=== PATIENT | male | born 1950 | race Caucasian/White ===

== ENCOUNTER 2017-02-25 19:49 | Inpatient (IN) | payer OTHER, BC ==
--- NOTE | 2017-02-25 20:02 | PDOC ---
History of Present Illness - General History Source: Significant Other Exam Limitations: Clinical Condition - History of Present Illness Initial Comments: 02/25/17 20:36 Patient is a 66 year old male with a significant past medical history of Afib, hypotension, Cardiac disease who was brought to the ED by EMS s/p Right sided weakness. Significant other states last known well of the patient was 9:45am this morning. S/O states patient was alert when she left him alone this morning until she returned home around 8pm. Patient was noted to have a left facial droop. Patient also presents weakness in Right upper extremity as well as right lower extremity. As per , patient did not report any complaints. Upon arrival patient was increasing lethargic. However was slowly following commands. Patient presented ED for further management of their emergent condition. Allergies: N/A past surgical history : CABG Social history PCP: None <Arturo Cheney - Last Filed: 02/25/17 23:17> - General History Source: Family <Jatin Schwarz - Last Filed: 03/02/17 19:45> - General Stated Complaint: CHANGE IN MENTAL STATUS Time Seen by Provider: 02/25/17 19:59 NIH Stroke Scale - Last Known Well Date/Time & Onset Date Last Known Well: 02/25/17 Time Last Known Well: 09:45 - Initial Evaluation Level of consciousness: Alert Ask patient the month and their age: Both incorrect Ask patient to open & close eyes; make fist and let go: Obeys one correctly Best gaze (horizontal eye movement): Partial gaze palsy Visual field testing: No visual field loss Facial paresis (Show teeth/raise eyebrows/close eyes tight): Minor paralysis ( flattened nasolabial fold, asymmetry on smiling) Motor Function: Left Arm: Normal Motor Function: Right Arm: No movement Motor Function: Left Leg: Normal (extends leg 30 degrees for 5 seconds without drift) Motor Function: Right Leg: No movement Limb Ataxia: Present in two limbs Sensory(Use pinprick test arms,legs,trunk,face/side to side): Mild to moderate decrease in sensation Best language (Describe picture, name items, read sentences): Severe aphasia Dysarthria (read several words): Near unintelligible or unable to speak Extinction and Inattention: No abnormality - Total Score NIH Stroke Scale Score: 20 <Jatin Schwarz - Last Filed: 03/02/17 19:45> tPA Exclusion checklist 3-4.5h - Time Elapsed Date last known well: 02/25/17 Time last known well: 20:16 Elaspsed time: 4 Day(s) and 23 Hour(s) and 28 Minutes - Thrombolytic Therapy Candidate Is patient eligible for thrombolytic therapy: No - Exclusion Criteria 3-4.5 hr SBP greater than 185 or DBP greater than 110mmHg despite tx: Yes Recent IC/spinal surgery,head trauma or stroke<3mos.: No Hx IC hemorrhage, IC neoplasm, AV malformation or aneurysm: No Active internal bleeding: No Blding diathesis(low plt ct, inc PTT,INR>1.7 or use of NOAC): No Symptoms suggest subarachnoid hemorrhage: No CT demonstrates multilobar infarct(>1/3 cerebral hemiphere): No Arterial puncture at noncompressible site in previous 7 days: No Blood glucose concentration less than 50mg/dL (2.7mmol/L): No - Relative Exclusion Criteria 3-4.5 hr Life expectancy <1 yr or severe co-morbid illness: No : No Patient/family refused: No Rapid improvement: No Stroke severity too mild: Yes Recent acute VT (w/in previous 3 months): No Seizure at onset with postictal residual neuro impairments: No Major surgery or serious trauma w/in previous 14 days: No Recent GI or hemorrhage (w/in previous 21 days): No - Add'l Relative Exclusion 3-4.5 hr Age > 80: No Hx of both diabetes AND prior ischemic stroke: No Taking an oral anticoagulant regardless of INR: No NIHSS >25: No - Ineligibility reason(s) Reasons No tPA given: Outside of window - delayed arrival (12 hours ) <Jatin Schwarz - Last Filed: 03/02/17 19:45> Past History <Arturo Cheney - Last Filed: 02/25/17 23:17> - Past Medical History COPD: Yes HTN: Yes Hypercholesterolemia: Yes - Psycho/Social/Smoking Cessation Hx Anxiety: No Suicidal Ideation: No Smoking Status: No Number of Cigarettes Smoked Daily: 0 <Jatin Schwarz - Last Filed: 03/02/17 19:45> - Past Medical History Allergies/Adverse Reactions: Allergies Allergy/AdvReac Type Severity Reaction Status Date / Time No Known Allergies Allergy Verified 07/02/11 14:09 Home Medications: Ambulatory Orders Allopurinol [Zyloprim -] 100 mg PO DAILY #30 tablet 02/26/17 Aspirin [Aspirin EC] 81 mg PO DAILY #30 tablet. 02/26/17 Bumetanide [Bumex -] 2 mg PO BID #30 tablet 02/26/17 Carvedilol [Coreg -] 12.5 mg PO BID #14 tablet 02/26/17 Digoxin [Lanoxin -] 0.25 mg PO DAILY #30 tablet 02/26/17 Febuxostat [Uloric -] 40 mg PO DAILY #30 tab 02/26/17 Oxycodone HCl/Acetaminophen [Percocet 5-325 mg Tablet] 1 tab PO Q6H PRN #20 tablet MDD 8 tablets 02/26/17 Prednisone [Deltasone -] 5 mg PO DAILY #30 tablet 02/26/17 Sertraline HCl [Zoloft -] 25 mg PO DAILY #30 tablet 02/26/17 Warfarin Na [Coumadin -] 5 mg PO DAILY@1800 #30 tablet 02/26/17 Review of Systems - Review of Systems Able to Perform ROS?: No Comments:: 02/25/17 20:36 ROS cannot be obtained due to clinical condition. All Other Systems: Reviewed and Negative <Arturo Cheney - Last Filed: 02/25/17 23:17> *Physical Exam - Physical Exam Comments: 02/25/17 20:36 GENERAL: Alert awake. Following commands slowly. well-nourished. HEENT: Normocephalic, atraumatic. PERRL, EOM intact. CARDIOVASCULAR: +Tachycardic. + S1 and S2. Regular rate and rhythm. PULMONARY: Mild Respiratory distress. + Decreased breathing sounds bilaterally with decreased work of breathing. Clear to auscultation bilaterally. ABDOMEN: No rebound. No guard. Soft, non-distended, non-tender. EXTREMITIES: No clubbing. No cyanosis. No edema. +Left upper extremity ? strength. +Left lower extremity ? strength Normal ROM in all four extremities. No gross deformities. SKIN: Warm, dry. No rash NEUROLOGICAL: +Right upper extremity Hemiplegia. +Right lower extremity hemiplegia. +Alert. +awake. + not answering questions. No focal neurological deficits. <Arturo Cheney - Last Filed: 02/25/17 23:17> Procedures - Intubation Intubation Method: nasotracheal Blade used: Arteaga Tube Size (Fr): 7.5 Medications: Etomidate, Succinylcholine Tube position confirmed by: Direct visualization, CO2 detector, Chest x-ray, Breath sounds Breath Sounds after Intubation: equal Intubation Complications: no complications Post Intubation Xray: Yes (good position) <Jatin Schwarz - Last Filed: 03/02/17 19:45> ED Treatment Course - LABORATORY CBC & Chemistry Diagram: 02/25/17 20:10 02/25/17 20:10 <NoniArturo - Last Filed: 02/25/17 23:17> - LABORATORY CBC & Chemistry Diagram: 03/02/17 05:00 03/02/17 05:00 <Jatin Schwarz - Last Filed: 03/02/17 19:45> Medical Decision Making - Medical Decision Making 02/25/17 20:23 Called [facility] transfer center (#[id number]) @20:20pm. Called Dr. Moe @23:13pm. Awaiting callback. Dr. Moe called back @23:17pm. Case discussed. <NoniArturo - Last Filed: 02/25/17 23:17> - Medical Decision Making 02/25/17 20:32 Dr. Schwarz: The scribe's documentation has been prepared under my direction and personally reviewed by me in its entirery. I confirm that the note above accurately reflects all work, treatment, procedures, and medical decision making performed by me. Pt still not able to move right arm and right leg. Pt maintaining his airway. No stridor sounds. 02/25/17 21:47 Pt required Intubation for respiratory distress and airway protection. Pt accepted to [facility] for Neurology evaluation by DR. Mcclain at ER at [facility]. Dr. Smith accepted case. 02/25/17 22:14 Pt BP is 44s systolic Dopamine drip started. 02/25/17 22:53 Pt BP is still very low. Neurology at [facility] is no longer accepting the case as it may not be safe for transferring 02/25/17 23:28 Spoke to Neurology, Dr. Moe. will see pt in am. Pt will be admitted to ICU for further evaluation and treatment. <Jatin Schwarz - Last Filed: 03/02/17 19:45> *DC/Admit/Observation/Transfer - Attestations Scribe Attestion: 02/25/17 20:37 Documentation prepared by Arturo Cheney, acting as medical staff manager for Jatin Schwarz MD. <Arturo Cheney - Last Filed: 02/25/17 23:17> - Discharge Dispostion Admit: Yes - Transfer to Acute Care Facility Receiving Facility: [facility]. (Dr. Smith accepted) <Jatin Schwarz - Last Filed: 03/02/17 19:45> Diagnosis at time of Disposition: CHF (congestive heart failure) CVA (cerebral vascular accident) Qualifiers: CVA mechanism: occlusion Precerebral and cerebral artery: middle cerebral artery Laterality of affected vessel: left Qualified Code(s): I63.512 - Cerebral infarction due to unspecified occlusion or stenosis of left middle cerebral artery - Discharge Dispostion Condition at time of disposition: Guarded - Prescriptions
[2017-02-25] MEDS ORDERED: SODIUM CHLORIDE 1,000 ML IV SCH (20:15)
[2017-02-25 20:27] LABS: MCH 30.1 pg (25.7-33.7); MCHC 32.1 g/dl (32.0-35.9); MEAN CELL VOLUME 93.6 fl (80-96); MEAN PLT VOLUME 8.6 fl (7.5-11.1); PLATELET COUNT 238 K/MM3 (134-434); RDW 18.4 % (11.9-15.9); WHITE BLOOD COUNT 11.8 K/mm3 (4.0-10.0)
[2017-02-25] MEDS ORDERED: RAPID SEQUENCE INTUBATION KIT NR ONE (20:40)
[2017-02-25] MEDS ORDERED: SUCCINYLCHOLINE CHLORIDE 200 MG/10 ML VIAL IVPUSH ONE ×2 (20:40→21:30)
[2017-02-25] MEDS ORDERED: ETOMIDATE 20 MG/10 ML AMPUL IVPUSH ONE (20:41)
[2017-02-25 20:46] LABS: INR 1.71 (0.82-1.09)
[2017-02-25 21:08] LABS: ANION GAP 10 (8-16); BILIRUBIN,TOTAL 1.1 mg/dL (0.2-1.0); CALCIUM 8.7 mg/dL (8.5-10.1); CHOLESTEROL 183 mg/dL (50-200); CO2 28 mmol/L (21-32); CREATININE 1.5 mg/dL (0.7-1.3); GLUCOSE,RANDOM 155 mg/dL (74-106); SGOT/AST 33 U/L (15-37); SGPT/ALT 36 U/L (12-78); TOT PROT 8.2 g/dl (6.4-8.2)
[2017-02-25] MEDS ORDERED: SUCCINYLCHOLINE CHLORIDE 200 MG/10 ML VIAL ONE (21:08)
[2017-02-25 21:09] LABS: ALK PHOS 155 U/L (45-117); CPK 95 IU/L (39-308); TROPONIN I 0.26 ng/ml (0.00-0.05)
[2017-02-25 21:15] LABS: URINE APPEARANCE CLEAR; URINE BILIRUBIN NEGATIVE (NEGATIVE); URINE BLOOD 1+ (NEGATIVE); URINE COLOR YELLOW; URINE GLUCOSE (UA) NEGATIVE (NEGATIVE); URINE KETONE NEGATIVE (NEGATIVE); URINE LEUK ESTERASE NEGATIVE (NEGATIVE); URINE NITRITE NEGATIVE (NEGATIVE); URINE UROBILINOGEN NEGATIVE mg/dL (0.2-1.0)
[2017-02-25 21:19] LABS: URINE PROTEIN 3+ (NEGATIVE)
[2017-02-25 21:21] LABS: URINE BACTERIA RARE /hpf (NONE SEEN); URINE RBC 2 /hpf (0-3); URINE WBC 1 /hpf (3-5)
[2017-02-25] MEDS ORDERED: AMIODARONE HCL 150 MG/3 ML VIAL IVPUSH ONE (21:39)
[2017-02-25] MEDS ORDERED: AMIODARONE HCL 150 MG/3 ML VIAL ONE (21:46)
[2017-02-25] MEDS ORDERED: LORazepam 2 MG/ML SDV VIAL ONE (21:57)
[2017-02-25] MEDS ORDERED: DOPAMINE 400 MG/D5W - 250 ML IVPB SCH ×2 (22:15)
[2017-02-25 22:41] LABS: TOTAL CELLS COUNTED 100
[2017-02-25] MEDS ORDERED: NOREPINEPHRINE BITARTRATE 4 MG/4 ML ML IV ONE (23:38)
[2017-02-25] MEDS ORDERED: NOREPINEPHRINE BITARTRATE 4,000 MCG in DEXTROSE 5%-WATER - 496 ML IV SCH (23:45)
[2017-02-25] MEDS ORDERED: MIDAZOLAM 100 MG in SODIUM CHLORIDE 100 ML IVPB SCH (23:45)
[2017-02-26] MEDS ORDERED: VASOPRESSIN 20 UNITS/ML VIAL IV ONE (00:05)
[2017-02-26] MEDS ORDERED: NOREPINEPHRINE BITARTRATE 4,000 MCG in DEXTROSE 5%-WATER - 496 ML IV SCH (00:11)
[2017-02-26] MEDS ORDERED: VASOPRESSIN 50 UNITS in SODIUM CHLORIDE 97.5 ML IVPB SCH (00:15)
--- NOTE | 2017-02-26 00:20 | HP ---
CHIEF COMPLAINT: AMS PCP: None HISTORY OF PRESENT ILLNESS: Pt is a 66yo M with hx of Afib, HTN, DM2 who presented to the ER w/ AMS. The states that she had left the patient at around 10am, left patient alone, returned in the afternoon. She stated the patient was minimally responsive, which prompted her to call EMS. On arrival, patient was noted to have R sided hemiparesis and L sided facial droop. In the ER the patient was noted to have increased lethargy, slowly following commands. Stat Head CT showed very non- hemorragic large L sided cerebral infarct. The patient displayed signs of respiratory distress, and was subsequently intubated for airway protection. Post intubation, the patient's BP steadily declined from 106/87 to 39/14. He was started on peripheral dopamine drip. [facility] was notified, and accepted the patient for transfer, however due to the low BP the patient was unable to be transported. Central access was obtained in the ER, and patient was switched to Levophed and Vasopressin, with improvement in blood pressure. ER course was notable for: (1) Amniodarone 300mg x1 (2) Succinylcholine 80mg x1 --> Intubation (3) DA drip --> central line access --> Levophed + Vasopressin drip Recent Travel: Denies PAST MEDICAL HISTORY: From EMR: COPD, Diabetes, High Cholesterol, Hypertension PAST SURGICAL HISTORY: CABG Social History: Smoking: Unable to be obtained Alcohol: Unable to be obtained Drugs: Unable to be obtained Family History: Unable to be obtained Allergies No Known Allergies Allergy (Verified 07/02/11 14:09) REVIEW OF SYSTEMS CONSTITUTIONAL: Absent: fever, chills, diaphoresis, generalized weakness, malaise, loss of appetite, weight change HEENT: Absent: rhinorrhea, nasal congestion, throat pain, throat swelling, difficulty swallowing, mouth swelling, ear pain, eye pain, visual changes CARDIOVASCULAR: Absent: chest pain, syncope, palpitations, irregular heart rate, lightheadedness , peripheral edema RESPIRATORY: Absent: cough, shortness of breath, dyspnea with exertion, orthopnea, wheezing, stridor, hemoptysis GASTROINTESTINAL: Absent: abdominal pain, abdominal distension, nausea, vomiting, diarrhea, constipation, melena, hematochezia GENITOURINARY: Absent: dysuria, frequency, urgency, hesitancy, hematuria, flank pain, genital pain MUSCULOSKELETAL: Absent: myalgia, arthralgia, joint swelling, back pain, neck pain SKIN: Absent: rash, itching, pallor HEMATOLOGIC/IMMUNOLOGIC: Absent: easy bleeding, easy bruising, lymphadenopathy, frequent infections ENDOCRINE: Absent: unexplained weight gain, unexplained weight loss, heat intolerance, cold intolerance NEUROLOGIC: Absent: headache, focal weakness or paresthesias, dizziness, unsteady gait, seizure, mental status changes, bladder or bowel incontinence PSYCHIATRIC: Absent: anxiety, depression, suicidal or homicidal ideation, hallucinations. PHYSICAL EXAMINATION Last Vital Signs Temp Pulse Resp BP Pulse Ox 100.1 F H 92 H 14 151/117 100 02/25/17 19:50 02/26/17 00:38 02/26/17 00:37 02/26/17 00:38 02/25/17 20:31 GEN: Pt is awake, intubated, nonresponsive. Breathing heavily against ETT. HEENT: Pupils are dilated, nonreactive to light. Swollen, protubrant eyes. Central cyanosis. L sided facial droop CV: S1, S2, RRR LUNG: Decreased breath sounds ABD: Soft, nondistended, normoactive BS MSK: Cool extremities with mottling in abdomen + extremities NEURO: Unable to assess Laboratory Results - last 24 hr 02/25/17 02/25/17 02/25/17 20:10 20:10 20:10 WBC 11.8 H RBC 4.96 D Hgb 14.9 D Hct 46.4 D MCV 93.6 MCH 30.1 MCHC 32.1 RDW 18.4 H D Plt Count 238 MPV 8.6 Total Counted 100 Neutrophils % Y Neutrophils % (Manual) 91 H* Lymphocytes % Y Lymphocytes % (Manual) 8 Monocytes % (Manual) 1 L INR 1.71 H D Sodium 141 Potassium 4.2 Chloride 103 Carbon Dioxide 28 Anion Gap 10 BUN 44 H D Creatinine 1.5 H D Creat Clearance w eGFR 46.68 Random Glucose 155 H D Calcium 8.7 Total Bilirubin 1.1 H D AST 33 D ALT 36 D Alkaline Phosphatase 155 H D Creatine Kinase 95 Troponin I 0.26 H Total Protein 8.2 Albumin 3.0 L Triglycerides 150 Cholesterol 183 Total LDL Cholesterol 109 H HDL Cholesterol 48 Urine Color Urine Appearance Urine pH Ur Specific [place] Urine Protein Urine Glucose (UA) Urine Ketones Urine Blood Urine Nitrite Urine Bilirubin Urine Urobilinogen Ur Leukocyte Esterase Urine RBC Urine WBC Ur Epithelial Cells Urine Bacteria Blood Type Antibody Screen 02/25/17 02/25/17 20:10 21:01 WBC RBC Hgb Hct MCV MCH MCHC RDW Plt Count MPV Total Counted Neutrophils % Neutrophils % (Manual) Lymphocytes % Lymphocytes % (Manual) Monocytes % (Manual) INR Sodium Potassium Chloride Carbon Dioxide Anion Gap BUN Creatinine Creat Clearance w eGFR Random Glucose Calcium Total Bilirubin AST ALT Alkaline Phosphatase Creatine Kinase Troponin I Total Protein Albumin Triglycerides Cholesterol Total LDL Cholesterol HDL Cholesterol Urine Color Yellow Urine Appearance Clear Urine pH 6.0 Ur Specific [place] 1.025 Urine Protein 3+ H Urine Glucose (UA) Negative Urine Ketones Negative Urine Blood 1+ H Urine Nitrite Negative Urine Bilirubin Negative Urine Urobilinogen Negative Ur Leukocyte Esterase Negative Urine RBC 2 Urine WBC 1 Ur Epithelial Cells Rare Urine Bacteria Rare Blood Type O POSITIVE Antibody Screen Negative Active Medications Generic Name Dose Route Start Last Admin Trade Name Freq PRN Reason Stop Dose Admin Chlorhexidine Gluconate 1 applic 02/26/17 22:00 Hibiclens For Decolonization - TP HS WES Heparin Sodium (Porcine) 5,000 unit 02/26/17 06:00 Heparin - SQ TID WES Sodium Chloride 1,000 mls @ 42 mls/hr 02/25/17 20:15 02/25/17 20:30 Normal Saline - IV 42 mls/hr ASDIR WES Administration Norepinephrine Bitartrate 4, 500 mls @ 37.5 mls/hr 02/25/17 23:45 02/25/17 23: 50 000 mcg/ Dextrose IV 37.5 mls/hr TITR WES Administration Protocol 5 MCG/MIN Midazolam HCl 100 mg/ Sodium 100 mls @ 1 mls/hr 02/25/17 23:45 Chloride IVPB 02/26/17 23:44 TITR WES Protocol 1 MG/HR Dopamine HCl/Dextrose 250 mls @ 18.711 mls/hr 02/25/17 22:15 Dopamine 400 Mg/D5w - IVPB TITR WES Protocol 5 MCG/KG/MIN Vasopressin 50 units/ Sodium 100 mls @ 4 mls/hr 02/26/17 00:15 Chloride IVPB ASDIR WES Protocol 2 UNITS/HR Mupirocin 1 applic 02/26/17 10:00 Bactroban Ointment (For Decolonization) - NS 03/03/17 09:59 BID WES Imaging: CT Head Noncon - Very large acute nonhemorrhagic L cerebral infarct in the distribution of MCA + AYAAN ASSESSMENT/PLAN: Pt is a 66yo F with PMHx of Afib who presented with focal neurological deficits , found to have a very large Left sided MCA/AYAAN stroke and heart failure, now hypotensive on pressors. He was unable to be transfered to tertiary care due to low BP. Currently in ICU for HLOC. # Large Left Sided CVA - Likely from acute embolus - Increased density seen w/in MCA c/w intraluminal clot, likely embolic - Out of tPA window - Started Keppra for seizure prophylaxis - Intubated on propofol drip - Consult Neurology Dr. Moe - ICU admission # Shock - cardiogenic vs septic vs neurogenic - RSC central line inserted in ED - Started Levophed + Vasopressin drip titration - Pt takes home steroids, Solu-cortef 100mg IVP Q8H given for stress dosing - CXR shows significant cardiomegaly, B/L congestion, elevated troponin (0.26 ) - Latest CXR shows possible consolidative changes in RLL, pt febrile, Leukocytosis - F/u Echo - F/u AM CXR - IV Unasyn 3g Q6H - Hold Lasix - When BP stabilizes, start diuresis # Lactic Acidosis - likely from hypoperfusion due to shock - Start IVNS fluid bolus x1 - Trend LA on fluids # DEBRA - likely prerenal from hypoperfusion dye to shock - Continue IVF - Trend w/ BMP in AM # Prolonged QTc - >480ms - EKG ordered for AM - Follow serial EKGs - Avoid QTc prolonging agents # Hx of Afib - Rate controlled - F/u Echo if BP stabilizes to evaluate for clot # Hx of DM2 - BGM Q2 # FEN - Fluids: IVNS bolus x1 - Electrolytes: No gross abnormalities - Nutrition: NPO for now # Prophylaxis - DVT: Heparin SQ TID - GI: IV Pepcid - Deconditioning: PT on hold for now # Dispo - Admit to ICU - Family is aware of guarded prognosis, still request Full Code status, states that patient had a difficult immediate recovery after his CABG but later improved to baseline. Case discussed with Dr. Michael and Dr. Arleth Contreras MD - PGY1 Internal Medicine Visit type - Emergency Visit Emergency Visit: Yes ED Registration Date: 02/25/17 Care time: The patient presented to the Emergency Department on the above date and was hospitalized for further evaluation of their emergent condition. - New Patient This patient is new to me today: No - Critical Care Critical Care patient: Yes Total Critical Care Time (in minutes): 120 Critical Care Statement: The care of this patient involved high complexity decision making to prevent further life threatening deterioration of the patient 's condition and/or to evaluate & treat vital organ system(s) failure or risk of failure.
--- NOTE | 2017-02-26 01:04 | PN ---
Teaching Attending Note Name of Resident: Kathryn Contreras ATTENDING PHYSICIAN STATEMENT I saw and evaluated the patient. I reviewed the resident's note and discussed the case with the resident. I agree with the resident's findings and plan as documented. SUBJECTIVE: 66 year old male that was last seen in his normal state of health 10 am , was found by his family in the afternoon with l sided facial droop and right sided hemiparesis. EMS was called and patient was transferred to the ED where CT brain showed large infarct in distribution of L MCA and patient was intubated for airway protection . Transfer was initiated to [facility] however upon arrival of transport team , his blood pressure dropped to 44/ non palpable. Transfer was cancelled du to the fact that patient was hemodynamically unstable. PMH AFIB HTN DM COPD HLD past surgical history : CABG Social history lives with family no toxic habits PCP: None OBJECTIVE: Vital Signs Temperature 100.1 F H 02/25/17 19:50 Pulse Rate 92 H 02/26/17 00:38 Respiratory Rate 14 02/26/17 00:37 Blood Pressure 40/14 02/26/17 00:38 O2 Sat by Pulse Oximetry (%) 100 02/25/17 20:31 EN: Pt is awake, intubated, nonresponsive. Breathing heavily against ETT HEENT: Pupils are dilated, nonreactive to light. Swollen, protubrant eyes. Central cyanosis. CV: S1, S2, RRR LUNG: Decreased breath sounds ABD: Soft, nondistended, normoactive BS MSK: Cool extremities with mottling NEURO: Unable to assess CBC, BMP 02/25/17 20:10 02/25/17 20:10 CXR - cardiomegaly with PVC ASSESSMENT AND PLAN: 1. Acute L MCA ischemic stroke 2. Acute respiratory failure - secondary to pulmonary edema 3. Acute CHF 4. Severe sepsis and hypotension - no sourse known at this time 5. ARF PLAN : - neuro checks - levophed / vasopressin / versed - broad spectrum anibiotics - blood culture - will diurese when BP allows - ECHO - monitor in ICU - IVF - central line placed
[2017-02-26] MEDS ORDERED: PROPOFOL 100 ML ONE (01:38)
--- NOTE | 2017-02-26 01:48 | PROC ---
Central Line Insertion Indication: Sepsis, Vasopressor Risks and Benefits Explained: Yes Consent on Chart: Yes Central Line: Triple Lumen Catheter Anesthesia: 1% Lidocaine Sterile Technique: Yes Ultrasound Guided Assistance: No Position: Right Subclavian Post Insertion: Yes: Bilateral Breath Sounds, Bilateral Chest Expansion, Chest X-Ray Ordered Sterile Dressing Applied: Yes Remarks: tolerated procedure w/o complication
[2017-02-26 02:07] LABS: ALLENS TEST POSITIVE; ART PUNCT SITE RIGHT RADIAL; ARTERIAL BLD GAS O2 SATURATION 86.1 % (90-98.9); ARTERIAL BLOOD GAS BASE EXCESS -7.6 meq/l (-2-2); ARTERIAL BLOOD GAS HCO3 18.2 meq/L (22-26); ARTERIAL BLOOD GAS PO2 62.2 mmHg (80-100); LPM/O2% 100%; MECH. VENT. Y; ON ANTICOAG? NT; PT. ON O2? YES; TYPE OF O2 VER; VENT RATE 14; VT/PRESS 500
[2017-02-26 02:08] LABS: ARTERIAL BLOOD GAS pH 7.29 (7.35-7.45)
[2017-02-26] MEDS ORDERED: TRIPLE LUMEN FLUSH 4 ML ML IVPUSH PRN ×2 (02:08→21:23)
--- NOTE | 2017-02-26 02:17 | CONSULT ---
Consult Consult Specialty:: Pulm/CCM Reason for Consultation:: CVA, AMS, resp failure, shock - History of Present Illness Chief Complaint: AMS History of Present Illness: This is a 66yo man afib, HTN, DM who presented to ED with new onset AMS. Per report last seen normal 02/25/2017 10am. Family found patient with rightside weakness and left facial droop and EMS was activated. In the ED patient was awake but became obtunded requiring intubation. NCHCT showed very large L sided cerebral infarct. Not candidate for TPA given unknown down time. Patient became hemodynamically unstable with BP 40/20s. Dopamine started. [facility] was consulted for transfer but given hypotension patient was declined. CCM was consulted and RSCV TLC was placed and NE and vaso drips with improved BP. Patient with low grade fever and WBC: 11.8. Patient transferred to ICU. CXR showed progressive RML/RLL infiltrate c/f aspiration. Unasyn was started. Patient placed on propofol drip for sedation/vent synchrony and to allow for neuro checks. - History Source History Provided By: Family Member, Medical Record Limitations to Obtaining History: Intubated - Past Medical History Cardio/Vascular: Yes: AFIB, CAD Pulmonary: Yes: COPD - Past Surgical History Past Surgical History: Yes: AICD, CABG (2010), Laminectomy, Valve Replacement ( MVR: porcine valve 2010) - Alcohol/Substance Use Hx Alcohol Use: No - Smoking History Smoking history: Unknown if ever smoked Have you smoked in the past 12 months: Yes Aproximately how many cigarettes per day: 0 If you are a former smoker, when did you quit?: 2010 - Social History Usual Living Arrangement: With Spouse Home Medications - Allergies Allergies/Adverse Reactions: Allergies Allergy/AdvReac Type Severity Reaction Status Date / Time No Known Allergies Allergy Verified 07/02/11 14:09 Family Disease History - Family Disease History Family History: Unremarkable Review of Systems Unable to obtain ROS, reason: intubated Physical Exam Vital Signs: Vital Signs Temperature 100.1 F H 02/25/17 19:50 Pulse Rate 82 02/26/17 01:23 Respiratory Rate 20 02/26/17 02:12 Blood Pressure 110/95 02/26/17 01:23 O2 Sat by Pulse Oximetry (%) 100 02/25/17 20:31 Current Medications Chlorhexidine Gluconate (Hibiclens For Decolonization -) 1 applic TP HS WES Heparin Sodium (Porcine) (Heparin -) 5,000 unit SQ TID WES Hydrocortisone Sodium Succinate (Solu-Cortef -) 100 mg IVPUSH Q8H WES IV Flush (Triple Lumen Flush) 4 ml IVPUSH PRN PRN PRN Reason: Protocol Sodium Chloride (Normal Saline -) 1,000 mls @ 42 mls/hr IV ASDIR WES Last Admin: 02/25/17 20:30 Dose: 42 mls/hr Vasopressin 50 units/ Sodium (Chloride) 100 mls @ 4.8 mls/hr IVPB ASDIR WES PRN Reason: 2.4 UNITS/HR Last Admin: 02/26/17 02:24 Dose: 4.8 mls/hr Ampicillin Sodium/Sulbactam (Sodium 3 gm/ Sodium Chloride) 100 mls @ 200 mls/ hr IVPB Q6H-IV WES Norepinephrine Bitartrate 4, (000 mcg/ Dextrose) 500 mls @ 37.5 mls/hr IV TITR WES; 5 MCG/MIN PRN Reason: Protocol Last Titration: 02/26/17 02:25 Dose: 25 mcg/min Propofol (Diprivan -) 100 mls @ 2.994 mls/hr IVPB TITR WES; 5 MCG/KG/MIN PRN Reason: Protocol Last Admin: 02/26/17 02:24 Dose: 2.994 mls/hr Famotidine/Sodium Chloride (Pepcid 20 Mg Premixed Ivpb -) 50 mls @ 100 mls/hr IVPB BID [facility] Mupirocin (Bactroban Ointment (For Decolonization) -) 1 applic NS BID [facility] Stop: 03/03/17 09:59 Pneumococcal 13-Valent Conj Vacc (Prevnar 13 Syringe -) 0.5 ml IM .ONCE ONE Stop: 02/26/17 02:50 Constitutional: Yes: Moderate Distress Eyes: Yes: Other (R 4mm, L 2mm) Cardiovascular: Yes: Pulse Irregular, S1, S2 Respiratory: Yes: Diminished, Intubated, Mechanically Ventilated Gastrointestinal: Yes: Normal Bowel Sounds, Soft Edema: No Edema: LLE: Trace, RLE: Trace Neurological: Yes: Facial Droop (left) Labs: CBCD WBC 11.8 K/mm3 (4.0-10.0) H 02/25/17 20:10 RBC 4.96 M/mm3 (4.00-5.60) D 02/25/17 20:10 Hgb 14.9 GM/dL (11.7-16.9) D 02/25/17 20:10 Hct 46.4 % (35.4-49) D 02/25/17 20:10 MCV 93.6 fl (80-96) 02/25/17 20:10 MCHC 32.1 g/dl (32.0-35.9) 02/25/17 20:10 RDW 18.4 % (11.9-15.9) H D 02/25/17 20:10 Plt Count 238 K/MM3 (134-434) 02/25/17 20:10 MPV 8.6 fl (7.5-11.1) 02/25/17 20:10 CMP Sodium 141 mmol/L (136-145) 02/25/17 20:10 Potassium 4.2 mmol/L (3.5-5.1) 02/25/17 20:10 Chloride 103 mmol/L (98-107) 02/25/17 20:10 Carbon Dioxide 28 mmol/L (21-32) 02/25/17 20:10 Anion Gap 10 (8-16) 02/25/17 20:10 BUN 44 mg/dL (7-18) H D 02/25/17 20:10 Creatinine 1.5 mg/dL (0.7-1.3) H D 02/25/17 20:10 Creat Clearance w eGFR 46.68 (>60) 02/25/17 20:10 Calcium 8.7 mg/dL (8.5-10.1) 02/25/17 20:10 Total Bilirubin 1.1 mg/dL (0.2-1.0) H D 02/25/17 20:10 AST 33 U/L (15-37) D 02/25/17 20:10 ALT 36 U/L (12-78) D 02/25/17 20:10 Alkaline Phosphatase 155 U/L (45-117) H D 02/25/17 20:10 Total Protein 8.2 g/dl (6.4-8.2) 02/25/17 20:10 Albumin 3.0 g/dl (3.4-5.0) L 02/25/17 20:10 ABG Results ABG pH 7.29 (7.35-7.45) L 02/26/17 02:00 ABG pCO2 at Pt Temp 39.4 mmHg (35-45) 02/26/17 02:00 ABG pO2 at Pt Temp 62.2 mmHg (80-100) L 02/26/17 02:00 ABG HCO3 18.2 meq/L (22-26) L 02/26/17 02:00 ABG O2 Sat (Measured) 86.1 % (90-98.9) L 02/26/17 02:00 ABG O2 Content 17.4 % vol (15-22) 02/26/17 02:00 ABG Base Excess -7.6 meq/l (-2-2) L 02/26/17 02:00 Imaging - Results Chest X-ray: Report Reviewed, Image Reviewed (TLCa nd ETT in ok position. evolving RML/RLL infiltrate) Cat Scan: Report Reviewed, Image Reviewed (large L sided cerebral infarct) EKG: Report Reviewed, Image Reviewed (afib, HR 68) Problem List - Problems (1) CVA (cerebral vascular accident) Code(s): I63.9 - CEREBRAL INFARCTION, UNSPECIFIED Qualifiers: CVA mechanism: occlusion Precerebral and cerebral artery: middle cerebral artery Laterality of affected vessel: left Qualified Code(s): I63.512 - Cerebral infarction due to unspecified occlusion or stenosis of left middle cerebral artery (2) Respiratory failure Code(s): J96.90 - RESPIRATORY FAILURE, UNSP, UNSP W HYPOXIA OR HYPERCAPNIA (3) Shock circulatory Code(s): R57.9 - SHOCK, UNSPECIFIED (4) A-fib Code(s): I48.91 - UNSPECIFIED ATRIAL FIBRILLATION (5) CAD (coronary artery disease) Code(s): I25.10 - ATHSCL HEART DISEASE OF [place] CORONARY ARTERY W/O ANG PCTRS (6) Diabetes Code(s): E11.9 - TYPE 2 DIABETES MELLITUS WITHOUT COMPLICATIONS Assessment/Plan a/p: 66 yo man with large Left sided MCA/AYAAN stroke likely c/b aspiration pneumonia and septic shock (warm to touch) -Neurology consulted -keppra given seizure risk -sedation for vent synchrony, will use propofol to facilitate quick on and off for neuro checks -mechanical ventilation -HOB >30deg, oral care -O2 for sat >90% -lujan culture: blood, sputum and urine -ABX: unasyn for aspiration pneumonia -Central access -NE gtt titration for MAP >65 -Cont vasopressin repletion at 2.4units/hr -stress steroids given current prednisone use -trend lactate -hold coumadin, start heparin once ok by neurology -glucose control: goal 100-180 -PPI for GI prophylaxis -SCD for DVT prophylaxis Boerem ACNP Pulm/CCM CCT: 120m
[2017-02-26] MEDS: PROPOFOL 100 ML IVPB SCH ×4 (02:24→21:42)
[2017-02-26] MEDS ORDERED: NOREPINEPHRINE BITARTRATE 4 MG/4 ML ML IV ONE ×5 (02:29→22:36)
[2017-02-26] MEDS ORDERED: SODIUM CHLORIDE 1,000 ML IV STA (02:55)
[2017-02-26] MEDS ORDERED: HYDROCORTISONE SOD SUCCINATE 100 MG/2 ML VIAL IVPUSH SCH (03:00)
[2017-02-26] MEDS: AMPICILLIN NA/SULBACTAM NA 3 GM in SODIUM CHLORIDE 100 ML IVPB SCH ×3 (03:07→14:55)
[2017-02-26] MEDS: levETIRAcetam 500 MG/5 ML INJECTION VIAL IVPB SCH ×3 (03:13→22:25)
[2017-02-26] MEDS: NOREPINEPHRINE BITARTRATE 8,000 MCG in DEXTROSE 5%-WATER - 496 ML IV SCH ×4 (03:56→21:42)
[2017-02-26 05:52] LABS: BASOPHIL 0.3 % (0-2.0); MCH 30.6 pg (25.7-33.7); MCHC 32.1 g/dl (32.0-35.9); MEAN CELL VOLUME 95.2 fl (80-96); MEAN PLT VOLUME 8.8 fl (7.5-11.1); NEUTROPHILS 86.1 % (42.8-82.8); PLATELET COUNT 215 K/MM3 (134-434); RDW 18.8 % (11.9-15.9); WHITE BLOOD COUNT 16.3 K/mm3 (4.0-10.0)
[2017-02-26] MEDS ORDERED: HEPARIN NA (PORCINE) 5,000 UNITS/ML 1ML VIAL SQ SCH (06:00)
[2017-02-26 06:22] LABS: ALBUMIN 2.4 g/dl (3.4-5.0); ANION GAP 14 (8-16); CO2 22 mmol/L (21-32); GLUCOSE,RANDOM 205 mg/dL (74-106)
[2017-02-26 06:26] LABS: ALK PHOS 122 U/L (45-117); BILIRUBIN,TOTAL 1.3 mg/dL (0.2-1.0); CALCIUM 7.3 mg/dL (8.5-10.1); CREATININE 2.1 mg/dL (0.7-1.3); SGOT/AST 126 U/L (15-37); SGPT/ALT 85 U/L (12-78); TOT PROT 6.1 g/dl (6.4-8.2)
[2017-02-26 07:35] LABS: ART PUNCT SITE LEFT BRACHIAL; ARTERIAL BLD GAS O2 SATURATION 99.7 % (90-98.9); ARTERIAL BLOOD GAS BASE EXCESS -6.5 meq/l (-2-2); ARTERIAL BLOOD GAS HCO3 17.6 meq/L (22-26); ARTERIAL BLOOD GAS pH 7.35 (7.35-7.45); LPM/O2% 100; PT. ON O2? YES; TYPE OF O2 VENT
[2017-02-26 07:36] LABS: MECH. VENT. YES; VENT RATE 30; VT/PRESS 400
--- NOTE | 2017-02-26 08:58 | EKG ---
Test Reason : Blood Pressure : / mmHG Vent. Rate : 105 BPM Atrial Rate : 110 BPM P-R Int : 000 ms QRS Dur : 150 ms QT Int : 408 ms P-R-T Axes : 000 213 037 degrees QTc Int : 539 ms UNDETERMINED RHYTHM : Probably atrial fibrillation RIGHT BUNDLE BRANCH BLOCK ABNORMAL ECG Confirmed by OMAR MCNALLY MD ([id number]) on 02/26/2017 8:57:31 AM Referred By: Confirmed By:OMAR MCNALLY MD
[2017-02-26] MEDS ORDERED: PNEUMOC 13-VAL CONJ-DIP CRM/PF 0.5 ML DISP.SYRIN IM ONE (09:00)
[2017-02-26] MEDS ORDERED: HEPARIN NA (PORCINE) 5,000 UNITS/ML 1ML VIAL IVPUSH PRN ×6 (09:06→21:23)
[2017-02-26] MEDS ORDERED: HEPARIN - 25,000 UNIT in SODIUM CHLORIDE 495 ML IV SCH ×2 (09:30→21:23)
[2017-02-26] MEDS: HYDROCORTISONE SOD SUCCINATE 100 MG/2 ML VIAL IVPUSH SCH ×2 (09:53→17:17)
[2017-02-26] MEDS ORDERED: levETIRAcetam 500 MG/5 ML ORAL SOLUTION (UNIT-DOSE CUPS) PO SCH (10:00)
[2017-02-26] MEDS ORDERED: FAMOTIDINE 20 MG/50 ML IVPB 50 ML IVPB SCH (10:00)
[2017-02-26] MEDS ORDERED: MUPIROCIN 2% TOPICAL OINTMENT FOR DECOLONIZATION NS SCH (10:00)
[2017-02-26] MEDS ORDERED: PT OWN MED DRAWER 7, Y5N ONE (10:34)
[2017-02-26] MEDS ORDERED: INSULIN SLIDING SCALE (NOVOLOG) 1 VIAL SQ SCH ×2 (11:00→15:48)
--- NOTE | 2017-02-26 11:55 | PN ---
Teaching Attending Note Name of Resident: Mario Abdi ATTENDING PHYSICIAN STATEMENT I saw and evaluated the patient. I reviewed the resident's note and discussed the case with the resident. I agree with the resident's findings and plan as documented. SUBJECTIVE: Patient seen and examined in the ICU. Intubated and sedated. Significant pressor support (30 meq NE / 2.4 units of Vaso). AC mode of vent. ECHO : severe LV dysfunction. Intake & Output 02/23/17 02/24/17 02/25/17 02/26/17 23:59 23:59 23:59 23:59 Intake Total 2768 Output Total 250 Balance 2518 Weight 220 lb 179 lb 3 oz Last Vital Signs Temp Pulse Resp BP Pulse Ox 98.5 F 71 30 H 107/90 100 02/26/17 10:00 02/26/17 10:00 02/26/17 11:09 02/26/17 10:00 02/26/17 10:04 Active Medications Chlorhexidine Gluconate (Hibiclens For Decolonization -) 1 applic TP HS WES Heparin Sodium (Porcine) (Heparin -) 1,000 unit IVPUSH PRN PRN PRN Reason: Heparin Heparin Sodium (Porcine) (Heparin -) 5,000 unit IVPUSH PRN PRN PRN Reason: Heparin Hydrocortisone Sodium Succinate (Solu-Cortef -) 100 mg IVPUSH Q8H-IV WES Last Admin: 02/26/17 09:53 Dose: 100 mg IV Flush (Triple Lumen Flush) 4 ml IVPUSH PRN PRN PRN Reason: Protocol Vasopressin 50 units/ Sodium (Chloride) 100 mls @ 4.8 mls/hr IVPB ASDIR WES PRN Reason: 2.4 UNITS/HR Last Admin: 02/26/17 02:24 Dose: 4.8 mls/hr Ampicillin Sodium/Sulbactam (Sodium 3 gm/ Sodium Chloride) 100 mls @ 200 mls/ hr IVPB Q6H-IV WES Last Admin: 02/26/17 10:45 Dose: 200 mls/hr Propofol (Diprivan -) 100 mls @ 2.994 mls/hr IVPB TITR WES; 5 MCG/KG/MIN PRN Reason: Protocol Last Admin: 02/26/17 09:28 Dose: 8.981 mls/hr Famotidine/Sodium Chloride (Pepcid 20 Mg Premixed Ivpb -) 50 mls @ 100 mls/hr IVPB BID [facility] Last Admin: 02/26/17 09:28 Dose: 100 mls/hr Norepinephrine Bitartrate 8, (000 mcg/ Dextrose) 504 mls @ 18.9 mls/hr IV TITR WES; 5 MCG/MIN PRN Reason: Protocol Last Admin: 02/26/17 08:57 Dose: 113.4 mls/hr Heparin Sodium (Porcine) 25, (000 unit/ Sodium Chloride) 500 mls @ 20 mls/hr IV TITR WES; 1,000 UNIT/HR PRN Reason: Protocol Insulin Aspart (Novolog Vial Sliding Scale -) 1 vial SQ ACHS WES PRN Reason: Protocol Levetiracetam (Keppra Injection -) 1,000 mg IVPB BID [facility] Last Admin: 02/26/17 09:52 Dose: 1,000 mg Mupirocin (Bactroban Ointment (For Decolonization) -) 1 applic NS BID [facility] Stop: 03/03/17 09:59 Last Admin: 02/26/17 10:47 Dose: 1 applic Constitutional: Yes: Intubated and sedated Eyes: Yes: Pupils 1.5 mm and equal Cardiovascular: Yes: Pulse Irregular, S1, S2 Respiratory: Yes: Bilateral coarse rhonchi Right > Left, Intubated, Mechanically Ventilated Gastrointestinal: Yes: Normal Bowel Sounds, Soft Edema: No Edema: LLE: Trace, RLE: Trace Neurological: Yes: Sedated on propofol Labs: Laboratory Results - last 24 hr 02/25/17 02/25/17 02/25/17 20:10 20:10 20:10 WBC 11.8 H RBC 4.96 D Hgb 14.9 D Hct 46.4 D MCV 93.6 MCH 30.1 MCHC 32.1 RDW 18.4 H D Plt Count 238 MPV 8.6 Total Counted 100 Neutrophils % Y Neutrophils % (Manual) 91 H* Lymphocytes % Y Lymphocytes % (Manual) 8 Monocytes % Monocytes % (Manual) 1 L Eosinophils % Basophils % INR 1.71 H D Anticoagulation Therapy Puncture Site ABG pH ABG pCO2 at Pt Temp ABG pO2 at Pt Temp ABG HCO3 ABG O2 Sat (Measured) ABG O2 Content ABG Base Excess Guero Test O2 Delivery Device Oxygen Flow Rate Vent Mode Vent Rate Mechanical Rate PEEP Pressure Support Vent Sodium 141 Potassium 4.2 Chloride 103 Carbon Dioxide 28 Anion Gap 10 BUN 44 H D Creatinine 1.5 H D Creat Clearance w eGFR 46.68 POC Glucometer Random Glucose 155 H D Lactic Acid Calcium 8.7 Total Bilirubin 1.1 H D AST 33 D ALT 36 D Alkaline Phosphatase 155 H D Creatine Kinase 95 Troponin I 0.26 H Total Protein 8.2 Albumin 3.0 L Triglycerides 150 Cholesterol 183 Total LDL Cholesterol 109 H HDL Cholesterol 48 Urine Color Urine Appearance Urine pH Ur Specific Wilson Urine Protein Urine Glucose (UA) Urine Ketones Urine Blood Urine Nitrite Urine Bilirubin Urine Urobilinogen Ur Leukocyte Esterase Urine RBC Urine WBC Ur Epithelial Cells Urine Bacteria Blood Type Antibody Screen 02/25/17 02/25/17 02/26/17 20:10 21:01 00:45 WBC RBC Hgb Hct MCV MCH MCHC RDW Plt Count MPV Total Counted Neutrophils % Neutrophils % (Manual) Lymphocytes % Lymphocytes % (Manual) Monocytes % Monocytes % (Manual) Eosinophils % Basophils % INR Anticoagulation Therapy Puncture Site ABG pH ABG pCO2 at Pt Temp ABG pO2 at Pt Temp ABG HCO3 ABG O2 Sat (Measured) ABG O2 Content ABG Base Excess Guero Test O2 Delivery Device Oxygen Flow Rate Vent Mode Vent Rate Mechanical Rate PEEP Pressure Support Vent Sodium Potassium Chloride Carbon Dioxide Anion Gap BUN Creatinine Creat Clearance w eGFR POC Glucometer Random Glucose Lactic Acid 7.8 H* Calcium Total Bilirubin AST ALT Alkaline Phosphatase Creatine Kinase Troponin I Total Protein Albumin Triglycerides Cholesterol Total LDL Cholesterol HDL Cholesterol Urine Color Yellow Urine Appearance Clear Urine pH 6.0 Ur Specific Wilson 1.025 Urine Protein 3+ H Urine Glucose (UA) Negative Urine Ketones Negative Urine Blood 1+ H Urine Nitrite Negative Urine Bilirubin Negative Urine Urobilinogen Negative Ur Leukocyte Esterase Negative Urine RBC 2 Urine WBC 1 Ur Epithelial Cells Rare Urine Bacteria Rare Blood Type O POSITIVE Antibody Screen Negative 02/26/17 02/26/17 02/26/17 02:00 03:54 05:35 WBC 16.3 H D RBC 4.63 Hgb 14.1 Hct 44.1 MCV 95.2 MCH 30.6 MCHC 32.1 RDW 18.8 H Plt Count 215 MPV 8.8 Total Counted Neutrophils % 86.1 H D Neutrophils % (Manual) Lymphocytes % 5.6 L D Lymphocytes % (Manual) Monocytes % 8.0 Monocytes % (Manual) Eosinophils % 0.0 D Basophils % 0.3 INR Anticoagulation Therapy Nt Puncture Site Right radial ABG pH 7.29 L ABG pCO2 at Pt Temp 39.4 ABG pO2 at Pt Temp 62.2 L ABG HCO3 18.2 L ABG O2 Sat (Measured) 86.1 L ABG O2 Content 17.4 ABG Base Excess -7.6 L Guero Test Positive O2 Delivery Device [place] Oxygen Flow Rate 100% Vent Mode Ac Vent Rate 14 Mechanical Rate Y PEEP 5.0 Pressure Support Vent 500 Sodium Potassium Chloride Carbon Dioxide Anion Gap BUN Creatinine Creat Clearance w eGFR POC Glucometer [phone] Random Glucose Lactic Acid Calcium Total Bilirubin AST ALT Alkaline Phosphatase Creatine Kinase Troponin I Total Protein Albumin Triglycerides Cholesterol Total LDL Cholesterol HDL Cholesterol Urine Color Urine Appearance Urine pH Ur Specific Wilson Urine Protein Urine Glucose (UA) Urine Ketones Urine Blood Urine Nitrite Urine Bilirubin Urine Urobilinogen Ur Leukocyte Esterase Urine RBC Urine WBC Ur Epithelial Cells Urine Bacteria Blood Type Antibody Screen 02/26/17 02/26/17 02/26/17 05:35 05:35 05:35 WBC RBC Hgb Hct MCV MCH MCHC RDW Plt Count MPV Total Counted Neutrophils % Neutrophils % (Manual) Lymphocytes % Lymphocytes % (Manual) Monocytes % Monocytes % (Manual) Eosinophils % Basophils % INR Anticoagulation Therapy Puncture Site ABG pH ABG pCO2 at Pt Temp ABG pO2 at Pt Temp ABG HCO3 ABG O2 Sat (Measured) ABG O2 Content ABG Base Excess Guero Test O2 Delivery Device Oxygen Flow Rate Vent Mode Vent Rate Mechanical Rate PEEP Pressure Support Vent Sodium 142 Potassium 4.7 Chloride 106 Carbon Dioxide 22 D Anion Gap 14 BUN 49 H Creatinine 2.1 H D Creat Clearance w eGFR 31.66 POC Glucometer Random Glucose 205 H D Lactic Acid 3.4 H* Calcium 7.3 L Total Bilirubin 1.3 H AST 126 H D ALT 85 H D Alkaline Phosphatase 122 H D Creatine Kinase Troponin I 0.59 H D Total Protein 6.1 L D Albumin 2.4 L Triglycerides Cholesterol Total LDL Cholesterol HDL Cholesterol Urine Color Urine Appearance Urine pH Ur Specific Wilson Urine Protein Urine Glucose (UA) Urine Ketones Urine Blood Urine Nitrite Urine Bilirubin Urine Urobilinogen Ur Leukocyte Esterase Urine RBC Urine WBC Ur Epithelial Cells Urine Bacteria Blood Type Antibody Screen 02/26/17 02/26/17 06:34 07:20 WBC RBC Hgb Hct MCV MCH MCHC RDW Plt Count MPV Total Counted Neutrophils % Neutrophils % (Manual) Lymphocytes % Lymphocytes % (Manual) Monocytes % Monocytes % (Manual) Eosinophils % Basophils % INR Anticoagulation Therapy Puncture Site Left brachial ABG pH 7.35 ABG pCO2 at Pt Temp 32.8 L ABG pO2 at Pt Temp 200.0 H* ABG HCO3 17.6 L ABG O2 Sat (Measured) 99.7 H* ABG O2 Content 20.7 ABG Base Excess -6.5 L Guero Test Not applicable O2 Delivery Device Vent Oxygen Flow Rate 100 Vent Mode A/c Vent Rate 30 Mechanical Rate Yes PEEP 10.0 Pressure Support Vent 400 Sodium Potassium Chloride Carbon Dioxide Anion Gap BUN Creatinine Creat Clearance w eGFR POC Glucometer [phone] Random Glucose Lactic Acid Calcium Total Bilirubin AST ALT Alkaline Phosphatase Creatine Kinase Troponin I Total Protein Albumin Triglycerides Cholesterol Total LDL Cholesterol HDL Cholesterol Urine Color Urine Appearance Urine pH Ur Specific Wilson Urine Protein Urine Glucose (UA) Urine Ketones Urine Blood Urine Nitrite Urine Bilirubin Urine Urobilinogen Ur Leukocyte Esterase Urine RBC Urine WBC Ur Epithelial Cells Urine Bacteria Blood Type Antibody Screen Problem List - Problems (1) CVA (cerebral vascular accident) Code(s): I63.9 - CEREBRAL INFARCTION, UNSPECIFIED Qualifiers: CVA mechanism: occlusion Precerebral and cerebral artery: middle cerebral artery Laterality of affected vessel: left Qualified Code(s): I63.512 - Cerebral infarction due to unspecified occlusion or stenosis of left middle cerebral artery (2) Respiratory failure Code(s): J96.90 - RESPIRATORY FAILURE, UNSP, UNSP W HYPOXIA OR HYPERCAPNIA (3) Shock circulatory Code(s): R57.9 - SHOCK, UNSPECIFIED (4) A-fib Code(s): I48.91 - UNSPECIFIED ATRIAL FIBRILLATION (5) CAD (coronary artery disease) Code(s): I25.10 - ATHSCL HEART DISEASE OF [place] CORONARY ARTERY W/O ANG PCTRS (6) Diabetes Code(s): E11.9 - TYPE 2 DIABETES MELLITUS WITHOUT COMPLICATIONS Assessment/Plan Start Dobutamine and titrate for effect Wean pressors ABX Follow cultures Neurology evaluation AC Mode of vent IV Heparin ASA Stress dose steroids Trend lactate Glucose control: goal 100-180 PPI for GI prophylaxis SCD for DVT prophylaxis Dr Barragan Critical care time spent in reviewing chart, evaluating patient and formulating plan - 35 minutes
[2017-02-26] MEDS ORDERED: ASPIRIN 325 MG TABLET NGT SCH (12:00)
[2017-02-26] MEDS ORDERED: DOBUTAMINE 250 MG/D5W - 250 ML IV SCH (12:00)
--- NOTE | 2017-02-26 12:06 | CONSULT ---
Consult - text type - Consultation Consultation Note: NEUROLOGY CONSULTATION is greatly appreciated: Events reviewed and discussed with ER MD last evening and resident staff this morning. This 66 yo RH man with h/o HTN, Chol and ASHD is know to have ischemic cardiomyopathy, s/p stent, s/p PPM, s/p MVP and Afib. On coumadin and multiple med. INR on admission =1.7 Discovered by family at 10 AM with Right sided weakness, right facial droop, and loss of speech. CT of head (reviewed): early ischemic changes in the left MCA or carotid distribution. Chest X-Ray: CHF Echocardiogram: s/p MVR, tricuspid regurgitation, dilated LV with EF =20%, severe apical akinesia. In ER pt developed cardiogenic shock requiring intubation and pressors. Now In ICU on propofol drip. +troponins. IZZY: Intubated. +shallow spontaneous respirations. NEURO: Semipurposeful mov'ts of the left side to sternal pressure. Pupils 3 mm reactive. R facial droop. IMP: acute Left cerebral dysfunction due to CVA. Possibly cardioembolic Severe b/l cerebral dysfunction due to propofol sedation. Suggest: Cardiology consultation. Heparinize until adequate anticoagulation can be reestablished. Transfer to [facility] center with CCU Repeat CT of head this afternoon (Non-contrast). Taper off propofol to assess neurological status Thank you very much, Pedro Luis Moe MD
[2017-02-26] MEDS ORDERED: PANTOPRAZOLE SODIUM 100 ML IVPB SCH (13:30)
--- NOTE | 2017-02-26 14:54 | PN ---
Physical Exam: SUBJECTIVE: Patient seen and examined patient seen and examined in icu. 66y/o m with pmh of afib, htn, dm, MV replacement, CABG, came to hospital with ams and was found to have massive stroke and was intubated in ED. Patient was also found to have subtheraputic INR. 1.7. Patient is on propofol. Pressor support with norepinephrine 30, vasopressin, ECHO shows sever LV dusfunction, pativivi is in cardiogenic shock, So patient started on dobutamine. CXR also shows aspiration pneumonintis. and is on antibiotics amipicillin salbactum. As patient has prosthetic valve, a fib with stroke we will start him on heparin drip and also give him aspirin. Call was made to Dr dick ( [facility]) [phone], they dont come to this hospital and has no one who covers them. Cardiology consult was sent to Dr Chakraborty. Condition of patient was explained to patient and daughter in detail. Patient is full code. Case also discussed with neurosurgeon. pativivi has stroke with cardiogenic shock with keerthi, with respiratory failure. on pressure support. ECHO shows sever LV dysfunction. OBJECTIVE: Vital Signs Period Temp Pulse Resp BP Sys/Leon Pulse Ox Last 24 Hr 97.8 F-99.8 F 68-112 14-34 48-151/30-117 100-100 GENERAL:sedated intubated on propofol, TV 400, fio2 80, rr 30. EYES: b/l pupil 1.5mm sluggish reacting to light. ENT: moist mucous membranes. LUNGS:Bilateral coarse rhonchi Right > Left, Intubated, Mechanically Ventilated HEART:s1s2 normal, irregular ABDOMEN: Soft, nontender, nondistended, normoactive bowel sounds, no guarding, EXTREMITIES: trace pedal edema, feet cold to touch. NEUROLOGICAL: sedated intubated. Laboratory Results - last 24 hr 02/26/17 02/26/17 02/26/17 00:45 02:00 03:54 WBC RBC Hgb Hct MCV MCH MCHC RDW Plt Count MPV Neutrophils % Lymphocytes % Monocytes % Eosinophils % Basophils % PTT (Actin FS) Anticoagulation Therapy Nt Puncture Site Right radial ABG pH 7.29 L ABG pCO2 at Pt Temp 39.4 ABG pO2 at Pt Temp 62.2 L ABG HCO3 18.2 L ABG O2 Sat (Measured) 86.1 L ABG O2 Content 17.4 ABG Base Excess -7.6 L Guero Test Positive O2 Delivery Device Clayton Oxygen Flow Rate 100% Vent Mode Ac Vent Rate 14 Mechanical Rate Y PEEP 5.0 Pressure Support Vent 500 Sodium Potassium Chloride Carbon Dioxide Anion Gap BUN Creatinine Creat Clearance w eGFR POC Glucometer [phone] Random Glucose Lactic Acid 7.8 H* Calcium Total Bilirubin AST ALT Alkaline Phosphatase Troponin I Total Protein Albumin 02/26/17 02/26/17 02/26/17 05:35 05:35 05:35 WBC 16.3 H D RBC 4.63 Hgb 14.1 Hct 44.1 MCV 95.2 MCH 30.6 MCHC 32.1 RDW 18.8 H Plt Count 215 MPV 8.8 Neutrophils % 86.1 H D Lymphocytes % 5.6 L D Monocytes % 8.0 Eosinophils % 0.0 D Basophils % 0.3 PTT (Actin FS) Anticoagulation Therapy Puncture Site ABG pH ABG pCO2 at Pt Temp ABG pO2 at Pt Temp ABG HCO3 ABG O2 Sat (Measured) ABG O2 Content ABG Base Excess Guero Test O2 Delivery Device Oxygen Flow Rate Vent Mode Vent Rate Mechanical Rate PEEP Pressure Support Vent Sodium 142 Potassium 4.7 Chloride 106 Carbon Dioxide 22 D Anion Gap 14 BUN 49 H Creatinine 2.1 H D Creat Clearance w eGFR 31.66 POC Glucometer Random Glucose 205 H D Lactic Acid Calcium 7.3 L Total Bilirubin 1.3 H AST 126 H D ALT 85 H D Alkaline Phosphatase 122 H D Troponin I 0.59 H D Total Protein 6.1 L D Albumin 2.4 L 02/26/17 02/26/17 02/26/17 05:35 06:34 07:20 WBC RBC Hgb Hct MCV MCH MCHC RDW Plt Count MPV Neutrophils % Lymphocytes % Monocytes % Eosinophils % Basophils % PTT (Actin FS) Anticoagulation Therapy Puncture Site Left brachial ABG pH 7.35 ABG pCO2 at Pt Temp 32.8 L ABG pO2 at Pt Temp 200.0 H* ABG HCO3 17.6 L ABG O2 Sat (Measured) 99.7 H* ABG O2 Content 20.7 ABG Base Excess -6.5 L Guero Test Not applicable O2 Delivery Device Vent Oxygen Flow Rate 100 Vent Mode A/c Vent Rate 30 Mechanical Rate Yes PEEP 10.0 Pressure Support Vent 400 Sodium Potassium Chloride Carbon Dioxide Anion Gap BUN Creatinine Creat Clearance w eGFR POC Glucometer 258.53125 Random Glucose Lactic Acid 3.4 H* Calcium Total Bilirubin AST ALT Alkaline Phosphatase Troponin I Total Protein Albumin 02/26/17 11:50 WBC RBC Hgb Hct MCV MCH MCHC RDW Plt Count MPV Neutrophils % Lymphocytes % Monocytes % Eosinophils % Basophils % PTT (Actin FS) 28.3 Anticoagulation Therapy Puncture Site ABG pH ABG pCO2 at Pt Temp ABG pO2 at Pt Temp ABG HCO3 ABG O2 Sat (Measured) ABG O2 Content ABG Base Excess Guero Test O2 Delivery Device Oxygen Flow Rate Vent Mode Vent Rate Mechanical Rate PEEP Pressure Support Vent Sodium Potassium Chloride Carbon Dioxide Anion Gap BUN Creatinine Creat Clearance w eGFR POC Glucometer Random Glucose Lactic Acid Calcium Total Bilirubin AST ALT Alkaline Phosphatase Troponin I Total Protein Albumin Active Medications Generic Name Dose Route Start Last Admin Trade Name Freq PRN Reason Stop Dose Admin Aspirin 325 mg 02/26/17 12:00 Asa - NGT DAILY WES Chlorhexidine Gluconate 1 applic 02/26/17 22:00 Hibiclens For Decolonization - TP HS WES Heparin Sodium (Porcine) 1,000 unit 02/26/17 09:06 Heparin - IVPUSH PRN PRN Heparin Heparin Sodium (Porcine) 5,000 unit 02/26/17 09:06 02/26/17 09:30 Heparin - IVPUSH 5,000 unit PRN PRN Administration Heparin Hydrocortisone Sodium Succinate 100 mg 02/26/17 04:33 02/26/17 09:53 Solu-Cortef - IVPUSH 100 mg Q8H-IV WES Administration IV Flush 4 ml 02/26/17 02:08 Triple Lumen Flush IVPUSH PRN PRN Protocol Vasopressin 50 units/ Sodium 100 mls @ 4.8 mls/hr 02/26/17 00:15 02/26/17 02:24 Chloride IVPB 4.8 mls/hr ASDIR WES Administration 2.4 UNITS/HR Ampicillin Sodium/Sulbactam 100 mls @ 200 mls/hr 02/26/17 03:00 02/26/17 10:45 Sodium 3 gm/ Sodium Chloride IVPB 200 mls/hr Q6H-IV WES Administration Propofol 100 mls @ 2.994 mls/hr 02/26/17 01:45 02/26/17 09:28 Diprivan - IVPB 8.981 mls/hr TITR WES Administration Protocol 5 MCG/KG/MIN Norepinephrine Bitartrate 8, 504 mls @ 18.9 mls/hr 02/26/17 02:53 02/26/17 14: 00 000 mcg/ Dextrose IV 113.4 mls/hr TITR WES Administration Protocol 5 MCG/MIN Heparin Sodium (Porcine) 25, 500 mls @ 20 mls/hr 02/26/17 09:30 02/26/17 09:30 000 unit/ Sodium Chloride IV 20 mls/hr TITR WES Administration Protocol 1,000 UNIT/HR Dobutamine HCl/Dextrose 250 mls @ 12.192 mls/hr 02/26/17 12:00 02/26/17 12:27 Dobutamine 250 Mg/D5w - IV 12.192 mls/hr TITR WES Administration Protocol 2.5 MCG/KG/MIN Pantoprazole Sodium 100 mls @ 200 mls/hr 02/26/17 13:30 02/26/17 13:46 Protonix 40mg Ivpb (Pre-Docked) IVPB 200 mls/hr DAILY WES Administration Insulin Aspart 1 vial 02/26/17 11:00 Novolog Vial Sliding Scale - SQ ACHS WES Protocol Levetiracetam 1,000 mg 02/26/17 10:00 02/26/17 09:52 Keppra Injection - IVPB 1,000 mg BID WES Administration Mupirocin 1 applic 02/26/17 10:00 02/26/17 10:47 Bactroban Ointment (For Decolonization) - NS 03/03/17 09:59 1 applic BID WES Administration ASSESSMENT/PLAN: (1) CVA (cerebral vascular accident) ischemic stroke could be due to embolus as patient has subtheraputic inr. patient intubated and sedated. change position q2h keep head end elevated. on keppra for prophylaxis continue with aspirin and heparin monitor vitals neurology on case neurosurgery consult (2) Acute hypoxic respiratory failure could be from aspiration pneumonitis or from stroke. on ventilator support fio2 80, tv 400, rr 30 on antibiotics ampicillin and salbactum. repeat abg in morning repeat cxr in morning (3) Shock; could be cardiogenic shock on pressor support. nor epi, vasopressin and dobutamine. Taper down vasopressin monitor vitals monitor intake and output Echo shows severe LV dysfunction Trend lactic acid Follow culture (4) A-fib : defibrillator present. sanjuanita had subtheraputi INR. started on heparin drip. ECHO reviewed (5) CAD (coronary artery disease). H/o CABG elevated trop i. could be fro demand ischemia vs VT continue with heparin drip Trend trop i continue with aspirin cardiology consult. (6) Diabetes Monitor bgm novalog sliding scale sugar could be elevated because of steroid also. (7) Leucocytosis could be reactionary or could be due to steroid follow culture continue with antibiotics. (8) h/o copd on duoneb neb prn Fluid: not on IV fluid, has cardiogenic shock electrolyte: repeat in am nutrition: npo gi pro on protonix dvt pro: on heparin drip Visit type - Emergency Visit Emergency Visit: Yes ED Registration Date: 02/25/17 Care time: The patient presented to the Emergency Department on the above date and was hospitalized for further evaluation of their emergent condition. - New Patient This patient is new to me today: Yes Date on this admission: 02/26/17 - Critical Care Critical Care patient: Yes Total Critical Care Time (in minutes): 60 Critical Care Statement: The care of this patient involved high complexity decision making to prevent further life threatening deterioration of the patient 's condition and/or to evaluate & treat vital organ system(s) failure or risk of failure.
[2017-02-26] MEDS ORDERED: ACETAMINOPHEN 1000 MG/100 ML VIAL (NON FORMULARY) IVPB ONE (15:56)
[2017-02-26 16:11] LABS: TROPONIN I 0.71 ng/ml (0.00-0.05)
--- NOTE | 2017-02-26 16:28 | PN ---
Teaching Attending Note Name of Resident: Johan Khanna ATTENDING PHYSICIAN STATEMENT I saw and evaluated the patient. I reviewed the resident's note and discussed the case with the resident. I agree with the resident's findings and plan as documented. SUBJECTIVE: unable to take hx OBJECTIVE: intubated sedated. moves LUE ( flexion ) tosternal rub. no facial leif minimal JVD CV: RR. Lungs: no crackles heard anteriorly EXt pitting edema Neuro : limited due ot sedation. round eual pupils, minimally reactive to light . no facial droop. moves R foot. + babinski's on both sides. reflexes1+ knee jerk and biceps b/l. ASSESSMENT AND PLAN: 66 y/o unfortunate man with h/o Afib, HTN, DM2 ,S CHF, who was brought due to MS and was found to have stroke and shock 1- L sided CVA : with surrounding edema and mid line shift . n sedation now. likely embolic stroke in setting of A fib with subtherapeutic INR. - heparin gtt per neuro recs. - repeat CT scan to evaluate for hemorrhagic conversion - on pressors to avoid hypotension - stat ASA - Echo with no thrombus , carotid doppler with no significant stenosis - consult neuro sx , to evaluate for benefit of craniotomy 2- Shock: likely cardiogentic shock rather than septic as there is no convincing evidence of infection - Echo with no peicardial effusion, severely reduced EF, and general hypokinesis - started obutamine gtt for inotropic effect - cont Levophed and vasopresin . - card consult 3- Acute systolic L and R heart failure. - started dobutamine - hold off diuresis for now pending darwin recs - can't use any BB or ACEI due to shcok 4- NSTEMI: EKG with TWI in anterioseptal leads. on 2 EKGs this admission - on heparin gtt - ASA - follow trop - card consult 5- DEBRA ; due to hypoperfusion form shock. can't r/o ATN - pressor suport . - calculate feUrea ( received lasix last night ) - monitor renal function 6- Transaminitis : due to shock. monitor dispo : HLOC Full code d/w ICu staff Critical Care Total Critical Care Time (in minutes): 50 Critical Care Statement: The care of this patient involved high complexity decision making to prevent further life threatening deterioration of the patient 's condition and/or to evaluate & treat vital organ system(s) failure or risk of failure.
--- NOTE | 2017-02-26 18:44 | HOSP ---
Subjective - Review of Symptoms Events since last encounter: Repeat CT scan reviewed with Dr. Woods. pt examined again, MAP 76 on dobutamine and levo. in A fib , HR 70s. L pupil dilated and fixed, No response to sternal rub. A/P increased cerebral edema on L side, with signs of herniaitonon exam. family meeting held with and daughters. explained possibility of continued herniation and without craniotomy was explained. the high surgical risk ( with cardiogenic shock ) was also explained. family understands that if patient survives surgery , the neurological out come might still be guarded with neuro deficits and possible coma . family agreeable to proceed with emergent Surgery . CCT 35 min Physical Examination Vital Signs: Vital Signs Temperature 103.9 F H 02/26/17 18:00 Pulse Rate 100 H 02/26/17 18:00 Respiratory Rate 25 H 02/26/17 18:00 Blood Pressure 89/67 02/26/17 18:00 O2 Sat by Pulse Oximetry (%) 98 02/26/17 15:25 Labs: CBC, BMP 02/26/17 05:35 02/26/17 05:35
[2017-02-26] MEDS ORDERED: LIDOCAINE HCL 0.5% EPINEPHRINE 1:200,000 50 ML VIAL IJ ONE (18:54)
--- NOTE | 2017-02-26 18:54 | CON.CARD ---
Consult Consult Specialty:: Cardiology Referred by:: Dr. Christianson (Hospitalist) Reason for Consultation:: Cardiac evaluation - History of Present Illness Chief Complaint: CVA, respiratory failure, cardiogenic shock History of Present Illness: Patient is a 66 year old male of descent with underlying history of coronary artery disease status post CABG, MVR with bioprosthesis, at [facility] in 2010, severe left ventricular systolic dysfunction, status post ICD ([facility] [facility]), underlying permanent atrial fibrillation on Coumadin. Patient has been seeing Dr. Indio Thomas who is his immersion metal cleaner in [place]. He presented with right hemiparesis and left sided facial droop and lethargy. Head CT showed a large left cerebral infarct, in addition to respiratory distress, subsequent intubation for airway protection. Currently, he is also started on Dobutamine, Levophed and Vasopressin for BP support and for cardiogenic shock. Neurosurgery has been called and evaluated for emergent hemicraniectomy to relieve cranial pressure due to cerebral edema. Prognosis and critical nature of present condition was discussed with family. - History Source History Provided By: Family Member, Medical Record Limitations to Obtaining History: Clinical Condition - Past Medical History Cardio/Vascular: Yes: AFIB, CAD, HTN, Mitral Insufficiency, Pulmonary Hypertension Pulmonary: Yes: COPD - Past Surgical History Past Surgical History: Yes: AICD, CABG (2010), Laminectomy, Valve Replacement ( MVR: porcine valve 2010) - Alcohol/Substance Use Hx Alcohol Use: No - Smoking History Smoking history: Former smoker Have you smoked in the past 12 months: Yes Aproximately how many cigarettes per day: 0 If you are a former smoker, when did you quit?: 2010 - Social History Usual Living Arrangement: With Spouse Home Medications - Allergies Allergies/Adverse Reactions: Allergies Allergy/AdvReac Type Severity Reaction Status Date / Time No Known Allergies Allergy Verified 07/02/11 14:09 - Home Medications Home Medications: Ambulatory Orders Febuxostat [Uloric -] 40 mg PO DAILY #30 tab 02/26/17 Oxycodone HCl/Acetaminophen [Percocet 5-325 mg Tablet] 1 tab PO Q6H PRN #20 tablet MDD 8 tablets 02/26/17 RX: Allopurinol [Zyloprim -] 100 mg PO DAILY #30 tablet 02/26/17 RX: Aspirin [Aspirin EC] 81 mg PO DAILY #30 tablet. 02/26/17 RX: Bumetanide [Bumex -] 2 mg PO BID #30 tablet 02/26/17 RX: Carvedilol [Coreg -] 12.5 mg PO BID #14 tablet 02/26/17 RX: Digoxin [Lanoxin -] 0.25 mg PO DAILY #30 tablet 02/26/17 RX: Prednisone [Deltasone -] 5 mg PO DAILY #30 tablet 02/26/17 RX: Sertraline HCl [Zoloft -] 25 mg PO DAILY #30 tablet 02/26/17 RX: Warfarin Na [Coumadin -] 5 mg PO DAILY@1800 #30 tablet 02/26/17 Review of Systems Unable to obtain ROS, reason: Unable to obtain Vital Signs: Vital Signs Temperature 103.9 F H 02/26/17 18:00 Pulse Rate 100 H 02/26/17 18:00 Respiratory Rate 25 H 02/26/17 18:00 Blood Pressure 89/67 02/26/17 18:00 O2 Sat by Pulse Oximetry (%) 98 02/26/17 15:25 Respiratory: Yes: Diminished, Mechanically Ventilated Gastrointestinal: Yes: Soft. No: Tenderness Cardiovascular: Yes: Tachycardia, Pulse Irregular JVD: No Carotid Bruit: No PMI: Non-Displaced Heart Sounds: Yes: S1, S2 Edema: No - Other Data Labs, Other Data: CBC, BMP 02/26/17 05:35 02/26/17 05:35 INR, PTT INR 1.71 (0.82-1.09) H D 02/25/17 20:10 Troponin, BNP 02/26/17 02/26/17 05:35 13:00 Troponin I 0.59 H D 0.71 H* Laboratory Results - last 24 hr 02/25/17 02/25/17 02/25/17 20:10 20:10 20:10 WBC 11.8 H RBC 4.96 D Hgb 14.9 D Hct 46.4 D MCV 93.6 MCH 30.1 MCHC 32.1 RDW 18.4 H D Plt Count 238 MPV 8.6 Total Counted 100 Neutrophils % Y Neutrophils % (Manual) 91 H* Lymphocytes % Y Lymphocytes % (Manual) 8 Monocytes % Monocytes % (Manual) 1 L Eosinophils % Basophils % INR 1.71 H D PTT (Actin FS) Anticoagulation Therapy Puncture Site ABG pH ABG pCO2 at Pt Temp ABG pO2 at Pt Temp ABG HCO3 ABG O2 Sat (Measured) ABG O2 Content ABG Base Excess Guero Test O2 Delivery Device Oxygen Flow Rate Vent Mode Vent Rate Mechanical Rate PEEP Pressure Support Vent Sodium 141 Potassium 4.2 Chloride 103 Carbon Dioxide 28 Anion Gap 10 BUN 44 H D Creatinine 1.5 H D Creat Clearance w eGFR 46.68 POC Glucometer Random Glucose 155 H D Lactic Acid Calcium 8.7 Total Bilirubin 1.1 H D AST 33 D ALT 36 D Alkaline Phosphatase 155 H D Creatine Kinase 95 Troponin I 0.26 H Total Protein 8.2 Albumin 3.0 L Triglycerides 150 Cholesterol 183 Total LDL Cholesterol 109 H HDL Cholesterol 48 Urine Color Urine Appearance Urine pH Ur Specific [place] Urine Protein Urine Glucose (UA) Urine Ketones Urine Blood Urine Nitrite Urine Bilirubin Urine Urobilinogen Ur Leukocyte Esterase Urine RBC Urine WBC Ur Epithelial Cells Urine Bacteria Ur Random Urea Nitrogn Urine Creatinine Blood Type Antibody Screen 02/25/17 02/25/17 02/26/17 20:10 21:01 00:45 WBC RBC Hgb Hct MCV MCH MCHC RDW Plt Count MPV Total Counted Neutrophils % Neutrophils % (Manual) Lymphocytes % Lymphocytes % (Manual) Monocytes % Monocytes % (Manual) Eosinophils % Basophils % INR PTT (Actin FS) Anticoagulation Therapy Puncture Site ABG pH ABG pCO2 at Pt Temp ABG pO2 at Pt Temp ABG HCO3 ABG O2 Sat (Measured) ABG O2 Content ABG Base Excess Guero Test O2 Delivery Device Oxygen Flow Rate Vent Mode Vent Rate Mechanical Rate PEEP Pressure Support Vent Sodium Potassium Chloride Carbon Dioxide Anion Gap BUN Creatinine Creat Clearance w eGFR POC Glucometer Random Glucose Lactic Acid 7.8 H* Calcium Total Bilirubin AST ALT Alkaline Phosphatase Creatine Kinase Troponin I Total Protein Albumin Triglycerides Cholesterol Total LDL Cholesterol HDL Cholesterol Urine Color Yellow Urine Appearance Clear Urine pH 6.0 Ur Specific [place] 1.025 Urine Protein 3+ H Urine Glucose (UA) Negative Urine Ketones Negative Urine Blood 1+ H Urine Nitrite Negative Urine Bilirubin Negative Urine Urobilinogen Negative Ur Leukocyte Esterase Negative Urine RBC 2 Urine WBC 1 Ur Epithelial Cells Rare Urine Bacteria Rare Ur Random Urea Nitrogn Urine Creatinine Blood Type O POSITIVE Antibody Screen Negative 02/26/17 02/26/17 02/26/17 02:00 03:54 05:35 WBC 16.3 H D RBC 4.63 Hgb 14.1 Hct 44.1 MCV 95.2 MCH 30.6 MCHC 32.1 RDW 18.8 H Plt Count 215 MPV 8.8 Total Counted Neutrophils % 86.1 H D Neutrophils % (Manual) Lymphocytes % 5.6 L D Lymphocytes % (Manual) Monocytes % 8.0 Monocytes % (Manual) Eosinophils % 0.0 D Basophils % 0.3 INR PTT (Actin FS) Anticoagulation Therapy Nt Puncture Site Right radial ABG pH 7.29 L ABG pCO2 at Pt Temp 39.4 ABG pO2 at Pt Temp 62.2 L ABG HCO3 18.2 L ABG O2 Sat (Measured) 86.1 L ABG O2 Content 17.4 ABG Base Excess -7.6 L Guero Test Positive O2 Delivery Device [place] Oxygen Flow Rate 100% Vent Mode Ac Vent Rate 14 Mechanical Rate Y PEEP 5.0 Pressure Support Vent 500 Sodium Potassium Chloride Carbon Dioxide Anion Gap BUN Creatinine Creat Clearance w eGFR POC Glucometer [phone] Random Glucose Lactic Acid Calcium Total Bilirubin AST ALT Alkaline Phosphatase Creatine Kinase Troponin I Total Protein Albumin Triglycerides Cholesterol Total LDL Cholesterol HDL Cholesterol Urine Color Urine Appearance Urine pH Ur Specific [place] Urine Protein Urine Glucose (UA) Urine Ketones Urine Blood Urine Nitrite Urine Bilirubin Urine Urobilinogen Ur Leukocyte Esterase Urine RBC Urine WBC Ur Epithelial Cells Urine Bacteria Ur Random Urea Nitrogn Urine Creatinine Blood Type Antibody Screen 02/26/17 02/26/17 02/26/17 05:35 05:35 05:35 WBC RBC Hgb Hct MCV MCH MCHC RDW Plt Count MPV Total Counted Neutrophils % Neutrophils % (Manual) Lymphocytes % Lymphocytes % (Manual) Monocytes % Monocytes % (Manual) Eosinophils % Basophils % INR PTT (Actin FS) Anticoagulation Therapy Puncture Site ABG pH ABG pCO2 at Pt Temp ABG pO2 at Pt Temp ABG HCO3 ABG O2 Sat (Measured) ABG O2 Content ABG Base Excess Guero Test O2 Delivery Device Oxygen Flow Rate Vent Mode Vent Rate Mechanical Rate PEEP Pressure Support Vent Sodium 142 Potassium 4.7 Chloride 106 Carbon Dioxide 22 D Anion Gap 14 BUN 49 H Creatinine 2.1 H D Creat Clearance w eGFR 31.66 POC Glucometer Random Glucose 205 H D Lactic Acid 3.4 H* Calcium 7.3 L Total Bilirubin 1.3 H AST 126 H D ALT 85 H D Alkaline Phosphatase 122 H D Creatine Kinase Troponin I 0.59 H D Total Protein 6.1 L D Albumin 2.4 L Triglycerides Cholesterol Total LDL Cholesterol HDL Cholesterol Urine Color Urine Appearance Urine pH Ur Specific [place] Urine Protein Urine Glucose (UA) Urine Ketones Urine Blood Urine Nitrite Urine Bilirubin Urine Urobilinogen Ur Leukocyte Esterase Urine RBC Urine WBC Ur Epithelial Cells Urine Bacteria Ur Random Urea Nitrogn Urine Creatinine Blood Type Antibody Screen 02/26/17 02/26/17 02/26/17 06:34 07:20 11:11 WBC RBC Hgb Hct MCV MCH MCHC RDW Plt Count MPV Total Counted Neutrophils % Neutrophils % (Manual) Lymphocytes % Lymphocytes % (Manual) Monocytes % Monocytes % (Manual) Eosinophils % Basophils % INR PTT (Actin FS) Anticoagulation Therapy Puncture Site Left brachial ABG pH 7.35 ABG pCO2 at Pt Temp 32.8 L ABG pO2 at Pt Temp 200.0 H* ABG HCO3 17.6 L ABG O2 Sat (Measured) 99.7 H* ABG O2 Content 20.7 ABG Base Excess -6.5 L Guero Test Not applicable O2 Delivery Device Vent Oxygen Flow Rate 100 Vent Mode A/c Vent Rate 30 Mechanical Rate Yes PEEP 10.0 Pressure Support Vent 400 Sodium Potassium Chloride Carbon Dioxide Anion Gap BUN Creatinine Creat Clearance w eGFR POC Glucometer 258.48067 272.73378 Random Glucose Lactic Acid Calcium Total Bilirubin AST ALT Alkaline Phosphatase Creatine Kinase Troponin I Total Protein Albumin Triglycerides Cholesterol Total LDL Cholesterol HDL Cholesterol Urine Color Urine Appearance Urine pH Ur Specific [place] Urine Protein Urine Glucose (UA) Urine Ketones Urine Blood Urine Nitrite Urine Bilirubin Urine Urobilinogen Ur Leukocyte Esterase Urine RBC Urine WBC Ur Epithelial Cells Urine Bacteria Ur Random Urea Nitrogn Urine Creatinine Blood Type Antibody Screen 02/26/17 02/26/17 02/26/17 11:50 13:00 14:30 WBC RBC Hgb Hct MCV MCH MCHC RDW Plt Count MPV Total Counted Neutrophils % Neutrophils % (Manual) Lymphocytes % Lymphocytes % (Manual) Monocytes % Monocytes % (Manual) Eosinophils % Basophils % INR PTT (Actin FS) 28.3 Anticoagulation Therapy Puncture Site ABG pH ABG pCO2 at Pt Temp ABG pO2 at Pt Temp ABG HCO3 ABG O2 Sat (Measured) ABG O2 Content ABG Base Excess Guero Test O2 Delivery Device Oxygen Flow Rate Vent Mode Vent Rate Mechanical Rate PEEP Pressure Support Vent Sodium Potassium Chloride Carbon Dioxide Anion Gap BUN Creatinine Creat Clearance w eGFR POC Glucometer Random Glucose Lactic Acid Calcium Total Bilirubin AST ALT Alkaline Phosphatase Creatine Kinase 100 Troponin I 0.71 H* Total Protein Albumin Triglycerides Cholesterol Total LDL Cholesterol HDL Cholesterol Urine Color Urine Appearance Urine pH Ur Specific [place] Urine Protein Urine Glucose (UA) Urine Ketones Urine Blood Urine Nitrite Urine Bilirubin Urine Urobilinogen Ur Leukocyte Esterase Urine RBC Urine WBC Ur Epithelial Cells Urine Bacteria Ur Random Urea Nitrogn Urine Creatinine 111.0 Blood Type Antibody Screen Atrial fibrillation with RVR Echo: Report Reviewed (Severe LV systolic dysfunction) Imaging - Results Chest X-ray: Report Reviewed (CHF) Cat Scan: Report Reviewed (Head CT noted) EKG: Report Reviewed Problem List - Problems (1) A-fib Code(s): I48.91 - UNSPECIFIED ATRIAL FIBRILLATION (2) CAD (coronary artery disease) Code(s): I25.10 - ATHSCL HEART DISEASE OF [place] CORONARY ARTERY W/O ANG PCTRS (3) CHF (congestive heart failure) Code(s): I50.9 - HEART FAILURE, UNSPECIFIED (4) CVA (cerebral vascular accident) Code(s): I63.9 - CEREBRAL INFARCTION, UNSPECIFIED Qualifiers: CVA mechanism: occlusion Precerebral and cerebral artery: middle cerebral artery Laterality of affected vessel: left Qualified Code(s): I63.512 - Cerebral infarction due to unspecified occlusion or stenosis of left middle cerebral artery (5) Respiratory failure Code(s): J96.90 - RESPIRATORY FAILURE, UNSP, UNSP W HYPOXIA OR HYPERCAPNIA (6) Cardiogenic shock Code(s): R57.0 - CARDIOGENIC SHOCK (7) Hx of CABG Code(s): Z95.1 - PRESENCE OF AORTOCORONARY BYPASS GRAFT (8) S/P MVR (mitral valve replacement) Code(s): Z95.2 - PRESENCE OF PROSTHETIC HEART VALVE Assessment/Plan 1. Large left side CVA with cerebral edema for emergent hao-craniectomy 2. Permanent atrial fibrillation with mildly subtherapeutic INR 3. Severe LV systolic dysfunction status post ICD (single lead [facility]) for primary prophylaxis 4. Coronary artery disease s/p CABG 5. MVR - bioprosthesis 6. Respiratory failure s/p intubation 7. Cardiogenic shock on pressor and inotrope support 8. Elevated troponin - demand ischemia with underlying cardiogenic shock PLAN: 1. Patient planned to proceed with emergent neurosurgery with family consent. Hospitalist input as well as Neurosurgical input noted. Meeting held with the family discussing current status, indication for the emergent surgery and prognosis of patient with and without surgery. 2. [facility] [facility] ICD can be deactivated by placing donut magnet and will be reactivated when taken off 3. Continue pressor with Levophed and inotropic support with Dobutamine 4. Currently on Heparin with caution 5. Tranthoracic echocardiography result noted 6. Continue cardiac support Spoke with Dr. Indio Thomas (immersion metal cleaner) Prognosis: critical Mike Carter MD
--- NOTE | 2017-02-26 19:01 | PN ---
Physical Exam: SUBJECTIVE: Patient seen and examined. Pt on ventilator and sedated without response to verbal or painful stimuli. OBJECTIVE: Vital Signs Period Temp Pulse Resp BP Sys/Leon Pulse Ox Last 24 Hr 97.8 F-103.9 F 68-119 14-34 48-151/30-117 98-100 GENERAL: The patient is lying in bed, sedated, on ventilator HEAD: no signs of trauma. EYES: pupils are normal in size with minimal reaction to light. NECK: +JVD LUNGS: Breath sounds equal, clear to auscultation bilaterally in anterior lung hawkins. no wheezing, rales, or rhonchi appreciated. HEART: irregularly irregular rhythm, no m/r/g ABDOMEN: Soft, nontender, nondistended, normoactive bowel sounds, no guarding, no rebound, no hepatosplenomegaly, no masses. EXTREMITIES: 2+ pulses, warm, well-perfused, 1+ edema in b/l LEs. NEUROLOGICAL: pupils are normal in size with minimal reaction to light. no rigidity. Rest of exam could not be fully assessed due to sedation. SKIN: diaphoretic, no rashes Laboratory Results - last 24 hr 02/26/17 02/26/17 02/26/17 00:45 02:00 03:54 WBC RBC Hgb Hct MCV MCH MCHC RDW Plt Count MPV Neutrophils % Lymphocytes % Monocytes % Eosinophils % Basophils % PTT (Actin FS) Anticoagulation Therapy Nt Puncture Site Right radial ABG pH 7.29 L ABG pCO2 at Pt Temp 39.4 ABG pO2 at Pt Temp 62.2 L ABG HCO3 18.2 L ABG O2 Sat (Measured) 86.1 L ABG O2 Content 17.4 ABG Base Excess -7.6 L Guero Test Positive O2 Delivery Device [place] Oxygen Flow Rate 100% Vent Mode Ac Vent Rate 14 Mechanical Rate Y PEEP 5.0 Pressure Support Vent 500 Sodium Potassium Chloride Carbon Dioxide Anion Gap BUN Creatinine Creat Clearance w eGFR POC Glucometer [phone] Random Glucose Lactic Acid 7.8 H* Calcium Total Bilirubin AST ALT Alkaline Phosphatase Creatine Kinase Troponin I Total Protein Albumin Ur Random Urea Nitrogn Urine Creatinine 02/26/17 02/26/17 02/26/17 05:35 05:35 05:35 WBC 16.3 H D RBC 4.63 Hgb 14.1 Hct 44.1 MCV 95.2 MCH 30.6 MCHC 32.1 RDW 18.8 H Plt Count 215 MPV 8.8 Neutrophils % 86.1 H D Lymphocytes % 5.6 L D Monocytes % 8.0 Eosinophils % 0.0 D Basophils % 0.3 PTT (Actin FS) Anticoagulation Therapy Puncture Site ABG pH ABG pCO2 at Pt Temp ABG pO2 at Pt Temp ABG HCO3 ABG O2 Sat (Measured) ABG O2 Content ABG Base Excess Guero Test O2 Delivery Device Oxygen Flow Rate Vent Mode Vent Rate Mechanical Rate PEEP Pressure Support Vent Sodium 142 Potassium 4.7 Chloride 106 Carbon Dioxide 22 D Anion Gap 14 BUN 49 H Creatinine 2.1 H D Creat Clearance w eGFR 31.66 POC Glucometer Random Glucose 205 H D Lactic Acid Calcium 7.3 L Total Bilirubin 1.3 H AST 126 H D ALT 85 H D Alkaline Phosphatase 122 H D Creatine Kinase Troponin I 0.59 H D Total Protein 6.1 L D Albumin 2.4 L Ur Random Urea Nitrogn Urine Creatinine 02/26/17 02/26/17 02/26/17 05:35 06:34 07:20 WBC RBC Hgb Hct MCV MCH MCHC RDW Plt Count MPV Neutrophils % Lymphocytes % Monocytes % Eosinophils % Basophils % PTT (Actin FS) Anticoagulation Therapy Puncture Site Left brachial ABG pH 7.35 ABG pCO2 at Pt Temp 32.8 L ABG pO2 at Pt Temp 200.0 H* ABG HCO3 17.6 L ABG O2 Sat (Measured) 99.7 H* ABG O2 Content 20.7 ABG Base Excess -6.5 L Guero Test Not applicable O2 Delivery Device Vent Oxygen Flow Rate 100 Vent Mode A/c Vent Rate 30 Mechanical Rate Yes PEEP 10.0 Pressure Support Vent 400 Sodium Potassium Chloride Carbon Dioxide Anion Gap BUN Creatinine Creat Clearance w eGFR POC Glucometer 258.47726 Random Glucose Lactic Acid 3.4 H* Calcium Total Bilirubin AST ALT Alkaline Phosphatase Creatine Kinase Troponin I Total Protein Albumin Ur Random Urea Nitrogn Urine Creatinine 02/26/17 02/26/17 02/26/17 11:11 11:50 13:00 WBC RBC Hgb Hct MCV MCH MCHC RDW Plt Count MPV Neutrophils % Lymphocytes % Monocytes % Eosinophils % Basophils % PTT (Actin FS) 28.3 Anticoagulation Therapy Puncture Site ABG pH ABG pCO2 at Pt Temp ABG pO2 at Pt Temp ABG HCO3 ABG O2 Sat (Measured) ABG O2 Content ABG Base Excess Guero Test O2 Delivery Device Oxygen Flow Rate Vent Mode Vent Rate Mechanical Rate PEEP Pressure Support Vent Sodium Potassium Chloride Carbon Dioxide Anion Gap BUN Creatinine Creat Clearance w eGFR POC Glucometer 272.77193 Random Glucose Lactic Acid Calcium Total Bilirubin AST ALT Alkaline Phosphatase Creatine Kinase 100 Troponin I 0.71 H* Total Protein Albumin Ur Random Urea Nitrogn Urine Creatinine 02/26/17 02/26/17 02/26/17 14:30 14:30 16:27 WBC RBC Hgb Hct MCV MCH MCHC RDW Plt Count MPV Neutrophils % Lymphocytes % Monocytes % Eosinophils % Basophils % PTT (Actin FS) Anticoagulation Therapy Puncture Site ABG pH ABG pCO2 at Pt Temp ABG pO2 at Pt Temp ABG HCO3 ABG O2 Sat (Measured) ABG O2 Content ABG Base Excess Guero Test O2 Delivery Device Oxygen Flow Rate Vent Mode Vent Rate Mechanical Rate PEEP Pressure Support Vent Sodium Potassium Chloride Carbon Dioxide Anion Gap BUN Creatinine Creat Clearance w eGFR POC Glucometer 165.49581 Random Glucose Lactic Acid Calcium Total Bilirubin AST ALT Alkaline Phosphatase Creatine Kinase Troponin I Total Protein Albumin Ur Random Urea Nitrogn 567 Urine Creatinine 111.0 Active Medications Generic Name Dose Route Start Last Admin Trade Name Freq PRN Reason Stop Dose Admin Aspirin 325 mg 02/26/17 12:00 02/26/17 18:40 Asa - NGT Not Given DAILY WES Aspirin 81 mg 02/27/17 10:00 Asa - PO DAILY WES Chlorhexidine Gluconate 1 applic 02/26/17 22:00 Hibiclens For Decolonization - TP HS WES Heparin Sodium (Porcine) 1,000 unit 02/26/17 09:06 Heparin - IVPUSH PRN PRN Heparin Heparin Sodium (Porcine) 5,000 unit 02/26/17 09:06 02/26/17 09:30 Heparin - IVPUSH 5,000 unit PRN PRN Administration Heparin Hydrocortisone Sodium Succinate 100 mg 02/26/17 04:33 02/26/17 17:17 Solu-Cortef - IVPUSH 100 mg Q8H-IV WES Administration IV Flush 4 ml 02/26/17 02:08 Triple Lumen Flush IVPUSH PRN PRN Protocol Vasopressin 50 units/ Sodium 100 mls @ 4.8 mls/hr 02/26/17 00:15 02/26/17 02:24 Chloride IVPB 4.8 mls/hr ASDIR WES Administration 2.4 UNITS/HR Ampicillin Sodium/Sulbactam 100 mls @ 200 mls/hr 02/26/17 03:00 02/26/17 14:55 Sodium 3 gm/ Sodium Chloride IVPB 200 mls/hr Q6H-IV WES Administration Propofol 100 mls @ 2.994 mls/hr 02/26/17 01:45 02/26/17 15:01 Diprivan - IVPB 11.975 mls/hr TITR WES Administration Protocol 5 MCG/KG/MIN Norepinephrine Bitartrate 8, 504 mls @ 18.9 mls/hr 02/26/17 02:53 02/26/17 14: 00 000 mcg/ Dextrose IV 113.4 mls/hr TITR WES Administration Protocol 5 MCG/MIN Heparin Sodium (Porcine) 25, 500 mls @ 20 mls/hr 02/26/17 09:30 02/26/17 09:30 000 unit/ Sodium Chloride IV 20 mls/hr TITR WES Administration Protocol 1,000 UNIT/HR Dobutamine HCl/Dextrose 250 mls @ 12.192 mls/hr 02/26/17 12:00 02/26/17 12:27 Dobutamine 250 Mg/D5w - IV 12.192 mls/hr TITR WES Administration Protocol 2.5 MCG/KG/MIN Pantoprazole Sodium 100 mls @ 200 mls/hr 02/26/17 13:30 02/26/17 13:46 Protonix 40mg Ivpb (Pre-Docked) IVPB 200 mls/hr DAILY WES Administration Insulin Aspart 1 vial 02/26/17 15:48 02/26/17 16:28 Novolog Vial Sliding Scale - SQ 2 units ACHS WES Administration Protocol Levetiracetam 1,000 mg 02/26/17 10:00 02/26/17 09:52 Keppra Injection - IVPB 1,000 mg BID WES Administration Mupirocin 1 applic 02/26/17 10:00 02/26/17 10:47 Bactroban Ointment (For Decolonization) - NS 03/03/17 09:59 1 applic BID WES Administration ASSESSMENT/PLAN: 66F with hx of Afib, DM, HTN, HLD, COPD, and CAD who presented with focal neurological deficits, found to have a very large Left sided MCA/AYAAN stroke, now hypotensive on pressors. He was unable to be transfered to tertiary care due to low BP, currently in ICU for HLOC. # Large Left Sided CVA - Likely from acute embolus in setting of subtherapeutic INR - Out of tPA window - continue Keppra for seizure prophylaxis - Intubated on propofol drip - heparin gtt per neuro recs -ASA started -repeat CT to look for hemorrhagic conversion -echo showed no thrombus. carotid doppler showed no hemodynamically significant stenosis. -neuro and neurosurgery on board # Shock - likely cardiogenic, less likely septic vs neurogenic - echo showed severely reduced EF, general hypokinesis, and no pericardial effusion - continue Levophed, Vasopressin, and dobutamine drip titration - continue Solu-cortef 100mg IVP Q8H for stress dosing -diuresis held pending recs - continue unasyn -cardiology on board #NSTEMI -troponins trending upwards with EKG changes of T wave inversions in the anterosepatal leads -ASA, heparin gtt -continue trending troponins, cardio on board #DEBRA- prerenal 2/2 shock, possibly ATN -continue pressors -f/u urine urea and creatinine -trend BMPs #Transaminitis- due to hypoperfusion 2/2 shock -continue pressors -trend LFTs #Leukocytosis -wbc trending up, likely 2/2 inflammatory response instead of infection -continue to trend wbc # Hx of DM2 - BGM Q2 -ISS # FEN - Fluids: w/ pressors - Electrolytes: No gross abnormalities - Nutrition: NPO for now # Prophylaxis - DVT: Heparin - GI: IV Pepcid - Deconditioning: PT on hold for now Johan Khanna MD- PGY1 Visit type - Emergency Visit Emergency Visit: Yes ED Registration Date: 02/25/17 Care time: The patient presented to the Emergency Department on the above date and was hospitalized for further evaluation of their emergent condition. - New Patient This patient is new to me today: Yes Date on this admission: 02/26/17 - Critical Care Critical Care patient: No
[2017-02-26] MEDS ORDERED: ROCURONIUM BROMIDE 50 MG/5 ML VIAL ONE ×2 (19:02)
[2017-02-26] MEDS ORDERED: GENTAMICIN SO4 80 MG/2 ML VIAL ONE (19:12)
[2017-02-26] MEDS ORDERED: SEVOFLURANE 250 ML BTL ONE (19:12)
--- NOTE | 2017-02-26 19:20 | PN ---
Progress Note (short form) - Note Progress Note: Repeated CT head this afternoon was significantly worse than the one before. On physical examination the pt had increased size of left pupil. We consulted Neurosurgery and Cardiology who came to the unit. After long discussion about risks and benefits of the emergent surgery, the family agreed to hemicraniotomy. Problem List - Problems (1) A-fib Code(s): I48.91 - UNSPECIFIED ATRIAL FIBRILLATION (2) CAD (coronary artery disease) Code(s): I25.10 - ATHSCL HEART DISEASE OF [place] CORONARY ARTERY W/O ANG PCTRS (3) CVA (cerebral vascular accident) Code(s): I63.9 - CEREBRAL INFARCTION, UNSPECIFIED Qualifiers: CVA mechanism: occlusion Precerebral and cerebral artery: middle cerebral artery Laterality of affected vessel: left Qualified Code(s): I63.512 - Cerebral infarction due to unspecified occlusion or stenosis of left middle cerebral artery (4) Cardiogenic shock Code(s): R57.0 - CARDIOGENIC SHOCK (5) Diabetes Code(s): E11.9 - TYPE 2 DIABETES MELLITUS WITHOUT COMPLICATIONS (6) Hx of CABG Code(s): Z95.1 - PRESENCE OF AORTOCORONARY BYPASS GRAFT (7) Respiratory failure Code(s): J96.90 - RESPIRATORY FAILURE, UNSP, UNSP W HYPOXIA OR HYPERCAPNIA (8) S/P MVR (mitral valve replacement) Code(s): Z95.2 - PRESENCE OF PROSTHETIC HEART VALVE
[2017-02-26] MEDS ORDERED: ceFAZolin SODIUM 1 GM VIAL IVPB ONE (20:26)
--- NOTE | 2017-02-26 20:52 | OP ---
Operative Note - Note: Operative Date: 02/26/17 Pre-Operative Diagnosis: Left cerebral infarction Operation: Left hemisphere craniotomy (calvarial bone flap) Post-Operative Diagnosis: Same as Pre-op Surgeon: Emerson Stout Cryptologic Supervisor: Johan Good Anesthesiologist/EDUCATION ADMINISTRATOR: Natan Singh Anesthesia: General Specimens Removed: Left hemisphere calvarial bone flap Estimated Blood Loss (mls): 300 Operative Report Dictated: Yes
--- NOTE | 2017-02-26 20:53 | SURG ---
Surgery Resident Director Note Resident Director: Johan Good PA-C Date of Service: 02/26/17 Diagnosis: Left hemisphere infarction Procedure: Left hemisphere craniotomy (calvarial bone flap) I was present for the entirety of the operative procedure. For further detail, please refer to operative report. Visit type - Case Type Case Type: ED Admission - Emergency Emergency Visit: Yes ED Registration Date: 02/25/17 Care time: The patient presented to the Emergency Department on the above date and was hospitalized for further evaluation of their emergent condition. - New patient This patient is new to me today: Yes Date on this admission: 02/26/17
[2017-02-26] MEDS: DOBUTAMINE 250 MG/D5W - 250 ML IV SCH (21:42)
[2017-02-26] MEDS: CHLORHEXIDINE GLUCONATE 4% CLEANSER FOR DECOLONIZATION TP SCH (21:43)
[2017-02-26] MEDS ORDERED: CHLORHEXIDINE GLUCONATE 4% CLEANSER FOR DECOLONIZATION TP SCH (22:00)
[2017-02-26] MEDS: MUPIROCIN 2% TOPICAL OINTMENT FOR DECOLONIZATION NS SCH (22:15)
[2017-02-26] MEDS: INSULIN SLIDING SCALE (NOVOLOG) 1 VIAL SQ SCH (22:16)
[2017-02-26 22:32] LABS: MCH 30.4 pg (25.7-33.7); MCHC 32.4 g/dl (32.0-35.9); MEAN CELL VOLUME 93.9 fl (80-96); MEAN PLT VOLUME 8.7 fl (7.5-11.1); PLATELET COUNT 185 K/MM3 (134-434); RDW 17.6 % (11.9-15.9); WHITE BLOOD COUNT 14.6 K/mm3 (4.0-10.0)
[2017-02-26 22:34] LABS: ARTERIAL BLD GAS O2 SATURATION 96.5 % (90-98.9); ARTERIAL BLOOD GAS BASE EXCESS -4.9 meq/l (-2-2); ARTERIAL BLOOD GAS PO2 91.9 mmHg (80-100)
[2017-02-26 22:35] LABS: ART PUNCT SITE ARTERIAL LINE; LPM/O2% 60%; MECH. VENT. YES; PT. ON O2? YES; TYPE OF O2 MECH VENT
[2017-02-26 22:36] LABS: ARTERIAL BLOOD GAS pH 7.34 (7.35-7.45); VENT RATE 30; VT/PRESS 400
[2017-02-26 23:21] LABS: TROPONIN I 1.05 ng/ml (0.00-0.05)
[2017-02-26] MEDS: ACETAMINOPHEN 1000 MG/100 ML VIAL (NON FORMULARY) IVPB PRN (23:30)
[2017-02-26 23:50] LABS: ALBUMIN 2.4 g/dl (3.4-5.0); ANION GAP 13 (8-16); BILIRUBIN,TOTAL 0.9 mg/dL (0.2-1.0); CO2 21 mmol/L (21-32); CREATININE 2.6 mg/dL (0.7-1.3); GLUCOSE,RANDOM 166 mg/dL (74-106); SGOT/AST 234 U/L (15-37); SGPT/ALT 146 U/L (12-78); TOT PROT 6.2 g/dl (6.4-8.2)
[2017-02-27 00:03] LABS: ALK PHOS 98 U/L (45-117)
[2017-02-27 00:06] LABS: CALCIUM 6.6 mg/dL (8.5-10.1)
[2017-02-27] MEDS ORDERED: CALCIUM GLUCONATE 10% - 1,000 MG/10 ML VIAL ONE (00:13)
[2017-02-27] MEDS ORDERED: CALCIUM GLUCONATE 10% - 1,000 MG/10 ML VIAL IVPB ONE ×2 (00:15→00:16)
[2017-02-27] MEDS: HYDROCORTISONE SOD SUCCINATE 100 MG/2 ML VIAL IVPUSH SCH ×3 (01:07→17:24)
[2017-02-27] MEDS: AMPICILLIN NA/SULBACTAM NA 3 GM in SODIUM CHLORIDE 100 ML IVPB SCH ×2 (02:13→08:10)
[2017-02-27 06:07] LABS: BASOPHIL 0.3 % (0-2.0); MCH 30.1 pg (25.7-33.7); MCHC 32.1 g/dl (32.0-35.9); MEAN CELL VOLUME 93.6 fl (80-96); MEAN PLT VOLUME 8.8 fl (7.5-11.1); NEUTROPHILS 88.1 % (42.8-82.8); PLATELET COUNT 176 K/MM3 (134-434); RDW 18.5 % (11.9-15.9); WHITE BLOOD COUNT 15.5 K/mm3 (4.0-10.0)
[2017-02-27] MEDS: INSULIN SLIDING SCALE (NOVOLOG) 1 VIAL SQ SCH ×4 (06:11→21:46)
[2017-02-27] MEDS: ACETAMINOPHEN 1000 MG/100 ML VIAL (NON FORMULARY) IVPB PRN ×2 (06:12→13:00)
[2017-02-27 06:22] LABS: INR 1.81 (0.82-1.09); PROTHROMBIN TIME (PATIENT) 20.2 SEC (9.98-11.88)
[2017-02-27 06:25] LABS: ACTIVATED PTT 27.9 SECONDS (26.9-34.4)
[2017-02-27 06:38] LABS: ALBUMIN 2.3 g/dl (3.4-5.0); ANION GAP 15 (8-16); CALCIUM 7.2 mg/dL (8.5-10.1); CO2 20 mmol/L (21-32); CREATININE 2.7 mg/dL (0.7-1.3); GLUCOSE,RANDOM 154 mg/dL (74-106); SGOT/AST 218 U/L (15-37); SGPT/ALT 149 U/L (12-78)
[2017-02-27] MEDS ORDERED: NOREPINEPHRINE BITARTRATE 4 MG/4 ML ML IV ONE ×2 (06:47→15:52)
[2017-02-27 06:54] LABS: ALK PHOS 93 U/L (45-117); BILIRUBIN,TOTAL 1.6 mg/dL (0.2-1.0)
[2017-02-27 06:59] LABS: TROPONIN I 1.13 ng/ml (0.00-0.05)
--- NOTE | 2017-02-27 07:13 | PN ---
Progress Note (short form) - Note Progress Note: Chief Complaint: Events noted, notes reviewed, post craniotomy (calvarial bone flap), intubated, sedated, not responsive, remains in atrial fibrillation, remains on intropes (Dobutamine) and pressors (Norepinephrine) History of Present Illness: Seen and examined in the ICU. Events noted, notes reviewed, post craniotomy ( calvarial bone flap), intubated, sedated, not responsive, remains in atrial fibrillation, remains on intropes (Dobutamine) and pressors (Norepinephrine) Troponin I elevation noted, demand ischemic injury Echocardiography revealed severe LV systolic dysfunction, mild RV systolic dysfunction, Bio-prosthetic MV with trace to mild MR, TR with moderate degree of pulmonary HTN RVSP 40-50 mmHg Medications: Current Medications Acetaminophen (Ofirmev Injection -) 1,000 mg IVPB Q6H PRN PRN Reason: FEVER OR PAIN Stop: 02/27/17 15:36 Last Admin: 02/27/17 06:12 Dose: 1,000 mg Aspirin (Asa -) 325 mg NGT DAILY WES Chlorhexidine Gluconate (Hibiclens For Decolonization -) 1 applic TP HS WES Last Admin: 02/26/17 21:43 Dose: 1 applic Hydrocortisone Sodium Succinate (Solu-Cortef -) 100 mg IVPUSH Q8H-IV WES Last Admin: 02/27/17 01:07 Dose: 100 mg IV Flush (Triple Lumen Flush) 4 ml IVPUSH PRN PRN PRN Reason: Protocol Dobutamine HCl/Dextrose (Dobutamine 250 Mg/D5w -) 250 mls @ 12.192 mls/hr IV TITR WES; 2.5 MCG/KG/MIN PRN Reason: Protocol Last Admin: 02/26/17 21:42 Dose: 12.192 mls/hr Ampicillin Sodium/Sulbactam (Sodium 3 gm/ Sodium Chloride) 100 mls @ 200 mls/ hr IVPB Q6H-IV WES Last Admin: 02/27/17 02:13 Dose: 200 mls/hr Norepinephrine Bitartrate 8, (000 mcg/ Dextrose) 504 mls @ 18.9 mls/hr IV TITR WES; 5 MCG/MIN PRN Reason: Protocol Last Titration: 02/27/17 07:00 Dose: 12 mcg/min Pantoprazole Sodium (Protonix 40mg Ivpb (Pre-Docked)) 100 mls @ 200 mls/hr IVPB DAILY WES Propofol (Diprivan -) 100 mls @ 2.994 mls/hr IVPB TITR WES; 5 MCG/KG/MIN PRN Reason: Protocol Last Titration: 02/27/17 06:59 Dose: 30 mcg/kg/min Insulin Aspart (Novolog Vial Sliding Scale -) 1 vial SQ ACHS WES PRN Reason: Protocol Last Admin: 02/27/17 06:11 Dose: 2 units Levetiracetam (Keppra Injection -) 1,000 mg IVPB BID WES Last Admin: 02/26/17 22:25 Dose: 1,000 mg Mupirocin (Bactroban Ointment (For Decolonization) -) 1 applic NS BID WES Stop: 03/03/17 21:59 Last Admin: 02/26/17 22:15 Dose: 1 applic Review of Systems Unable to obtain Vital Signs: Last Vital Signs Temp Pulse Resp BP Pulse Ox 103.0 F H 106 H 30 H 85/64 98 02/27/17 07:00 02/27/17 07:00 02/27/17 07:00 02/27/17 07:00 02/26/17 21:00 Intake & Output 02/24/17 02/25/17 02/26/17 02/27/17 23:59 23:59 23:59 23:59 Intake Total 5718.5 993 Output Total 950 900 Balance 4768.5 93 Weight 220 lb 179 lb 3.773 oz 185 lb 1 oz Neck: Supple Negative JVD No Bruit Respiratory: Diminished Breath Sounds at the Bases Cardiovascular: S1 S2 Irregularly Irregular Gastrointestinal: Soft Benign Normal Bowel Sounds Ext: No Edema Labs: Troponin, BNP 02/25/17 02/26/17 02/26/17 20:10 13:00 22:10 Troponin I 0.26 H 0.71 H* 1.05 H* D 02/26/17 02/27/17 02/27/17 22:10 05:15 05:15 Troponin I Cancelled 1.13 H* Cancelled CBC, BMP 02/27/17 05:15 02/27/17 05:15 INR, PTT INR 1.81 (0.82-1.09) H 02/27/17 05:15 Assessment/Plan ASSESSMENT: 1. Large left side CVA with cerebral edema post emergent craniotomy (calvarial bone flap) 2. Respiratory failure/intubated 3. Coronary artery disease post CABG angina pectoris with evidence of demand ischmic injury 4. Systolic LV dysfunction with chronic class I-II NYHA classification congestive heart failure, cardiogenic shock on inotropes 5. Post ICD implant (single lead [place]) for primary prophylaxis 6. Permanent atrial fibrillation currently off of A/C 7. Post MVR - Bio-prosthesis 8. Acute renal insufficiency PLAN: 1. Continue Dobutamine and titrate dosage to 5 mcg/kg/min 2. Continue pressors and attempt to titrate off 3. A/C resumption once cleared by neuro-surgery 4. Resume B-Blockers hemodynamics permitting 5. Recommend Entresto initiation once renal function stabilized 6. Avoid Digoxin at this point considering the above noted renal acute renal insufficiency 7. Monitor renal function and urine output closely Bibi Vickers M.D.
[2017-02-27] MEDS: DOBUTAMINE 250 MG/D5W - 250 ML IV SCH ×3 (07:30→21:33)
[2017-02-27] MEDS: NOREPINEPHRINE BITARTRATE 8,000 MCG in DEXTROSE 5%-WATER - 496 ML IV SCH ×3 (07:30→21:34)
--- NOTE | 2017-02-27 08:33 | PN ---
Progress Note (short form) - Note Progress Note: Seen and examined in ICU NCHCT showed increased cerebral edema c/f herniation Neuro surgery eval now s/p craniotomy TTE w/ EF: 30% Dobutamin gtt started for inotropic support Remains on NE 12mcg/hr Remains sedated w/ propofol WEaned FiO2: 100->60 Current Medications Acetaminophen (Ofirmev Injection -) 1,000 mg IVPB Q6H PRN PRN Reason: FEVER OR PAIN Stop: 02/27/17 15:36 Last Admin: 02/27/17 06:12 Dose: 1,000 mg Aspirin (Asa -) 325 mg NGT DAILY WES Chlorhexidine Gluconate (Hibiclens For Decolonization -) 1 applic TP HS WES Last Admin: 02/26/17 21:43 Dose: 1 applic Hydrocortisone Sodium Succinate (Solu-Cortef -) 100 mg IVPUSH Q8H-IV WES Last Admin: 02/27/17 01:07 Dose: 100 mg IV Flush (Triple Lumen Flush) 4 ml IVPUSH PRN PRN PRN Reason: Protocol Dobutamine HCl/Dextrose (Dobutamine 250 Mg/D5w -) 250 mls @ 12.192 mls/hr IV TITR WES; 2.5 MCG/KG/MIN PRN Reason: Protocol Last Admin: 02/26/17 21:42 Dose: 12.192 mls/hr Ampicillin Sodium/Sulbactam (Sodium 3 gm/ Sodium Chloride) 100 mls @ 200 mls/ hr IVPB Q6H-IV WES Last Admin: 02/27/17 08:10 Dose: 200 mls/hr Norepinephrine Bitartrate 8, (000 mcg/ Dextrose) 504 mls @ 18.9 mls/hr IV TITR WES; 5 MCG/MIN PRN Reason: Protocol Last Titration: 02/27/17 07:00 Dose: 12 mcg/min Pantoprazole Sodium (Protonix 40mg Ivpb (Pre-Docked)) 100 mls @ 200 mls/hr IVPB DAILY WES Propofol (Diprivan -) 100 mls @ 2.994 mls/hr IVPB TITR WES; 5 MCG/KG/MIN PRN Reason: Protocol Last Titration: 02/27/17 06:59 Dose: 30 mcg/kg/min Insulin Aspart (Novolog Vial Sliding Scale -) 1 vial SQ ACHS WES PRN Reason: Protocol Last Admin: 02/27/17 06:11 Dose: 2 units Levetiracetam (Keppra Injection -) 1,000 mg IVPB BID ON LICENSE OF [facility] Last Admin: 02/26/17 22:25 Dose: 1,000 mg Mupirocin (Bactroban Ointment (For Decolonization) -) 1 applic NS BID ON LICENSE OF [facility] Stop: 03/03/17 21:59 Last Admin: 02/26/17 22:15 Dose: 1 applic Vital Signs Period Temp Pulse Resp BP Sys/Leon Pulse Ox Last 24 Hr 97.8 F-103.9 F 71-119 20-34 80-107/63-91 98-100 Intake & Output 02/24/17 02/25/17 02/26/17 02/27/17 23:59 23:59 23:59 23:59 Intake Total 5718.5 993 Output Total 950 900 Balance 4768.5 93 Weight 99.79 kg 81.3 kg 83.943 kg Exam: General: intubated and sedated HEENT: Pupils: L>R, surgical site c/d/i Pulm: diminished CV: irr, irr no m/r/g Abd: SNTND hypoactive bowel sounds Ext: warm, +2 pulses Neuro: RASS -5 CBCD WBC 15.5 K/mm3 (4.0-10.0) H 02/27/17 05:15 RBC 4.24 M/mm3 (4.00-5.60) 02/27/17 05:15 Hgb 12.7 GM/dL (11.7-16.9) 02/27/17 05:15 Hct 39.6 % (35.4-49) 02/27/17 05:15 MCV 93.6 fl (80-96) 02/27/17 05:15 MCHC 32.1 g/dl (32.0-35.9) 02/27/17 05:15 RDW 18.5 % (11.9-15.9) H 02/27/17 05:15 Plt Count 176 K/MM3 (134-434) 02/27/17 05:15 MPV 8.8 fl (7.5-11.1) 02/27/17 05:15 CMP Sodium 138 mmol/L (136-145) 02/27/17 05:15 Potassium 4.3 mmol/L (3.5-5.1) 02/27/17 05:15 Chloride 103 mmol/L (98-107) 02/27/17 05:15 Carbon Dioxide 20 mmol/L (21-32) L 02/27/17 05:15 Anion Gap 15 (8-16) 02/27/17 05:15 BUN 61 mg/dL (7-18) H 02/27/17 05:15 Creatinine 2.7 mg/dL (0.7-1.3) H 02/27/17 05:15 Creat Clearance w eGFR 23.69 (>60) 02/27/17 05:15 Random Glucose 154 mg/dL (74-106) H 02/27/17 05:15 Calcium 7.2 mg/dL (8.5-10.1) L 02/27/17 05:15 Total Bilirubin 1.6 mg/dL (0.2-1.0) H D 02/27/17 05:15 AST 218 U/L (15-37) H 02/27/17 05:15 ALT 149 U/L (12-78) H 02/27/17 05:15 Alkaline Phosphatase 93 U/L (45-117) 02/27/17 05:15 Total Protein 6.0 g/dl (6.4-8.2) L 02/27/17 05:15 Albumin 2.3 g/dl (3.4-5.0) L 02/27/17 05:15 CARDIAC ENZYMES Creatine Kinase 130 IU/L (39-308) 02/26/17 22:10 Troponin I 1.13 ng/ml (0.00-0.05) H* 02/27/17 05:15 Microbiology 02/26/17 02:18 Blood - Peripheral Venous Blood Culture - Preliminary NO GROWTH OBTAINED AFTER 24 HOURS, INCUBATION TO CONTINUE FOR 4 DAYS. Problem List - Problems (1) CVA (cerebral vascular accident) Code(s): I63.9 - CEREBRAL INFARCTION, UNSPECIFIED Qualifiers: CVA mechanism: occlusion Precerebral and cerebral artery: middle cerebral artery Laterality of affected vessel: left Qualified Code(s): I63.512 - Cerebral infarction due to unspecified occlusion or stenosis of left middle cerebral artery (2) Respiratory failure Code(s): J96.90 - RESPIRATORY FAILURE, UNSP, UNSP W HYPOXIA OR HYPERCAPNIA (3) Shock circulatory Code(s): R57.9 - SHOCK, UNSPECIFIED (4) A-fib Code(s): I48.91 - UNSPECIFIED ATRIAL FIBRILLATION (5) CAD (coronary artery disease) Code(s): I25.10 - ATHSCL HEART DISEASE OF [place] CORONARY ARTERY W/O ANG PCTRS (6) Diabetes Code(s): E11.9 - TYPE 2 DIABETES MELLITUS WITHOUT COMPLICATIONS Assessment/Plan Cont Dobutamine for inotropic support Wean pressors for MAP >60 ABX: currently on unasyn w/ high fevers: infection vs neuro, will escalate to cefepime (neuro coverage), flagyl for anerobic coverage and vanco ID consult Follow cultures, repeat today Neurology and Neuro surgery following AC Mode of vent, wean Fio2 and PEEP as tolerated IV Heparin per neurology ASA Cont stress dose steroids Trend lactate Renal dose medications: DEBRA Glucose control: goal 100-180 Propofol for sedation, will add fentanyl for pain control PPI for GI prophylaxis SCD for DVT prophylaxis Boerem ACNP Pulm/CCM CCT: 35m Problem List - Problems (1) CVA (cerebral vascular accident) Code(s): I63.9 - CEREBRAL INFARCTION, UNSPECIFIED Qualifiers: Qualified Code(s): I63.512 - Cerebral infarction due to unspecified occlusion or stenosis of left middle cerebral artery (2) Respiratory failure Code(s): J96.90 - RESPIRATORY FAILURE, UNSP, UNSP W HYPOXIA OR HYPERCAPNIA (3) Shock circulatory Code(s): R57.9 - SHOCK, UNSPECIFIED (4) A-fib Code(s): I48.91 - UNSPECIFIED ATRIAL FIBRILLATION (5) CAD (coronary artery disease) Code(s): I25.10 - ATHSCL HEART DISEASE OF [place] CORONARY ARTERY W/O ANG PCTRS (6) Diabetes Code(s): E11.9 - TYPE 2 DIABETES MELLITUS WITHOUT COMPLICATIONS
[2017-02-27] MEDS ORDERED: VANCOMYCIN 1 GRAM (PRE-DOCKED) 250 ML IVPB ONE (08:39)
[2017-02-27 08:43] LABS: ARTERIAL BLD GAS O2 SATURATION 99.9 % (90-98.9); ARTERIAL BLOOD GAS BASE EXCESS -4.1 meq/l (-2-2); ARTERIAL BLOOD GAS HCO3 18.8 meq/L (22-26); ARTERIAL BLOOD GAS pH 7.42 (7.35-7.45)
[2017-02-27 08:44] LABS: ART PUNCT SITE ARTERIAL LINE; LPM/O2% 60%; MECH. VENT. YES; PT. ON O2? YES; TYPE OF O2 MECH VENT; VENT RATE 30; VT/PRESS 400
--- NOTE | 2017-02-27 08:47 | PN ---
Teaching Attending Note Name of Resident: Rocky Angel ATTENDING PHYSICIAN STATEMENT I saw and evaluated the patient. I reviewed the resident's note and discussed the case with the resident. I agree with the resident's findings and plan as documented. SUBJECTIVE: no events over night OBJECTIVE: Intubated sedated. no response to sternal rub CV: irreg irre. JVD Lungs: no crackles heard anteriorly EXt pitting edema Neuro : dilated fixed L pupil , not reactive to light . no facial droop. + babinski's on both sides. ASSESSMENT AND PLAN: 66 y/o unfortunate man with h/o Afib, HTN, DM2 ,chronic systolic CHF, who was brought due to MS and was found to have stroke and shock 1- L sided CVA with herniation. s/p craniotomy 02/26 - will d/w Dr. Cowan when to resume ASA and heparin gtt - will discuss walso , need for repeat CT scan - neuro checks - fentanyl for pain , as tachycardic 2- Shock: likely cardiogentic shock rather than septic - cont dobutamine and levophed. - if tachycardia continues , might want to switch to milrinon 3- Acute systolic L and R heart failure. - Cont dobutamine 4- NSTEMI: EKG with TWI in anterioseptal leads. on 2 EKGs this admission - to resume Asa and heparin when appropriate - follow trop , cont to increase 5- DEBRA ; due to hypoperfusion form shock. can't r/o ATN - pressor suport . - monitor renal function 6- Fever: likely central fever . - d/w ICU team, switch to cefepime, vanco and flagyl to cover neuro system and aspiration 7- Transaminitis : due to shock. monitor prognosis , guarded. will d/w family Code status
[2017-02-27] MEDS: levETIRAcetam 500 MG/5 ML INJECTION VIAL IVPB SCH ×2 (09:03→21:42)
[2017-02-27] MEDS: MUPIROCIN 2% TOPICAL OINTMENT FOR DECOLONIZATION NS SCH ×2 (09:03→21:12)
--- NOTE | 2017-02-27 09:05 | PN ---
Progress Note (short form) - Note Progress Note: Anesthesia Post op Pt seen and examined S;sedated and intubated O: Vital Signs Temperature 102.9 F H 02/27/17 09:00 Pulse Rate 115 H 02/27/17 09:00 Respiratory Rate 28 H 02/27/17 09:00 Blood Pressure 95/81 02/27/17 09:00 O2 Sat by Pulse Oximetry (%) 100 02/27/17 08:00 CBC, BMP 02/27/17 05:15 02/27/17 05:15 A/P: Current Active Problems A-fib (Acute) CAD (coronary artery disease) (Acute) CHF (congestive heart failure) (Acute) CVA (cerebral vascular accident) (Acute) Cardiogenic shock (Acute) Diabetes (Acute) Hx of CABG (Acute) Respiratory failure (Acute) S/P MVR (mitral valve replacement) (Acute) Shock circulatory (Acute) s/p craniectomy Critical Continue current care Elian Barajas MD
[2017-02-27] MEDS: METRONIDAZOLE 500 MG PREMIXED 100 ML IVPB SCH ×2 (09:19→21:12)
[2017-02-27] MEDS: PANTOPRAZOLE SODIUM 100 ML IVPB SCH (09:19)
[2017-02-27] MEDS: FENTANYL INJECTION 500 MCG in DEXTROSE 5%-WATER - 90 ML IJ SCH ×2 (09:27→18:33)
--- NOTE | 2017-02-27 09:28 | EKG ---
Test Reason : Blood Pressure : / mmHG Vent. Rate : 074 BPM Atrial Rate : 326 BPM P-R Int : 000 ms QRS Dur : 140 ms QT Int : 412 ms P-R-T Axes : 000 258 -76 degrees QTc Int : 457 ms ATRIAL FLUTTER RIGHT BUNDLE BRANCH BLOCK T WAVE ABNORMALITY, CONSIDER ANTERIOR ISCHEMIA ABNORMAL ECG Confirmed by MD EN, RENAE ([id number]) on 02/27/2017 9:27:53 AM Referred By: LINO MCDONOUGH Confirmed By:RENAE GATICA MD
[2017-02-27] MEDS ORDERED: ASPIRIN 325 MG TABLET NGT SCH (10:00)
[2017-02-27] MEDS ORDERED: ASPIRIN 81 MG CHEWABLE TABLETS PO SCH ×2 (10:00)
[2017-02-27] MEDS ORDERED: CEFEPIME 1 GM in DEXTROSE 5%-WATER - 100 ML IVPB ONE (10:00)
[2017-02-27] MEDS ORDERED: CEFEPIME 1 GM/100 ML BAG PRE-DOCKED IVPB ONE (10:00)
[2017-02-27] MEDS ORDERED: PROPOFOL 100 ML ONE ×2 (10:13→15:11)
[2017-02-27 10:20] VITALS: BMI 27.3
[2017-02-27] MEDS: PROPOFOL 100 ML IVPB SCH ×3 (10:20→21:35)
--- NOTE | 2017-02-27 10:20 | CON.NEP ---
Consult Consult Specialty:: nephrology Reason for Consultation:: ckd/debra - History of Present Illness Chief Complaint: ams History of Present Illness: This is a 66 year old man with AFib who came in wit AMS and was found to have a large CVA requiring intubation for airway protection and subsequently a craniectomy for increased ICP. He has developed shock which is presumed to be cartdiogenic and is on pressors. He clearly cant provide a history. He also has dm, htn and HFrEF. He has a fever which is thought to be central in nature. - Past Medical History Cardio/Vascular: Yes: AFIB, CAD, HTN, Mitral Insufficiency, Pulmonary Hypertension Pulmonary: Yes: COPD - Past Surgical History Past Surgical History: Yes: AICD, CABG (2010), Laminectomy, Valve Replacement ( MVR: porcine valve 2010) - Alcohol/Substance Use Hx Alcohol Use: No - Smoking History Smoking history: Former smoker Have you smoked in the past 12 months: Yes Aproximately how many cigarettes per day: 0 If you are a former smoker, when did you quit?: 2010 - Social History Usual Living Arrangement: With Spouse Home Medications - Allergies Allergies/Adverse Reactions: Allergies Allergy/AdvReac Type Severity Reaction Status Date / Time No Known Allergies Allergy Verified 07/02/11 14:09 - Home Medications Home Medications: Ambulatory Orders Allopurinol [Zyloprim -] 100 mg PO DAILY #30 tablet 02/26/17 Aspirin [Aspirin EC] 81 mg PO DAILY #30 tablet. 02/26/17 Bumetanide [Bumex -] 2 mg PO BID #30 tablet 02/26/17 Carvedilol [Coreg -] 12.5 mg PO BID #14 tablet 02/26/17 Digoxin [Lanoxin -] 0.25 mg PO DAILY #30 tablet 02/26/17 Febuxostat [Uloric -] 40 mg PO DAILY #30 tab 02/26/17 Oxycodone HCl/Acetaminophen [Percocet 5-325 mg Tablet] 1 tab PO Q6H PRN #20 tablet MDD 8 tablets 02/26/17 Prednisone [Deltasone -] 5 mg PO DAILY #30 tablet 02/26/17 Sertraline HCl [Zoloft -] 25 mg PO DAILY #30 tablet 02/26/17 Warfarin Na [Coumadin -] 5 mg PO DAILY@1800 #30 tablet 02/26/17 Review of Systems Unable to obtain ROS, reason: unresponsive Nephrology Consult - Height Height: 5 ft 9 in - Weight Weight: 185 lb 1 oz - BMI Body Mass Index (BMI): 27.3 - Lab Results CBC,BMP: CBC, BMP 02/27/17 05:15 02/27/17 05:15 Anion Gap: Anion Gap Anion Gap 15 (8-16) 02/27/17 05:15 - Imaging Chest X-ray: Report Reviewed Cat Scan: Report Reviewed - Physical Examination Vital Signs: Vital Signs Temperature 102.9 F H 02/27/17 10:00 Pulse Rate 114 H 02/27/17 10:00 Respiratory Rate 20 02/27/17 10:00 Blood Pressure 83/68 02/27/17 10:00 O2 Sat by Pulse Oximetry (%) 100 02/27/17 08:00 Constitutional: Yes: Other (intubated) Eyes: Yes: Conjunctiva Clear, Other (anisocoria, L>R) HENT: Yes: Other (has a dressing on left side of head) Neck: Yes: WNL, Trachea Midline Cardiovascular: Yes: Regular Rate and Rhythm Respiratory: Yes: CTA Bilaterally, Intubated Gastrointestinal: Yes: Normal Bowel Sounds Renal/: Yes: Rangel Present Musculoskeletal: Yes: WNL Extremities: Yes: WNL Edema: No Integumentary: Yes: WNL Wound/Incision: Yes: Clean/Dry Neurological: Yes: Unresponsive Psychiatric: Yes: Other (unresponsive) Assessment/Plan IMPRESSION DEBRA on CKD with an apparent prerenal state based on fractional excretion of urea - pt is non oliguric S/P CVA, has anisocoria s/p craniectomy central fever depressed EF possible anterior ischemia on ekg. May also have cerebral T waves though they are not deep PLAN would continue antibiotics consider changing hydrocortisone to decadron will need to monitor electrolytes and urine output. may develop cerebral salt wasting or DI would hydrate if ok with neurosurgery. Might need to keep on druy side to reduce brain edema MV
[2017-02-27] MEDS ORDERED: HEPARIN NA (PORCINE) 5,000 UNITS/ML 1ML VIAL IVPUSH PRN ×2 (12:23)
[2017-02-27] MEDS ORDERED: HEPARIN INFUSION - 500 ML IVPB SCH (12:30)
[2017-02-27] MEDS ORDERED: HEPARIN - 25,000 UNIT in SODIUM CHLORIDE 495 ML IV SCH (12:45)
--- NOTE | 2017-02-27 16:26 | PN ---
Physical Exam: SUBJECTIVE: Patient seen and examined at bedside OBJECTIVE: Vital Signs Period Temp Pulse Resp BP Sys/Leon Pulse Ox Last 24 Hr 102.6 F-103.9 F 92-115 19-36 80-103/62-84 98-100 GENERAL: intubated and sedated on fentanyl and propofol EYES: left pupil blown and non reactive right pupil consticted and non reactive LUNGS: intubated. bronchial breath sounds HEART: Irregular no JVD appreciated no hepatojugular reflux ABDOMEN: Soft, nontender, nondistended hypoactive BS EXTREMITIES: 1+ pitting edema NEUROLOGICAL: +Gag reflex no response to painful stimulus Laboratory Results - last 24 hr 02/26/17 02/26/17 02/26/17 11:11 13:00 16:27 WBC RBC Hgb Hct MCV MCH MCHC RDW Plt Count MPV Neutrophils % Lymphocytes % Monocytes % Eosinophils % Basophils % INR PTT (Actin FS) Puncture Site ABG pH ABG pCO2 at Pt Temp ABG pO2 at Pt Temp ABG HCO3 ABG O2 Sat (Measured) ABG O2 Content ABG Base Excess Guero Test O2 Delivery Device Oxygen Flow Rate Vent Mode Vent Rate Mechanical Rate PEEP Pressure Support Vent Sodium Potassium Chloride Carbon Dioxide Anion Gap BUN Creatinine Creat Clearance w eGFR POC Glucometer [phone] Random Glucose Lactic Acid Calcium Phosphorus Magnesium Total Bilirubin AST ALT Alkaline Phosphatase Creatine Kinase 100 Troponin I 0.71 H* Total Protein Albumin 02/26/17 02/26/17 02/26/17 21:58 22:10 22:10 WBC RBC Hgb Hct MCV MCH MCHC RDW Plt Count MPV Neutrophils % Lymphocytes % Monocytes % Eosinophils % Basophils % INR PTT (Actin FS) 33.7 Puncture Site ABG pH ABG pCO2 at Pt Temp ABG pO2 at Pt Temp ABG HCO3 ABG O2 Sat (Measured) ABG O2 Content ABG Base Excess Guero Test O2 Delivery Device Oxygen Flow Rate Vent Mode Vent Rate Mechanical Rate PEEP Pressure Support Vent Sodium Potassium Chloride Carbon Dioxide Anion Gap BUN Creatinine Creat Clearance w eGFR POC Glucometer [phone] Random Glucose Lactic Acid 1.3 Calcium Phosphorus Magnesium Total Bilirubin AST ALT Alkaline Phosphatase Creatine Kinase Troponin I Total Protein Albumin 02/26/17 02/26/17 02/26/17 22:10 22:10 22:29 WBC RBC Hgb Hct MCV MCH MCHC RDW Plt Count MPV Neutrophils % Lymphocytes % Monocytes % Eosinophils % Basophils % INR PTT (Actin FS) Puncture Site Arterial line ABG pH 7.34 L ABG pCO2 at Pt Temp 38.4 ABG pO2 at Pt Temp 91.9 D ABG HCO3 20.0 L ABG O2 Sat (Measured) 96.5 ABG O2 Content 16.8 ABG Base Excess -4.9 L Guero Test Not applicable O2 Delivery Device Mech vent Oxygen Flow Rate 60% Vent Mode A/c Vent Rate 30 Mechanical Rate Yes PEEP 10.0 Pressure Support Vent 400 Sodium 138 Potassium 4.7 Chloride 104 Carbon Dioxide 21 Anion Gap 13 BUN 61 H D Creatinine 2.6 H D Creat Clearance w eGFR 24.74 POC Glucometer Random Glucose 166 H Lactic Acid Calcium 6.6 L* Phosphorus Magnesium Total Bilirubin 0.9 D AST 234 H D ALT 146 H D Alkaline Phosphatase 98 Creatine Kinase 130 Cancelled Troponin I 1.05 H* D Cancelled Total Protein 6.2 L Albumin 2.4 L 02/26/17 02/27/17 02/27/17 22:29 05:15 05:15 WBC 14.6 H 15.5 H RBC 4.37 4.24 Hgb 13.3 12.7 Hct 41.0 39.6 MCV 93.9 93.6 MCH 30.4 30.1 MCHC 32.4 32.1 RDW 17.6 H 18.5 H Plt Count 185 176 MPV 8.7 8.8 Neutrophils % 88.1 H Lymphocytes % 6.1 L Monocytes % 5.5 Eosinophils % 0.0 Basophils % 0.3 INR 1.81 H PTT (Actin FS) 27.9 Puncture Site ABG pH ABG pCO2 at Pt Temp ABG pO2 at Pt Temp ABG HCO3 ABG O2 Sat (Measured) ABG O2 Content ABG Base Excess Guero Test O2 Delivery Device Oxygen Flow Rate Vent Mode Vent Rate Mechanical Rate PEEP Pressure Support Vent Sodium Potassium Chloride Carbon Dioxide Anion Gap BUN Creatinine Creat Clearance w eGFR POC Glucometer Random Glucose Lactic Acid Calcium Phosphorus Magnesium Total Bilirubin AST ALT Alkaline Phosphatase Creatine Kinase Troponin I Total Protein Albumin 02/27/17 02/27/17 02/27/17 05:15 05:15 05:15 WBC RBC Hgb Hct MCV MCH MCHC RDW Plt Count MPV Neutrophils % Lymphocytes % Monocytes % Eosinophils % Basophils % INR PTT (Actin FS) Puncture Site ABG pH ABG pCO2 at Pt Temp ABG pO2 at Pt Temp ABG HCO3 ABG O2 Sat (Measured) ABG O2 Content ABG Base Excess Guero Test O2 Delivery Device Oxygen Flow Rate Vent Mode Vent Rate Mechanical Rate PEEP Pressure Support Vent Sodium 138 Potassium 4.3 Chloride 103 Carbon Dioxide 20 L Anion Gap 15 BUN 61 H Creatinine 2.7 H Creat Clearance w eGFR 23.69 POC Glucometer Random Glucose 154 H Lactic Acid 1.9 Calcium 7.2 L Phosphorus 5.0 H Magnesium 2.0 Total Bilirubin 1.6 H D AST 218 H ALT 149 H Alkaline Phosphatase 93 Creatine Kinase Cancelled Troponin I 1.13 H* Cancelled Total Protein 6.0 L Albumin 2.3 L 02/27/17 02/27/17 02/27/17 06:09 08:40 11:03 WBC RBC Hgb Hct MCV MCH MCHC RDW Plt Count MPV Neutrophils % Lymphocytes % Monocytes % Eosinophils % Basophils % INR PTT (Actin FS) Puncture Site Arterial line ABG pH 7.42 ABG pCO2 at Pt Temp 29.3 L D ABG pO2 at Pt Temp 188.0 H* ABG HCO3 18.8 L ABG O2 Sat (Measured) 99.9 H* ABG O2 Content 17.6 ABG Base Excess -4.1 L Guero Test Not applicable O2 Delivery Device Mech vent Oxygen Flow Rate 60% Vent Mode A/c Vent Rate 30 Mechanical Rate Yes PEEP 10.0 Pressure Support Vent 400 Sodium Potassium Chloride Carbon Dioxide Anion Gap BUN Creatinine Creat Clearance w eGFR POC Glucometer 191.34087 184.54662 Random Glucose Lactic Acid Calcium Phosphorus Magnesium Total Bilirubin AST ALT Alkaline Phosphatase Creatine Kinase Troponin I Total Protein Albumin Active Medications Generic Name Dose Route Start Last Admin Trade Name Jatinq PRN Reason Stop Dose Admin Cefepime HCl 1 gm 02/28/17 10:00 Maxipime (Restricted To Id) - IVPB DAILY WES Protocol Chlorhexidine Gluconate 1 applic 02/26/17 22:00 02/26/17 21:43 Hibiclens For Decolonization - TP 1 applic HS WES Administration Hydrocortisone Sodium Succinate 100 mg 02/27/17 02:00 02/27/17 09:18 Solu-Cortef - IVPUSH 100 mg Q8H-IV WES Administration IV Flush 4 ml 02/26/17 21:23 Triple Lumen Flush IVPUSH PRN PRN Protocol Dobutamine HCl/Dextrose 250 mls @ 12.192 mls/hr 02/26/17 21:23 02/27/17 07:30 Dobutamine 250 Mg/D5w - IV 24.383 mls/hr TITR WES Administration Protocol 2.5 MCG/KG/MIN Norepinephrine Bitartrate 8, 504 mls @ 18.9 mls/hr 02/26/17 21:23 02/27/17 07: 30 000 mcg/ Dextrose IV 45.36 mls/hr TITR WES Administration Protocol 5 MCG/MIN Pantoprazole Sodium 100 mls @ 200 mls/hr 02/27/17 10:00 02/27/17 09:19 Protonix 40mg Ivpb (Pre-Docked) IVPB 200 mls/hr DAILY WES Administration Propofol 100 mls @ 2.994 mls/hr 02/26/17 21:23 02/27/17 15:16 Diprivan - IVPB 17.962 mls/hr TITR WES Administration Protocol 5 MCG/KG/MIN Metronidazole 100 mls @ 100 mls/hr 02/27/17 08:45 02/27/17 09:19 Flagyl 500mg Premixed Ivpb - IVPB 100 mls/hr Q12H WES Administration Fentanyl 500 mcg/ Dextrose 100 mls @ 5 mls/hr 02/27/17 08:45 02/27/17 12:00 IJ 50 mcg/hr TITR WES Titration 25 MCG/HR Insulin Aspart 1 vial 02/26/17 22:00 02/27/17 11:05 Novolog Vial Sliding Scale - SQ 2 units ACHS WES Administration Protocol Levetiracetam 1,000 mg 02/26/17 22:00 02/27/17 09:03 Keppra Injection - IVPB 1,000 mg BID WES Administration Mupirocin 1 applic 02/26/17 22:00 02/27/17 09:03 Bactroban Ointment (For Decolonization) - NS 03/03/17 21:59 1 applic BID WES Administration ASSESSMENT/PLAN: 66F with hx of Afib, DM, HTN, HLD, COPD, and CAD who presented with focal neurological deficits, found to have a very large Left sided MCA/AYAAN stroke, now hypotensive on pressors. He was unable to be transferred to tertiary care due to low BP, currently in ICU for HLOC. Large Left Sided CVA - Likely from acute embolus in setting of subtherapeutic INR - Out of tPA window - continue Keppra for seizure prophylaxis, on propofol for sedation, fentanyl for pain control - s/p L craniotomy 02/26 for herniation - repeat CT head from this AM showing hemorrhagic conversion, decreased left to right midline shift -d/c asa and heparin ggt -repeat CT in AM -echo showed no thrombus. carotid doppler showed no hemodynamically significant stenosis. -neuro and neurosurgery on board hemmorhagic conversion: stop heparin gtt stop aspirin give FFP give vitamin K 5mg PO x1 Shock - likely cardiogenic, less likely septic vs neurogenic - echo showed severely reduced EF, general hypokinesis, and no pericardial effusion - continue Levophed and dobutamine drip titration, off vasopressin - continue Solu-cortef 100mg IVP Q8H for stress dosing-will consider decadron per nephrology -diuresis held pending recs - received vanco cefepime and flagyl -cardiology on board NSTEMI -troponins trending upwards with EKG changes of T wave inversions in the anterosepatal leads -continue trending troponins, cardio on board DEBRA- prerenal 2/2 shock, possibly ATN -continue pressors -nephrology on board -trend BMPs Transaminitis- due to hypoperfusion 2/2 shock -continue pressors -trend LFTs Leukocytosis -in setting of persistently high fever likely central however can not r/o infectious cause - started on Cefipime, Vanco and Flagyl - ID consulted - f/u Cx Hx of DM2 -controlled -monitor closely as also on steroids - BGM Q2 -ISS FEN - Fluids: w/ pressors - Electrolytes: No gross abnormalities - Nutrition: NPO for now Prophylaxis - DVT: on hold due to intracranial bleed/SCDs - GI: IV Pepcid - Deconditioning: PT on hold for now Will discuss with family about DNR poor prognosis CCTime 60 min Visit type - Emergency Visit Emergency Visit: Yes ED Registration Date: 02/25/17 Care time: The patient presented to the Emergency Department on the above date and was hospitalized for further evaluation of their emergent condition. - New Patient This patient is new to me today: Yes Date on this admission: 02/27/17 - Critical Care Critical Care patient: Yes Total Critical Care Time (in minutes): 60 Critical Care Statement: The care of this patient involved high complexity decision making to prevent further life threatening deterioration of the patient 's condition and/or to evaluate & treat vital organ system(s) failure or risk of failure. - Discharge Referral Referred to [facility] No
[2017-02-27] MEDS ORDERED: PHYTONADIONE 5 MG TABLET PO ONE (19:57)
[2017-02-27] MEDS: CHLORHEXIDINE GLUCONATE 4% CLEANSER FOR DECOLONIZATION TP SCH (21:12)
[2017-02-28] MEDS ORDERED: NOREPINEPHRINE BITARTRATE 4 MG/4 ML ML IV ONE ×2 (01:00→21:40)
[2017-02-28] MEDS: HYDROCORTISONE SOD SUCCINATE 100 MG/2 ML VIAL IVPUSH SCH (01:13)
[2017-02-28] MEDS ORDERED: PROPOFOL 100 ML ONE ×2 (05:24→22:42)
[2017-02-28 06:18] LABS: MCH 30.7 pg (25.7-33.7); MCHC 32.9 g/dl (32.0-35.9); MEAN CELL VOLUME 93.6 fl (80-96); MEAN PLT VOLUME 8.6 fl (7.5-11.1); PLATELET COUNT 164 K/MM3 (134-434); RDW 18.3 % (11.9-15.9); WHITE BLOOD COUNT 13.5 K/mm3 (4.0-10.0)
[2017-02-28 06:29] LABS: INR 1.5 (0.82-1.09); PROTHROMBIN TIME (PATIENT) 16.6 SEC (9.98-11.88)
[2017-02-28 06:32] LABS: ACTIVATED PTT 25.2 SECONDS (26.9-34.4)
[2017-02-28 06:40] LABS: ALBUMIN 2.4 g/dl (3.4-5.0); ANION GAP 14 (8-16); BILIRUBIN,TOTAL 2.2 mg/dL (0.2-1.0); CALCIUM 7.6 mg/dL (8.5-10.1); CO2 21 mmol/L (21-32); CREATININE 2.5 mg/dL (0.7-1.3); GLUCOSE,RANDOM 204 mg/dL (74-106); SGPT/ALT 362 U/L (12-78); TOT PROT 6.4 g/dl (6.4-8.2)
[2017-02-28 06:50] LABS: MAGNESIUM 2.5 mg/dL (1.8-2.4); PHOSPHOROUS 5.5 mg/dL (2.5-4.9)
[2017-02-28 06:55] LABS: ALK PHOS 91 U/L (45-117); CPK 126 IU/L (39-308)
[2017-02-28 07:08] LABS: SGOT/AST 513 U/L (15-37)
[2017-02-28 07:09] LABS: TROPONIN I 0.77 ng/ml (0.00-0.05)
[2017-02-28] MEDS: INSULIN SLIDING SCALE (NOVOLOG) 1 VIAL SQ SCH ×4 (07:18→22:55)
[2017-02-28 07:29] LABS: ARTERIAL BLD GAS O2 SATURATION 95.5 % (90-98.9); ARTERIAL BLOOD GAS BASE EXCESS -3.5 meq/l (-2-2); ARTERIAL BLOOD GAS HCO3 19.9 meq/L (22-26); ARTERIAL BLOOD GAS PO2 80.1 mmHg (80-100)
[2017-02-28 07:30] LABS: ALLENS TEST POSITIVE; ART PUNCT SITE RIGHT RADIAL; LPM/O2% 50%; MECH. VENT. YES; PT. ON O2? YES; TYPE OF O2 MECH VENT; VENT RATE 30; VT/PRESS 400
--- NOTE | 2017-02-28 07:42 | PN ---
Progress Note (short form) - Note Progress Note: Chief Complaint: Events noted, notes reviewed, post craniotomy (calvarial bone flap) POD# 2, intubated, sedated, not responsive, remains in atrial fibrillation rates controlled with non sustained VT, remains on intropes ( Dobutamine) and pressors (Norepinephrine) History of Present Illness: Seen and examined in the ICU. Events noted, notes reviewed, post craniotomy ( calvarial bone flap) POD# 2, intubated, sedated, not responsive, remains in atrial fibrillation rates controlled with non sustained VT, remains on intropes (Dobutamine) and pressors (Norepinephrine) Troponin I elevation noted from this AM, demand ischemic injury CT scan of the head repeated this morning report pending Echocardiography revealed severe LV systolic dysfunction, mild RV systolic dysfunction, Bio-prosthetic MV with trace to mild MR, TR with moderate degree of pulmonary HTN RVSP 40-50 mmHg Medications: Current Medications Cefepime HCl (Maxipime (Restricted To Id) -) 1 gm IVPB DAILY WES PRN Reason: Protocol Chlorhexidine Gluconate (Hibiclens For Decolonization -) 1 applic TP HS WES Last Admin: 02/27/17 21:12 Dose: 1 applic Hydrocortisone Sodium Succinate (Solu-Cortef -) 100 mg IVPUSH Q8H-IV WES Last Admin: 02/28/17 01:13 Dose: 100 mg IV Flush (Triple Lumen Flush) 4 ml IVPUSH PRN PRN PRN Reason: Protocol Dobutamine HCl/Dextrose (Dobutamine 250 Mg/D5w -) 250 mls @ 12.192 mls/hr IV TITR WES; 2.5 MCG/KG/MIN PRN Reason: Protocol Last Admin: 02/27/17 21:33 Dose: Not Given Norepinephrine Bitartrate 8, (000 mcg/ Dextrose) 504 mls @ 18.9 mls/hr IV TITR WES; 5 MCG/MIN PRN Reason: Protocol Last Admin: 02/27/17 21:34 Dose: Not Given Pantoprazole Sodium (Protonix 40mg Ivpb (Pre-Docked)) 100 mls @ 200 mls/hr IVPB DAILY WES Last Admin: 02/27/17 09:19 Dose: 200 mls/hr Propofol (Diprivan -) 100 mls @ 2.994 mls/hr IVPB TITR WES; 5 MCG/KG/MIN PRN Reason: Protocol Last Admin: 02/27/17 21:35 Dose: 17.962 mls/hr Metronidazole (Flagyl 500mg Premixed Ivpb -) 100 mls @ 100 mls/hr IVPB Q12H [facility] Last Admin: 02/27/17 21:12 Dose: 100 mls/hr Fentanyl 500 mcg/ Dextrose 100 mls @ 5 mls/hr IJ TITR WES PRN Reason: 25 MCG/HR Last Admin: 02/27/17 18:33 Dose: 15 mls/hr Insulin Aspart (Novolog Vial Sliding Scale -) 1 vial SQ ACHS WES PRN Reason: Protocol Last Admin: 02/28/17 07:18 Dose: 4 units Levetiracetam (Keppra Injection -) 1,000 mg IVPB BID [facility] Last Admin: 02/27/17 21:42 Dose: 1,000 mg Mupirocin (Bactroban Ointment (For Decolonization) -) 1 applic NS BID WES Stop: 03/03/17 21:59 Last Admin: 02/27/17 21:12 Dose: 1 applic Review of Systems Unable to obtain Vital Signs: Last Vital Signs Temp Pulse Resp BP Pulse Ox 100.3 F H 99 H 30 H 93/79 100 02/28/17 06:54 02/28/17 06:54 02/28/17 07:22 02/28/17 06:54 02/27/17 19:54 Intake & Output 02/25/17 02/26/17 02/27/17 02/28/17 23:59 23:59 23:59 23:59 Intake Total 5718.5 3365.0 1488.0 Output Total 950 3700 1200 Balance 4768.5 -335.0 288.0 Weight 220 lb 179 lb 3.773 oz 185 lb 1 oz 185 lb 8 oz Neck: Supple Negative JVD No Bruit Respiratory: Diminished Breath Sounds at the Bases Cardiovascular: S1 S2 Irregularly Irregular Gastrointestinal: Soft Benign Normal Bowel Sounds Ext: Edema Labs: Troponin, BNP 02/25/17 02/28/17 20:10 05:20 Troponin I 0.26 H 0.77 H* D CBC, BMP 02/28/17 05:20 02/28/17 05:20 INR, PTT INR 1.50 (0.82-1.09) H 02/28/17 05:20 Assessment/Plan ASSESSMENT: 1. Large left side CVA with cerebral edema post emergent craniotomy (calvarial bone flap) 2. Respiratory failure/intubated 3. Coronary artery disease post CABG angina pectoris with evidence of demand ischmic injury 4. Systolic LV dysfunction with chronic class I-II NYHA classification congestive heart failure, cardiogenic shock on inotropes/pressors 5. Post ICD implant (single lead [place]) for primary prophylaxis 6. Permanent atrial fibrillation currently off of A/C 7. Post MVR - Bio-prosthesis 8. Acute renal insufficiency 9. DM PLAN: 1. Continue Dobutamine and titrate dosage to 5 mcg/kg/min 2. Continue pressors and attempt to titrate off as tolerated maintaining MAP > 65 3. A/C resumption once cleared by neuro-surgery 4. Resume B-Blockers hemodynamics permitting 5. Recommend Entresto initiation once renal function stabilized 6. As outlined avoid Digoxin at this point considering the above noted acute renal insufficiency 7. May need to utilize diuretics (IV Lasix) as needed 8. Chest x-ray this AM 9. Monitor renal function and urine output closely Bibi Vickers M.D.
[2017-02-28] MEDS: FENTANYL INJECTION 500 MCG in DEXTROSE 5%-WATER - 90 ML IJ SCH ×2 (08:33→08:45)
--- NOTE | 2017-02-28 08:59 | PN ---
Progress Note (short form) - Note Progress Note: Subjective: no events over night Objective: Vital Signs: Last Vital Signs Temp Pulse Resp BP Pulse Ox 100.1 F H 99 H 30 H 91/77 99 02/28/17 08:00 02/28/17 08:00 02/28/17 08:00 02/28/17 08:00 02/28/17 08:00 Laboratory Results - last 24 hr 02/25/17 02/25/17 02/25/17 20:10 20:10 20:10 WBC 11.8 H RBC 4.96 D Hgb 14.9 D Hct 46.4 D MCV 93.6 MCH 30.1 MCHC 32.1 RDW 18.4 H D Plt Count 238 MPV 8.6 Total Counted 100 Neutrophils % (Manual) 91 H* Lymphocytes % (Manual) 8 Monocytes % (Manual) 1 L INR 1.71 H D PTT (Actin FS) Puncture Site ABG pH ABG pCO2 at Pt Temp ABG pO2 at Pt Temp ABG HCO3 ABG O2 Sat (Measured) ABG O2 Content ABG Base Excess Guero Test O2 Delivery Device Oxygen Flow Rate Vent Mode Vent Rate Mechanical Rate PEEP Pressure Support Vent Sodium 141 Potassium 4.2 Chloride 103 Carbon Dioxide 28 Anion Gap 10 BUN 44 H D Creatinine 1.5 H D Creat Clearance w eGFR 46.68 POC Glucometer Random Glucose 155 H D Calcium 8.7 Phosphorus Magnesium Total Bilirubin 1.1 H D AST 33 D ALT 36 D Alkaline Phosphatase 155 H D Creatine Kinase 95 Troponin I 0.26 H Total Protein 8.2 Albumin 3.0 L Triglycerides 150 Cholesterol 183 Total LDL Cholesterol 109 H HDL Cholesterol 48 Urine Color Urine Appearance Urine pH Ur Specific [place] Urine Protein Urine Glucose (UA) Urine Ketones Urine Blood Urine Nitrite Urine Bilirubin Urine Urobilinogen Ur Leukocyte Esterase Urine RBC Urine WBC Ur Epithelial Cells Urine Bacteria Random Vancomycin Blood Type Antibody Screen 02/25/17 02/25/17 02/27/17 20:10 21:01 11:03 WBC RBC Hgb Hct MCV MCH MCHC RDW Plt Count MPV Total Counted Neutrophils % (Manual) Lymphocytes % (Manual) Monocytes % (Manual) INR PTT (Actin FS) Puncture Site ABG pH ABG pCO2 at Pt Temp ABG pO2 at Pt Temp ABG HCO3 ABG O2 Sat (Measured) ABG O2 Content ABG Base Excess Guero Test O2 Delivery Device Oxygen Flow Rate Vent Mode Vent Rate Mechanical Rate PEEP Pressure Support Vent Sodium Potassium Chloride Carbon Dioxide Anion Gap BUN Creatinine Creat Clearance w eGFR POC Glucometer 184.03657 Random Glucose Calcium Phosphorus Magnesium Total Bilirubin AST ALT Alkaline Phosphatase Creatine Kinase Troponin I Total Protein Albumin Triglycerides Cholesterol Total LDL Cholesterol HDL Cholesterol Urine Color Yellow Urine Appearance Clear Urine pH 6.0 Ur Specific [place] 1.025 Urine Protein 3+ H Urine Glucose (UA) Negative Urine Ketones Negative Urine Blood 1+ H Urine Nitrite Negative Urine Bilirubin Negative Urine Urobilinogen Negative Ur Leukocyte Esterase Negative Urine RBC 2 Urine WBC 1 Ur Epithelial Cells Rare Urine Bacteria Rare Random Vancomycin Blood Type O POSITIVE Antibody Screen Negative 02/27/17 02/27/17 02/27/17 17:13 20:38 21:41 WBC RBC Hgb Hct MCV MCH MCHC RDW Plt Count MPV Total Counted Neutrophils % (Manual) Lymphocytes % (Manual) Monocytes % (Manual) INR PTT (Actin FS) Puncture Site ABG pH ABG pCO2 at Pt Temp ABG pO2 at Pt Temp ABG HCO3 ABG O2 Sat (Measured) ABG O2 Content ABG Base Excess Guero Test O2 Delivery Device Oxygen Flow Rate Vent Mode Vent Rate Mechanical Rate PEEP Pressure Support Vent Sodium Potassium Chloride Carbon Dioxide Anion Gap BUN Creatinine Creat Clearance w eGFR POC Glucometer 201.43240 185.43149 Random Glucose Calcium Phosphorus Magnesium Total Bilirubin AST ALT Alkaline Phosphatase Creatine Kinase Troponin I Total Protein Albumin Triglycerides Cholesterol Total LDL Cholesterol HDL Cholesterol Urine Color Urine Appearance Urine pH Ur Specific [place] Urine Protein Urine Glucose (UA) Urine Ketones Urine Blood Urine Nitrite Urine Bilirubin Urine Urobilinogen Ur Leukocyte Esterase Urine RBC Urine WBC Ur Epithelial Cells Urine Bacteria Random Vancomycin Blood Type O POSITIVE Antibody Screen Negative 02/28/17 02/28/17 02/28/17 05:20 05:20 05:20 WBC 13.5 H RBC 4.12 Hgb 12.7 Hct 38.6 MCV 93.6 MCH 30.7 MCHC 32.9 RDW 18.3 H Plt Count 164 MPV 8.6 Total Counted Neutrophils % (Manual) Lymphocytes % (Manual) Monocytes % (Manual) INR PTT (Actin FS) Puncture Site ABG pH ABG pCO2 at Pt Temp ABG pO2 at Pt Temp ABG HCO3 ABG O2 Sat (Measured) ABG O2 Content ABG Base Excess Guero Test O2 Delivery Device Oxygen Flow Rate Vent Mode Vent Rate Mechanical Rate PEEP Pressure Support Vent Sodium Potassium Chloride Carbon Dioxide Anion Gap BUN Creatinine Creat Clearance w eGFR POC Glucometer Random Glucose Calcium Phosphorus 5.5 H Magnesium 2.5 H D Total Bilirubin AST ALT Alkaline Phosphatase Creatine Kinase Troponin I Total Protein Albumin Triglycerides Cholesterol Total LDL Cholesterol HDL Cholesterol Urine Color Urine Appearance Urine pH Ur Specific [place] Urine Protein Urine Glucose (UA) Urine Ketones Urine Blood Urine Nitrite Urine Bilirubin Urine Urobilinogen Ur Leukocyte Esterase Urine RBC Urine WBC Ur Epithelial Cells Urine Bacteria Random Vancomycin 7.604 Blood Type Antibody Screen 02/28/17 02/28/17 02/28/17 05:20 05:20 07:25 WBC RBC Hgb Hct MCV MCH MCHC RDW Plt Count MPV Total Counted Neutrophils % (Manual) Lymphocytes % (Manual) Monocytes % (Manual) INR 1.50 H PTT (Actin FS) 25.2 L Puncture Site Right radial ABG pH 7.40 ABG pCO2 at Pt Temp 32.6 L ABG pO2 at Pt Temp 80.1 D ABG HCO3 19.9 L ABG O2 Sat (Measured) 95.5 ABG O2 Content 17.1 ABG Base Excess -3.5 L Guero Test Positive O2 Delivery Device Mech vent Oxygen Flow Rate 50% Vent Mode A/c Vent Rate 30 Mechanical Rate Yes PEEP 8.0 Pressure Support Vent 400 Sodium 142 Potassium 4.2 Chloride 107 Carbon Dioxide 21 Anion Gap 14 BUN 64 H Creatinine 2.5 H Creat Clearance w eGFR 25.89 POC Glucometer Random Glucose 204 H D Calcium 7.6 L Phosphorus Magnesium Total Bilirubin 2.2 H D AST 513 H D ALT 362 H D Alkaline Phosphatase 91 Creatine Kinase 126 Troponin I 0.77 H* D Total Protein 6.4 Albumin 2.4 L Triglycerides Cholesterol Total LDL Cholesterol HDL Cholesterol Urine Color Urine Appearance Urine pH Ur Specific [place] Urine Protein Urine Glucose (UA) Urine Ketones Urine Blood Urine Nitrite Urine Bilirubin Urine Urobilinogen Ur Leukocyte Esterase Urine RBC Urine WBC Ur Epithelial Cells Urine Bacteria Random Vancomycin Blood Type Antibody Screen Physical Exam: Intubated sedated. no response to sternal rub CV: irreg irre. JVD Lungs: no crackles heard anteriorly EXt pitting edema Neuro : dilated fixed L pupil , not reactive to light . No corneal reflexes. Has cough reflex , no facial droop. + babinski's on both sides. 1+ L biceps and 0 on R side. 1+ L knee jerk. 0 R knee jerk . ASSESSMENT AND PLAN: 66 y/o unfortunate man with h/o Afib, HTN, DM2 ,chronic systolic CHF, who was brought due to MS and was found to have stroke and shock 1- Large L sided CVA with hemorrhagic conversion and herniation s/p craniotomy 02/26 - CT this am , d/w radiologist records and information manager, 9mm bleed and small subarachnoid laterally ( subarachnoid couild be due to sx ) . - HAs no corneal or upillary reflexes but still has cough reflex - turn off sedation f roaccurat neruo exam - change hydrocortisone to decardone fo rbrain edema - d/w neuro . will follow 2- Shock: likely cardiogentic shock - cont dobutamine ( 5 ) and levophed ( 10) . 3- Acute systolic L and R heart failure. - Cont dobutamine - monitor pulmonary ocngestion , hold off diuretics today, will give if necessary 4- NSTEMI: - to resume Asa and heparin when appropriate - follow trop , cont to increase 5- DEBRA ; likely ATN. - pressor suport . - monitor renal function 6- Fever: likely central fever . - received cefepime, vanco and flagyl to cover neuro system and aspiration . ID consult 7- Transaminitis : due to shock. worse prognosis , guarded. Code status , d/w family . Full code Visit type - Emergency Visit Emergency Visit: Yes ED Registration Date: 02/25/17 Care time: The patient presented to the Emergency Department on the above date and was hospitalized for further evaluation of their emergent condition. - New Patient This patient is new to me today: No - Critical Care Critical Care patient: Yes Total Critical Care Time (in minutes): 30 Critical Care Statement: The care of this patient involved high complexity decision making to prevent further life threatening deterioration of the patient 's condition and/or to evaluate & treat vital organ system(s) failure or risk of failure.
[2017-02-28] MEDS: METRONIDAZOLE 500 MG PREMIXED 100 ML IVPB SCH ×2 (09:01→22:36)
[2017-02-28] MEDS: MUPIROCIN 2% TOPICAL OINTMENT FOR DECOLONIZATION NS SCH ×2 (09:02→22:38)
[2017-02-28] MEDS: levETIRAcetam 500 MG/5 ML INJECTION VIAL IVPB SCH ×2 (09:05→22:37)
[2017-02-28] MEDS: PANTOPRAZOLE SODIUM 100 ML IVPB SCH (09:06)
--- NOTE | 2017-02-28 09:06 | PN ---
Progress Note, Physician Chief Complaint: stroke History of Present Illness: Events noted, notes reviewed, post craniotomy (calvarial bone flap) POD# 3, intubated, sedated, not responsive, remains in atrial fibrillation rates controlled with non sustained VT, remains on intropes (Dobutamine) and pressors (Norepinephrine) F/U: Pt off propofol , no response. Repeat CTH done . - Current Medication List Current Medications: Active Medications Cefepime HCl (Maxipime (Restricted To Id) -) 1 gm IVPB DAILY [facility] PRN Reason: Protocol Chlorhexidine Gluconate (Hibiclens For Decolonization -) 1 applic TP HS WES Last Admin: 02/27/17 21:12 Dose: 1 applic Dexamethasone Sodium Phosphate (Decadron Injection -) 4 mg IVPB Q8H-IV WES IV Flush (Triple Lumen Flush) 4 ml IVPUSH PRN PRN PRN Reason: Protocol Dobutamine HCl/Dextrose (Dobutamine 250 Mg/D5w -) 250 mls @ 12.192 mls/hr IV TITR [facility]ES; 2.5 MCG/KG/MIN PRN Reason: Protocol Last Admin: 02/27/17 21:33 Dose: Not Given Norepinephrine Bitartrate 8, (000 mcg/ Dextrose) 504 mls @ 18.9 mls/hr IV TITR WES; 5 MCG/MIN PRN Reason: Protocol Last Admin: 02/27/17 21:34 Dose: Not Given Pantoprazole Sodium (Protonix 40mg Ivpb (Pre-Docked)) 100 mls @ 200 mls/hr IVPB DAILY [facility]ES Last Admin: 02/27/17 09:19 Dose: 200 mls/hr Propofol (Diprivan -) 100 mls @ 2.994 mls/hr IVPB TITR WES; 5 MCG/KG/MIN PRN Reason: Protocol Last Admin: 02/27/17 21:35 Dose: 17.962 mls/hr Metronidazole (Flagyl 500mg Premixed Ivpb -) 100 mls @ 100 mls/hr IVPB Q12H [facility]ES Last Admin: 02/27/17 21:12 Dose: 100 mls/hr Fentanyl 500 mcg/ Dextrose 100 mls @ 5 mls/hr IJ TITR WES PRN Reason: 25 MCG/HR Last Admin: 02/28/17 08:33 Dose: 20 mls/hr Insulin Aspart (Novolog Vial Sliding Scale -) 1 vial SQ ACHS [facility] PRN Reason: Protocol Last Admin: 02/28/17 07:18 Dose: 4 units Levetiracetam (Keppra Injection -) 1,000 mg IVPB BID [facility] Last Admin: 02/27/17 21:42 Dose: 1,000 mg Mupirocin (Bactroban Ointment (For Decolonization) -) 1 applic NS BID [facility]ES Stop: 03/03/17 21:59 Last Admin: 02/27/17 21:12 Dose: 1 applic - Objective Vital Signs: Vital Signs Temperature 100.1 F H 02/28/17 08:00 Pulse Rate 99 H 02/28/17 08:00 Respiratory Rate 30 H 02/28/17 08:00 Blood Pressure 91/77 02/28/17 08:00 O2 Sat by Pulse Oximetry (%) 99 02/28/17 08:00 Eyes: Yes: Other (R pupil 3 mm ,mildy sluggish , L pupil dilated and fix, no reaction.) HENT: Yes: Other (s/p craniotomy) Neck: Yes: Supple Cardiovascular: Yes: Pulse Irregular Respiratory: Yes: Other (on MV , has respiratory drive) Edema: LUE: 1+, RUE: 1+ Additional Findings/Remarks: no corneal reflex , no gaze preference ; doll's eye -ve ; gag +luma Only withdraw LEs to painful stimuli Plantar upgoing Labs: CBC, BMP 02/28/17 05:20 02/28/17 05:20 INR, PTT INR 1.50 (0.82-1.09) H 02/28/17 05:20 - ....Imaging Cat Scan: Image Reviewed (L hemisphere cytotoxic edema , no sulcus, with cerebral compression .) Assessment/Plan Events noted, notes reviewed, post craniotomy (calvarial bone flap) POD# 3, intubated, sedated, not responsive, remains in atrial fibrillation rates controlled with non sustained VT, remains on intropes (Dobutamine) and pressors (Norepinephrine) 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 - Poor prognosis ; need to address family regarding proxy and the patient wishes -neurocheck q 2 -health maintenance per primary team Thank you. JOYA Castellano MD
[2017-02-28] MEDS: DEXAMETHASONE SOD PHOSPHATE 4 MG/1 ML VIAL IVPB SCH ×2 (09:25→17:04)
--- NOTE | 2017-02-28 09:27 | PN ---
Progress Note (short form) - Note Progress Note: PULM/CCM Seen and examined in ICU -repeat CT head with severe vasogenic edema, some midline shift -solumedrol to Decadron -Seen by Neuro--> severe neurological insult, low likelyhood of recovery Active Medications Cefepime HCl (Maxipime (Restricted To Id) -) 1 gm IVPB DAILY [facility] PRN Reason: Protocol Chlorhexidine Gluconate (Hibiclens For Decolonization -) 1 applic TP HS WES Last Admin: 02/27/17 21:12 Dose: 1 applic Dexamethasone Sodium Phosphate (Decadron Injection -) 4 mg IVPB Q8H-IV WES IV Flush (Triple Lumen Flush) 4 ml IVPUSH PRN PRN PRN Reason: Protocol Dobutamine HCl/Dextrose (Dobutamine 250 Mg/D5w -) 250 mls @ 12.192 mls/hr IV TITR [facility]ES; 2.5 MCG/KG/MIN PRN Reason: Protocol Last Admin: 02/27/17 21:33 Dose: Not Given Norepinephrine Bitartrate 8, (000 mcg/ Dextrose) 504 mls @ 18.9 mls/hr IV TITR WES; 5 MCG/MIN PRN Reason: Protocol Last Admin: 02/27/17 21:34 Dose: Not Given Pantoprazole Sodium (Protonix 40mg Ivpb (Pre-Docked)) 100 mls @ 200 mls/hr IVPB DAILY [facility] Last Admin: 02/28/17 09:06 Dose: 200 mls/hr Propofol (Diprivan -) 100 mls @ 2.994 mls/hr IVPB TITR WES; 5 MCG/KG/MIN PRN Reason: Protocol Last Titration: 02/28/17 09:00 Dose: 0 mcg/kg/min Metronidazole (Flagyl 500mg Premixed Ivpb -) 100 mls @ 100 mls/hr IVPB Q12H [facility] Last Admin: 02/28/17 09:01 Dose: 100 mls/hr Fentanyl 500 mcg/ Dextrose 100 mls @ 5 mls/hr IJ TITR [facility] PRN Reason: 25 MCG/HR Last Titration: 02/28/17 09:00 Dose: 0 mcg/hr Insulin Aspart (Novolog Vial Sliding Scale -) 1 vial SQ ACHS [facility] PRN Reason: Protocol Last Admin: 02/28/17 07:18 Dose: 4 units Levetiracetam (Keppra Injection -) 1,000 mg IVPB BID [facility] Last Admin: 02/28/17 09:05 Dose: 1,000 mg Mupirocin (Bactroban Ointment (For Decolonization) -) 1 applic NS BID [facility] Stop: 03/03/17 21:59 Last Admin: 02/28/17 09:02 Dose: 1 applic Vital Signs Temp 100.1 F H 02/28/17 09:00 Pulse 97 H 02/28/17 09:00 Resp 30 H 02/28/17 09:00 BP 96/65 02/28/17 09:00 Pulse Ox 99 02/28/17 08:00 Intake & Output 02/27/17 02/27/17 02/28/17 11:59 23:59 11:59 Intake Total 993 2372.0 1488.0 Output Total 900 2800 1200 Balance 93 -428.0 288.0 Weight 83.943 kg 84.141 kg Intake: IV 693 1098.0 1188.0 Dobutamine 250 mg/D5w - 84 292.8 292.8 250 ml @ 2.5 MCG/KG/MIN 12.192 mls/hr IV TITR [facility] Rx#:[id number] Levophed - 8,000 Mcg In 525 540 540 D5w - 496 ml @ 5 MCG/MIN 18.9 mls/hr IV TITR [facility] Rx#:[id number] Diprivan - 100 ml @ 5 MCG 84 175.2 175.2 /KG/MIN 2.994 mls/hr IVPB TITR [facility] Rx#:[id number] Heparin - 25,000 Unit In 0 Normal Saline - 495 ml @ 800 UNIT/HR 16 mls/hr IV TITR [facility] Rx#:[id number] fentanyl 90 180 IVPB 300 950 300 Oral 0 Fresh Frozen Plasma 324 Output: Urine 900 2800 1200 Rangel 900 2800 1200 Other: Voiding Method Indwelling Catheter Indwelling Catheter Indwelling Catheter Bowel Movement No No Height 5 ft 9 in Body Mass Index (BMI) 27.3 Weight Measurement Method [facility] Exam: General: intubated and weak response to noxious stimuli HEENT: Pupils: L>R, surgical site c/d/i Pulm: on vent RR 30, occasional overbreathing CV: irr, irr no m/r/g Abd: SNTND hypoactive bowel sounds Ext: warm, +2 pulses Neuro: RASS -5 CBCD WBC 13.5 K/mm3 (4.0-10.0) H 02/28/17 05:20 RBC 4.12 M/mm3 (4.00-5.60) 02/28/17 05:20 Hgb 12.7 GM/dL (11.7-16.9) 02/28/17 05:20 Hct 38.6 % (35.4-49) 02/28/17 05:20 MCV 93.6 fl (80-96) 02/28/17 05:20 MCHC 32.9 g/dl (32.0-35.9) 02/28/17 05:20 RDW 18.3 % (11.9-15.9) H 02/28/17 05:20 Plt Count 164 K/MM3 (134-434) 02/28/17 05:20 MPV 8.6 fl (7.5-11.1) 02/28/17 05:20 CMP Sodium 142 mmol/L (136-145) 02/28/17 05:20 Potassium 4.2 mmol/L (3.5-5.1) 02/28/17 05:20 Chloride 107 mmol/L (98-107) 02/28/17 05:20 Carbon Dioxide 21 mmol/L (21-32) 02/28/17 05:20 Anion Gap 14 (8-16) 02/28/17 05:20 BUN 64 mg/dL (7-18) H 02/28/17 05:20 Creatinine 2.5 mg/dL (0.7-1.3) H 02/28/17 05:20 Creat Clearance w eGFR 25.89 (>60) 02/28/17 05:20 Random Glucose 204 mg/dL (74-106) H D 02/28/17 05:20 Calcium 7.6 mg/dL (8.5-10.1) L 02/28/17 05:20 Total Bilirubin 2.2 mg/dL (0.2-1.0) H D 02/28/17 05:20 AST 513 U/L (15-37) H D 02/28/17 05:20 ALT 362 U/L (12-78) H D 02/28/17 05:20 Alkaline Phosphatase 91 U/L (45-117) 02/28/17 05:20 Total Protein 6.4 g/dl (6.4-8.2) 02/28/17 05:20 Albumin 2.4 g/dl (3.4-5.0) L 02/28/17 05:20 CARDIAC ENZYMES Creatine Kinase 126 IU/L (39-308) 02/28/17 05:20 Troponin I 0.77 ng/ml (0.00-0.05) H* D 02/28/17 05:20 Microbiology 02/26/17 02:18 Blood - Peripheral Venous Blood Culture - Preliminary NO GROWTH OBTAINED AFTER 48 HOURS, INCUBATION TO CONTINUE FOR 3 DAYS. 02/27/17 09:00 Sputum - Endotrachea Suction/Ventilator Gram Stain - Final 02/26/17 02:20 Sputum - Endotrachea Suction/Ventilator Gram Stain - Final 02/26/17 02:20 Sputum - Endotrachea Suction/Ventilator Sputum Culture - Preliminary NORMAL RESPIRATORY MOHIT 02/26/17 11:50 Blood - Peripheral Venous Blood Culture - Preliminary NO GROWTH OBTAINED AFTER 24 HOURS, INCUBATION TO CONTINUE FOR 4 DAYS. 02/25/17 21:01 Urine - Urine Rangel Urine Culture - Final NO GROWTH OBTAINED Problem List - Problems (1) CVA (cerebral vascular accident) Code(s): I63.9 - CEREBRAL INFARCTION, UNSPECIFIED Qualifiers: CVA mechanism: occlusion Precerebral and cerebral artery: middle cerebral artery Laterality of affected vessel: left Qualified Code(s): I63.512 - Cerebral infarction due to unspecified occlusion or stenosis of left middle cerebral artery (2) Respiratory failure Code(s): J96.90 - RESPIRATORY FAILURE, UNSP, UNSP W HYPOXIA OR HYPERCAPNIA (3) Shock circulatory Code(s): R57.9 - SHOCK, UNSPECIFIED (4) A-fib Code(s): I48.91 - UNSPECIFIED ATRIAL FIBRILLATION (5) CAD (coronary artery disease) Code(s): I25.10 - ATHSCL HEART DISEASE OF [place] CORONARY ARTERY W/O ANG PCTRS (6) Diabetes Code(s): E11.9 - TYPE 2 DIABETES MELLITUS WITHOUT COMPLICATIONS Assessment/Plan Cont levo/dopa for MAP >60 ABX: currently on unasyn w/ high fevers: infection vs neuro, will escalate to cefepime (neuro coverage), flagyl for anerobic coverage and vanco ID following, appreciate recs Follow cultures, repeat today Neurology and Neuro surgery following AC Mode of vent, wean Fio2 and PEEP as tolerated IV Heparin per neurology ASA Cont stress dose steroids---> decadron todya Trend lactate Renal dose medications: DEBRA Glucose control: goal 100-180 hold sedation for Neuro eval, use propofol so can have daily exam PPI for GI prophylaxis SCD for DVT prophylaxis Temo Hodges ACNP Pulm/CCM CCT: 35m Problem List - Problems (1) CVA (cerebral vascular accident) Code(s): I63.9 - CEREBRAL INFARCTION, UNSPECIFIED Qualifiers: Qualified Code(s): I63.512 - Cerebral infarction due to unspecified occlusion or stenosis of left middle cerebral artery (2) Respiratory failure Code(s): J96.90 - RESPIRATORY FAILURE, UNSP, UNSP W HYPOXIA OR HYPERCAPNIA (3) Shock circulatory Code(s): R57.9 - SHOCK, UNSPECIFIED (4) A-fib Code(s): I48.91 - UNSPECIFIED ATRIAL FIBRILLATION (5) CAD (coronary artery disease) Code(s): I25.10 - ATHSCL HEART DISEASE OF [place] CORONARY ARTERY W/O ANG PCTRS (6) Diabetes Code(s): E11.9 - TYPE 2 DIABETES MELLITUS WITHOUT COMPLICATIONS
[2017-02-28] MEDS ORDERED: CEFEPIME HCL 1 GM VIAL (RESTRICTED TO ID) IVPB SCH (10:00)
[2017-02-28] MEDS ORDERED: CEFEPIME 1 GM/100 ML BAG PRE-DOCKED IVPB SCH (10:00)
--- NOTE | 2017-02-28 10:17 | PN ---
Progress Note (short form) - Note Progress Note: RENAL Pt remains same had CT scan which showed an increase left to right midline shift Last Vital Signs Temp Pulse Resp BP Pulse Ox 100.1 F H 98 H 27 H 98/83 99 02/28/17 10:00 02/28/17 10:00 02/28/17 10:00 02/28/17 10:00 02/28/17 08:00 lungs clear cvs s1s2 rr abd soft ext +edema neuro moves right lower extremity Current Medications Generic Name Dose Route Start Last Admin Trade Name Freq PRN Reason Stop Dose Admin Cefepime HCl 1 gm 02/28/17 10:00 Maxipime (Restricted To Id) - IVPB DAILY [facility] Protocol Chlorhexidine Gluconate 1 applic 02/26/17 22:00 02/27/17 21:12 Hibiclens For Decolonization - TP 1 applic HS WES Administration Dexamethasone Sodium Phosphate 4 mg 02/28/17 10:00 02/28/17 09:25 Decadron Injection - IVPB 4 mg Q8H-IV [facility]ES Administration IV Flush 4 ml 02/26/17 21:23 Triple Lumen Flush IVPUSH PRN PRN Protocol Dobutamine HCl/Dextrose 250 mls @ 12.192 mls/hr 02/26/17 21:23 02/27/17 21:33 Dobutamine 250 Mg/D5w - IV Not Given TITR WES Protocol 2.5 MCG/KG/MIN Norepinephrine Bitartrate 8, 504 mls @ 18.9 mls/hr 02/26/17 21:23 02/27/17 21: 34 000 mcg/ Dextrose IV Not Given TITR WES Protocol 5 MCG/MIN Pantoprazole Sodium 100 mls @ 200 mls/hr 02/27/17 10:00 02/28/17 09:06 Protonix 40mg Ivpb (Pre-Docked) IVPB 200 mls/hr DAILY WES Administration Propofol 100 mls @ 2.994 mls/hr 02/26/17 21:23 02/28/17 09:00 Diprivan - IVPB 0 mcg/kg/min TITR [facility]ES Titration Protocol 5 MCG/KG/MIN Metronidazole 100 mls @ 100 mls/hr 02/27/17 08:45 02/28/17 09:01 Flagyl 500mg Premixed Ivpb - IVPB 100 mls/hr Q12H [facility] Administration Fentanyl 500 mcg/ Dextrose 100 mls @ 5 mls/hr 02/27/17 08:45 02/28/17 09:00 IJ 0 mcg/hr TITR WES Titration 25 MCG/HR Insulin Aspart 1 vial 02/26/17 22:00 02/28/17 07:18 Novolog Vial Sliding Scale - SQ 4 units ACHS [facility] Administration Protocol Levetiracetam 1,000 mg 02/26/17 22:00 02/28/17 09:05 Keppra Injection - IVPB 1,000 mg BID [facility] Administration Mupirocin 1 applic 02/26/17 22:00 02/28/17 09:02 Bactroban Ointment (For Decolonization) - NS 03/03/17 21:59 1 applic BID [facility] Administration CBC, BMP 02/28/17 05:20 02/28/17 05:20 IMPRESSION DEBRA on CKD with an apparent prerenal state based on fractional excretion of urea - pt is non oliguric S/P CVA, has anisocoria s/p craniectomy central fever depressed EF possible anterior ischemia on ekg. May also have cerebral T waves though they are not deep PLAN continue current management palliative care eval AEDs monitor electrolytes MV
[2017-02-28] MEDS: ACETAMINOPHEN 650 MG/20.3 ML ORAL SOLUTION (CUPS) PO PRN (15:33)
[2017-02-28] MEDS: DOBUTAMINE 250 MG/D5W - 250 ML IV SCH ×2 (15:47→22:50)
--- NOTE | 2017-02-28 16:40 | CON.ID ---
Consult Consult Specialty:: infectious diseases Referred by:: dr cerda Reason for Consultation:: sepsis fever - History of Present Illness Chief Complaint: fevers History of Present Illness: patient who is intubated and sedated and no history available from the patient history noted from the charts the below is the initial history of the patient before the surgery 66yo man afib, HTN, DM who presented to ED with new onset AMS. Per report last seen normal 02/25/2017 10am. Family found patient with rightside weakness and left facial droop and EMS was activated. In the ED patient was awake but became obtunded requiring intubation. NCHCT showed very large L sided cerebral infarct. Not candidate for TPA given unknown down time. Patient became hemodynamically unstable with BP 40/20s. Dopamine started. [facility] was consulted for transfer but given hypotension patient was declined. CCM was consulted and RSCV TLC was placed and NE and vaso drips with improved BP. Patient with low grade fever and WBC: 11.8. Patient transferred to ICU. patient was taken to the operating room and craniotomy was done patient is post craniotomy (calvarial bone flap) POD# 3, intubated, sedated, not responsive, remains in atrial fibrillation rates controlled with non sustained VT, remains on intropes (Dobutamine) and pressors (Norepinephrine) - History Source History Provided By: Medical Record Limitations to Obtaining History: Clinical Condition - Past Medical History Cardio/Vascular: Yes: AFIB, CAD, HTN, Mitral Insufficiency, Pulmonary Hypertension Pulmonary: Yes: COPD - Past Surgical History Past Surgical History: Yes: AICD, CABG (2010), Laminectomy, Valve Replacement ( MVR: porcine valve 2010) - Alcohol/Substance Use Hx Alcohol Use: No - Smoking History Smoking history: Former smoker Have you smoked in the past 12 months: Yes Aproximately how many cigarettes per day: 0 If you are a former smoker, when did you quit?: 2010 - Social History Usual Living Arrangement: With Spouse Home Medications - Allergies Allergies/Adverse Reactions: Allergies Allergy/AdvReac Type Severity Reaction Status Date / Time No Known Allergies Allergy Verified 07/02/11 14:09 - Home Medications Home Medications: Ambulatory Orders Allopurinol [Zyloprim -] 100 mg PO DAILY #30 tablet 02/26/17 Aspirin [Aspirin EC] 81 mg PO DAILY #30 tablet. 02/26/17 Bumetanide [Bumex -] 2 mg PO BID #30 tablet 02/26/17 Carvedilol [Coreg -] 12.5 mg PO BID #14 tablet 02/26/17 Digoxin [Lanoxin -] 0.25 mg PO DAILY #30 tablet 02/26/17 Febuxostat [Uloric -] 40 mg PO DAILY #30 tab 02/26/17 Oxycodone HCl/Acetaminophen [Percocet 5-325 mg Tablet] 1 tab PO Q6H PRN #20 tablet MDD 8 tablets 02/26/17 Prednisone [Deltasone -] 5 mg PO DAILY #30 tablet 02/26/17 Sertraline HCl [Zoloft -] 25 mg PO DAILY #30 tablet 02/26/17 Warfarin Na [Coumadin -] 5 mg PO DAILY@1800 #30 tablet 02/26/17 Review of Systems Unable to obtain ROS, reason: unable to obtain Physical Exam Vital Signs: Vital Signs Temperature 101.9 F H 02/28/17 16:00 Pulse Rate 108 H 02/28/17 16:00 Respiratory Rate 30 H 02/28/17 16:20 Blood Pressure 93/80 02/28/17 16:00 O2 Sat by Pulse Oximetry (%) 100 02/28/17 10:23 Constitutional: Yes: Other Eyes: Yes: Other Cardiovascular: Yes: Pulse Irregular, Other (on pressors) Respiratory: Yes: Intubated, Mechanically Ventilated Gastrointestinal: Yes: Normal Bowel Sounds, Soft Musculoskeletal: Yes: Other Extremities: Yes: Other Neurological: Yes: Other Labs: CBC, BMP 02/28/17 05:20 02/28/17 05:20 Imaging - Results Chest X-ray: Report Reviewed, Image Reviewed Cat Scan: Report Reviewed, Image Reviewed Assessment/Plan after going through in detail and seeing the patient and his history,patient could be getting infection from any site but looking at this pattern of infection i suspect that the lung could be playing a part with association of brain itself his fevers are continuos which is very hard if brain was the only source Problem List - Problems (1) CVA (cerebral vascular accident) Code(s): I63.9 - CEREBRAL INFARCTION, UNSPECIFIED Qualifiers: CVA mechanism: occlusion Precerebral and cerebral artery: middle cerebral artery Laterality of affected vessel: left Qualified Code(s): I63.512 - Cerebral infarction due to unspecified occlusion or stenosis of left middle cerebral artery (2) Respiratory failure Code(s): J96.90 - RESPIRATORY FAILURE, UNSP, UNSP W HYPOXIA OR HYPERCAPNIA (3) Shock circulatory Code(s): R57.9 - SHOCK, UNSPECIFIED (4) A-fib Code(s): I48.91 - UNSPECIFIED ATRIAL FIBRILLATION (5) CAD (coronary artery disease) Code(s): I25.10 - ATHSCL HEART DISEASE OF [place] CORONARY ARTERY W/O ANG PCTRS (6) Diabetes Code(s): E11.9 - TYPE 2 DIABETES MELLITUS WITHOUT COMPLICATIONS patient had one dose of vanco and cefipime plan i will continue cefipime at this point all his cx are negative if the patients fever does not break will try to add another abx i think will give patient vanco tomorrow again cc 45 min
[2017-02-28] MEDS: CEFEPIME 2 GM in DEXTROSE 5%-WATER - 100 ML IVPB SCH (17:55)
[2017-02-28] MEDS: PROPOFOL 100 ML IVPB SCH ×2 (18:25→22:43)
[2017-02-28] MEDS ORDERED: PROPOFOL 20 ML ONE (21:41)
[2017-02-28] MEDS: CHLORHEXIDINE GLUCONATE 4% CLEANSER FOR DECOLONIZATION TP SCH (22:37)
[2017-02-28] MEDS: NOREPINEPHRINE BITARTRATE 8,000 MCG in DEXTROSE 5%-WATER - 496 ML IV SCH (22:44)
[2017-03-01] MEDS ORDERED: DOBUTAMINE 250 MG/D5W - 250 ML ONE (01:30)
[2017-03-01] MEDS: DEXAMETHASONE SOD PHOSPHATE 4 MG/1 ML VIAL IVPB SCH ×3 (02:00→17:14)
[2017-03-01 05:55] LABS: MCH 30.9 pg (25.7-33.7); MCHC 33.1 g/dl (32.0-35.9); MEAN CELL VOLUME 93.2 fl (80-96); MEAN PLT VOLUME 8.5 fl (7.5-11.1); PLATELET COUNT 166 K/MM3 (134-434); RDW 18.3 % (11.9-15.9); WHITE BLOOD COUNT 11.3 K/mm3 (4.0-10.0)
[2017-03-01 06:12] LABS: INR 1.43 (0.82-1.09); PROTHROMBIN TIME (PATIENT) 15.9 SEC (9.98-11.88)
[2017-03-01 06:26] LABS: MAGNESIUM 2.6 mg/dL (1.8-2.4); PHOSPHOROUS 4.7 mg/dL (2.5-4.9)
[2017-03-01] MEDS: CEFEPIME 2 GM in DEXTROSE 5%-WATER - 100 ML IVPB SCH ×2 (06:49→17:15)
[2017-03-01] MEDS: INSULIN SLIDING SCALE (NOVOLOG) 1 VIAL SQ SCH ×4 (06:50→21:41)
[2017-03-01 07:17] LABS: ARTERIAL BLD GAS O2 SATURATION 99.3 % (90-98.9); ARTERIAL BLOOD GAS BASE EXCESS -4.1 meq/l (-2-2); ARTERIAL BLOOD GAS HCO3 19.5 meq/L (22-26); ARTERIAL BLOOD GAS pH 7.39 (7.35-7.45)
[2017-03-01 07:18] LABS: ALLENS TEST POSITIVE; ART PUNCT SITE RIGHT RADIAL; LPM/O2% 50%; PT. ON O2? YES; TYPE OF O2 VENT
[2017-03-01 07:19] LABS: MECH. VENT. Y; VENT RATE 30; VT/PRESS 400
--- NOTE | 2017-03-01 07:35 | PN ---
Physical Exam: SUBJECTIVE: Patient seen and examined by me this AM - Pt stable overnight. No major overnight events. Pt w/ preserved corneal reflex , gag/swallow reflex. negative doll's eyes - Currently on dobutamine, levo gtt - Plan for family discussion regarding goals of care today. Spoke w/ mother in early AM. Wishes for daughter to be present for discussion. - No significant clinical improvement. - Vent on AC mode - Per ID team, one dose of vancomycin for post-op surgical ppx for abscess in hematoma post hemorrhagic stroke. All micro negative to date. PM: - PM meeting w/ family to discuss poor prognosis and likelihood of meaningful recovery. Family wishes for full code status. - Family met with neurosurgery team w/ further in-depth discussion of prognosis. OBJECTIVE: Vital Signs Intake & Output 02/26/17 02/27/17 02/28/17 03/01/17 23:59 23:59 23:59 23:59 Intake Total 5718.5 3365.0 2807.8 832 Output Total 950 3700 2700 800 Balance 4768.5 -335.0 107.8 32 Weight 81.3 kg 83.943 kg 84.141 kg 84.1 kg Period Temp Pulse Resp BP Sys/Leon Pulse Ox Last 24 Hr 100.1 F-102.7 F 97-123 17-32 86-112/65-92 99-100 GENERAL: The patient is sedated, intubated, lying in bed. HEAD: L craniotomy with dressing clean, dry and intact noted on L posterior aspect of cranium. EYES: R pupil small, non-reactive. L pupil dilated, minimally reactive. Sclera anicteric. Mild ENT: Mild labial swelling, oropharynx clear, nasopharynx clear. NECK: Trachea midline, intubated. LUNGS: Mechanical breath sounds noted bilaterally. HEART: Tachycardic, S1, S2 without murmur, rub or gallop. ABDOMEN: Soft, nondistended, normoactive bowel sounds. No masses or hepatomegaly. EXTREMITIES: 2+ pulses, warm, well-perfused, no edema. NEUROLOGICAL: Cranial nerves II through XII grossly intact. Normal speech, gait not observed. PSYCH: Normal mood, normal affect. SKIN: Warm, dry, normal turgor, no rashes or lesions noted Laboratory Results - last 24 hr CBC, BMP 03/01/17 05:35 02/28/17 05:20 02/28/17 02/28/17 02/28/17 09:10 11:06 16:55 WBC RBC Hgb Hct MCV MCH MCHC RDW Plt Count MPV INR PTT (Actin FS) Puncture Site ABG pH ABG pCO2 at Pt Temp ABG pO2 at Pt Temp ABG HCO3 ABG O2 Sat (Measured) ABG O2 Content ABG Base Excess Guero Test O2 Delivery Device Oxygen Flow Rate Vent Mode Vent Rate Mechanical Rate PEEP Pressure Support Vent POC Glucometer 215.32435 186.42133 Phosphorus Magnesium Creatine Kinase Cancelled Troponin I Cancelled 02/28/17 03/01/17 03/01/17 22:54 05:35 05:35 WBC 11.3 H RBC 4.20 Hgb 13.0 Hct 39.2 MCV 93.2 MCH 30.9 MCHC 33.1 RDW 18.3 H Plt Count 166 MPV 8.5 INR PTT (Actin FS) 25.2 L Puncture Site ABG pH ABG pCO2 at Pt Temp ABG pO2 at Pt Temp ABG HCO3 ABG O2 Sat (Measured) ABG O2 Content ABG Base Excess Guero Test O2 Delivery Device Oxygen Flow Rate Vent Mode Vent Rate Mechanical Rate PEEP Pressure Support Vent POC Glucometer 190.16856 Phosphorus Magnesium Creatine Kinase Troponin I 03/01/17 03/01/17 03/01/17 05:35 05:35 07:10 WBC RBC Hgb Hct MCV MCH MCHC RDW Plt Count MPV INR 1.43 H PTT (Actin FS) Puncture Site Right radial ABG pH 7.39 ABG pCO2 at Pt Temp 32.7 L ABG pO2 at Pt Temp 153.0 H* ABG HCO3 19.5 L ABG O2 Sat (Measured) 99.3 H ABG O2 Content 18.4 ABG Base Excess -4.1 L Guero Test Positive O2 Delivery Device Vent Oxygen Flow Rate 50% Vent Mode A/c Vent Rate 30 Mechanical Rate Y PEEP 8.0 Pressure Support Vent 400 POC Glucometer Phosphorus 4.7 Magnesium 2.6 H Creatine Kinase Troponin I Active Medications Generic Name Dose Route Start Last Admin Trade Name Freq PRN Reason Stop Dose Admin Acetaminophen 650 mg 02/28/17 15:03 02/28/17 15:33 Tylenol Oral Solution - PO 650 mg Q6H PRN Administration FEVER OR PAIN Chlorhexidine Gluconate 1 applic 02/26/17 22:00 02/28/17 22:37 Hibiclens For Decolonization - TP 1 applic HS WES Administration Dexamethasone Sodium Phosphate 4 mg 02/28/17 10:00 03/01/17 02:00 Decadron Injection - IVPB 4 mg Q8H-IV WES Administration IV Flush 4 ml 02/26/17 21:23 Triple Lumen Flush IVPUSH PRN PRN Protocol Dobutamine HCl/Dextrose 250 mls @ 12.192 mls/hr 02/26/17 21:23 02/28/17 22:50 Dobutamine 250 Mg/D5w - IV Not Given TITR WES Protocol 2.5 MCG/KG/MIN Norepinephrine Bitartrate 8, 504 mls @ 18.9 mls/hr 02/26/17 21:23 02/28/17 22: 44 000 mcg/ Dextrose IV 22.5 mls/hr TITR WES Administration Protocol 5 MCG/MIN Pantoprazole Sodium 100 mls @ 200 mls/hr 02/27/17 10:00 02/28/17 09:06 Protonix 40mg Ivpb (Pre-Docked) IVPB 200 mls/hr DAILY WES Administration Propofol 100 mls @ 2.994 mls/hr 02/26/17 21:23 02/28/17 22:43 Diprivan - IVPB 17.962 mls/hr TITR WES Administration Protocol 5 MCG/KG/MIN Metronidazole 100 mls @ 100 mls/hr 02/27/17 08:45 02/28/17 22:36 Flagyl 500mg Premixed Ivpb - IVPB 100 mls/hr Q12H WES Administration Fentanyl 500 mcg/ Dextrose 100 mls @ 5 mls/hr 02/27/17 08:45 02/28/17 09:00 IJ 0 mcg/hr TITR WES Titration 25 MCG/HR Cefepime HCl 2 gm/ Dextrose 100 mls @ 200 mls/hr 02/28/17 18:00 03/01/17 06:49 IVPB 200 mls/hr Q12H WES Administration Insulin Aspart 1 vial 02/26/17 22:00 03/01/17 06:50 Novolog Vial Sliding Scale - SQ 2 units ACHS WES Administration Protocol Levetiracetam 1,000 mg 02/26/17 22:00 02/28/17 22:37 Keppra Injection - IVPB 1,000 mg BID WES Administration Mupirocin 1 applic 02/26/17 22:00 02/28/17 22:38 Bactroban Ointment (For Decolonization) - NS 03/03/17 21:59 1 applic BID WES Administration Microbiology 02/26/17 02:18 Blood - Peripheral Venous Blood Culture - Preliminary NO GROWTH OBTAINED AFTER 72 HOURS, INCUBATION TO CONTINUE FOR 2 DAYS. 02/26/17 02:20 Sputum - Endotrachea Suction/Ventilator Gram Stain - Final 02/26/17 02:20 Sputum - Endotrachea Suction/Ventilator Sputum Culture - Final NORMAL RESPIRATORY MOHIT 02/26/17 11:50 Blood - Peripheral Venous Blood Culture - Preliminary NO GROWTH OBTAINED AFTER 48 HOURS, INCUBATION TO CONTINUE FOR 3 DAYS. 02/27/17 09:00 Sputum - Endotrachea Suction/Ventilator Gram Stain - Final 02/27/17 09:00 Sputum - Endotrachea Suction/Ventilator Sputum Culture - Preliminary NORMAL RESPIRATORY MOHIT 02/27/17 09:50 Blood - Peripheral Venous Blood Culture - Preliminary NO GROWTH OBTAINED AFTER 24 HOURS, INCUBATION TO CONTINUE FOR 4 DAYS. 02/27/17 09:50 Blood - Peripheral Venous Blood Culture - Preliminary NO GROWTH OBTAINED AFTER 24 HOURS, INCUBATION TO CONTINUE FOR 4 DAYS. 02/25/17 21:01 Urine - Urine Rangel Urine Culture - Final NO GROWTH OBTAINED Recent imaging: CXR (02/27) - Resolving vascular congestion. ETT, NG tube in place. Cardiomegaly. RLL atelectasis. Non-con CT head (02/27) - No significant interval change. Large L hemispheric stroke in AYAAN and MCA territories with significant rightward midline shift. ASSESSMENT/PLAN: 66 yo man w/ pmh of CAD, a-fib and DM who presented w/ large L-sided ischemic stroke w/ concomitant DEBRA, ARF and cardiogenic shock, now s/p craniotomy for significant, residual vasogenic edema and suspected sub-falcine herniation. Pt currently clinically stable, intubated on multiple pressors, w/ no significant interval change on f/u CT head. Family meeting in PM, wishes for continuation of full code status. Family met with neurosurgery team, understand poor clinical prognosis and likelihood of meaningful recovery. #Neuro Serial neuro exams qshift Keppra for seizure PPX Serial CT head scans Decadron 4mg IV Q8H #Cardiac Wean off pressors. Currently on levo, dobutamine gtt AC once approved by neuro team #Pulm AC mode for vent. Intubated #ID Per ID team, cefepime/flagyl regimen. Add Vanco for ICH abscess ppx. all cultures negative to date trend fever, WBC count #Renal Monitor I's & O's, trend BMPs IVFs #Heme Hold AC until neurology clearance #Endo Glucose control w/ range of 100-180 ISS #GI Protonix for PPX Begin NG feeds today. Osmolite / #FEN Fluids: Electrolytes: Daily BMPs, trend BUN, Cr. Nutrition: Start NG tube feeds per nutrition. PPX: SCD for DVT PPX PPI for GI PPX Dispo: Will require monitoring in ICU. Hernesto Holcomb, PGY1 Plan per attending, Dr. Barragan Visit type - Emergency Visit Emergency Visit: No - New Patient This patient is new to me today: No - Critical Care Critical Care patient: Yes Total Critical Care Time (in minutes): 35 Critical Care Statement: The care of this patient involved high complexity decision making to prevent further life threatening deterioration of the patient 's condition and/or to evaluate & treat vital organ system(s) failure or risk of failure.
--- NOTE | 2017-03-01 08:09 | PN ---
Physical Exam: SUBJECTIVE: Patient seen and examined. No acute events overnight, pt sedated, unresponsive to verbal, physical, or noxious stimuli. OBJECTIVE: Vital Signs Period Temp Pulse Resp BP Sys/Leon Pulse Ox Last 24 Hr 100.1 F-102.7 F 97-123 17-32 86-112/65-92 100-100 GENERAL: The patient is sedated on ventilator HEAD: 2 adhesive bandages covering L side of head overlying craniotomy incision with herbie EYES: L pupil dilated and not reactive to light, R pupil is normal size minimally reactive to light. +doll's eyes. NECK: No JVD appreciated LUNGS: anterior lung hawkins are CTAB, no wheezing, rales, or rhonchi HEART: irregularly irregular without murmur, rub or gallop. ABDOMEN: Soft, nontender, nondistended, normoactive bowel sounds, no guarding, no rebound, no hepatosplenomegaly, no masses. EXTREMITIES: b/l UE are cold to touch, pulses difficult to palpate. b/l feet are cold but shins are warm to touch, no pitting edema NEUROLOGICAL: unable to be completely assessed due to sedation. + doll's eyes, corneal reflex intact, gag reflex intact, swallowing intact, +babinski reflex Laboratory Results - last 24 hr 02/28/17 02/28/17 02/28/17 09:10 11:06 16:55 WBC RBC Hgb Hct MCV MCH MCHC RDW Plt Count MPV INR PTT (Actin FS) Puncture Site ABG pH ABG pCO2 at Pt Temp ABG pO2 at Pt Temp ABG HCO3 ABG O2 Sat (Measured) ABG O2 Content ABG Base Excess Guero Test O2 Delivery Device Oxygen Flow Rate Vent Mode Vent Rate Mechanical Rate PEEP Pressure Support Vent POC Glucometer 215.31421 186.91471 Phosphorus Magnesium Creatine Kinase Cancelled Troponin I Cancelled 02/28/17 03/01/17 03/01/17 22:54 05:35 05:35 WBC 11.3 H RBC 4.20 Hgb 13.0 Hct 39.2 MCV 93.2 MCH 30.9 MCHC 33.1 RDW 18.3 H Plt Count 166 MPV 8.5 INR PTT (Actin FS) 25.2 L Puncture Site ABG pH ABG pCO2 at Pt Temp ABG pO2 at Pt Temp ABG HCO3 ABG O2 Sat (Measured) ABG O2 Content ABG Base Excess Guero Test O2 Delivery Device Oxygen Flow Rate Vent Mode Vent Rate Mechanical Rate PEEP Pressure Support Vent POC Glucometer 190.57119 Phosphorus Magnesium Creatine Kinase Troponin I 03/01/17 03/01/17 03/01/17 05:35 05:35 07:10 WBC RBC Hgb Hct MCV MCH MCHC RDW Plt Count MPV INR 1.43 H PTT (Actin FS) Puncture Site Right radial ABG pH 7.39 ABG pCO2 at Pt Temp 32.7 L ABG pO2 at Pt Temp 153.0 H* ABG HCO3 19.5 L ABG O2 Sat (Measured) 99.3 H ABG O2 Content 18.4 ABG Base Excess -4.1 L Guero Test Positive O2 Delivery Device Vent Oxygen Flow Rate 50% Vent Mode A/c Vent Rate 30 Mechanical Rate Y PEEP 8.0 Pressure Support Vent 400 POC Glucometer Phosphorus 4.7 Magnesium 2.6 H Creatine Kinase Troponin I Active Medications Generic Name Dose Route Start Last Admin Trade Name Freq PRN Reason Stop Dose Admin Acetaminophen 650 mg 02/28/17 15:03 02/28/17 15:33 Tylenol Oral Solution - PO 650 mg Q6H PRN Administration FEVER OR PAIN Chlorhexidine Gluconate 1 applic 02/26/17 22:00 02/28/17 22:37 Hibiclens For Decolonization - TP 1 applic HS WES Administration Dexamethasone Sodium Phosphate 4 mg 02/28/17 10:00 03/01/17 02:00 Decadron Injection - IVPB 4 mg Q8H-IV WES Administration IV Flush 4 ml 02/26/17 21:23 Triple Lumen Flush IVPUSH PRN PRN Protocol Dobutamine HCl/Dextrose 250 mls @ 12.192 mls/hr 02/26/17 21:23 02/28/17 22:50 Dobutamine 250 Mg/D5w - IV Not Given TITR WES Protocol 2.5 MCG/KG/MIN Norepinephrine Bitartrate 8, 504 mls @ 18.9 mls/hr 02/26/17 21:23 02/28/17 22: 44 000 mcg/ Dextrose IV 22.5 mls/hr TITR WES Administration Protocol 5 MCG/MIN Pantoprazole Sodium 100 mls @ 200 mls/hr 02/27/17 10:00 02/28/17 09:06 Protonix 40mg Ivpb (Pre-Docked) IVPB 200 mls/hr DAILY WES Administration Propofol 100 mls @ 2.994 mls/hr 02/26/17 21:23 02/28/17 22:43 Diprivan - IVPB 17.962 mls/hr TITR WES Administration Protocol 5 MCG/KG/MIN Metronidazole 100 mls @ 100 mls/hr 02/27/17 08:45 02/28/17 22:36 Flagyl 500mg Premixed Ivpb - IVPB 100 mls/hr Q12H WES Administration Fentanyl 500 mcg/ Dextrose 100 mls @ 5 mls/hr 02/27/17 08:45 02/28/17 09:00 IJ 0 mcg/hr TITR WES Titration 25 MCG/HR Cefepime HCl 2 gm/ Dextrose 100 mls @ 200 mls/hr 02/28/17 18:00 03/01/17 06:49 IVPB 200 mls/hr Q12H WES Administration Insulin Aspart 1 vial 02/26/17 22:00 03/01/17 06:50 Novolog Vial Sliding Scale - SQ 2 units ACHS WES Administration Protocol Levetiracetam 1,000 mg 02/26/17 22:00 02/28/17 22:37 Keppra Injection - IVPB 1,000 mg BID WES Administration Mupirocin 1 applic 02/26/17 22:00 02/28/17 22:38 Bactroban Ointment (For Decolonization) - NS 03/03/17 21:59 1 applic BID WES Administration ASSESSMENT/PLAN: 66F with hx of Afib, DM, HTN, HLD, COPD, and CAD who presented with focal neurological deficits, found to have a large left-sided ischemic MCA stroke, became hypotensive preventing transfer out of hospital, required pressors and intubation, s/p craniotomy post-op day #3. # Large Left Sided CVA - Likely from acute embolus in setting of subtherapeutic INR, s/p craniotomy with hemorrhagic conversion - continue Keppra for seizure prophylaxis, continue propofol drip for intubation, wean as tolerated -repeat CT (02/28) shows slightly increased L to R midline shift. -per neuro, will determine proxy and pt wishes -per card, A/C once cleared by neuro -currently holding heparin and ASA -neuro checks, pain control -family meeting scheduled today at 3pm to discuss goals of care -f/u repeat CT head # Shock - likely cardiogenic - echo showed severely reduced EF, general hypokinesis, and no pericardial effusion - continue Levophed and dobutamine, titrate to MAP > 65 - continue dexamethasone 4 IV q8h -diuresis held pending recs, CXR shows improving CHF -cardiology on board #Troponinemia- demand ischemia from cardiogenic shock per cards -troponins trending upwards again. 1.13 --> 0.77 --> 0.98 -ASA, heparin held -continue trending troponins, cardio on board #DEBRA- prerenal 2/2 shock, possibly ATN -continue pressors -creatinine trending down, trend BMPs #Transaminitis- due to hypoperfusion 2/2 shock -continue pressors -trending down, continue trending LFTs #Leukocytosis- possibly due to infection with unclear etiology -wbc trending down -blood cultures, resp cultures, and urine cultures negative to date -continue to trend wbc -continue cefepime and flagyl. per ID, will likely add vanc as fever still present #fever- possibly due to infection with unclear etiology -blood cultures, resp cultures, and urine cultures negative to date -continue to trend temps -continue cefepime and flagyl. per ID, will likely add vanc as fever still present #tachycardia- etiology includes pain vs. fever vs. a-fib vs. medication-induced -continue to monitor -consider changing dobutamine to milrinone # Hx of DM2 - BGM Q2 -ISS # FEN - Fluids: w/ pressors - Electrolytes: currently no need for repletion - Nutrition: NPO for now # Prophylaxis - DVT: SCDs - GI: IV Pepcid - Deconditioning: PT on hold for now #Dispo -had family meeting at 3:30pm today with pt's , 2 daughters, son-in-law, Dr. Christianson, and Dr. Jeffrey. Code status and goals of care were discussed. As of now, pt is to be full code. Family states that they understand the poor prognosis, but are hoping for the best scenario. Family needs time to process everything; goals of care and code status to be discussed again at later date. Johan Khanna MD- PGY1 Visit type - Emergency Visit Emergency Visit: Yes ED Registration Date: 02/25/17 Care time: The patient presented to the Emergency Department on the above date and was hospitalized for further evaluation of their emergent condition. - New Patient This patient is new to me today: No - Critical Care Critical Care patient: No
--- NOTE | 2017-03-01 08:24 | PN ---
Progress Note (short form) - Note Progress Note: Post op day#2.S/P Left craniotomy under GA uneventful.P109,BP110/93 and Spo2 100 %.Patient continues to be intubated on pressors.No any anesthesia related problem.Patient DC from the anesthesia care.
[2017-03-01 08:35] LABS: ALBUMIN 2.2 g/dl (3.4-5.0); ALK PHOS 89 U/L (45-117); ANION GAP 14 (8-16); BILIRUBIN,TOTAL 2.4 mg/dL (0.2-1.0); CALCIUM 7.9 mg/dL (8.5-10.1); CO2 20 mmol/L (21-32); CREATININE 2.1 mg/dL (0.7-1.3); GLUCOSE,RANDOM 187 mg/dL (74-106); SGOT/AST 316 U/L (15-37); SGPT/ALT 353 U/L (12-78); TOT PROT 6.5 g/dl (6.4-8.2)
[2017-03-01 08:37] LABS: TROPONIN I 0.98 ng/ml (0.00-0.05)
[2017-03-01] MEDS: levETIRAcetam 500 MG/5 ML INJECTION VIAL IVPB SCH ×2 (09:27→21:34)
[2017-03-01] MEDS: PANTOPRAZOLE SODIUM 100 ML IVPB SCH (09:27)
[2017-03-01] MEDS: FENTANYL INJECTION 500 MCG in DEXTROSE 5%-WATER - 90 ML IJ SCH (09:28)
[2017-03-01] MEDS: METRONIDAZOLE 500 MG PREMIXED 100 ML IVPB SCH ×2 (09:28→21:30)
--- NOTE | 2017-03-01 10:12 | PN ---
Progress Note, Physician History of Present Illness: Unresponsive on ventilator, febrile, remains in afib with PVCs. - Current Medication List Current Medications: Active Medications Acetaminophen (Tylenol Oral Solution -) 650 mg PO Q6H PRN PRN Reason: FEVER OR PAIN Last Admin: 02/28/17 15:33 Dose: 650 mg Chlorhexidine Gluconate (Hibiclens For Decolonization -) 1 applic TP HS WES Last Admin: 02/28/17 22:37 Dose: 1 applic Dexamethasone Sodium Phosphate (Decadron Injection -) 4 mg IVPB Q8H-IV WES Last Admin: 03/01/17 09:27 Dose: 4 mg IV Flush (Triple Lumen Flush) 4 ml IVPUSH PRN PRN PRN Reason: Protocol Dobutamine HCl/Dextrose (Dobutamine 250 Mg/D5w -) 250 mls @ 12.192 mls/hr IV TITR WES; 2.5 MCG/KG/MIN PRN Reason: Protocol Last Admin: 02/28/17 22:50 Dose: Not Given Norepinephrine Bitartrate 8, (000 mcg/ Dextrose) 504 mls @ 18.9 mls/hr IV TITR WES; 5 MCG/MIN PRN Reason: Protocol Last Admin: 02/28/17 22:44 Dose: 22.5 mls/hr Pantoprazole Sodium (Protonix 40mg Ivpb (Pre-Docked)) 100 mls @ 200 mls/hr IVPB DAILY [facility] Last Admin: 03/01/17 09:27 Dose: 200 mls/hr Propofol (Diprivan -) 100 mls @ 2.994 mls/hr IVPB TITR WES; 5 MCG/KG/MIN PRN Reason: Protocol Last Admin: 02/28/17 22:43 Dose: 17.962 mls/hr Metronidazole (Flagyl 500mg Premixed Ivpb -) 100 mls @ 100 mls/hr IVPB Q12H WES Last Admin: 03/01/17 09:28 Dose: 100 mls/hr Fentanyl 500 mcg/ Dextrose 100 mls @ 5 mls/hr IJ TITR WES PRN Reason: 25 MCG/HR Last Admin: 03/01/17 09:28 Dose: Not Given Cefepime HCl 2 gm/ Dextrose 100 mls @ 200 mls/hr IVPB Q12H [facility] Last Admin: 03/01/17 06:49 Dose: 200 mls/hr Insulin Aspart (Novolog Vial Sliding Scale -) 1 vial SQ ACHS WES PRN Reason: Protocol Last Admin: 03/01/17 06:50 Dose: 2 units Levetiracetam (Keppra Injection -) 1,000 mg IVPB BID [facility] Last Admin: 03/01/17 09:27 Dose: 1,000 mg Mupirocin (Bactroban Ointment (For Decolonization) -) 1 applic NS BID WES Stop: 03/03/17 21:59 Last Admin: 02/28/17 22:38 Dose: 1 applic - Objective Vital Signs: Vital Signs Temperature 102.5 F H 03/01/17 02:00 Pulse Rate 111 H 03/01/17 09:15 Respiratory Rate 30 H 03/01/17 09:15 Blood Pressure 108/92 03/01/17 05:00 O2 Sat by Pulse Oximetry (%) 100 03/01/17 09:55 Cardiovascular: Yes: Pulse Irregular Respiratory: Yes: Intubated, Mechanically Ventilated, Rhonchi Gastrointestinal: Yes: Normal Bowel Sounds, Soft Edema: No Labs: CBC, BMP 03/01/17 05:35 03/01/17 05:35 INR, PTT INR 1.43 (0.82-1.09) H 03/01/17 05:35 - ....Imaging Chest X-ray: Report Reviewed (Resolving CHF) Cat Scan: Report Reviewed (Increased left to right midline shift) EKG: Report Reviewed (Tele: Afib with PVCs) Problem List - Problems (1) A-fib Code(s): I48.91 - UNSPECIFIED ATRIAL FIBRILLATION (2) CAD (coronary artery disease) Code(s): I25.10 - ATHSCL HEART DISEASE OF [place] CORONARY ARTERY W/O ANG PCTRS Qualifiers: Coronary Disease-Associated Artery/Lesion type: [place] artery [place] vs. transplanted heart: [place] heart Associated angina: without angina Qualified Code(s): I25.10 - Atherosclerotic heart disease of [place] coronary artery without angina pectoris (3) CVA (cerebral vascular accident) Code(s): I63.9 - CEREBRAL INFARCTION, UNSPECIFIED Qualifiers: CVA mechanism: occlusion Precerebral and cerebral artery: middle cerebral artery Laterality of affected vessel: left Qualified Code(s): I63.512 - Cerebral infarction due to unspecified occlusion or stenosis of left middle cerebral artery (4) Cardiogenic shock Code(s): R57.0 - CARDIOGENIC SHOCK (5) Diabetes Code(s): E11.9 - TYPE 2 DIABETES MELLITUS WITHOUT COMPLICATIONS Qualifiers: Diabetes mellitus type: type 2 (6) Hx of CABG Code(s): Z95.1 - PRESENCE OF AORTOCORONARY BYPASS GRAFT (7) Respiratory failure Code(s): J96.90 - RESPIRATORY FAILURE, UNSP, UNSP W HYPOXIA OR HYPERCAPNIA Qualifiers: Chronicity: acute Respiratory failure complication: unspecified whether with hypoxia or hypercapnia Qualified Code(s): J96.00 - Acute respiratory failure, unspecified whether with hypoxia or hypercapnia (8) S/P MVR (mitral valve replacement) Code(s): Z95.2 - PRESENCE OF PROSTHETIC HEART VALVE (9) Demand ischemia Code(s): I24.8 - OTHER FORMS OF ACUTE ISCHEMIC HEART DISEASE (10) Acute kidney injury Code(s): N17.9 - ACUTE KIDNEY FAILURE, UNSPECIFIED (11) Status post craniotomy Code(s): Z98.890 - OTHER SPECIFIED POSTPROCEDURAL STATES (12) Ischemic cardiomyopathy Code(s): I25.5 - ISCHEMIC CARDIOMYOPATHY (13) ICD (implantable cardioverter-defibrillator) in place Code(s): Z95.810 - PRESENCE OF AUTOMATIC (IMPLANTABLE) CARDIAC DEFIBRILLATOR Assessment/Plan 1. Large left side CVA with cerebral edema post emergent craniotomy (calvarial bone flap) 2. Respiratory failure/intubated 3. Coronary artery disease post CABG angina pectoris with evidence of demand ischemic injury 4. Systolic LV dysfunction with chronic class I-II NYHA classification congestive heart failure, cardiogenic shock on inotropes/pressors 5. Post ICD implant (single lead [place]) for primary prophylaxis 6. Permanent atrial fibrillation currently off of A/C 7. Post MVR - Bio-prosthesis 8. Acute kidney injury 9. DM PLAN: 1. Wean Dobutamine and Levophed gtt to maintain MAP > 60 2. A/C resumption once cleared by neuro-surgery 3. Resume B-Blockers hemodynamics permitting 4. Recommend Entresto initiation once renal function stabilized 5. As outlined avoid Digoxin at this point considering the above noted acute renal insufficiency 6. May need to utilize diuretics (IV Lasix) as needed 7. Monitor renal function and urine output closely 8. Empiric abx per C&S, IV steroids with GI protection, seizure prophylaxis 9. Neuro checks off sedation, vent management per ABG
[2017-03-01] MEDS: MUPIROCIN 2% TOPICAL OINTMENT FOR DECOLONIZATION NS SCH ×2 (10:47→21:34)
[2017-03-01] MEDS ORDERED: HEMOQUE TEST 1 EACH EACH ONE (11:01)
--- NOTE | 2017-03-01 13:44 | PN ---
Progress Note, Physician History of Present Illness: Pt seen and examined at bedside. He remains in the ICU. He remains intubated. - Current Medication List Current Medications: Active Medications Acetaminophen (Tylenol Oral Solution -) 650 mg PO Q6H PRN PRN Reason: FEVER OR PAIN Last Admin: 02/28/17 15:33 Dose: 650 mg Chlorhexidine Gluconate (Hibiclens For Decolonization -) 1 applic TP HS WES Last Admin: 02/28/17 22:37 Dose: 1 applic Dexamethasone Sodium Phosphate (Decadron Injection -) 4 mg IVPB Q8H-IV WES Last Admin: 03/01/17 09:27 Dose: 4 mg IV Flush (Triple Lumen Flush) 4 ml IVPUSH PRN PRN PRN Reason: Protocol Dobutamine HCl/Dextrose (Dobutamine 250 Mg/D5w -) 250 mls @ 12.192 mls/hr IV TITR WES; 2.5 MCG/KG/MIN PRN Reason: Protocol Last Admin: 02/28/17 22:50 Dose: Not Given Norepinephrine Bitartrate 8, (000 mcg/ Dextrose) 504 mls @ 18.9 mls/hr IV TITR WES; 5 MCG/MIN PRN Reason: Protocol Last Admin: 02/28/17 22:44 Dose: 22.5 mls/hr Pantoprazole Sodium (Protonix 40mg Ivpb (Pre-Docked)) 100 mls @ 200 mls/hr IVPB DAILY [facility] Last Admin: 03/01/17 09:27 Dose: 200 mls/hr Propofol (Diprivan -) 100 mls @ 2.994 mls/hr IVPB TITR WES; 5 MCG/KG/MIN PRN Reason: Protocol Last Admin: 02/28/17 22:43 Dose: 17.962 mls/hr Metronidazole (Flagyl 500mg Premixed Ivpb -) 100 mls @ 100 mls/hr IVPB Q12H [facility] Last Admin: 03/01/17 09:28 Dose: 100 mls/hr Fentanyl 500 mcg/ Dextrose 100 mls @ 5 mls/hr IJ TITR WES PRN Reason: 25 MCG/HR Last Admin: 03/01/17 09:28 Dose: Not Given Cefepime HCl 2 gm/ Dextrose 100 mls @ 200 mls/hr IVPB Q12H [facility] Last Admin: 03/01/17 06:49 Dose: 200 mls/hr Insulin Aspart (Novolog Vial Sliding Scale -) 1 vial SQ ACHS [facility] PRN Reason: Protocol Last Admin: 03/01/17 11:50 Dose: 4 units Levetiracetam (Keppra Injection -) 1,000 mg IVPB BID [facility] Last Admin: 03/01/17 09:27 Dose: 1,000 mg Mupirocin (Bactroban Ointment (For Decolonization) -) 1 applic NS BID [facility] Stop: 03/03/17 21:59 Last Admin: 03/01/17 10:47 Dose: 1 applic - Objective Vital Signs: Vital Signs Temperature 100.6 F H 03/01/17 12:00 Pulse Rate 106 H 03/01/17 12:00 Respiratory Rate 30 H 03/01/17 13:18 Blood Pressure 106/83 03/01/17 12:00 O2 Sat by Pulse Oximetry (%) 100 03/01/17 09:55 Constitutional: Yes: Calm HENT: Yes: Other (s/p craniotomy) Cardiovascular: Yes: S1, S2 Respiratory: Yes: Mechanically Ventilated Genitourinary: Yes: Incontinence Musculoskeletal: Yes: Muscle Weakness Edema: Yes Neurological: Yes: Lethargy Labs: CBC, BMP 03/01/17 05:35 03/01/17 05:35 INR, PTT INR 1.43 (0.82-1.09) H 03/01/17 05:35 - ....Imaging Chest X-ray: Report Reviewed Problem List - Problems (1) A-fib Code(s): I48.91 - UNSPECIFIED ATRIAL FIBRILLATION (2) Acute kidney injury Code(s): N17.9 - ACUTE KIDNEY FAILURE, UNSPECIFIED (3) CAD (coronary artery disease) Code(s): I25.10 - ATHSCL HEART DISEASE OF [place] CORONARY ARTERY W/O ANG PCTRS Qualifiers: Coronary Disease-Associated Artery/Lesion type: [place] artery [place] vs. transplanted heart: [place] heart Associated angina: without angina Qualified Code(s): I25.10 - Atherosclerotic heart disease of [place] coronary artery without angina pectoris (4) CHF (congestive heart failure) Code(s): I50.9 - HEART FAILURE, UNSPECIFIED (5) CVA (cerebral vascular accident) Code(s): I63.9 - CEREBRAL INFARCTION, UNSPECIFIED Qualifiers: CVA mechanism: occlusion Precerebral and cerebral artery: middle cerebral artery Laterality of affected vessel: left Qualified Code(s): I63.512 - Cerebral infarction due to unspecified occlusion or stenosis of left middle cerebral artery (6) Status post craniotomy Code(s): Z98.890 - OTHER SPECIFIED POSTPROCEDURAL STATES Assessment/Plan Current Medications Generic Name Dose Route Start Last Admin Trade Name Freq PRN Reason Stop Dose Admin Acetaminophen 650 mg 02/28/17 15:03 02/28/17 15:33 Tylenol Oral Solution - PO 650 mg Q6H PRN Administration FEVER OR PAIN Chlorhexidine Gluconate 1 applic 02/26/17 22:00 02/28/17 22:37 Hibiclens For Decolonization - TP 1 applic HS WES Administration Dexamethasone Sodium Phosphate 4 mg 02/28/17 10:00 03/01/17 09:27 Decadron Injection - IVPB 4 mg Q8H-IV WES Administration IV Flush 4 ml 02/26/17 21:23 Triple Lumen Flush IVPUSH PRN PRN Protocol Dobutamine HCl/Dextrose 250 mls @ 12.192 mls/hr 02/26/17 21:23 02/28/17 22:50 Dobutamine 250 Mg/D5w - IV Not Given TITR WES Protocol 2.5 MCG/KG/MIN Norepinephrine Bitartrate 8, 504 mls @ 18.9 mls/hr 02/26/17 21:23 02/28/17 22: 44 000 mcg/ Dextrose IV 22.5 mls/hr TITR WES Administration Protocol 5 MCG/MIN Pantoprazole Sodium 100 mls @ 200 mls/hr 02/27/17 10:00 03/01/17 09:27 Protonix 40mg Ivpb (Pre-Docked) IVPB 200 mls/hr DAILY [facility] Administration Propofol 100 mls @ 2.994 mls/hr 02/26/17 21:23 02/28/17 22:43 Diprivan - IVPB 17.962 mls/hr TITR WES Administration Protocol 5 MCG/KG/MIN Metronidazole 100 mls @ 100 mls/hr 02/27/17 08:45 03/01/17 09:28 Flagyl 500mg Premixed Ivpb - IVPB 100 mls/hr Q12H [facility] Administration Fentanyl 500 mcg/ Dextrose 100 mls @ 5 mls/hr 02/27/17 08:45 03/01/17 09:28 IJ Not Given TITR WES 25 MCG/HR Cefepime HCl 2 gm/ Dextrose 100 mls @ 200 mls/hr 02/28/17 18:00 03/01/17 06:49 IVPB 200 mls/hr Q12H [facility] Administration Insulin Aspart 1 vial 02/26/17 22:00 03/01/17 11:50 Novolog Vial Sliding Scale - SQ 4 units ACHS [facility] Administration Protocol Levetiracetam 1,000 mg 02/26/17 22:00 03/01/17 09:27 Keppra Injection - IVPB 1,000 mg BID [facility] Administration Mupirocin 1 applic 02/26/17 22:00 03/01/17 10:47 Bactroban Ointment (For Decolonization) - NS 03/03/17 21:59 1 applic BID WES Administration Impression 1. DEBRA resolving 2. Hx CKD 3. S/P CVA 4. s/p craniectomy 5. CHF 6. resp failure Plan - renal function continues to improve - cont current meds - vent support - monitor volume status - cardio input appreciated - monitor electrolytes
[2017-03-01] MEDS: DOBUTAMINE 250 MG/D5W - 250 ML IV SCH ×2 (13:53→21:31)
--- NOTE | 2017-03-01 14:27 | PN ---
Progress Note, Physician History of Present Illness: continues to be intubated still on pressors - Current Medication List Current Medications: Active Medications Acetaminophen (Tylenol Oral Solution -) 650 mg PO Q6H PRN PRN Reason: FEVER OR PAIN Last Admin: 02/28/17 15:33 Dose: 650 mg Chlorhexidine Gluconate (Hibiclens For Decolonization -) 1 applic TP HS WES Last Admin: 02/28/17 22:37 Dose: 1 applic Dexamethasone Sodium Phosphate (Decadron Injection -) 4 mg IVPB Q8H-IV [facility] Last Admin: 03/01/17 09:27 Dose: 4 mg IV Flush (Triple Lumen Flush) 4 ml IVPUSH PRN PRN PRN Reason: Protocol Dobutamine HCl/Dextrose (Dobutamine 250 Mg/D5w -) 250 mls @ 12.192 mls/hr IV TITR [facility]; 2.5 MCG/KG/MIN PRN Reason: Protocol Last Admin: 03/01/17 13:53 Dose: 12.192 mls/hr Norepinephrine Bitartrate 8, (000 mcg/ Dextrose) 504 mls @ 18.9 mls/hr IV TITR [facility]; 5 MCG/MIN PRN Reason: Protocol Last Admin: 02/28/17 22:44 Dose: 22.5 mls/hr Pantoprazole Sodium (Protonix 40mg Ivpb (Pre-Docked)) 100 mls @ 200 mls/hr IVPB DAILY [facility] Last Admin: 03/01/17 09:27 Dose: 200 mls/hr Propofol (Diprivan -) 100 mls @ 2.994 mls/hr IVPB TITR WES; 5 MCG/KG/MIN PRN Reason: Protocol Last Admin: 02/28/17 22:43 Dose: 17.962 mls/hr Metronidazole (Flagyl 500mg Premixed Ivpb -) 100 mls @ 100 mls/hr IVPB Q12H [facility] Last Admin: 03/01/17 09:28 Dose: 100 mls/hr Fentanyl 500 mcg/ Dextrose 100 mls @ 5 mls/hr IJ TITR [facility] PRN Reason: 25 MCG/HR Last Admin: 03/01/17 09:28 Dose: Not Given Cefepime HCl 2 gm/ Dextrose 100 mls @ 200 mls/hr IVPB Q12H [facility] Last Admin: 03/01/17 06:49 Dose: 200 mls/hr Vancomycin HCl 1,250 mg/ (Dextrose) 250 mls @ 250 mls/hr IVPB DAILY [facility] PRN Reason: Protocol Insulin Aspart (Novolog Vial Sliding Scale -) 1 vial SQ ACHS [facility] PRN Reason: Protocol Last Admin: 03/01/17 11:50 Dose: 4 units Levetiracetam (Keppra Injection -) 1,000 mg IVPB BID [facility] Last Admin: 03/01/17 09:27 Dose: 1,000 mg Mupirocin (Bactroban Ointment (For Decolonization) -) 1 applic NS BID [facility] Stop: 03/03/17 21:59 Last Admin: 03/01/17 10:47 Dose: 1 applic - Objective Vital Signs: Vital Signs Temperature 100.6 F H 03/01/17 12:00 Pulse Rate 106 H 03/01/17 12:00 Respiratory Rate 30 H 03/01/17 13:18 Blood Pressure 106/83 03/01/17 13:53 O2 Sat by Pulse Oximetry (%) 100 03/01/17 09:55 Constitutional: Yes: Other Cardiovascular: Yes: S1, S2, Other (pressors) Respiratory: Yes: Intubated, Mechanically Ventilated Gastrointestinal: Yes: Hypoactive Bowel Sounds Musculoskeletal: Yes: Other Extremities: Yes: Other Neurological: Yes: Other Psychiatric: Yes: Other Labs: CBC, BMP 03/01/17 05:35 03/01/17 05:35 INR, PTT INR 1.43 (0.82-1.09) H 03/01/17 05:35 Assessment/Plan Problem List - Problems (1) CVA (cerebral vascular accident) Code(s): I63.9 - CEREBRAL INFARCTION, UNSPECIFIED Qualifiers: CVA mechanism: occlusion Precerebral and cerebral artery: middle cerebral artery Laterality of affected vessel: left Qualified Code(s): I63.512 - Cerebral infarction due to unspecified occlusion or stenosis of left middle cerebral artery (2) Respiratory failure Code(s): J96.90 - RESPIRATORY FAILURE, UNSP, UNSP W HYPOXIA OR HYPERCAPNIA (3) Shock circulatory Code(s): R57.9 - SHOCK, UNSPECIFIED (4) A-fib Code(s): I48.91 - UNSPECIFIED ATRIAL FIBRILLATION (5) CAD (coronary artery disease) Code(s): I25.10 - ATHSCL HEART DISEASE OF [place] CORONARY ARTERY W/O ANG PCTRS (6) Diabetes Code(s): E11.9 - TYPE 2 DIABETES MELLITUS WITHOUT COMPLICATIONS plan will give vanco continue cefipime final plan to be known icu care prognosis poor cc 40 min
--- NOTE | 2017-03-01 14:34 | PN ---
Teaching Attending Note Name of Resident: Hernesto Holcomb ATTENDING PHYSICIAN STATEMENT I saw and evaluated the patient. I reviewed the resident's note and discussed the case with the resident. I agree with the resident's findings and plan as documented. SUBJECTIVE: Patient seen and examined in the ICU. Intubated and sedated. No clinical improvement in overall condition. AC Mode of vent. Some minimal brainstem function noted. Significant anisocoria. Intake & Output 02/26/17 02/27/17 02/28/17 03/01/17 23:59 23:59 23:59 23:59 Intake Total 5718.5 3365.0 2807.8 832 Output Total 950 3700 2700 800 Balance 4768.5 -335.0 107.8 32 Weight 179 lb 3.773 oz 185 lb 1 oz 185 lb 8 oz 185 lb 6.54 oz Last Vital Signs Temp Pulse Resp BP Pulse Ox 100.6 F H 106 H 30 H 106/83 100 03/01/17 12:00 03/01/17 12:00 03/01/17 13:18 03/01/17 13:53 03/01/17 09:55 Active Medications Acetaminophen (Tylenol Oral Solution -) 650 mg PO Q6H PRN PRN Reason: FEVER OR PAIN Last Admin: 02/28/17 15:33 Dose: 650 mg Chlorhexidine Gluconate (Hibiclens For Decolonization -) 1 applic TP HS [facility] Last Admin: 02/28/17 22:37 Dose: 1 applic Dexamethasone Sodium Phosphate (Decadron Injection -) 4 mg IVPB Q8H-IV [facility] Last Admin: 03/01/17 09:27 Dose: 4 mg IV Flush (Triple Lumen Flush) 4 ml IVPUSH PRN PRN PRN Reason: Protocol Dobutamine HCl/Dextrose (Dobutamine 250 Mg/D5w -) 250 mls @ 12.192 mls/hr IV TITR [facility]; 2.5 MCG/KG/MIN PRN Reason: Protocol Last Admin: 03/01/17 13:53 Dose: 12.192 mls/hr Norepinephrine Bitartrate 8, (000 mcg/ Dextrose) 504 mls @ 18.9 mls/hr IV TITR WES; 5 MCG/MIN PRN Reason: Protocol Last Admin: 02/28/17 22:44 Dose: 22.5 mls/hr Pantoprazole Sodium (Protonix 40mg Ivpb (Pre-Docked)) 100 mls @ 200 mls/hr IVPB DAILY [facility] Last Admin: 03/01/17 09:27 Dose: 200 mls/hr Propofol (Diprivan -) 100 mls @ 2.994 mls/hr IVPB TITR WES; 5 MCG/KG/MIN PRN Reason: Protocol Last Admin: 02/28/17 22:43 Dose: 17.962 mls/hr Metronidazole (Flagyl 500mg Premixed Ivpb -) 100 mls @ 100 mls/hr IVPB Q12H [facility] Last Admin: 03/01/17 09:28 Dose: 100 mls/hr Fentanyl 500 mcg/ Dextrose 100 mls @ 5 mls/hr IJ TITR [facility] PRN Reason: 25 MCG/HR Last Admin: 03/01/17 09:28 Dose: Not Given Cefepime HCl 2 gm/ Dextrose 100 mls @ 200 mls/hr IVPB Q12H [facility] Last Admin: 03/01/17 06:49 Dose: 200 mls/hr Vancomycin HCl 1,250 mg/ (Dextrose) 250 mls @ 166.667 mls/hr IVPB DAILY@1500 [facility] PRN Reason: Protocol Insulin Aspart (Novolog Vial Sliding Scale -) 1 vial SQ ACHS [facility] PRN Reason: Protocol Last Admin: 03/01/17 11:50 Dose: 4 units Levetiracetam (Keppra Injection -) 1,000 mg IVPB BID [facility] Last Admin: 03/01/17 09:27 Dose: 1,000 mg Mupirocin (Bactroban Ointment (For Decolonization) -) 1 applic NS BID [facility] Stop: 03/03/17 21:59 Last Admin: 03/01/17 10:47 Dose: 1 applic Constitutional: Yes: Intubated and sedated Eyes: Yes: Pupils 1.5 mm and equal Cardiovascular: Yes: Pulse Irregular, S1, S2 Respiratory: Yes: Bilateral coarse rhonchi Right > Left, Intubated, Mechanically Ventilated Gastrointestinal: Yes: Normal Bowel Sounds, Soft Edema: No Edema: LLE: Trace, RLE: Trace Neurological: Yes: Sedated on propofol Labs: Laboratory Results - last 24 hr 02/28/17 02/28/17 02/28/17 11:06 16:55 22:54 WBC RBC Hgb Hct MCV MCH MCHC RDW Plt Count MPV INR PTT (Actin FS) Puncture Site ABG pH ABG pCO2 at Pt Temp ABG pO2 at Pt Temp ABG HCO3 ABG O2 Sat (Measured) ABG O2 Content ABG Base Excess Guero Test O2 Delivery Device Oxygen Flow Rate Vent Mode Vent Rate Mechanical Rate PEEP Pressure Support Vent Sodium Potassium Chloride Carbon Dioxide Anion Gap BUN Creatinine Creat Clearance w eGFR POC Glucometer 215.53418 186.75583 190.33703 Random Glucose Calcium Phosphorus Magnesium Total Bilirubin AST ALT Alkaline Phosphatase Troponin I Total Protein Albumin 03/01/17 03/01/17 03/01/17 05:35 05:35 05:35 WBC 11.3 H RBC 4.20 Hgb 13.0 Hct 39.2 MCV 93.2 MCH 30.9 MCHC 33.1 RDW 18.3 H Plt Count 166 MPV 8.5 INR 1.43 H PTT (Actin FS) 25.2 L Puncture Site ABG pH ABG pCO2 at Pt Temp ABG pO2 at Pt Temp ABG HCO3 ABG O2 Sat (Measured) ABG O2 Content ABG Base Excess Guero Test O2 Delivery Device Oxygen Flow Rate Vent Mode Vent Rate Mechanical Rate PEEP Pressure Support Vent Sodium Potassium Chloride Carbon Dioxide Anion Gap BUN Creatinine Creat Clearance w eGFR POC Glucometer Random Glucose Calcium Phosphorus Magnesium Total Bilirubin AST ALT Alkaline Phosphatase Troponin I Total Protein Albumin 03/01/17 03/01/17 03/01/17 05:35 05:40 07:10 WBC RBC Hgb Hct MCV MCH MCHC RDW Plt Count MPV INR PTT (Actin FS) Puncture Site Right radial ABG pH 7.39 ABG pCO2 at Pt Temp 32.7 L ABG pO2 at Pt Temp 153.0 H* ABG HCO3 19.5 L ABG O2 Sat (Measured) 99.3 H ABG O2 Content 18.4 ABG Base Excess -4.1 L Guero Test Positive O2 Delivery Device Vent Oxygen Flow Rate 50% Vent Mode A/c Vent Rate 30 Mechanical Rate Y PEEP 8.0 Pressure Support Vent 400 Sodium 144 Potassium 4.2 Chloride 110 H Carbon Dioxide 20 L Anion Gap 14 BUN 69 H Creatinine 2.1 H Creat Clearance w eGFR 31.66 POC Glucometer [phone] Random Glucose 187 H Calcium 7.9 L Phosphorus 4.7 Magnesium 2.6 H Total Bilirubin 2.4 H AST 316 H D ALT 353 H Alkaline Phosphatase 89 Troponin I 0.98 H* Total Protein 6.5 Albumin 2.2 L 03/01/17 11:14 WBC RBC Hgb Hct MCV MCH MCHC RDW Plt Count MPV INR PTT (Actin FS) Puncture Site ABG pH ABG pCO2 at Pt Temp ABG pO2 at Pt Temp ABG HCO3 ABG O2 Sat (Measured) ABG O2 Content ABG Base Excess Guero Test O2 Delivery Device Oxygen Flow Rate Vent Mode Vent Rate Mechanical Rate PEEP Pressure Support Vent Sodium Potassium Chloride Carbon Dioxide Anion Gap BUN Creatinine Creat Clearance w eGFR POC Glucometer [phone] Random Glucose Calcium Phosphorus Magnesium Total Bilirubin AST ALT Alkaline Phosphatase Troponin I Total Protein Albumin Problem List - Problems (1) CVA (cerebral vascular accident) Code(s): I63.9 - CEREBRAL INFARCTION, UNSPECIFIED Qualifiers: CVA mechanism: occlusion Precerebral and cerebral artery: middle cerebral artery Laterality of affected vessel: left Qualified Code(s): I63.512 - Cerebral infarction due to unspecified occlusion or stenosis of left middle cerebral artery (2) Respiratory failure Code(s): J96.90 - RESPIRATORY FAILURE, UNSP, UNSP W HYPOXIA OR HYPERCAPNIA (3) Shock circulatory Code(s): R57.9 - SHOCK, UNSPECIFIED (4) A-fib Code(s): I48.91 - UNSPECIFIED ATRIAL FIBRILLATION (5) CAD (coronary artery disease) Code(s): I25.10 - ATHSCL HEART DISEASE OF [place] CORONARY ARTERY W/O ANG PCTRS (6) Diabetes Code(s): E11.9 - TYPE 2 DIABETES MELLITUS WITHOUT COMPLICATIONS Assessment/Plan AC mode of vent Follow Neuro exam Wean pressors ABX Glucose control: goal 100-180 PPI for GI prophylaxis SCD for DVT prophylaxis Family meeting for GOC due to grave prognosis and no chance for meaningful survival Dr Barragan Critical care time spent in reviewing chart, evaluating patient and formulating plan - 35 minutes
[2017-03-01] MEDS: ACETAMINOPHEN 650 MG/20.3 ML ORAL SOLUTION (CUPS) PO PRN (14:53)
[2017-03-01] MEDS: PROPOFOL 100 ML IVPB SCH ×2 (14:54→21:30)
[2017-03-01] MEDS: VANCOMYCIN 1,250 MG in DEXTROSE 5%-WATER - 250 ML IVPB SCH (15:28)
--- NOTE | 2017-03-01 15:35 | PN ---
Teaching Attending Note Name of Resident: Johan Khanna ATTENDING PHYSICIAN STATEMENT I saw and evaluated the patient. I reviewed the resident's note and discussed the case with the resident. I agree with the resident's findings and plan as documented. SUBJECTIVE: No events over night. OBJECTIVE: Intubated sedated. no response to sternal rub CV: irreg irreg Lungs: no crackles heard anteriorly EXt; pitting edema Neuro : dilated fixed L pupil , not reactive to light . R pupil with sluggish reaction . corneal reflex present. , no facial droop. + babinski's on L side. ASSESSMENT AND PLAN: 66 y/o unfortunate man with h/o Afib, HTN, DM2 ,chronic systolic CHF, who was brought due to MS and was found to have stroke and shock 1- Large L sided CVA with hemorrhagic conversion and herniation s/p craniotomy 02/26. - stable neurological status - d/w family to be held today. depending on that , might do CT 2- Shock: likely cardiogentic shock - cont dobutamine and levophed . 3- Acute systolic L and R heart failure. - Cont dobutamine - cxray withimproved congestion today 4- NSTEMI: - follow trop , cont to increase 5- DEBRA ; likely ATN. -Cr started to improve 6- Fever: likely central fever can't R/O infection . - Cont Abx 7- Transaminitis : due to shock. worse prognosis , guarded. Family meeting to be held today
[2017-03-01] MEDS ORDERED: ACETAMINOPHEN 1000 MG/100 ML VIAL (NON FORMULARY) IVPB ONE (16:03)
[2017-03-01] MEDS ORDERED: PT OWN MED DRAWER 7, Y5N ONE (17:13)
[2017-03-01 18:10] LABS: ANION GAP 12 (8-16); CALCIUM 7.6 mg/dL (8.5-10.1); CO2 21 mmol/L (21-32); CREATININE 1.9 mg/dL (0.7-1.3); GLUCOSE,RANDOM 197 mg/dL (74-106)
[2017-03-01 18:44] LABS: TROPONIN I 0.85 ng/ml (0.00-0.05)
[2017-03-01] MEDS ORDERED: NOREPINEPHRINE BITARTRATE 4 MG/4 ML ML IV ONE (20:19)
[2017-03-01] MEDS: NOREPINEPHRINE BITARTRATE 8,000 MCG in DEXTROSE 5%-WATER - 496 ML IV SCH (21:31)
[2017-03-01] MEDS: CHLORHEXIDINE GLUCONATE 4% CLEANSER FOR DECOLONIZATION TP SCH (21:33)
[2017-03-02] MEDS: DEXAMETHASONE SOD PHOSPHATE 4 MG/1 ML VIAL IVPB SCH ×3 (02:43→17:36)
[2017-03-02] MEDS: CEFEPIME 2 GM in DEXTROSE 5%-WATER - 100 ML IVPB SCH ×2 (06:19→17:36)
[2017-03-02 06:22] LABS: MCH 30.8 pg (25.7-33.7); MCHC 32.9 g/dl (32.0-35.9); MEAN CELL VOLUME 93.4 fl (80-96); MEAN PLT VOLUME 9.4 fl (7.5-11.1); PLATELET COUNT 192 K/MM3 (134-434); RDW 18.2 % (11.9-15.9); WHITE BLOOD COUNT 9.3 K/mm3 (4.0-10.0)
[2017-03-02] MEDS: INSULIN SLIDING SCALE (NOVOLOG) 1 VIAL SQ SCH ×4 (06:28→22:25)
[2017-03-02 06:33] LABS: INR 1.43 (0.82-1.09); PROTHROMBIN TIME (PATIENT) 15.8 SEC (9.98-11.88)
[2017-03-02 06:39] LABS: ANION GAP 12 (8-16); CALCIUM 8.1 mg/dL (8.5-10.1); CO2 21 mmol/L (21-32); GLUCOSE,RANDOM 203 mg/dL (74-106); MAGNESIUM 2.8 mg/dL (1.8-2.4); PHOSPHOROUS 5.2 mg/dL (2.5-4.9); SGOT/AST 117 U/L (15-37); SGPT/ALT 227 U/L (12-78)
[2017-03-02 06:56] LABS: ALK PHOS 86 U/L (45-117); TOT PROT 6.2 g/dl (6.4-8.2)
[2017-03-02 07:02] LABS: TROPONIN I 0.89 ng/ml (0.00-0.05)
--- NOTE | 2017-03-02 07:10 | PN ---
Progress Note (short form) - Note Progress Note: Chief Complaint: Events noted, notes reviewed, post craniotomy (calvarial bone flap) POD# 4, remains intubated, sedated, not responsive, remains in atrial fibrillation rates controlled, remains on intropes (Dobutamine) and pressors ( Norepinephrine) History of Present Illness: Seen and examined in the ICU. Events noted, notes reviewed, post craniotomy ( calvarial bone flap) POD# 4, remains intubated, sedated, not responsive, remains in atrial fibrillation rates controlled, remains on intropes (Dobutamine ) and pressors (Norepinephrine) Echocardiography revealed severe LV systolic dysfunction, mild RV systolic dysfunction, Bio-prosthetic MV with trace to mild MR, TR with moderate degree of pulmonary HTN RVSP 40-50 mmHg Medications: Current Medications Acetaminophen (Tylenol Oral Solution -) 650 mg PO Q6H PRN PRN Reason: FEVER OR PAIN Last Admin: 03/01/17 14:53 Dose: 650 mg Chlorhexidine Gluconate (Hibiclens For Decolonization -) 1 applic TP HS [facility] Last Admin: 03/01/17 21:33 Dose: 1 applic Dexamethasone Sodium Phosphate (Decadron Injection -) 4 mg IVPB Q8H-IV [facility] Last Admin: 03/02/17 02:43 Dose: 4 mg IV Flush (Triple Lumen Flush) 4 ml IVPUSH PRN PRN PRN Reason: Protocol Dobutamine HCl/Dextrose (Dobutamine 250 Mg/D5w -) 250 mls @ 12.192 mls/hr IV TITR [facility]; 2.5 MCG/KG/MIN PRN Reason: Protocol Last Admin: 03/01/17 21:31 Dose: 12.192 mls/hr Norepinephrine Bitartrate 8, (000 mcg/ Dextrose) 504 mls @ 18.9 mls/hr IV TITR [facility]; 5 MCG/MIN PRN Reason: Protocol Last Admin: 03/01/17 21:31 Dose: 22.68 mls/hr Pantoprazole Sodium (Protonix 40mg Ivpb (Pre-Docked)) 100 mls @ 200 mls/hr IVPB DAILY [facility] Last Admin: 03/01/17 09:27 Dose: 200 mls/hr Propofol (Diprivan -) 100 mls @ 2.994 mls/hr IVPB TITR [facility]; 5 MCG/KG/MIN PRN Reason: Protocol Last Admin: 03/01/17 21:30 Dose: 17.962 mls/hr Metronidazole (Flagyl 500mg Premixed Ivpb -) 100 mls @ 100 mls/hr IVPB Q12H [facility] Last Admin: 03/01/17 21:30 Dose: 100 mls/hr Fentanyl 500 mcg/ Dextrose 100 mls @ 5 mls/hr IJ TITR [facility] PRN Reason: 25 MCG/HR Last Admin: 03/01/17 09:28 Dose: Not Given Cefepime HCl 2 gm/ Dextrose 100 mls @ 200 mls/hr IVPB Q12H [facility] Last Admin: 03/02/17 06:19 Dose: 200 mls/hr Vancomycin HCl 1,250 mg/ (Dextrose) 250 mls @ 166.667 mls/hr IVPB DAILY@1500 [facility] PRN Reason: Protocol Last Admin: 03/01/17 15:28 Dose: 166.667 mls/hr Insulin Aspart (Novolog Vial Sliding Scale -) 1 vial SQ ACHS [facility] PRN Reason: Protocol Last Admin: 03/02/17 06:28 Dose: 4 units Levetiracetam (Keppra Injection -) 1,000 mg IVPB BID [facility] Last Admin: 03/01/17 21:34 Dose: 1,000 mg Mupirocin (Bactroban Ointment (For Decolonization) -) 1 applic NS BID [facility] Stop: 03/03/17 21:59 Last Admin: 03/01/17 21:34 Dose: 1 applic Review of Systems Unable to obtain Vital Signs: Last Vital Signs Temp Pulse Resp BP Pulse Ox 99.8 F H 103 H 30 H 95/78 98 03/02/17 05:00 03/02/17 06:00 03/02/17 07:01 03/02/17 06:00 03/01/17 21:46 Intake & Output 02/27/17 02/28/17 03/01/17 03/02/17 23:59 23:59 23:59 23:59 Intake Total 3365.0 2807.8 2076 1330 Output Total 3700 2700 1850 750 Balance -335.0 107.8 226 580 Weight 185 lb 1 oz 185 lb 8 oz 185 lb 6.54 oz 183 lb 6 oz Neck: Supple Negative JVD No Bruit Respiratory: Diminished Breath Sounds at the Bases Cardiovascular: S1 S2 Irregularly Irregular Gastrointestinal: Soft Benign Normal Bowel Sounds Ext: Edema Labs: CBC, BMP 03/02/17 05:00 03/02/17 05:00 Assessment/Plan ASSESSMENT: 1. Large left side CVA with cerebral edema post emergent craniotomy (calvarial bone flap) 2. Respiratory failure/intubated 3. Coronary artery disease post CABG angina pectoris with evidence of demand ischemic injury 4. Systolic LV dysfunction with chronic class I-II NYHA classification congestive heart failure, cardiogenic shock on inotropes/pressors 5. Post ICD implant (single lead [place]) for primary prophylaxis 6. Permanent atrial fibrillation currently off of A/C, to resume once cleared by neurosurgery 7. Post MVR - Bio-prosthesis 8. Acute renal insufficiency 9. DM PLAN: 1. Continue Dobutamine and titrate 2. Continue pressors and attempt to titrate off as tolerated maintaining MAP > 65 3. As outlined A/C resumption once cleared by neurosurgery 4. Resume B-Blockers hemodynamics permitting 5. Recommend Entresto initiation once renal function stabilized, hemodynamics permitting 6. May need to utilize diuretics (IV Lasix) as needed 7. Overall poor prognosis considering current clinical presentation and co- morbidities Bibi Vickers M.D.
[2017-03-02 07:44] LABS: ARTERIAL BLOOD GAS BASE EXCESS -6.5 meq/l (-2-2); ARTERIAL BLOOD GAS HCO3 17.1 meq/L (22-26); ARTERIAL BLOOD GAS pH 7.37 (7.35-7.45)
--- NOTE | 2017-03-02 07:44 | PN ---
Physical Exam: SUBJECTIVE: Patient seen and examined by me this AM - WBC downtrending 11.3 -> 9.3. Fever to 102.8 overnight. - RR of 30s. Tachycardic overnight to low 100s, intermittent episodes of hypotension to high 90s systolic - Original plan for additional family discussion today. Late AM: - Family wants no further discussion of code status in immediate further. Desires full code status. OBJECTIVE: Vital Signs Intake & Output 02/27/17 02/28/17 03/01/17 03/02/17 23:59 23:59 23:59 23:59 Intake Total 3365.0 2807.8 2076 1330 Output Total 3700 2700 1850 750 Balance -335.0 107.8 226 580 Weight 83.943 kg 84.141 kg 84.1 kg 83.178 kg Period Temp Pulse Resp BP Sys/Leon Pulse Ox Last 24 Hr 99.8 F-102.8 F 99-111 13-34 93-128/58-99 98-100 GENERAL: The patient is sedated, intubated, lying in bed. HEAD: L craniotomy with dressing clean, dry and intact noted on L posterior aspect of cranium. EYES: R pupil small, non-reactive. L pupil dilated, minimally reactive. Sclera anicteric. Mild ENT: Mild labial swelling, oropharynx clear, nasopharynx clear. NECK: Trachea midline, intubated. LUNGS: Mechanical breath sounds noted bilaterally. R subclavian line in place, no significant erythema, bleeding or drainage HEART: Tachycardic, S1, S2 without murmur, rub or gallop. ABDOMEN: Soft, nondistended, normoactive bowel sounds. No masses or hepatomegaly. EXTREMITIES: 2+ pulses, warm, well-perfused, no edema. NEUROLOGICAL: Corneal reflex, gag/swallow reflexes preserved. Doll's eye negative. Unable to elicit babinski reflex bilaterally. Laboratory Results - last 24 hr CBC, BMP 03/02/17 05:00 03/02/17 05:00 03/01/17 03/01/17 03/01/17 05:35 05:40 11:14 WBC RBC Hgb Hct MCV MCH MCHC RDW Plt Count MPV INR PTT (Actin FS) Sodium 144 Potassium 4.2 Chloride 110 H Carbon Dioxide 20 L Anion Gap 14 BUN 69 H Creatinine 2.1 H Creat Clearance w eGFR 31.66 POC Glucometer 171.81385 222.04013 Random Glucose 187 H Calcium 7.9 L Phosphorus 4.7 Magnesium 2.6 H Total Bilirubin 2.4 H AST 316 H D ALT 353 H Alkaline Phosphatase 89 Creatine Kinase Troponin I 0.98 H* Total Protein 6.5 Albumin 2.2 L 03/01/17 03/01/17 03/01/17 15:30 15:30 16:43 WBC RBC Hgb Hct MCV MCH MCHC RDW Plt Count MPV INR PTT (Actin FS) Sodium 143 Potassium 4.2 Chloride 110 H Carbon Dioxide 21 Anion Gap 12 BUN 73 H Creatinine 1.9 H Creat Clearance w eGFR POC Glucometer 209.11417 Random Glucose 197 H Calcium 7.6 L Phosphorus Magnesium Total Bilirubin AST ALT Alkaline Phosphatase Creatine Kinase 68 Troponin I 0.85 H* Total Protein Albumin 03/02/17 03/02/17 03/02/17 05:00 05:00 05:00 WBC 9.3 RBC 4.40 Hgb 13.5 Hct 41.1 MCV 93.4 MCH 30.8 MCHC 32.9 RDW 18.2 H Plt Count 192 MPV 9.4 D INR PTT (Actin FS) 25.4 L Sodium 142 Potassium 4.3 Chloride 109 H Carbon Dioxide 21 Anion Gap 12 BUN 77 H Creatinine 2.0 H Creat Clearance w eGFR 33.49 POC Glucometer Random Glucose 203 H Calcium 8.1 L Phosphorus 5.2 H Magnesium 2.8 H Total Bilirubin 2.0 H AST 117 H D ALT 227 H D Alkaline Phosphatase 86 Creatine Kinase Troponin I 0.89 H* Total Protein 6.2 L Albumin 2.0 L 03/02/17 03/02/17 05:00 05:13 WBC RBC Hgb Hct MCV MCH MCHC RDW Plt Count MPV INR 1.43 H PTT (Actin FS) Sodium Potassium Chloride Carbon Dioxide Anion Gap BUN Creatinine Creat Clearance w eGFR POC Glucometer 208.95455 Random Glucose Calcium Phosphorus Magnesium Total Bilirubin AST ALT Alkaline Phosphatase Creatine Kinase Troponin I Total Protein Albumin Active Medications Generic Name Dose Route Start Last Admin Trade Name Freq PRN Reason Stop Dose Admin Acetaminophen 650 mg 02/28/17 15:03 03/01/17 14:53 Tylenol Oral Solution - PO 650 mg Q6H PRN Administration FEVER OR PAIN Chlorhexidine Gluconate 1 applic 02/26/17 22:00 03/01/17 21:33 Hibiclens For Decolonization - TP 1 applic HS WES Administration Dexamethasone Sodium Phosphate 4 mg 02/28/17 10:00 03/02/17 02:43 Decadron Injection - IVPB 4 mg Q8H-IV WES Administration IV Flush 4 ml 02/26/17 21:23 Triple Lumen Flush IVPUSH PRN PRN Protocol Dobutamine HCl/Dextrose 250 mls @ 12.192 mls/hr 02/26/17 21:23 03/01/17 21:31 Dobutamine 250 Mg/D5w - IV 12.192 mls/hr TITR WES Administration Protocol 2.5 MCG/KG/MIN Norepinephrine Bitartrate 8, 504 mls @ 18.9 mls/hr 02/26/17 21:23 03/01/17 21: 31 000 mcg/ Dextrose IV 22.68 mls/hr TITR WES Administration Protocol 5 MCG/MIN Pantoprazole Sodium 100 mls @ 200 mls/hr 02/27/17 10:00 03/01/17 09:27 Protonix 40mg Ivpb (Pre-Docked) IVPB 200 mls/hr DAILY W[facility] Administration Propofol 100 mls @ 2.994 mls/hr 02/26/17 21:23 03/01/17 21:30 Diprivan - IVPB 17.962 mls/hr TITR WES Administration Protocol 5 MCG/KG/MIN Metronidazole 100 mls @ 100 mls/hr 02/27/17 08:45 03/01/17 21:30 Flagyl 500mg Premixed Ivpb - IVPB 100 mls/hr Q12H WES Administration Fentanyl 500 mcg/ Dextrose 100 mls @ 5 mls/hr 02/27/17 08:45 03/01/17 09:28 IJ Not Given TITR WES 25 MCG/HR Cefepime HCl 2 gm/ Dextrose 100 mls @ 200 mls/hr 02/28/17 18:00 03/02/17 06:19 IVPB 200 mls/hr Q12H WES Administration Vancomycin HCl 1,250 mg/ 250 mls @ 166.667 mls/hr 03/01/17 15:00 03/01/17 15:28 Dextrose IVPB 166.667 mls/hr DAILY@1500 WES Administration Protocol Insulin Aspart 1 vial 02/26/17 22:00 03/02/17 06:28 Novolog Vial Sliding Scale - SQ 4 units ACHS WES Administration Protocol Levetiracetam 1,000 mg 02/26/17 22:00 03/01/17 21:34 Keppra Injection - IVPB 1,000 mg BID WES Administration Mupirocin 1 applic 02/26/17 22:00 03/01/17 21:34 Bactroban Ointment (For Decolonization) - NS 03/03/17 21:59 1 applic BID WES Administration Microbiology 02/26/17 02:18 Blood - Peripheral Venous Blood Culture - Preliminary NO GROWTH OBTAINED AFTER 96 HOURS, INCUBATION TO CONTINUE FOR 1 DAYS. 02/27/17 09:00 Sputum - Endotrachea Suction/Ventilator Gram Stain - Final 02/27/17 09:00 Sputum - Endotrachea Suction/Ventilator Sputum Culture - Final NORMAL RESPIRATORY MOHIT 02/26/17 11:50 Blood - Peripheral Venous Blood Culture - Preliminary NO GROWTH OBTAINED AFTER 72 HOURS, INCUBATION TO CONTINUE FOR 2 DAYS. 02/27/17 09:50 Blood - Peripheral Venous Blood Culture - Preliminary NO GROWTH OBTAINED AFTER 48 HOURS, INCUBATION TO CONTINUE FOR 3 DAYS. 02/27/17 09:50 Blood - Peripheral Venous Blood Culture - Preliminary NO GROWTH OBTAINED AFTER 48 HOURS, INCUBATION TO CONTINUE FOR 3 DAYS. 02/26/17 02:20 Sputum - Endotrachea Suction/Ventilator Gram Stain - Final 02/26/17 02:20 Sputum - Endotrachea Suction/Ventilator Sputum Culture - Final NORMAL RESPIRATORY MOHIT 02/25/17 21:01 Urine - Urine Rangel Urine Culture - Final NO GROWTH OBTAINED Recent imaging: CXR (03/01) - Resolving vascular congestion. ETT, NG tube in place. Cardiomegaly. RLL atelectasis. Non-con CT head (03/01) - No significant interval change. Large L hemispheric stroke in AYAAN and MCA territories with significant rightward midline shift. ASSESSMENT/PLAN: 66 yo man w/ pmh of CAD, a-fib and DM who presented w/ large L-sided ischemic stroke w/ concomitant DEBRA, ARF and cardiogenic shock, now s/p craniotomy for significant, residual vasogenic edema and suspected sub-falcine herniation. Pt continues to remain clinically stable, intubated on multiple pressors, w/ no significant interval change on f/u CT head. Family meeting in PM, wishes for continuation of full code status. Family met with neurosurgery team, understand poor clinical prognosis and likelihood of meaningful recovery. #Neuro Sedation vacations to assess mental status Serial neuro exams qshift Keppra for seizure PPX Serial CT head scans Decadron 4mg IV Q8H #Cardiac Continue on levo, dobutamine gtt AC once approved by neuro team #Pulm AC mode for vent. Intubated. Decreased PEEP from 8 to 5. Reduce FiO2 to 40%. Titrate to >90% saturation. #ID Per ID team, cefepime/flagyl/vanco regimen. all cultures negative to date. f/u pending cultures trend fever, WBC count #Renal Monitor I's & O's, trend BMPs IVFs #Heme Hold AC until neurology clearance #Endo Glucose control w/ range of 100-180 ISS #GI Protonix for PPX Begin NG feeds today. Osmolite 1/2 #FEN Fluids: Hold fluids Electrolytes: Daily BMPs, trend BUN, Cr. Nutrition: Continue NG tube feeds, osmolite 1/2 per nutrition PPX: SCD for DVT PPX PPI for GI PPX Dispo: Will require monitoring in ICU. Hernesto Holcomb, PGY1 Plan to be discussed w/ attending, Dr. Correia Visit type - Emergency Visit Emergency Visit: No - New Patient This patient is new to me today: No - Critical Care Critical Care patient: Yes Total Critical Care Time (in minutes): 35 Critical Care Statement: The care of this patient involved high complexity decision making to prevent further life threatening deterioration of the patient 's condition and/or to evaluate & treat vital organ system(s) failure or risk of failure.
[2017-03-02 07:45] LABS: ALLENS TEST POSITIVE; ART PUNCT SITE RIGHT RADIAL; LPM/O2% 50%; PT. ON O2? YES; TYPE OF O2 MEC.VENT
[2017-03-02 07:46] LABS: MECH. VENT. YES; VENT RATE 30; VT/PRESS 400
--- NOTE | 2017-03-02 08:28 | PN ---
Physical Exam: SUBJECTIVE: Patient seen and examined. No acute events overnight. Pt still sedated and unresponsive to verbal, physical and noxious stimuli. OBJECTIVE: Vital Signs Period Temp Pulse Resp BP Sys/Leon Pulse Ox Last 24 Hr 99.8 F-102.8 F 99-111 13-34 93-128/58-99 98-100 GENERAL: The patient is sedated on ventilator HEAD: 2 adhesive bandages covering L side of head overlying craniotomy incision with herbie, no surrounding signs of infection EYES: L pupil dilated and not reactive to light, R pupil is normal size minimally reactive to light. no doll's eye reflex. NECK: No JVD appreciated LUNGS: anterior lung hawkins are CTAB, no wheezing, rales, or rhonchi HEART: irregularly irregular without murmur, rub or gallop. ABDOMEN: Soft, nontender, nondistended, normoactive bowel sounds, no guarding, no rebound, no hepatosplenomegaly, no masses. EXTREMITIES: b/l UE are cold to touch, pulses difficult to palpate. b/l feet are cold but shins are warm to touch, no pitting edema NEUROLOGICAL: unable to be completely assessed due to sedation. no doll's eyes reflex, corneal reflex intact, gag reflex intact Laboratory Results - last 24 hr 03/01/17 03/01/17 03/01/17 05:35 05:40 11:14 WBC RBC Hgb Hct MCV MCH MCHC RDW Plt Count MPV INR PTT (Actin FS) Puncture Site ABG pH ABG pCO2 at Pt Temp ABG pO2 at Pt Temp ABG HCO3 ABG O2 Sat (Measured) ABG O2 Content ABG Base Excess Guero Test O2 Delivery Device Oxygen Flow Rate Vent Mode Vent Rate Mechanical Rate PEEP Pressure Support Vent Sodium 144 Potassium 4.2 Chloride 110 H Carbon Dioxide 20 L Anion Gap 14 BUN 69 H Creatinine 2.1 H Creat Clearance w eGFR 31.66 POC Glucometer 171.68853 222.73731 Random Glucose 187 H Calcium 7.9 L Phosphorus 4.7 Magnesium 2.6 H Total Bilirubin 2.4 H AST 316 H D ALT 353 H Alkaline Phosphatase 89 Creatine Kinase Troponin I 0.98 H* Total Protein 6.5 Albumin 2.2 L 03/01/17 03/01/17 03/01/17 15:30 15:30 16:43 WBC RBC Hgb Hct MCV MCH MCHC RDW Plt Count MPV INR PTT (Actin FS) Puncture Site ABG pH ABG pCO2 at Pt Temp ABG pO2 at Pt Temp ABG HCO3 ABG O2 Sat (Measured) ABG O2 Content ABG Base Excess Guero Test O2 Delivery Device Oxygen Flow Rate Vent Mode Vent Rate Mechanical Rate PEEP Pressure Support Vent Sodium 143 Potassium 4.2 Chloride 110 H Carbon Dioxide 21 Anion Gap 12 BUN 73 H Creatinine 1.9 H Creat Clearance w eGFR POC Glucometer 209.46488 Random Glucose 197 H Calcium 7.6 L Phosphorus Magnesium Total Bilirubin AST ALT Alkaline Phosphatase Creatine Kinase 68 Troponin I 0.85 H* Total Protein Albumin 03/02/17 03/02/17 03/02/17 05:00 05:00 05:00 WBC 9.3 RBC 4.40 Hgb 13.5 Hct 41.1 MCV 93.4 MCH 30.8 MCHC 32.9 RDW 18.2 H Plt Count 192 MPV 9.4 D INR PTT (Actin FS) 25.4 L Puncture Site ABG pH ABG pCO2 at Pt Temp ABG pO2 at Pt Temp ABG HCO3 ABG O2 Sat (Measured) ABG O2 Content ABG Base Excess Guero Test O2 Delivery Device Oxygen Flow Rate Vent Mode Vent Rate Mechanical Rate PEEP Pressure Support Vent Sodium 142 Potassium 4.3 Chloride 109 H Carbon Dioxide 21 Anion Gap 12 BUN 77 H Creatinine 2.0 H Creat Clearance w eGFR 33.49 POC Glucometer Random Glucose 203 H Calcium 8.1 L Phosphorus 5.2 H Magnesium 2.8 H Total Bilirubin 2.0 H AST 117 H D ALT 227 H D Alkaline Phosphatase 86 Creatine Kinase Troponin I 0.89 H* Total Protein 6.2 L Albumin 2.0 L 03/02/17 03/02/17 03/02/17 05:00 05:13 07:10 WBC RBC Hgb Hct MCV MCH MCHC RDW Plt Count MPV INR 1.43 H PTT (Actin FS) Puncture Site Right radial ABG pH 7.37 ABG pCO2 at Pt Temp 30.1 L ABG pO2 at Pt Temp 141.0 H ABG HCO3 17.1 L ABG O2 Sat (Measured) 99.0 H ABG O2 Content 19.3 ABG Base Excess -6.5 L Guero Test Positive O2 Delivery Device Mec.vent Oxygen Flow Rate 50% Vent Mode A/c Vent Rate 30 Mechanical Rate Yes PEEP 8.0 Pressure Support Vent 400 Sodium Potassium Chloride Carbon Dioxide Anion Gap BUN Creatinine Creat Clearance w eGFR POC Glucometer 208.94751 Random Glucose Calcium Phosphorus Magnesium Total Bilirubin AST ALT Alkaline Phosphatase Creatine Kinase Troponin I Total Protein Albumin Active Medications Generic Name Dose Route Start Last Admin Trade Name Freq PRN Reason Stop Dose Admin Acetaminophen 650 mg 02/28/17 15:03 03/01/17 14:53 Tylenol Oral Solution - PO 650 mg Q6H PRN Administration FEVER OR PAIN Chlorhexidine Gluconate 1 applic 02/26/17 22:00 03/01/17 21:33 Hibiclens For Decolonization - TP 1 applic HS WES Administration Dexamethasone Sodium Phosphate 4 mg 02/28/17 10:00 03/02/17 02:43 Decadron Injection - IVPB 4 mg Q8H-IV WES Administration IV Flush 4 ml 02/26/17 21:23 Triple Lumen Flush IVPUSH PRN PRN Protocol Dobutamine HCl/Dextrose 250 mls @ 12.192 mls/hr 02/26/17 21:23 03/01/17 21:31 Dobutamine 250 Mg/D5w - IV 12.192 mls/hr TITR WES Administration Protocol 2.5 MCG/KG/MIN Norepinephrine Bitartrate 8, 504 mls @ 18.9 mls/hr 02/26/17 21:23 03/01/17 21: 31 000 mcg/ Dextrose IV 22.68 mls/hr TITR WES Administration Protocol 5 MCG/MIN Pantoprazole Sodium 100 mls @ 200 mls/hr 02/27/17 10:00 03/01/17 09:27 Protonix 40mg Ivpb (Pre-Docked) IVPB 200 mls/hr DAILY WES Administration Propofol 100 mls @ 2.994 mls/hr 02/26/17 21:23 03/01/17 21:30 Diprivan - IVPB 17.962 mls/hr TITR WES Administration Protocol 5 MCG/KG/MIN Metronidazole 100 mls @ 100 mls/hr 02/27/17 08:45 03/01/17 21:30 Flagyl 500mg Premixed Ivpb - IVPB 100 mls/hr Q12H WES Administration Fentanyl 500 mcg/ Dextrose 100 mls @ 5 mls/hr 02/27/17 08:45 03/01/17 09:28 IJ Not Given TITR WES 25 MCG/HR Cefepime HCl 2 gm/ Dextrose 100 mls @ 200 mls/hr 02/28/17 18:00 03/02/17 06:19 IVPB 200 mls/hr Q12H WES Administration Vancomycin HCl 1,250 mg/ 250 mls @ 166.667 mls/hr 03/01/17 15:00 03/01/17 15:28 Dextrose IVPB 166.667 mls/hr DAILY@1500 WES Administration Protocol Insulin Aspart 1 vial 02/26/17 22:00 03/02/17 06:28 Novolog Vial Sliding Scale - SQ 4 units ACHS WES Administration Protocol Levetiracetam 1,000 mg 02/26/17 22:00 03/01/17 21:34 Keppra Injection - IVPB 1,000 mg BID WES Administration Mupirocin 1 applic 02/26/17 22:00 03/01/17 21:34 Bactroban Ointment (For Decolonization) - NS 03/03/17 21:59 1 applic BID WES Administration ASSESSMENT/PLAN: 66F with hx of Afib, DM, HTN, HLD, COPD, and CAD who presented with focal neurological deficits, found to have a large left-sided ischemic MCA stroke, became hypotensive preventing transfer out of hospital, required pressors and intubation, s/p craniotomy post-op day #4. # Large Left Sided CVA - Likely from acute embolus in setting of subtherapeutic INR, s/p craniotomy with hemorrhagic conversion - continue Keppra for seizure prophylaxis, continue propofol drip for intubation, wean as tolerated -per card, A/C once cleared by neuro -currently holding heparin and ASA -neuro checks, pain control with fentanyl gtt -repeat CT head (03/01): no interval change # Shock - likely cardiogenic - echo showed severely reduced EF, general hypokinesis, and no pericardial effusion - continue Levophed and dobutamine, titrate to MAP > 65 - continue dexamethasone 4 IV q8h -diuresis held pending recs, CXR on 03/01 showed improving CHF -cardiology on board #Troponinemia- demand ischemia from cardiogenic shock per cards -troponins: 1.13 --> 0.77 --> 0.98 --> 0.89 -ASA, heparin held -continue trending troponins, cardio on board #Respiratory Failure- due to stroke -intubated on ventilator -wean as tolerated -pt will likely need tracheostomy long-term #DEBRA- prerenal 2/2 shock, possibly ATN -continue pressors -creatinine trending down; 2.1 --> 2; trend BMPs #Transaminitis- due to hypoperfusion 2/2 shock -continue pressors -trending down, AST 117, ALT 227; continue trending LFTs #Leukocytosis- possibly due to infection with unclear etiology -wbc trending down; 16 --> 11.3 --> 9 -blood cultures, resp cultures, and urine cultures negative to date -continue to trend wbc -continue cefepime, flagyl, and vancomycin #fever- central vs. infection with unclear etiology -blood cultures, resp cultures, and urine cultures negative to date -temps trending down since last night, continue to trend temps -continue cefepime, flagyl, and vancomycin, APAP PRN #tachycardia- etiology includes pain vs. fever vs. a-fib vs. medication-induced -HR coming down, now in 100s -continue to monitor # Hx of DM2 - BGM Q2 -ISS # FEN - Fluids: w/ pressors - Electrolytes: currently no need for repletion - Nutrition: NPO # Prophylaxis - DVT: SCDs - GI: IV pronotix - Deconditioning: PT on hold for now #Dispo -meaningful recovery is unlikely -full code as per family meeting on 03/01 Johan Khanna MD- PGY1 Visit type - Emergency Visit Emergency Visit: Yes ED Registration Date: 02/25/17 Care time: The patient presented to the Emergency Department on the above date and was hospitalized for further evaluation of their emergent condition. - New Patient This patient is new to me today: No - Critical Care Critical Care patient: No
[2017-03-02] MEDS ORDERED: levETIRAcetam 500 MG/5 ML INJECTION VIAL IVPB ONE (09:21)
[2017-03-02] MEDS ORDERED: PT OWN MED DRAWER 7, Y5N ONE (09:23)
[2017-03-02] MEDS: PANTOPRAZOLE SODIUM 100 ML IVPB SCH (09:24)
[2017-03-02] MEDS: METRONIDAZOLE 500 MG PREMIXED 100 ML IVPB SCH ×2 (09:24→21:31)
[2017-03-02] MEDS: levETIRAcetam 500 MG/5 ML INJECTION VIAL IVPB SCH ×2 (09:25→21:56)
[2017-03-02] MEDS: FENTANYL INJECTION 500 MCG in DEXTROSE 5%-WATER - 90 ML IJ SCH (09:25)
[2017-03-02] MEDS: MUPIROCIN 2% TOPICAL OINTMENT FOR DECOLONIZATION NS SCH ×2 (09:26→21:32)
--- NOTE | 2017-03-02 13:10 | PN ---
Teaching Attending Note Name of Resident: Hernesto Holcomb ATTENDING PHYSICIAN STATEMENT I saw and evaluated the patient. I reviewed the resident's note and discussed the case with the resident. I agree with the resident's findings and plan as documented. SUBJECTIVE: Pt seen and examined in the ICU. Remains intubated, sedated on levophed and dobutamine gtts. Vented on volume assist control with 50% Fio2 and PEEP 8. Febrile overnight. Pt remains full code per family meeting yesterday with primary team. OBJECTIVE: Last Vital Signs Temp Pulse Resp BP Pulse Ox 99.6 F 100 H 26 H 111/97 100 03/02/17 10:00 03/02/17 12:00 03/02/17 12:00 03/02/17 12:00 03/02/17 10:07 Intake & Output 02/27/17 02/28/17 03/01/17 03/02/17 23:59 23:59 23:59 23:59 Intake Total 3365.0 2807.8 2076 1330 Output Total 3700 2700 1850 750 Balance -335.0 107.8 226 580 Weight 185 lb 1 oz 185 lb 8 oz 185 lb 6.54 oz 183 lb 6 oz Gen: intubated, sedated Heart: tachycardic, regular Lung: scattered rhonchi Abd: soft, nontender Ext: + edema CBC, BMP 03/02/17 05:00 03/02/17 05:00 Active Medications Acetaminophen (Tylenol Oral Solution -) 650 mg PO Q6H PRN PRN Reason: FEVER OR PAIN Last Admin: 03/01/17 14:53 Dose: 650 mg Chlorhexidine Gluconate (Hibiclens For Decolonization -) 1 applic TP HS WES Last Admin: 03/01/17 21:33 Dose: 1 applic Dexamethasone Sodium Phosphate (Decadron Injection -) 4 mg IVPB Q8H-IV WES Last Admin: 03/02/17 09:24 Dose: 4 mg IV Flush (Triple Lumen Flush) 4 ml IVPUSH PRN PRN PRN Reason: Protocol Dobutamine HCl/Dextrose (Dobutamine 250 Mg/D5w -) 250 mls @ 12.192 mls/hr IV TITR WES; 2.5 MCG/KG/MIN PRN Reason: Protocol Last Admin: 03/01/17 21:31 Dose: 12.192 mls/hr Norepinephrine Bitartrate 8, (000 mcg/ Dextrose) 504 mls @ 18.9 mls/hr IV TITR WES; 5 MCG/MIN PRN Reason: Protocol Last Admin: 03/01/17 21:31 Dose: 22.68 mls/hr Pantoprazole Sodium (Protonix 40mg Ivpb (Pre-Docked)) 100 mls @ 200 mls/hr IVPB DAILY [facility] Last Admin: 03/02/17 09:24 Dose: 200 mls/hr Propofol (Diprivan -) 100 mls @ 2.994 mls/hr IVPB TITR WES; 5 MCG/KG/MIN PRN Reason: Protocol Last Admin: 03/01/17 21:30 Dose: 17.962 mls/hr Metronidazole (Flagyl 500mg Premixed Ivpb -) 100 mls @ 100 mls/hr IVPB Q12H [facility] Last Admin: 03/02/17 09:24 Dose: 100 mls/hr Fentanyl 500 mcg/ Dextrose 100 mls @ 5 mls/hr IJ TITR WES PRN Reason: 25 MCG/HR Last Admin: 03/02/17 09:25 Dose: Not Given Cefepime HCl 2 gm/ Dextrose 100 mls @ 200 mls/hr IVPB Q12H [facility] Last Admin: 03/02/17 06:19 Dose: 200 mls/hr Vancomycin HCl 1,250 mg/ (Dextrose) 250 mls @ 166.667 mls/hr IVPB DAILY@1500 WES PRN Reason: Protocol Last Admin: 03/01/17 15:28 Dose: 166.667 mls/hr Insulin Aspart (Novolog Vial Sliding Scale -) 1 vial SQ ACHS [facility] PRN Reason: Protocol Last Admin: 03/02/17 10:56 Dose: 2 units Levetiracetam (Keppra Injection -) 1,000 mg IVPB BID [facility] Last Admin: 03/02/17 09:25 Dose: 1,000 mg Mupirocin (Bactroban Ointment (For Decolonization) -) 1 applic NS BID [facility] Stop: 03/03/17 21:59 Last Admin: 03/02/17 09:26 Dose: 1 applic ASSESSMENT AND PLAN: Acute L CVA with severe cerebral edema and herniation s/p Emergent Decompressive Hemicraniotomy Acute Respiratory Failure Shock - r/o Septic vs Neurogenic vs Cardiogenic Acute on Chronic Systolic Heart Failure CAD s/p CABG +Troponins likely demand ischemia Atrial Fibrillation h/o bioMVR Acute Kidney Injury DM Fevers - ?Central - continue empiric antibiotics - f/u cultures - continue decadron, antiepileptics - taper FiO2, PEEP to keep SpO2 >90% - titrate pressors to maintain MAP >65 - dobutamine gtt per cardiology - daily sedation vacations to assess mental status - monitor urine output, creatinine - enteral feeds - poor overall prognosis for meaningful recovery - DVT/GI prophylaxis - continue discussions regarding goals of care, will need tracheostomy if continued aggressive care desired critical care time spent in reviewing chart, evaluating patient and formulating plan 35 min
--- NOTE | 2017-03-02 14:43 | PN ---
Progress Note, Physician History of Present Illness: Pt seen and examined at bedside. He remains in the ICU. He remains intubated. His is at bedside and care was discussed with her. - Current Medication List Current Medications: Active Medications Acetaminophen (Tylenol Oral Solution -) 650 mg PO Q6H PRN PRN Reason: FEVER OR PAIN Last Admin: 03/01/17 14:53 Dose: 650 mg Chlorhexidine Gluconate (Hibiclens For Decolonization -) 1 applic TP HS WES Last Admin: 03/01/17 21:33 Dose: 1 applic Dexamethasone Sodium Phosphate (Decadron Injection -) 4 mg IVPB Q8H-IV WES Last Admin: 03/02/17 09:24 Dose: 4 mg IV Flush (Triple Lumen Flush) 4 ml IVPUSH PRN PRN PRN Reason: Protocol Dobutamine HCl/Dextrose (Dobutamine 250 Mg/D5w -) 250 mls @ 12.192 mls/hr IV TITR WES; 2.5 MCG/KG/MIN PRN Reason: Protocol Last Admin: 03/01/17 21:31 Dose: 12.192 mls/hr Norepinephrine Bitartrate 8, (000 mcg/ Dextrose) 504 mls @ 18.9 mls/hr IV TITR WES; 5 MCG/MIN PRN Reason: Protocol Last Admin: 03/01/17 21:31 Dose: 22.68 mls/hr Pantoprazole Sodium (Protonix 40mg Ivpb (Pre-Docked)) 100 mls @ 200 mls/hr IVPB DAILY WES Last Admin: 03/02/17 09:24 Dose: 200 mls/hr Propofol (Diprivan -) 100 mls @ 2.994 mls/hr IVPB TITR WES; 5 MCG/KG/MIN PRN Reason: Protocol Last Admin: 03/01/17 21:30 Dose: 17.962 mls/hr Metronidazole (Flagyl 500mg Premixed Ivpb -) 100 mls @ 100 mls/hr IVPB Q12H WES Last Admin: 03/02/17 09:24 Dose: 100 mls/hr Fentanyl 500 mcg/ Dextrose 100 mls @ 5 mls/hr IJ TITR WES PRN Reason: 25 MCG/HR Last Admin: 03/02/17 09:25 Dose: Not Given Cefepime HCl 2 gm/ Dextrose 100 mls @ 200 mls/hr IVPB Q12H WES Last Admin: 03/02/17 06:19 Dose: 200 mls/hr Vancomycin HCl 1,250 mg/ (Dextrose) 250 mls @ 166.667 mls/hr IVPB DAILY@1500 WES PRN Reason: Protocol Last Admin: 03/01/17 15:28 Dose: 166.667 mls/hr Propofol (Diprivan -) 100 mls @ 2.495 mls/hr IVPB TITR WES; 5 MCG/KG/MIN PRN Reason: Protocol Insulin Aspart (Novolog Vial Sliding Scale -) 1 vial SQ ACHS WES PRN Reason: Protocol Last Admin: 03/02/17 10:56 Dose: 2 units Levetiracetam (Keppra Injection -) 1,000 mg IVPB BID WES Last Admin: 03/02/17 09:25 Dose: 1,000 mg Mupirocin (Bactroban Ointment (For Decolonization) -) 1 applic NS BID WES Stop: 03/03/17 21:59 Last Admin: 03/02/17 09:26 Dose: 1 applic - Objective Vital Signs: Vital Signs Temperature 100.6 F H 03/02/17 13:33 Pulse Rate 100 H 03/02/17 13:33 Respiratory Rate 33 H 03/02/17 13:59 Blood Pressure 106/85 03/02/17 13:33 O2 Sat by Pulse Oximetry (%) 100 03/02/17 10:07 Constitutional: Yes: Calm HENT: Yes: Other (dressing in place) Neck: Yes: Supple Cardiovascular: Yes: S1, S2 Respiratory: Yes: Mechanically Ventilated Gastrointestinal: Yes: Normal Bowel Sounds, Soft Genitourinary: Yes: WNL Musculoskeletal: Yes: WNL Edema: No Neurological: Yes: Lethargy Labs: CBC, BMP 03/02/17 05:00 03/02/17 05:00 INR, PTT INR 1.43 (0.82-1.09) H 03/02/17 05:00 - ....Imaging Chest X-ray: Report Reviewed Problem List - Problems (1) A-fib Code(s): I48.91 - UNSPECIFIED ATRIAL FIBRILLATION (2) Acute kidney injury Code(s): N17.9 - ACUTE KIDNEY FAILURE, UNSPECIFIED (3) CAD (coronary artery disease) Code(s): I25.10 - ATHSCL HEART DISEASE OF [place] CORONARY ARTERY W/O ANG PCTRS Qualifiers: Qualified Code(s): I25.10 - Atherosclerotic heart disease of [place] coronary artery without angina pectoris (4) CHF (congestive heart failure) Code(s): I50.9 - HEART FAILURE, UNSPECIFIED (5) CVA (cerebral vascular accident) Code(s): I63.9 - CEREBRAL INFARCTION, UNSPECIFIED Qualifiers: Qualified Code(s): I63.512 - Cerebral infarction due to unspecified occlusion or stenosis of left middle cerebral artery (6) Status post craniotomy Code(s): Z98.890 - OTHER SPECIFIED POSTPROCEDURAL STATES Assessment/Plan Current Medications Generic Name Dose Route Start Last Admin Trade Name Freq PRN Reason Stop Dose Admin Acetaminophen 650 mg 02/28/17 15:03 03/01/17 14:53 Tylenol Oral Solution - PO 650 mg Q6H PRN Administration FEVER OR PAIN Chlorhexidine Gluconate 1 applic 02/26/17 22:00 03/01/17 21:33 Hibiclens For Decolonization - TP 1 applic HS WES Administration Dexamethasone Sodium Phosphate 4 mg 02/28/17 10:00 03/02/17 09:24 Decadron Injection - IVPB 4 mg Q8H-IV WES Administration IV Flush 4 ml 02/26/17 21:23 Triple Lumen Flush IVPUSH PRN PRN Protocol Dobutamine HCl/Dextrose 250 mls @ 12.192 mls/hr 02/26/17 21:23 03/01/17 21:31 Dobutamine 250 Mg/D5w - IV 12.192 mls/hr TITR WES Administration Protocol 2.5 MCG/KG/MIN Norepinephrine Bitartrate 8, 504 mls @ 18.9 mls/hr 02/26/17 21:23 03/01/17 21: 31 000 mcg/ Dextrose IV 22.68 mls/hr TITR WES Administration Protocol 5 MCG/MIN Pantoprazole Sodium 100 mls @ 200 mls/hr 02/27/17 10:00 03/02/17 09:24 Protonix 40mg Ivpb (Pre-Docked) IVPB 200 mls/hr DAILY WES Administration Propofol 100 mls @ 2.994 mls/hr 02/26/17 21:23 03/01/17 21:30 Diprivan - IVPB 17.962 mls/hr TITR WES Administration Protocol 5 MCG/KG/MIN Metronidazole 100 mls @ 100 mls/hr 02/27/17 08:45 03/02/17 09:24 Flagyl 500mg Premixed Ivpb - IVPB 100 mls/hr Q12H WES Administration Fentanyl 500 mcg/ Dextrose 100 mls @ 5 mls/hr 02/27/17 08:45 03/02/17 09:25 IJ Not Given TITR WES 25 MCG/HR Cefepime HCl 2 gm/ Dextrose 100 mls @ 200 mls/hr 02/28/17 18:00 03/02/17 06:19 IVPB 200 mls/hr Q12H WES Administration Vancomycin HCl 1,250 mg/ 250 mls @ 166.667 mls/hr 03/01/17 15:00 03/01/17 15:28 Dextrose IVPB 166.667 mls/hr DAILY@1500 WES Administration Protocol Propofol 100 mls @ 2.495 mls/hr 03/02/17 14:15 Diprivan - IVPB TITR WES Protocol 5 MCG/KG/MIN Insulin Aspart 1 vial 02/26/17 22:00 03/02/17 10:56 Novolog Vial Sliding Scale - SQ 2 units ACHS WES Administration Protocol Levetiracetam 1,000 mg 02/26/17 22:00 03/02/17 09:25 Keppra Injection - IVPB 1,000 mg BID WES Administration Mupirocin 1 applic 02/26/17 22:00 03/02/17 09:26 Bactroban Ointment (For Decolonization) - NS 03/03/17 21:59 1 applic BID WES Administration Impression 1. DEBRA resolving 2. Hx CKD 3. S/P CVA 4. s/p craniectomy 5. CHF 6. resp failure Plan - will continue to monitor renal function - maintain MAP of 65 for renal perfusion - repeat labs in am - vent support - monitor volume status - monitor electrolytes
[2017-03-02] MEDS: VANCOMYCIN 1,250 MG in DEXTROSE 5%-WATER - 250 ML IVPB SCH (14:45)
--- NOTE | 2017-03-02 14:56 | PN ---
Progress Note, Physician History of Present Illness: continues to be intubated no new events at bedside - Current Medication List Current Medications: Active Medications Acetaminophen (Tylenol Oral Solution -) 650 mg PO Q6H PRN PRN Reason: FEVER OR PAIN Last Admin: 03/01/17 14:53 Dose: 650 mg Chlorhexidine Gluconate (Hibiclens For Decolonization -) 1 applic TP HS WES Last Admin: 03/01/17 21:33 Dose: 1 applic Dexamethasone Sodium Phosphate (Decadron Injection -) 4 mg IVPB Q8H-IV WES Last Admin: 03/02/17 09:24 Dose: 4 mg IV Flush (Triple Lumen Flush) 4 ml IVPUSH PRN PRN PRN Reason: Protocol Dobutamine HCl/Dextrose (Dobutamine 250 Mg/D5w -) 250 mls @ 12.192 mls/hr IV TITR WES; 2.5 MCG/KG/MIN PRN Reason: Protocol Last Admin: 03/01/17 21:31 Dose: 12.192 mls/hr Norepinephrine Bitartrate 8, (000 mcg/ Dextrose) 504 mls @ 18.9 mls/hr IV TITR WES; 5 MCG/MIN PRN Reason: Protocol Last Admin: 03/01/17 21:31 Dose: 22.68 mls/hr Pantoprazole Sodium (Protonix 40mg Ivpb (Pre-Docked)) 100 mls @ 200 mls/hr IVPB DAILY [facility] Last Admin: 03/02/17 09:24 Dose: 200 mls/hr Propofol (Diprivan -) 100 mls @ 2.994 mls/hr IVPB TITR WES; 5 MCG/KG/MIN PRN Reason: Protocol Last Admin: 03/01/17 21:30 Dose: 17.962 mls/hr Metronidazole (Flagyl 500mg Premixed Ivpb -) 100 mls @ 100 mls/hr IVPB Q12H WES Last Admin: 03/02/17 09:24 Dose: 100 mls/hr Fentanyl 500 mcg/ Dextrose 100 mls @ 5 mls/hr IJ TITR WES PRN Reason: 25 MCG/HR Last Admin: 03/02/17 09:25 Dose: Not Given Cefepime HCl 2 gm/ Dextrose 100 mls @ 200 mls/hr IVPB Q12H WES Last Admin: 03/02/17 06:19 Dose: 200 mls/hr Vancomycin HCl 1,250 mg/ (Dextrose) 250 mls @ 166.667 mls/hr IVPB DAILY@1500 WES PRN Reason: Protocol Last Admin: 03/02/17 14:45 Dose: 166.667 mls/hr Propofol (Diprivan -) 100 mls @ 2.495 mls/hr IVPB TITR WES; 5 MCG/KG/MIN PRN Reason: Protocol Insulin Aspart (Novolog Vial Sliding Scale -) 1 vial SQ ACHS WES PRN Reason: Protocol Last Admin: 03/02/17 10:56 Dose: 2 units Levetiracetam (Keppra Injection -) 1,000 mg IVPB BID WES Last Admin: 03/02/17 09:25 Dose: 1,000 mg Mupirocin (Bactroban Ointment (For Decolonization) -) 1 applic NS BID [facility] Stop: 03/03/17 21:59 Last Admin: 03/02/17 09:26 Dose: 1 applic - Objective Vital Signs: Vital Signs Temperature 100.6 F H 03/02/17 13:33 Pulse Rate 100 H 03/02/17 13:33 Respiratory Rate 33 H 03/02/17 13:59 Blood Pressure 106/85 03/02/17 13:33 O2 Sat by Pulse Oximetry (%) 100 03/02/17 10:07 Constitutional: Yes: Other Cardiovascular: Yes: S1, S2 Respiratory: Yes: Intubated, Mechanically Ventilated Gastrointestinal: Yes: Soft, Hypoactive Bowel Sounds Musculoskeletal: Yes: Other Extremities: Yes: Other Neurological: Yes: Other Psychiatric: Yes: Other Labs: CBC, BMP 03/02/17 05:00 03/02/17 05:00 INR, PTT INR 1.43 (0.82-1.09) H 03/02/17 05:00 Assessment/Plan Problem List - Problems (1) CVA (cerebral vascular accident) Code(s): I63.9 - CEREBRAL INFARCTION, UNSPECIFIED Qualifiers: CVA mechanism: occlusion Precerebral and cerebral artery: middle cerebral artery Laterality of affected vessel: left Qualified Code(s): I63.512 - Cerebral infarction due to unspecified occlusion or stenosis of left middle cerebral artery (2) Respiratory failure Code(s): J96.90 - RESPIRATORY FAILURE, UNSP, UNSP W HYPOXIA OR HYPERCAPNIA (3) Shock circulatory Code(s): R57.9 - SHOCK, UNSPECIFIED (4) A-fib Code(s): I48.91 - UNSPECIFIED ATRIAL FIBRILLATION (5) CAD (coronary artery disease) Code(s): I25.10 - ATHSCL HEART DISEASE OF [place] CORONARY ARTERY W/O ANG PCTRS (6) Diabetes Code(s): E11.9 - TYPE 2 DIABETES MELLITUS WITHOUT COMPLICATIONS plan continue vanco continue cefipime final plan awaited icu care prognosis poor low grade fevers cc 40 min
--- NOTE | 2017-03-02 15:32 | PN ---
Teaching Attending Note Name of Resident: Johan Khanna ATTENDING PHYSICIAN STATEMENT I saw and evaluated the patient. I reviewed the resident's note and discussed the case with the resident. I agree with the resident's findings and plan as documented. SUBJECTIVE: no events over night . OBJECTIVE: Intubated sedated. no response to sternal rub CV: irreg irreg Lungs: no crackles heard anteriorly EXt; pitting edema Neuro : dilated fixed L pupil , not reactive to light . R pupil with minimal reaction . corneal reflex present. no facial droop. - babinski's today has Doll's eye , has corneal reflexes and gag/cough reflexes ASSESSMENT AND PLAN: 66 y/o unfortunate man with h/o Afib, HTN, DM2 ,chronic systolic CHF, who was brought due to MS and was found to have stroke and shock 1- Large L sided CVA with hemorrhagic conversion and herniation s/p craniotomy 02/26. - stable neurological status , has brain stem reflexes - CT yesterday with stable findings - hold off AC 2- Shock: likely cardiogentic shock - cont dobutamine and levophed . 3- Acute systolic L and R heart failure. - Cont dobutamine -lasix if needed 4- NSTEMI: - follow trop , cont to increase 5- DEBRA; likely ATN. -Cr stable 6- Fever: likely central fever can't R/O infection . - Cont Abx 7- Transaminitis : due to shock. improved today Family meeting yesterday. COde status and prognosis d/w family. Full code.
[2017-03-02] MEDS: ACETAMINOPHEN 650 MG/20.3 ML ORAL SOLUTION (CUPS) PO PRN (15:48)
[2017-03-02] MEDS: PROPOFOL 100 ML IVPB SCH (17:36)
[2017-03-02] MEDS ORDERED: NOREPINEPHRINE BITARTRATE 4 MG/4 ML ML IV ONE (20:18)
[2017-03-02] MEDS: NOREPINEPHRINE BITARTRATE 8,000 MCG in DEXTROSE 5%-WATER - 496 ML IV SCH (21:31)
[2017-03-02] MEDS: DOBUTAMINE 250 MG/D5W - 250 ML IV SCH (21:31)
[2017-03-02] MEDS: CHLORHEXIDINE GLUCONATE 4% CLEANSER FOR DECOLONIZATION TP SCH (21:32)
[2017-03-02] MEDS ORDERED: INSULIN (NOVOLOG) ASPART 100 UNITS/ML 10ML VIAL ONE (22:23)
[2017-03-03] MEDS: DEXAMETHASONE SOD PHOSPHATE 4 MG/1 ML VIAL IVPB SCH ×3 (01:56→18:18)
[2017-03-03] MEDS: ACETAMINOPHEN 650 MG/20.3 ML ORAL SOLUTION (CUPS) PO PRN (06:08)
[2017-03-03] MEDS: CEFEPIME 2 GM in DEXTROSE 5%-WATER - 100 ML IVPB SCH ×2 (06:08→18:18)
[2017-03-03 06:15] LABS: MCHC 33.3 g/dl (32.0-35.9); MEAN PLT VOLUME 9.5 fl (7.5-11.1); PLATELET COUNT 186 K/MM3 (134-434); RDW 18.3 % (11.9-15.9)
[2017-03-03] MEDS: INSULIN SLIDING SCALE (NOVOLOG) 1 VIAL SQ SCH ×4 (06:21→22:26)
[2017-03-03 06:25] LABS: INR 1.44 (0.82-1.09)
[2017-03-03 06:28] LABS: ACTIVATED PTT 22.3 SECONDS (26.9-34.4)
[2017-03-03 06:40] LABS: ALBUMIN 1.9 g/dl (3.4-5.0); ANION GAP 14 (8-16); BILIRUBIN,TOTAL 2.1 mg/dL (0.2-1.0); CALCIUM 7.6 mg/dL (8.5-10.1); CO2 20 mmol/L (21-32); CREATININE 2.1 mg/dL (0.7-1.3); GLUCOSE,RANDOM 248 mg/dL (74-106); MAGNESIUM 2.8 mg/dL (1.8-2.4); SGOT/AST 68 U/L (15-37); SGPT/ALT 153 U/L (12-78)
[2017-03-03 06:55] LABS: ALK PHOS 86 U/L (45-117)
[2017-03-03 07:08] LABS: TROPONIN I 1.07 ng/ml (0.00-0.05)
--- NOTE | 2017-03-03 07:18 | PN ---
Physical Exam: SUBJECTIVE: Patient seen and examined by me this AM AM: - No major overnight events. Consistently febrile with max temp 102.4, likely neurogenic. Pressures in 90s systolic, tachycardia to 100-110s - Family agreed to placement of trach tube. - Dobutamine gtt stopped, levo gtt decreased. Stable MAPs. Will require consistent monitoring. - Per Neurosurgery, minimal chance of meaningful neurologic recover. Will likely require trach, PEG and NH care PM: - Propofol held to assess MS. Still tachypneic, with spotaneous breathing w/o vent. Gag/cough reflex present. - Vanc trough 14.8. GFR 31. Dose given per ICH recommendations. OBJECTIVE: Vital Signs Intake & Output 02/28/17 03/01/17 03/02/17 03/03/17 23:59 23:59 23:59 23:59 Intake Total 2807.8 2076 3354 1994.4 Output Total 2700 1850 1750 500 Balance 107.8 226 1604 1494.4 Weight 84.141 kg 84.1 kg 83.178 kg 84.056 kg Period Temp Pulse Resp BP Sys/Leon Pulse Ox Last 24 Hr 99.6 F-102.4 F 100-112 26-36 94-116/52-97 99-100 GENERAL: The patient is sedated, intubated, lying in bed. HEAD: L craniotomy with dressing clean, dry and intact noted on L posterior aspect of cranium. EYES: R pupil small, non-reactive. L pupil dilated, minimally reactive. Sclera anicteric. Mild palpebral swelling, erythema. ENT: Mild labial swelling, oropharynx clear, nasopharynx clear. NECK: Trachea midline, intubated. LUNGS: Mechanical breath sounds noted bilaterally. R subclavian line in place, no significant erythema, bleeding or drainage HEART: Tachycardic, S1, S2 without murmur, rub or gallop. ABDOMEN: Soft, nondistended, normoactive bowel sounds. No masses or hepatomegaly. EXTREMITIES: 2+ pulses, warm, well-perfused, no edema. NEUROLOGICAL: Corneal reflex now absent. Gag/swallow reflexes preserved. Doll's eye negative. Unable to elicit babinski reflexbilaterally. Laboratory Results - last 24 hr CBC, BMP 03/03/17 05:30 03/03/17 05:30 03/02/17 03/02/1717 05:00 07:10 10:53 WBC RBC Hgb Hct MCV MCH MCHC RDW Plt Count MPV INR PTT (Actin FS) 25.4 L Puncture Site Right radial ABG pH 7.37 ABG pCO2 at Pt Temp 30.1 L ABG pO2 at Pt Temp 141.0 H ABG HCO3 17.1 L ABG O2 Sat (Measured) 99.0 H ABG O2 Content 19.3 ABG Base Excess -6.5 L Guero Test Positive O2 Delivery Device Mec.vent Oxygen Flow Rate 50% Vent Mode A/c Vent Rate 30 Mechanical Rate Yes PEEP 8.0 Pressure Support Vent 400 Sodium Potassium Chloride Carbon Dioxide Anion Gap BUN Creatinine Creat Clearance w eGFR POC Glucometer [phone] Random Glucose Calcium Phosphorus Magnesium Total Bilirubin AST ALT Alkaline Phosphatase Troponin I Total Protein Albumin Random Vancomycin 03/02/17 03/03/17 03/03/17 16:27 05:30 05:30 WBC 8.0 RBC 4.29 Hgb 13.3 Hct 39.9 MCV 93.0 MCH 31.0 MCHC 33.3 RDW 18.3 H Plt Count 186 MPV 9.5 INR PTT (Actin FS) Puncture Site ABG pH ABG pCO2 at Pt Temp ABG pO2 at Pt Temp ABG HCO3 ABG O2 Sat (Measured) ABG O2 Content ABG Base Excess Guero Test O2 Delivery Device Oxygen Flow Rate Vent Mode Vent Rate Mechanical Rate PEEP Pressure Support Vent Sodium Potassium Chloride Carbon Dioxide Anion Gap BUN Creatinine Creat Clearance w eGFR POC Glucometer [phone] Random Glucose Calcium Phosphorus Magnesium Total Bilirubin AST ALT Alkaline Phosphatase Troponin I Total Protein Albumin Random Vancomycin 18.672 03/03/17 03/03/17 05:30 05:30 WBC RBC Hgb Hct MCV MCH MCHC RDW Plt Count MPV INR 1.44 H PTT (Actin FS) 22.3 L Puncture Site ABG pH ABG pCO2 at Pt Temp ABG pO2 at Pt Temp ABG HCO3 ABG O2 Sat (Measured) ABG O2 Content ABG Base Excess Guero Test O2 Delivery Device Oxygen Flow Rate Vent Mode Vent Rate Mechanical Rate PEEP Pressure Support Vent Sodium 143 Potassium 4.5 Chloride 109 H Carbon Dioxide 20 L Anion Gap 14 BUN 91 H Creatinine 2.1 H Creat Clearance w eGFR 31.66 POC Glucometer Random Glucose 248 H D Calcium 7.6 L Phosphorus 5.0 H Magnesium 2.8 H Total Bilirubin 2.1 H AST 68 H D ALT 153 H D Alkaline Phosphatase 86 Troponin I 1.07 H* Total Protein 6.0 L Albumin 1.9 L Random Vancomycin Active Medications Generic Name Dose Route Start Last Admin Trade Name Freq PRN Reason Stop Dose Admin Acetaminophen 650 mg 02/28/17 15:03 03/03/17 06:08 Tylenol Oral Solution - PO 650 mg Q6H PRN Administration FEVER OR PAIN Chlorhexidine Gluconate 1 applic 02/26/17 22:00 03/02/17 21:32 Hibiclens For Decolonization - TP 1 applic HS WES Administration Dexamethasone Sodium Phosphate 4 mg 02/28/17 10:00 03/03/17 01:56 Decadron Injection - IVPB 4 mg Q8H-IV WES Administration IV Flush 4 ml 02/26/17 21:23 Triple Lumen Flush IVPUSH PRN PRN Protocol Dobutamine HCl/Dextrose 250 mls @ 12.192 mls/hr 02/26/17 21:23 03/03/17 06:10 Dobutamine 250 Mg/D5w - IV 2.5 mcg/kg/min TITR WES Titration Protocol 2.5 MCG/KG/MIN Norepinephrine Bitartrate 8, 504 mls @ 18.9 mls/hr 02/26/17 21:23 03/03/17 06: 10 000 mcg/ Dextrose IV 5 mcg/min TITR WES Titration Protocol 5 MCG/MIN Pantoprazole Sodium 100 mls @ 200 mls/hr 02/27/17 10:00 03/02/17 09:24 Protonix 40mg Ivpb (Pre-Docked) IVPB 200 mls/hr DAILY [facility] Administration Metronidazole 100 mls @ 100 mls/hr 02/27/17 08:45 03/02/17 21:31 Flagyl 500mg Premixed Ivpb - IVPB 100 mls/hr Q12H WES Administration Fentanyl 500 mcg/ Dextrose 100 mls @ 5 mls/hr 02/27/17 08:45 03/02/17 09:25 IJ Not Given TITR WES 25 MCG/HR Cefepime HCl 2 gm/ Dextrose 100 mls @ 200 mls/hr 02/28/17 18:00 03/03/17 06:08 IVPB 200 mls/hr Q12H WES Administration Vancomycin HCl 1,250 mg/ 250 mls @ 166.667 mls/hr 03/01/17 15:00 03/02/17 14:45 Dextrose IVPB 166.667 mls/hr DAILY@1500 [facility] Administration Protocol Propofol 100 mls @ 2.495 mls/hr 03/02/17 14:15 03/03/17 06:10 Diprivan - IVPB 40 mcg/kg/min TITR WES Titration Protocol 5 MCG/KG/MIN Insulin Aspart 1 vial 02/26/17 22:00 03/03/17 06:21 Novolog Vial Sliding Scale - SQ 6 units ACHS WES Administration Protocol Levetiracetam 1,000 mg 02/26/17 22:00 03/02/17 21:56 Keppra Injection - IVPB 1,000 mg BID WES Administration Mupirocin 1 applic 02/26/17 22:00 03/02/17 21:32 Bactroban Ointment (For Decolonization) - NS 03/03/17 21:59 1 applic BID WES Administration Microbiology 02/26/17 02:18 Blood - Peripheral Venous Blood Culture - Final NO GROWTH AFTER 5 DAYS INCUBATION 02/26/17 11:50 Blood - Peripheral Venous Blood Culture - Preliminary NO GROWTH OBTAINED AFTER 96 HOURS, INCUBATION TO CONTINUE FOR 1 DAYS. 02/27/17 09:50 Blood - Peripheral Venous Blood Culture - Preliminary NO GROWTH OBTAINED AFTER 72 HOURS, INCUBATION TO CONTINUE FOR 2 DAYS. 02/27/17 09:50 Blood - Peripheral Venous Blood Culture - Preliminary NO GROWTH OBTAINED AFTER 72 HOURS, INCUBATION TO CONTINUE FOR 2 DAYS. 02/27/17 09:00 Sputum - Endotrachea Suction/Ventilator Gram Stain - Final 02/27/17 09:00 Sputum - Endotrachea Suction/Ventilator Sputum Culture - Final NORMAL RESPIRATORY MOHIT 02/26/17 02:20 Sputum - Endotrachea Suction/Ventilator Gram Stain - Final 02/26/17 02:20 Sputum - Endotrachea Suction/Ventilator Sputum Culture - Final NORMAL RESPIRATORY MOHIT 02/25/17 21:01 Urine - Urine Rangel Urine Culture - Final NO GROWTH OBTAINED Recent imaging: CXR (03/03) - No significant interval change. Increased diffuse opacity in R lung hawkins. No pneumo or consolidations. Cardiomegaly. CXR (03/02) - ETT, NG tube in place. Cardiomegaly. No pneumothorax. No evidence of consolidations, limited by poor film. Non-con CT head (03/01) - No significant interval change. Large L hemispheric stroke in AYAAN and MCA territories with significant rightward midline shift. ASSESSMENT/PLAN: 66 yo man w/ pmh of CAD, a-fib and DM who presented w/ large L-sided ischemic stroke w/ concomitant DEBRA, ARF and cardiogenic shock, now s/p craniotomy for significant, residual vasogenic edema and suspected sub-falcine herniation. Pt continues to remain clinically stable, tolerating pressor/ventilatory wean today , w/ no significant improvement in MS, however with preserved spontaneous respiratory function/partial preservation of brainstem reflexes. Family continues to elect for full code status, has agreed on trach placement (will require CT surg consult). Minimal chance of meaningful recovery of neurologic function, likely requiring trach, PEG and NH care per neurosurgery team. ID, cardiology and renal following. Appreciate recs. #Neuro Continue sedation vacations to assess mental status Serial neuro exams qshift Keppra for seizure PPX f/u imaging per neurosurg recs Continue Decadron 4mg IV Q8H #Cardiac Weaned off dobutamine gtt, levo decreased to 5mcg/hr per cardiology. Titrate to MAPs of >65 Resume BB once pressors d/c'ed per cardiology cleared for diuresis w/ lasix per cards as needed AC once approved by neuro team Trend trops. Uptrending (03/03 AM 1.07) #Pulm AC mode for vent. Intubated. Rate decreased to 16, Reduce FiO2 to 40%. Taper FiO2, PEEP to >90% saturation CT surg consult for trach placement #ID Per ID team, continue cefepime/flagyl/vanco regimen. Vanc troughs daily all cultures negative to date. f/u pending cultures trend fever, WBC count #Renal Monitor I's & O's, trend BMPs IVFs #Heme Hold AC until neurology clearance #Endo Glucose control w/ range of 100-180 ISS #GI Protonix for PPX Continue NG tube feeds. Nutrition recs appreciated. #FEN Fluids: Hold fluids Electrolytes: Daily BMPs, trend BUN, Cr. Nutrition: Continue NG tube feeds, osmolite 1/2 per nutrition PPX: SCD for DVT PPX PPI for GI PPX Dispo: Will require monitoring in ICU monitoring, with likely d/c to NH for long -term care. Hernesto Holcomb, PGY1 Plan discussed w/ attending, Dr. Correia Visit type - Emergency Visit Emergency Visit: No - New Patient This patient is new to me today: No - Critical Care Critical Care patient: Yes Total Critical Care Time (in minutes): 35 Critical Care Statement: The care of this patient involved high complexity decision making to prevent further life threatening deterioration of the patient 's condition and/or to evaluate & treat vital organ system(s) failure or risk of failure.
[2017-03-03] MEDS: FENTANYL INJECTION 500 MCG in DEXTROSE 5%-WATER - 90 ML IJ SCH (08:45)
[2017-03-03] MEDS: PANTOPRAZOLE SODIUM 100 ML IVPB SCH (09:07)
[2017-03-03] MEDS: METRONIDAZOLE 500 MG PREMIXED 100 ML IVPB SCH ×2 (09:07→22:00)
[2017-03-03] MEDS: levETIRAcetam 500 MG/5 ML INJECTION VIAL IVPB SCH ×2 (09:07→22:00)
[2017-03-03] MEDS: MUPIROCIN 2% TOPICAL OINTMENT FOR DECOLONIZATION NS SCH (09:10)
--- NOTE | 2017-03-03 10:53 | PN ---
Progress Note, Physician History of Present Illness: Unresponsive on ventilator, febrile, remains in afib with PVCs. - Current Medication List Current Medications: Active Medications Acetaminophen (Tylenol Oral Solution -) 650 mg PO Q6H PRN PRN Reason: FEVER OR PAIN Last Admin: 03/03/17 06:08 Dose: 650 mg Chlorhexidine Gluconate (Hibiclens For Decolonization -) 1 applic TP HS WES Last Admin: 03/02/17 21:32 Dose: 1 applic Dexamethasone Sodium Phosphate (Decadron Injection -) 4 mg IVPB Q8H-IV WES Last Admin: 03/03/17 09:09 Dose: 4 mg IV Flush (Triple Lumen Flush) 4 ml IVPUSH PRN PRN PRN Reason: Protocol Dobutamine HCl/Dextrose (Dobutamine 250 Mg/D5w -) 250 mls @ 12.192 mls/hr IV TITR WES; 2.5 MCG/KG/MIN PRN Reason: Protocol Last Titration: 03/03/17 06:10 Dose: 2.5 mcg/kg/min Norepinephrine Bitartrate 8, (000 mcg/ Dextrose) 504 mls @ 18.9 mls/hr IV TITR WES; 5 MCG/MIN PRN Reason: Protocol Last Titration: 03/03/17 06:10 Dose: 5 mcg/min Pantoprazole Sodium (Protonix 40mg Ivpb (Pre-Docked)) 100 mls @ 200 mls/hr IVPB DAILY [facility] Last Admin: 03/03/17 09:07 Dose: 200 mls/hr Metronidazole (Flagyl 500mg Premixed Ivpb -) 100 mls @ 100 mls/hr IVPB Q12H [facility] Last Admin: 03/03/17 09:07 Dose: 100 mls/hr Fentanyl 500 mcg/ Dextrose 100 mls @ 5 mls/hr IJ TITR WES PRN Reason: 25 MCG/HR Last Admin: 03/02/17 09:25 Dose: Not Given Cefepime HCl 2 gm/ Dextrose 100 mls @ 200 mls/hr IVPB Q12H [facility] Last Admin: 03/03/17 06:08 Dose: 200 mls/hr Vancomycin HCl 1,250 mg/ (Dextrose) 250 mls @ 166.667 mls/hr IVPB DAILY@1500 WES PRN Reason: Protocol Last Admin: 03/02/17 14:45 Dose: 166.667 mls/hr Propofol (Diprivan -) 100 mls @ 2.495 mls/hr IVPB TITR WES; 5 MCG/KG/MIN PRN Reason: Protocol Last Titration: 03/03/17 06:10 Dose: 40 mcg/kg/min Insulin Aspart (Novolog Vial Sliding Scale -) 1 vial SQ ACHS WES PRN Reason: Protocol Last Admin: 03/03/17 06:21 Dose: 6 units Levetiracetam (Keppra Injection -) 1,000 mg IVPB BID WES Last Admin: 03/03/17 09:07 Dose: 1,000 mg Mupirocin (Bactroban Ointment (For Decolonization) -) 1 applic NS BID WES Stop: 03/03/17 21:59 Last Admin: 03/03/17 09:10 Dose: 1 applic - Objective Vital Signs: Vital Signs Temperature 100.9 F H 03/03/17 10:00 Pulse Rate 107 H 03/03/17 10:12 Respiratory Rate 30 H 03/03/17 10:09 Blood Pressure 95/82 03/03/17 10:00 O2 Sat by Pulse Oximetry (%) 97 03/03/17 10:12 Cardiovascular: Yes: Pulse Irregular Respiratory: Yes: Intubated, Mechanically Ventilated, Rhonchi Gastrointestinal: Yes: Normal Bowel Sounds, Soft Edema: No Labs: CBC, BMP 03/03/17 05:30 03/03/17 05:30 INR, PTT INR 1.44 (0.82-1.09) H 03/03/17 05:30 Problem List - Problems (1) A-fib Code(s): I48.91 - UNSPECIFIED ATRIAL FIBRILLATION (2) CAD (coronary artery disease) Code(s): I25.10 - ATHSCL HEART DISEASE OF [place] CORONARY ARTERY W/O ANG PCTRS Qualifiers: Coronary Disease-Associated Artery/Lesion type: [place] artery [place] vs. transplanted heart: [place] heart Associated angina: without angina Qualified Code(s): I25.10 - Atherosclerotic heart disease of [place] coronary artery without angina pectoris (3) CVA (cerebral vascular accident) Code(s): I63.9 - CEREBRAL INFARCTION, UNSPECIFIED Qualifiers: CVA mechanism: occlusion Precerebral and cerebral artery: middle cerebral artery Laterality of affected vessel: left Qualified Code(s): I63.512 - Cerebral infarction due to unspecified occlusion or stenosis of left middle cerebral artery (4) Cardiogenic shock Code(s): R57.0 - CARDIOGENIC SHOCK (5) Diabetes Code(s): E11.9 - TYPE 2 DIABETES MELLITUS WITHOUT COMPLICATIONS Qualifiers: Diabetes mellitus type: type 2 (6) Hx of CABG Code(s): Z95.1 - PRESENCE OF AORTOCORONARY BYPASS GRAFT (7) Respiratory failure Code(s): J96.90 - RESPIRATORY FAILURE, UNSP, UNSP W HYPOXIA OR HYPERCAPNIA Qualifiers: Chronicity: acute Respiratory failure complication: unspecified whether with hypoxia or hypercapnia Qualified Code(s): J96.00 - Acute respiratory failure, unspecified whether with hypoxia or hypercapnia (8) S/P MVR (mitral valve replacement) Code(s): Z95.2 - PRESENCE OF PROSTHETIC HEART VALVE (9) Demand ischemia Code(s): I24.8 - OTHER FORMS OF ACUTE ISCHEMIC HEART DISEASE (10) Acute kidney injury Code(s): N17.9 - ACUTE KIDNEY FAILURE, UNSPECIFIED (11) Status post craniotomy Code(s): Z98.890 - OTHER SPECIFIED POSTPROCEDURAL STATES (12) Ischemic cardiomyopathy Code(s): I25.5 - ISCHEMIC CARDIOMYOPATHY (13) ICD (implantable cardioverter-defibrillator) in place Code(s): Z95.810 - PRESENCE OF AUTOMATIC (IMPLANTABLE) CARDIAC DEFIBRILLATOR Assessment/Plan 1. Large left side CVA with cerebral edema post emergent craniotomy (calvarial bone flap) 2. Respiratory failure/intubated 3. Coronary artery disease post CABG angina pectoris with evidence of demand ischemic injury 4. Systolic LV dysfunction with chronic class I-II NYHA classification congestive heart failure, cardiogenic shock on inotropes/pressors 5. Post ICD implant (single lead [place]) for primary prophylaxis 6. Permanent atrial fibrillation currently off of A/C 7. Post MVR - Bio-prosthesis 8. Acute on chronic kidney injury 9. DM PLAN: 1. Wean Dobutamine and Levophed gtt to maintain MAP > 60 2. A/C resumption once cleared by neurosurgery 3. Resume B-Blockers once off pressors 4. Recommend Entresto initiation once renal function and hemodynamics stabilized 5. As outlined avoid Digoxin at this point considering the above noted acute renal insufficiency 6. May need to utilize diuretics (IV Lasix) as needed 7. Monitor renal function and urine output closely 8. Empiric abx per C&S, IV steroids with GI protection, seizure prophylaxis 9. Neuro checks off sedation, vent management per ABG
--- NOTE | 2017-03-03 11:31 | PN ---
Progress Note, Physician History of Present Illness: Pt seen and examined at bedside. He remains in the ICU. Pt remains intubated. - Current Medication List Current Medications: Active Medications Acetaminophen (Tylenol Oral Solution -) 650 mg PO Q6H PRN PRN Reason: FEVER OR PAIN Last Admin: 03/03/17 06:08 Dose: 650 mg Chlorhexidine Gluconate (Hibiclens For Decolonization -) 1 applic TP HS WES Last Admin: 03/02/17 21:32 Dose: 1 applic Dexamethasone Sodium Phosphate (Decadron Injection -) 4 mg IVPB Q8H-IV WES Last Admin: 03/03/17 09:09 Dose: 4 mg IV Flush (Triple Lumen Flush) 4 ml IVPUSH PRN PRN PRN Reason: Protocol Dobutamine HCl/Dextrose (Dobutamine 250 Mg/D5w -) 250 mls @ 12.192 mls/hr IV TITR WES; 2.5 MCG/KG/MIN PRN Reason: Protocol Last Titration: 03/03/17 06:10 Dose: 2.5 mcg/kg/min Norepinephrine Bitartrate 8, (000 mcg/ Dextrose) 504 mls @ 18.9 mls/hr IV TITR WES; 5 MCG/MIN PRN Reason: Protocol Last Titration: 03/03/17 06:10 Dose: 5 mcg/min Pantoprazole Sodium (Protonix 40mg Ivpb (Pre-Docked)) 100 mls @ 200 mls/hr IVPB DAILY WES Last Admin: 03/03/17 09:07 Dose: 200 mls/hr Metronidazole (Flagyl 500mg Premixed Ivpb -) 100 mls @ 100 mls/hr IVPB Q12H WES Last Admin: 03/03/17 09:07 Dose: 100 mls/hr Fentanyl 500 mcg/ Dextrose 100 mls @ 5 mls/hr IJ TITR WES PRN Reason: 25 MCG/HR Last Admin: 03/02/17 09:25 Dose: Not Given Cefepime HCl 2 gm/ Dextrose 100 mls @ 200 mls/hr IVPB Q12H WES Last Admin: 03/03/17 06:08 Dose: 200 mls/hr Vancomycin HCl 1,250 mg/ (Dextrose) 250 mls @ 166.667 mls/hr IVPB DAILY@1500 WES PRN Reason: Protocol Last Admin: 03/02/17 14:45 Dose: 166.667 mls/hr Propofol (Diprivan -) 100 mls @ 2.495 mls/hr IVPB TITR WES; 5 MCG/KG/MIN PRN Reason: Protocol Last Titration: 03/03/17 06:10 Dose: 40 mcg/kg/min Insulin Aspart (Novolog Vial Sliding Scale -) 1 vial SQ ACHS WES PRN Reason: Protocol Last Admin: 03/03/17 06:21 Dose: 6 units Levetiracetam (Keppra Injection -) 1,000 mg IVPB BID WES Last Admin: 03/03/17 09:07 Dose: 1,000 mg Mupirocin (Bactroban Ointment (For Decolonization) -) 1 applic NS BID WES Stop: 03/03/17 21:59 Last Admin: 03/03/17 09:10 Dose: 1 applic - Objective Vital Signs: Vital Signs Temperature 100.9 F H 03/03/17 10:00 Pulse Rate 107 H 03/03/17 10:12 Respiratory Rate 30 H 03/03/17 10:09 Blood Pressure 95/82 03/03/17 10:00 O2 Sat by Pulse Oximetry (%) 97 03/03/17 10:12 Constitutional: Yes: Calm Cardiovascular: Yes: S1, S2 Respiratory: Yes: Mechanically Ventilated Gastrointestinal: Yes: Soft Genitourinary: Yes: Rangel Present Edema: Yes Edema: LLE: Trace, RLE: Trace Wound/Incision: Yes: Dressing Dry and Intact Neurological: Yes: Lethargy Labs: CBC, BMP 03/03/17 05:30 03/03/17 05:30 INR, PTT INR 1.44 (0.82-1.09) H 03/03/17 05:30 - ....Imaging Chest X-ray: Report Reviewed Problem List - Problems (1) A-fib Code(s): I48.91 - UNSPECIFIED ATRIAL FIBRILLATION (2) Acute kidney injury Code(s): N17.9 - ACUTE KIDNEY FAILURE, UNSPECIFIED (3) CAD (coronary artery disease) Code(s): I25.10 - ATHSCL HEART DISEASE OF [place] CORONARY ARTERY W/O ANG PCTRS Qualifiers: Coronary Disease-Associated Artery/Lesion type: [place] artery [place] vs. transplanted heart: [place] heart Associated angina: without angina Qualified Code(s): I25.10 - Atherosclerotic heart disease of [place] coronary artery without angina pectoris (4) CHF (congestive heart failure) Code(s): I50.9 - HEART FAILURE, UNSPECIFIED (5) CVA (cerebral vascular accident) Code(s): I63.9 - CEREBRAL INFARCTION, UNSPECIFIED Qualifiers: CVA mechanism: occlusion Precerebral and cerebral artery: middle cerebral artery Laterality of affected vessel: left Qualified Code(s): I63.512 - Cerebral infarction due to unspecified occlusion or stenosis of left middle cerebral artery (6) Status post craniotomy Code(s): Z98.890 - OTHER SPECIFIED POSTPROCEDURAL STATES Assessment/Plan Current Medications Generic Name Dose Route Start Last Admin Trade Name Freq PRN Reason Stop Dose Admin Acetaminophen 650 mg 02/28/17 15:03 03/03/17 06:08 Tylenol Oral Solution - PO 650 mg Q6H PRN Administration FEVER OR PAIN Chlorhexidine Gluconate 1 applic 02/26/17 22:00 03/02/17 21:32 Hibiclens For Decolonization - TP 1 applic HS WES Administration Dexamethasone Sodium Phosphate 4 mg 02/28/17 10:00 03/03/17 09:09 Decadron Injection - IVPB 4 mg Q8H-IV WES Administration IV Flush 4 ml 02/26/17 21:23 Triple Lumen Flush IVPUSH PRN PRN Protocol Dobutamine HCl/Dextrose 250 mls @ 12.192 mls/hr 02/26/17 21:23 03/03/17 06:10 Dobutamine 250 Mg/D5w - IV 2.5 mcg/kg/min TITR WES Titration Protocol 2.5 MCG/KG/MIN Norepinephrine Bitartrate 8, 504 mls @ 18.9 mls/hr 02/26/17 21:23 03/03/17 06: 10 000 mcg/ Dextrose IV 5 mcg/min TITR WES Titration Protocol 5 MCG/MIN Pantoprazole Sodium 100 mls @ 200 mls/hr 02/27/17 10:00 03/03/17 09:07 Protonix 40mg Ivpb (Pre-Docked) IVPB 200 mls/hr DAILY WES Administration Metronidazole 100 mls @ 100 mls/hr 02/27/17 08:45 03/03/17 09:07 Flagyl 500mg Premixed Ivpb - IVPB 100 mls/hr Q12H WES Administration Fentanyl 500 mcg/ Dextrose 100 mls @ 5 mls/hr 02/27/17 08:45 03/02/17 09:25 IJ Not Given TITR WES 25 MCG/HR Cefepime HCl 2 gm/ Dextrose 100 mls @ 200 mls/hr 02/28/17 18:00 03/03/17 06:08 IVPB 200 mls/hr Q12H WES Administration Vancomycin HCl 1,250 mg/ 250 mls @ 166.667 mls/hr 03/01/17 15:00 03/02/17 14:45 Dextrose IVPB 166.667 mls/hr DAILY@1500 WES Administration Protocol Propofol 100 mls @ 2.495 mls/hr 03/02/17 14:15 03/03/17 06:10 Diprivan - IVPB 40 mcg/kg/min TITR WES Titration Protocol 5 MCG/KG/MIN Insulin Aspart 1 vial 02/26/17 22:00 03/03/17 06:21 Novolog Vial Sliding Scale - SQ 6 units ACHS WES Administration Protocol Levetiracetam 1,000 mg 02/26/17 22:00 03/03/17 09:07 Keppra Injection - IVPB 1,000 mg BID WES Administration Mupirocin 1 applic 02/26/17 22:00 03/03/17 09:10 Bactroban Ointment (For Decolonization) - NS 03/03/17 21:59 1 applic BID WES Administration Laboratory Tests 03/03/17 05:30 Random Vancomycin 18.672 Impression 1. DEBRA 2. Hx CKD 3. S/P CVA 4. s/p craniectomy 5. CHF 6. resp failure Plan - renal function is worsening - cardio input appreciated - check vanco level - maintain MAP of 65 for renal perfusion - repeat labs in am - vent support - discussed plan with - monitor urine output - monitor volume status - monitor electrolytes
[2017-03-03] MEDS ORDERED: CHLORHEXIDINE GLUCONATE 0.12% 15ML CUP MM ONE (11:58)
[2017-03-03] MEDS ORDERED: INSULIN (NOVOLOG) ASPART 100 UNITS/ML 10ML VIAL ONE (12:40)
--- NOTE | 2017-03-03 12:44 | PN ---
Teaching Attending Note Name of Resident: Hernesto Holcomb ATTENDING PHYSICIAN STATEMENT I saw and evaluated the patient. I reviewed the resident's note and discussed the case with the resident. I agree with the resident's findings and plan as documented. SUBJECTIVE: Pt seen and examined in the ICU. Remains intubated, sedated on levophed and dobutamine gtts. Propofol d/c'd but restarted after pt became tachypneic without improvement in mental status. OBJECTIVE: Last Vital Signs Temp Pulse Resp BP Pulse Ox 100.6 F H 82 30 H 92/73 97 03/03/17 12:38 03/03/17 12:38 03/03/17 12:38 03/03/17 12:38 03/03/17 10:12 Intake & Output 02/28/17 03/01/17 03/02/17 03/03/17 23:59 23:59 23:59 23:59 Intake Total 2807.8 2076 3354 1994.4 Output Total 2700 1850 1750 500 Balance 107.8 226 1604 1494.4 Weight 185 lb 8 oz 185 lb 6.54 oz 183 lb 6 oz 185 lb 5 oz Gen: intubated, sedated Heart: irregular Lung: scattered rhonchi Abd: soft, nontender Ext: + edema CBC, BMP 03/03/17 05:30 03/03/17 05:30 Active Medications Acetaminophen (Tylenol Oral Solution -) 650 mg PO Q6H PRN PRN Reason: FEVER OR PAIN Last Admin: 03/03/17 06:08 Dose: 650 mg Chlorhexidine Gluconate (Hibiclens For Decolonization -) 1 applic TP HS WES Last Admin: 03/02/17 21:32 Dose: 1 applic Dexamethasone Sodium Phosphate (Decadron Injection -) 4 mg IVPB Q8H-IV WES Last Admin: 03/03/17 09:09 Dose: 4 mg IV Flush (Triple Lumen Flush) 4 ml IVPUSH PRN PRN PRN Reason: Protocol Dobutamine HCl/Dextrose (Dobutamine 250 Mg/D5w -) 250 mls @ 12.192 mls/hr IV TITR WES; 2.5 MCG/KG/MIN PRN Reason: Protocol Last Titration: 03/03/17 06:10 Dose: 2.5 mcg/kg/min Norepinephrine Bitartrate 8, (000 mcg/ Dextrose) 504 mls @ 18.9 mls/hr IV TITR WES; 5 MCG/MIN PRN Reason: Protocol Last Titration: 03/03/17 06:10 Dose: 5 mcg/min Pantoprazole Sodium (Protonix 40mg Ivpb (Pre-Docked)) 100 mls @ 200 mls/hr IVPB DAILY [facility] Last Admin: 03/03/17 09:07 Dose: 200 mls/hr Metronidazole (Flagyl 500mg Premixed Ivpb -) 100 mls @ 100 mls/hr IVPB Q12H [facility] Last Admin: 03/03/17 09:07 Dose: 100 mls/hr Fentanyl 500 mcg/ Dextrose 100 mls @ 5 mls/hr IJ TITR WES PRN Reason: 25 MCG/HR Last Admin: 03/02/17 09:25 Dose: Not Given Cefepime HCl 2 gm/ Dextrose 100 mls @ 200 mls/hr IVPB Q12H [facility] Last Admin: 03/03/17 06:08 Dose: 200 mls/hr Vancomycin HCl 1,250 mg/ (Dextrose) 250 mls @ 166.667 mls/hr IVPB DAILY@1500 WES PRN Reason: Protocol Last Admin: 03/02/17 14:45 Dose: 166.667 mls/hr Propofol (Diprivan -) 100 mls @ 2.495 mls/hr IVPB TITR WES; 5 MCG/KG/MIN PRN Reason: Protocol Last Titration: 03/03/17 06:10 Dose: 40 mcg/kg/min Insulin Aspart (Novolog Vial Sliding Scale -) 1 vial SQ ACHS WES PRN Reason: Protocol Last Admin: 03/03/17 06:21 Dose: 6 units Levetiracetam (Keppra Injection -) 1,000 mg IVPB BID [facility] Last Admin: 03/03/17 09:07 Dose: 1,000 mg Mupirocin (Bactroban Ointment (For Decolonization) -) 1 applic NS BID [facility] Stop: 03/03/17 21:59 Last Admin: 03/03/17 09:10 Dose: 1 applic ASSESSMENT AND PLAN: Acute L CVA with severe cerebral edema and herniation s/p Emergent Decompressive Hemicraniotomy Acute Respiratory Failure Shock - r/o Septic vs Neurogenic vs Cardiogenic Acute on Chronic Systolic Heart Failure CAD s/p CABG +Troponins likely demand ischemia Atrial Fibrillation h/o bioMVR Acute Kidney Injury DM Fevers - ?Central - continue empiric antibiotics - f/u cultures - continue decadron, antiepileptics - taper FiO2, PEEP to keep SpO2 >90% - titrate pressors to maintain MAP >65 - taper off dobutamine gtt per cardiology - daily sedation vacations to assess mental status - monitor urine output, creatinine - enteral feeds - poor overall prognosis for meaningful recovery - DVT/GI prophylaxis - continue discussions regarding goals of care - discussed with at bedside, will likely opt for tracheostomy but wishes to speak to her daughters before making decision critical care time spent in reviewing chart, evaluating patient and formulating plan 35 min
--- NOTE | 2017-03-03 13:07 | PN ---
Progress Note (short form) - Note Progress Note: Patient remains stable with Left hemispheric infarction and shock, likely cardiogenic. Last head CT did not show progression and it appears the extent of his infarct has stablized. I agree that this likely represents a poor prognosis. I discussed with patient's spouse that if her desire is continued treatment, that the next steps will be tracheostomy and PEG placement followed by long term care pharmacist placement. She verbalizes an understanding.
--- NOTE | 2017-03-03 13:31 | PN ---
Progress Note, Physician History of Present Illness: continues to be intubated no new events - Current Medication List Current Medications: Active Medications Acetaminophen (Tylenol Oral Solution -) 650 mg PO Q6H PRN PRN Reason: FEVER OR PAIN Last Admin: 03/03/17 06:08 Dose: 650 mg Chlorhexidine Gluconate (Hibiclens For Decolonization -) 1 applic TP HS WES Last Admin: 03/02/17 21:32 Dose: 1 applic Dexamethasone Sodium Phosphate (Decadron Injection -) 4 mg IVPB Q8H-IV WES Last Admin: 03/03/17 09:09 Dose: 4 mg IV Flush (Triple Lumen Flush) 4 ml IVPUSH PRN PRN PRN Reason: Protocol Dobutamine HCl/Dextrose (Dobutamine 250 Mg/D5w -) 250 mls @ 12.192 mls/hr IV TITR WES; 2.5 MCG/KG/MIN PRN Reason: Protocol Last Titration: 03/03/17 06:10 Dose: 2.5 mcg/kg/min Norepinephrine Bitartrate 8, (000 mcg/ Dextrose) 504 mls @ 18.9 mls/hr IV TITR WES; 5 MCG/MIN PRN Reason: Protocol Last Titration: 03/03/17 06:10 Dose: 5 mcg/min Pantoprazole Sodium (Protonix 40mg Ivpb (Pre-Docked)) 100 mls @ 200 mls/hr IVPB DAILY [facility] Last Admin: 03/03/17 09:07 Dose: 200 mls/hr Metronidazole (Flagyl 500mg Premixed Ivpb -) 100 mls @ 100 mls/hr IVPB Q12H [facility] Last Admin: 03/03/17 09:07 Dose: 100 mls/hr Fentanyl 500 mcg/ Dextrose 100 mls @ 5 mls/hr IJ TITR WES PRN Reason: 25 MCG/HR Last Admin: 03/02/17 09:25 Dose: Not Given Cefepime HCl 2 gm/ Dextrose 100 mls @ 200 mls/hr IVPB Q12H [facility] Last Admin: 03/03/17 06:08 Dose: 200 mls/hr Vancomycin HCl 1,250 mg/ (Dextrose) 250 mls @ 166.667 mls/hr IVPB DAILY@1500 WES PRN Reason: Protocol Last Admin: 03/02/17 14:45 Dose: 166.667 mls/hr Propofol (Diprivan -) 100 mls @ 2.495 mls/hr IVPB TITR WES; 5 MCG/KG/MIN PRN Reason: Protocol Last Titration: 03/03/17 06:10 Dose: 40 mcg/kg/min Insulin Aspart (Novolog Vial Sliding Scale -) 1 vial SQ ACHS WES PRN Reason: Protocol Last Admin: 03/03/17 06:21 Dose: 6 units Levetiracetam (Keppra Injection -) 1,000 mg IVPB BID WES Last Admin: 03/03/17 09:07 Dose: 1,000 mg Mupirocin (Bactroban Ointment (For Decolonization) -) 1 applic NS BID WES Stop: 03/03/17 21:59 Last Admin: 03/03/17 09:10 Dose: 1 applic - Objective Vital Signs: Vital Signs Temperature 100.6 F H 03/03/17 12:38 Pulse Rate 82 03/03/17 12:38 Respiratory Rate 30 H 03/03/17 12:38 Blood Pressure 92/73 03/03/17 12:38 O2 Sat by Pulse Oximetry (%) 97 03/03/17 10:12 Constitutional: Yes: No Distress, Calm Cardiovascular: Yes: S1, S2 Respiratory: Yes: Intubated, Mechanically Ventilated Gastrointestinal: Yes: Soft, Other Musculoskeletal: Yes: WNL Extremities: Yes: WNL Neurological: Yes: Other Psychiatric: Yes: Other Labs: CBC, BMP 03/03/17 05:30 03/03/17 05:30 INR, PTT INR 1.44 (0.82-1.09) H 03/03/17 05:30 Assessment/Plan Problem List - Problems (1) CVA (cerebral vascular accident) Code(s): I63.9 - CEREBRAL INFARCTION, UNSPECIFIED Qualifiers: CVA mechanism: occlusion Precerebral and cerebral artery: middle cerebral artery Laterality of affected vessel: left Qualified Code(s): I63.512 - Cerebral infarction due to unspecified occlusion or stenosis of left middle cerebral artery (2) Respiratory failure Code(s): J96.90 - RESPIRATORY FAILURE, UNSP, UNSP W HYPOXIA OR HYPERCAPNIA (3) Shock circulatory Code(s): R57.9 - SHOCK, UNSPECIFIED (4) A-fib Code(s): I48.91 - UNSPECIFIED ATRIAL FIBRILLATION (5) CAD (coronary artery disease) Code(s): I25.10 - ATHSCL HEART DISEASE OF [place] CORONARY ARTERY W/O ANG PCTRS (6) Diabetes Code(s): E11.9 - TYPE 2 DIABETES MELLITUS WITHOUT COMPLICATIONS plan continue vanco continue cefipime final plan awaited icu care prognosis poor cc 40 min
[2017-03-03] MEDS ORDERED: ALBUTEROL SO4 2.5/IPRATROPIUM 0.5 INH SOL 3 ML VIAL.NEB. NEB PRN (14:00)
--- NOTE | 2017-03-03 14:05 | PN ---
Physical Exam: SUBJECTIVE: Patient seen and examined. No acute events overnight. Pt still sedated and unresponsive to verbal, physical , and noxious stimuli. OBJECTIVE: Vital Signs Period Temp Pulse Resp BP Sys/Leon Pulse Ox Last 24 Hr 100.6 F-102.4 F 82-112 16-36 92-103/52-90 97-99 GENERAL: The patient is sedated on ventilator, unresponsive to verbal, physical , and noxious stimuli HEAD: 2 adhesive bandages overlying craniectomy incision, no signs of infection EYES: L pupil is dilated without reactivity to light. R pupil is still miotic with minimal reactivity to light. ENT: ventilator in mouth NECK: +JVD LUNGS: anterior lung hawkins are CTAB, no wheezing, rales, or rhonchi HEART: irregularly irregular without murmur, rub or gallop. ABDOMEN: Soft, nontender, nondistended, normoactive bowel sounds, no guarding, no rebound, no hepatosplenomegaly, no masses. EXTREMITIES:extremities are less cold to touch compared to yesterday. 1+ pitting edema b/l. NEUROLOGICAL: no doll's eyes reflex, no corneal reflex, no pupillary light reflex, gag reflex intact Laboratory Results - last 24 hr 03/02/17 03/02/17 03/03/17 16:27 22:21 05:30 WBC RBC Hgb Hct MCV MCH MCHC RDW Plt Count MPV INR PTT (Actin FS) Sodium Potassium Chloride Carbon Dioxide Anion Gap BUN Creatinine Creat Clearance w eGFR POC Glucometer [phone] Random Glucose Calcium Phosphorus Magnesium Total Bilirubin AST ALT Alkaline Phosphatase Troponin I Total Protein Albumin Random Vancomycin 18.672 03/03/17 03/03/17 03/03/17 05:30 05:30 05:30 WBC 8.0 RBC 4.29 Hgb 13.3 Hct 39.9 MCV 93.0 MCH 31.0 MCHC 33.3 RDW 18.3 H Plt Count 186 MPV 9.5 INR 1.44 H PTT (Actin FS) 22.3 L Sodium 143 Potassium 4.5 Chloride 109 H Carbon Dioxide 20 L Anion Gap 14 BUN 91 H Creatinine 2.1 H Creat Clearance w eGFR 31.66 POC Glucometer Random Glucose 248 H D Calcium 7.6 L Phosphorus 5.0 H Magnesium 2.8 H Total Bilirubin 2.1 H AST 68 H D ALT 153 H D Alkaline Phosphatase 86 Troponin I 1.07 H* Total Protein 6.0 L Albumin 1.9 L Random Vancomycin 03/03/17 06:17 WBC RBC Hgb Hct MCV MCH MCHC RDW Plt Count MPV INR PTT (Actin FS) Sodium Potassium Chloride Carbon Dioxide Anion Gap BUN Creatinine Creat Clearance w eGFR POC Glucometer [phone] Random Glucose Calcium Phosphorus Magnesium Total Bilirubin AST ALT Alkaline Phosphatase Troponin I Total Protein Albumin Random Vancomycin Active Medications Generic Name Dose Route Start Last Admin Trade Name Freq PRN Reason Stop Dose Admin Acetaminophen 650 mg 02/28/17 15:03 03/03/17 06:08 Tylenol Oral Solution - PO 650 mg Q6H PRN Administration FEVER OR PAIN Chlorhexidine Gluconate 1 applic 02/26/17 22:00 03/02/17 21:32 Hibiclens For Decolonization - TP 1 applic HS WES Administration Dexamethasone Sodium Phosphate 4 mg 02/28/17 10:00 03/03/17 09:09 Decadron Injection - IVPB 4 mg Q8H-IV WES Administration IV Flush 4 ml 02/26/17 21:23 Triple Lumen Flush IVPUSH PRN PRN Protocol Dobutamine HCl/Dextrose 250 mls @ 12.192 mls/hr 02/26/17 21:23 03/03/17 06:10 Dobutamine 250 Mg/D5w - IV 2.5 mcg/kg/min TITR WES Titration Protocol 2.5 MCG/KG/MIN Norepinephrine Bitartrate 8, 504 mls @ 18.9 mls/hr 02/26/17 21:23 03/03/17 06: 10 000 mcg/ Dextrose IV 5 mcg/min TITR WES Titration Protocol 5 MCG/MIN Pantoprazole Sodium 100 mls @ 200 mls/hr 02/27/17 10:00 03/03/17 09:07 Protonix 40mg Ivpb (Pre-Docked) IVPB 200 mls/hr DAILY WES Administration Metronidazole 100 mls @ 100 mls/hr 02/27/17 08:45 03/03/17 09:07 Flagyl 500mg Premixed Ivpb - IVPB 100 mls/hr Q12H WES Administration Fentanyl 500 mcg/ Dextrose 100 mls @ 5 mls/hr 02/27/17 08:45 03/02/17 09:25 IJ Not Given TITR WES 25 MCG/HR Cefepime HCl 2 gm/ Dextrose 100 mls @ 200 mls/hr 02/28/17 18:00 03/03/17 06:08 IVPB 200 mls/hr Q12H WES Administration Vancomycin HCl 1,250 mg/ 250 mls @ 166.667 mls/hr 03/01/17 15:00 03/02/17 14:45 Dextrose IVPB 166.667 mls/hr DAILY@1500 WES Administration Protocol Propofol 100 mls @ 2.495 mls/hr 03/02/17 14:15 03/03/17 06:10 Diprivan - IVPB 40 mcg/kg/min TITR WES Titration Protocol 5 MCG/KG/MIN Insulin Aspart 1 vial 02/26/17 22:00 03/03/17 06:21 Novolog Vial Sliding Scale - SQ 6 units ACHS WES Administration Protocol Levetiracetam 1,000 mg 02/26/17 22:00 03/03/17 09:07 Keppra Injection - IVPB 1,000 mg BID WES Administration Mupirocin 1 applic 02/26/17 22:00 03/03/17 09:10 Bactroban Ointment (For Decolonization) - NS 03/03/17 21:59 1 applic BID WES Administration ASSESSMENT/PLAN: 66F with hx of Afib, DM, HTN, HLD, COPD, and CAD who presented with focal neurological deficits, found to have a large left-sided ischemic MCA stroke, became hypotensive preventing transfer out of hospital, required pressors and intubation, s/p craniectomy and hemorrhagic transformation, post-op day #5. # Large Left Sided CVA - Likely from acute embolus in setting of subtherapeutic INR, s/p craniectomy, s/p hemorrhagic transformation - continue Keppra for seizure prophylaxis, continue propofol drip for intubation, wean as tolerated -per card, A/C once cleared by neuro -currently holding heparin and ASA -neuro checks, pain control with fentanyl gtt -repeat CT head (03/01): no interval change -pt losing brain stem reflexes. No corneal reflex this am in addition to prior loss of doll's eyes reflex, and pupillary light reflex. # Shock - likely cardiogenic - echo showed severely reduced EF, general hypokinesis, and no pericardial effusion - continue Levophed and dobutamine, titrate to MAP > 65 - continue dexamethasone 4 IV q8h -diuresis held pending recs, CXR on 03/03 showed no interval change -cardiology on board #Troponinemia- demand ischemia from cardiogenic shock per cards -troponins: 1.13 --> 0.77 --> 0.98 --> 0.89 --> 1.07 -ASA, heparin held -continue trending troponins, cardio on board #Respiratory Failure- due to stroke -intubated on ventilator -wean as tolerated -pt will likely need tracheostomy long-term. Discussed with pt's who said she will discuss with daughters before giving a final answer. #DEBRA- prerenal 2/2 shock, possibly ATN -continue pressors -creatinine hovering at 2.1; continue to trend #Transaminitis- due to hypoperfusion 2/2 shock -continue pressors -trending down, AST 68, ALT 153; continue trending LFTs #Leukocytosis- possibly due to infection with unclear etiology -wbc trending down; 16 --> 11.3 --> 9 --> 8 -blood cultures, resp cultures, and urine cultures negative to date -continue to trend wbc -continue cefepime, flagyl, and vancomycin #fever- central vs. infection with unclear etiology -blood cultures, resp cultures, and urine cultures negative to date -temps spiked over night with Tmax of 102.4, continue to trend temps -continue cefepime, flagyl, and vancomycin, APAP PRN #tachycardia- etiology includes pain vs. fever vs. a-fib vs. medication-induced -HR between 100-110 -continue to monitor # Hx of DM2 - BGM Q2 -ISS # FEN - Fluids: w/ pressors - Electrolytes: currently no need for repletion - Nutrition: tube feeds # Prophylaxis - DVT: SCDs - GI: IV pronotix - Deconditioning: PT on hold for now #Dispo -meaningful recovery is unlikely -full code as per family meeting on 03/01 -will likely receive peg tube and trachestomy for salvage determiner care pending family's final decision ------ Johan Khanna MD- PGY1 Visit type - Emergency Visit Emergency Visit: Yes ED Registration Date: 02/25/17 Care time: The patient presented to the Emergency Department on the above date and was hospitalized for further evaluation of their emergent condition. - New Patient This patient is new to me today: No - Critical Care Critical Care patient: Yes Total Critical Care Time (in minutes): 36 Critical Care Statement: The care of this patient involved high complexity decision making to prevent further life threatening deterioration of the patient 's condition and/or to evaluate & treat vital organ system(s) failure or risk of failure. - Discharge Referral Referred to [facility] Med [facility].C.: No
--- NOTE | 2017-03-03 14:15 | PN ---
Teaching Attending Note Name of Resident: Johan Khanna ATTENDING PHYSICIAN STATEMENT I saw and evaluated the patient. I reviewed the resident's note and discussed the case with the resident. I agree with the resident's findings and plan as documented. SUBJECTIVE: pATIENT IS in ICU, sedated intubated. at bedside. OBJECTIVE: Vital Signs Temperature 100.6 F H 03/03/17 12:38 Pulse Rate 82 03/03/17 12:38 Respiratory Rate 30 H 03/03/17 12:38 Blood Pressure 92/73 03/03/17 12:38 O2 Sat by Pulse Oximetry (%) 97 03/03/17 10:12 CBCD WBC 8.0 K/mm3 (4.0-10.0) 03/03/17 05:30 RBC 4.29 M/mm3 (4.00-5.60) 03/03/17 05:30 Hgb 13.3 GM/dL (11.7-16.9) 03/03/17 05:30 Hct 39.9 % (35.4-49) 03/03/17 05:30 MCV 93.0 fl (80-96) 03/03/17 05:30 MCHC 33.3 g/dl (32.0-35.9) 03/03/17 05:30 RDW 18.3 % (11.9-15.9) H 03/03/17 05:30 Plt Count 186 K/MM3 (134-434) 03/03/17 05:30 MPV 9.5 fl (7.5-11.1) 03/03/17 05:30 CMP Sodium 143 mmol/L (136-145) 03/03/17 05:30 Potassium 4.5 mmol/L (3.5-5.1) 03/03/17 05:30 Chloride 109 mmol/L (98-107) H 03/03/17 05:30 Carbon Dioxide 20 mmol/L (21-32) L 03/03/17 05:30 Anion Gap 14 (8-16) 03/03/17 05:30 BUN 91 mg/dL (7-18) H 03/03/17 05:30 Creatinine 2.1 mg/dL (0.7-1.3) H 03/03/17 05:30 Creat Clearance w eGFR 31.66 (>60) 03/03/17 05:30 Random Glucose 248 mg/dL (74-106) H D 03/03/17 05:30 Calcium 7.6 mg/dL (8.5-10.1) L 03/03/17 05:30 Total Bilirubin 2.1 mg/dL (0.2-1.0) H 03/03/17 05:30 AST 68 U/L (15-37) H D 03/03/17 05:30 ALT 153 U/L (12-78) H D 03/03/17 05:30 Alkaline Phosphatase 86 U/L (45-117) 03/03/17 05:30 Total Protein 6.0 g/dl (6.4-8.2) L 03/03/17 05:30 Albumin 1.9 g/dl (3.4-5.0) L 03/03/17 05:30 CARDIAC ENZYMES Creatine Kinase 68 IU/L (39-308) 03/01/17 15:30 Troponin I 1.07 ng/ml (0.00-0.05) H* 03/03/17 05:30 Current Medications Generic Name Dose Route Start Last Admin Trade Name Freq PRN Reason Stop Dose Admin Acetaminophen 650 mg 02/28/17 15:03 03/03/17 06:08 Tylenol Oral Solution - PO 650 mg Q6H PRN Administration FEVER OR PAIN Albuterol/Ipratropium 1 amp 03/03/17 14:00 Duoneb - NEB Q6H PRN SHORTNESS OF BREATH Chlorhexidine Gluconate 1 applic 02/26/17 22:00 03/02/17 21:32 Hibiclens For Decolonization - TP 1 applic HS WES Administration Dexamethasone Sodium Phosphate 4 mg 02/28/17 10:00 03/03/17 09:09 Decadron Injection - IVPB 4 mg Q8H-IV WES Administration IV Flush 4 ml 02/26/17 21:23 Triple Lumen Flush IVPUSH PRN PRN Protocol Dobutamine HCl/Dextrose 250 mls @ 12.192 mls/hr 02/26/17 21:23 03/03/17 06:10 Dobutamine 250 Mg/D5w - IV 2.5 mcg/kg/min TITR WES Titration Protocol 2.5 MCG/KG/MIN Norepinephrine Bitartrate 8, 504 mls @ 18.9 mls/hr 02/26/17 21:23 03/03/17 06: 10 000 mcg/ Dextrose IV 5 mcg/min TITR WES Titration Protocol 5 MCG/MIN Pantoprazole Sodium 100 mls @ 200 mls/hr 02/27/17 10:00 03/03/17 09:07 Protonix 40mg Ivpb (Pre-Docked) IVPB 200 mls/hr DAILY WES Administration Metronidazole 100 mls @ 100 mls/hr 02/27/17 08:45 03/03/17 09:07 Flagyl 500mg Premixed Ivpb - IVPB 100 mls/hr Q12H WES Administration Fentanyl 500 mcg/ Dextrose 100 mls @ 5 mls/hr 02/27/17 08:45 03/02/17 09:25 IJ Not Given TITR WES 25 MCG/HR Cefepime HCl 2 gm/ Dextrose 100 mls @ 200 mls/hr 02/28/17 18:00 03/03/17 06:08 IVPB 200 mls/hr Q12H WES Administration Vancomycin HCl 1,250 mg/ 250 mls @ 166.667 mls/hr 03/01/17 15:00 03/02/17 14:45 Dextrose IVPB 166.667 mls/hr DAILY@1500 WES Administration Protocol Propofol 100 mls @ 2.495 mls/hr 03/02/17 14:15 03/03/17 06:10 Diprivan - IVPB 40 mcg/kg/min TITR WES Titration Protocol 5 MCG/KG/MIN Insulin Aspart 1 vial 02/26/17 22:00 03/03/17 06:21 Novolog Vial Sliding Scale - SQ 6 units ACHS WES Administration Protocol Levetiracetam 1,000 mg 02/26/17 22:00 03/03/17 09:07 Keppra Injection - IVPB 1,000 mg BID WES Administration Mupirocin 1 applic 02/26/17 22:00 03/03/17 09:10 Bactroban Ointment (For Decolonization) - NS 03/03/17 21:59 1 applic BID WES Administration Home Medications Medication Instructions Recorded Allopurinol [Zyloprim -] 100 mg PO DAILY #30 tablet 02/26/17 Aspirin [Aspirin EC] 81 mg PO DAILY #30 tablet. 02/26/17 Bumetanide [Bumex -] 2 mg PO BID #30 tablet 02/26/17 Carvedilol [Coreg -] 12.5 mg PO BID #14 tablet 02/26/17 Digoxin [Lanoxin -] 0.25 mg PO DAILY #30 tablet 02/26/17 Febuxostat [Uloric -] 40 mg PO DAILY #30 tab 02/26/17 Oxycodone HCl/Acetaminophen 1 tab PO Q6H PRN #20 tablet MDD 8 02/26/17 [Percocet 5-325 mg Tablet] tablets Prednisone [Deltasone -] 5 mg PO DAILY #30 tablet 02/26/17 Sertraline HCl [Zoloft -] 25 mg PO DAILY #30 tablet 02/26/17 Warfarin Na [Coumadin -] 5 mg PO DAILY@1800 #30 tablet 02/26/17 PE: Intubated sedated. no response to sternal rub CV: irreg irreg Lungs: no crackles heard anteriorly , intubated EXt: pitting edema nereida. Upper extremities 4 plus Neuro :left eye dilated and fixed , not reactive to light . R pupil with pinpoint pupil , has no corneal reflexes and positive for gag/cough reflexes ASSESSMENT AND PLAN: 66 y/o unfortunate man with h/o Afib, HTN, DM2 ,chronic systolic CHF, who was brought due to MS and was found to have stroke and shock # Large L sided CVA with hemorrhagic conversion and herniation s/p craniotomy . , hold off AC # Fever: due to central due to head bleed # Shock: likely cardiogentic shock cont dobutamine and levophed . # Acute systolic L and R heart failure. Cont dobutamine, Lasix prn # NSTEMI: - follow trop , cont to increase # DEBRA; likely ATN. Cr stable #Acute Transaminitis : due to shock. DVT px: SCds can't anticoagulate due to bleed
[2017-03-03] MEDS: VANCOMYCIN 1,250 MG in DEXTROSE 5%-WATER - 250 ML IVPB SCH (16:35)
[2017-03-03] MEDS ORDERED: PROPOFOL 100 ML ONE (16:46)
[2017-03-03] MEDS: ACETAMINOPHEN 1000 MG/100 ML VIAL (NON FORMULARY) IVPB PRN (17:00)
[2017-03-03] MEDS: PROPOFOL 100 ML IVPB SCH ×2 (18:07→21:59)
[2017-03-03] MEDS ORDERED: PT OWN MED DRAWER 7, Y5N ONE (18:10)
--- NOTE | 2017-03-03 20:17 | PN ---
Progress Note (short form) - Note Progress Note: NEUROLOGY F/U: Pt examined at 930 this AM and discussed with RN's. After my consultation (02/26/17) pt had repeat CT of head at 1750 revealing Left MCA/ICA stroke and malignant edema with Left-Right shift and (at least) Cingulate herniation. Discussion with family indicated the desire for aggressive therapy and Pt. Underwent Left hemicraniotomy. Serial f/u CT scans continued to reveal the left to right herniation. Pt remains on propofol as he becomes tachypneic when it is tapered. EXAM: + spontaneous respirations. No response to pain Left pupil is fixed and dilated. Right pupil is small and unreactive. No EOM's to Doll's head. No corneal reflexes. Areflexia. No limb withdrawal to pain. IMP: Severe, B/L cerebral dysfunction with blown left pupil suggesting Uncal ( as well as CT documented Cingulate) herniation. Left ICA-territory infarct with malignant edema. Suggest: Pt. is not brain . slowly taper propofol and narcotics Prognosis grave. Thank you very much, Pedro Luis Moe MD
[2017-03-03] MEDS: CHLORHEXIDINE GLUCONATE 4% CLEANSER FOR DECOLONIZATION TP SCH (21:53)
[2017-03-03] MEDS ORDERED: NOREPINEPHRINE BITARTRATE 4 MG/4 ML ML IV ONE (21:55)
[2017-03-03] MEDS: NOREPINEPHRINE BITARTRATE 8,000 MCG in DEXTROSE 5%-WATER - 496 ML IV SCH (21:59)
[2017-03-03] MEDS: DOBUTAMINE 250 MG/D5W - 250 ML IV SCH (22:00)
[2017-03-04] MEDS: DEXAMETHASONE SOD PHOSPHATE 4 MG/1 ML VIAL IVPB SCH ×3 (03:17→20:38)
[2017-03-04] MEDS: ACETAMINOPHEN 1000 MG/100 ML VIAL (NON FORMULARY) IVPB PRN ×3 (03:29→20:39)
[2017-03-04] MEDS ORDERED: HEMOQUE TEST 1 EACH EACH ONE (05:30)
[2017-03-04 06:06] LABS: BASOPHIL 0.1 % (0-2.0); MCH 30.8 pg (25.7-33.7); MCHC 32.2 g/dl (32.0-35.9); MEAN CELL VOLUME 95.6 fl (80-96); NEUTROPHILS 88.4 % (42.8-82.8); PLATELET COUNT 172 K/MM3 (134-434); RDW 18.8 % (11.9-15.9); WHITE BLOOD COUNT 10.5 K/mm3 (4.0-10.0)
[2017-03-04] MEDS: CEFEPIME 2 GM in DEXTROSE 5%-WATER - 100 ML IVPB SCH ×2 (06:13→17:28)
[2017-03-04] MEDS: INSULIN SLIDING SCALE (NOVOLOG) 1 VIAL SQ SCH ×4 (06:16→21:47)
[2017-03-04 06:38] LABS: ANION GAP 14 (8-16); CALCIUM 7.6 mg/dL (8.5-10.1); CO2 20 mmol/L (21-32)
[2017-03-04 06:58] LABS: ALK PHOS 88 U/L (45-117); CREATININE 2.2 mg/dL (0.7-1.3); GLUCOSE,RANDOM 260 mg/dL (74-106); PHOSPHOROUS 7.1 mg/dL (2.5-4.9); SGOT/AST 65 U/L (15-37); SGPT/ALT 135 U/L (12-78); TOT PROT 6.1 g/dl (6.4-8.2)
[2017-03-04 07:02] LABS: TROPONIN I 1.02 ng/ml (0.00-0.05)
--- NOTE | 2017-03-04 07:53 | PN ---
Physical Exam: SUBJECTIVE: Patient seen and examined by me this AM - Discussed trach placement tomorrow w/ CT surgery. Plan for family meeting this AM for placement of trach tube. - BUN uptrending, likely due to worsening pre-renal status after dc'ed dobutamine gtt - Borderline elevated WBC (10.5) w/ left shift - Trops continually elevated (1.02) - Continued fever overnight. Likely neurogenic PM: - Per renal team, suspicion for DEBRA given uptrending BUN (112), sediment in urine. Workup for ischemic ATN - Family meeting in PM. 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 GI, CT surg consulted. OBJECTIVE: Vital Signs Period Temp Pulse Resp BP Sys/Leon Pulse Ox Last 24 Hr 100.7 F-102.9 F 79-124 10-32 76-98/61-87 93-98 GENERAL: The patient is sedated, intubated, lying in bed. HEAD: L craniotomy with dressing clean, dry and intact noted on L posterior aspect of cranium. EYES: R pupil small, non-reactive. L pupil dilated, minimally reactive. Sclera anicteric. Mild palpebral swelling, erythema. ENT: Mild labial swelling, oropharynx clear, nasopharynx clear. NECK: Trachea midline, intubated. LUNGS: Mechanical breath sounds noted bilaterally. R subclavian line in place, no significant erythema, bleeding or drainage. Scattered rhonchi BL. HEART: Tachycardic, irregular rhythm, S1, S2 without murmur, rub or gallop. ABDOMEN: Distended, soft, hypoactive bowel sounds. No masses or hepatomegaly. EXTREMITIES: 2+ pulses, warm, well-perfused, 1+ edema BL in legs. NEUROLOGICAL: Corneal reflex absent. Gag/swallow reflexes preserved. Doll's eye negative. No babinski reflex bilaterally. Laboratory Results - last 24 hr CBC, BMP 03/04/17 05:20 03/04/17 05:20 CBCD WBC 10.5 K/mm3 (4.0-10.0) H D 03/04/17 05:20 RBC 4.43 M/mm3 (4.00-5.60) 03/04/17 05:20 Hgb 13.6 GM/dL (11.7-16.9) 03/04/17 05:20 Hct 42.4 % (35.4-49) 03/04/17 05:20 MCV 95.6 fl (80-96) 03/04/17 05:20 MCHC 32.2 g/dl (32.0-35.9) 03/04/17 05:20 RDW 18.8 % (11.9-15.9) H 03/04/17 05:20 Plt Count 172 K/MM3 (134-434) 03/04/17 05:20 MPV 10.0 fl (7.5-11.1) 03/04/17 05:20 CMP Sodium 141 mmol/L (136-145) 03/04/17 05:20 Potassium 5.1 mmol/L (3.5-5.1) 03/04/17 05:20 Chloride 107 mmol/L (98-107) 03/04/17 05:20 Carbon Dioxide 20 mmol/L (21-32) L 03/04/17 05:20 Anion Gap 14 (8-16) 03/04/17 05:20 BUN 111 mg/dL (7-18) H* D 03/04/17 05:20 Creatinine 2.2 mg/dL (0.7-1.3) H 03/04/17 05:20 Creat Clearance w eGFR 30.00 (>60) 03/04/17 05:20 Calcium 7.6 mg/dL (8.5-10.1) L 03/04/17 05:20 Total Bilirubin 2.0 mg/dL (0.2-1.0) H 03/04/17 05:20 AST 65 U/L (15-37) H 03/04/17 05:20 ALT 135 U/L (12-78) H 03/04/17 05:20 Alkaline Phosphatase 88 U/L (45-117) 03/04/17 05:20 Total Protein 6.1 g/dl (6.4-8.2) L 03/04/17 05:20 Albumin 2.0 g/dl (3.4-5.0) L 03/04/17 05:20 03/02/17 03/03/17 03/03/17 22:21 06:17 12:23 WBC RBC Hgb Hct MCV MCH MCHC RDW Plt Count MPV Neutrophils % Lymphocytes % Monocytes % Eosinophils % Basophils % Sodium Potassium Chloride Carbon Dioxide Anion Gap BUN Creatinine Creat Clearance w eGFR POC Glucometer 225.44538 262.42014 268.96921 Random Glucose Calcium Phosphorus Magnesium Total Bilirubin AST ALT Alkaline Phosphatase Troponin I Total Protein Albumin Vancomycin Pre-Dose 03/03/17 03/03/17 03/03/17 14:30 17:40 22:19 WBC RBC Hgb Hct MCV MCH MCHC RDW Plt Count MPV Neutrophils % Lymphocytes % Monocytes % Eosinophils % Basophils % Sodium Potassium Chloride Carbon Dioxide Anion Gap BUN Creatinine Creat Clearance w eGFR POC Glucometer [phone] Random Glucose Calcium Phosphorus Magnesium Total Bilirubin AST ALT Alkaline Phosphatase Troponin I Total Protein Albumin Vancomycin Pre-Dose 14.831 H 03/04/17 03/04/17 03/04/17 05:20 05:20 05:33 WBC 10.5 H D RBC 4.43 Hgb 13.6 Hct 42.4 MCV 95.6 MCH 30.8 MCHC 32.2 RDW 18.8 H Plt Count 172 MPV 10.0 Neutrophils % 88.4 H Lymphocytes % 4.1 L D Monocytes % 7.4 Eosinophils % 0.0 Basophils % 0.1 Sodium 141 Potassium 5.1 Chloride 107 Carbon Dioxide 20 L Anion Gap 14 BUN 111 H* D Creatinine 2.2 H Creat Clearance w eGFR 30.00 POC Glucometer [phone] Random Glucose 260 H Calcium 7.6 L Phosphorus 7.1 H D Magnesium 3.0 H Total Bilirubin 2.0 H AST 65 H ALT 135 H Alkaline Phosphatase 88 Troponin I 1.02 H* Total Protein 6.1 L Albumin 2.0 L Vancomycin Pre-Dose Active Medications Generic Name Dose Route Start Last Admin Trade Name Freq PRN Reason Stop Dose Admin Acetaminophen 1,000 mg 03/03/17 16:49 03/04/17 03:29 Ofirmev Injection - IVPB 03/04/17 10:50 1,000 mg Q6H PRN Administration FEVER OR PAIN Albuterol/Ipratropium 1 amp 03/03/17 14:00 Duoneb - NEB Q6H PRN SHORTNESS OF BREATH Chlorhexidine Gluconate 1 applic 02/26/17 22:00 03/03/17 21:53 Hibiclens For Decolonization - TP 1 applic HS WES Administration Dexamethasone Sodium Phosphate 4 mg 02/28/17 10:00 03/04/17 03:17 Decadron Injection - IVPB 4 mg Q8H-IV WES Administration IV Flush 4 ml 02/26/17 21:23 Triple Lumen Flush IVPUSH PRN PRN Protocol Dobutamine HCl/Dextrose 250 mls @ 12.192 mls/hr 02/26/17 21:23 03/03/17 22:00 Dobutamine 250 Mg/D5w - IV Not Given TITR WES Protocol 2.5 MCG/KG/MIN Norepinephrine Bitartrate 8, 504 mls @ 18.9 mls/hr 02/26/17 21:23 03/03/17 21: 59 000 mcg/ Dextrose IV 18.9 mls/hr TITR WES Administration Protocol 5 MCG/MIN Pantoprazole Sodium 100 mls @ 200 mls/hr 02/27/17 10:00 03/03/17 09:07 Protonix 40mg Ivpb (Pre-Docked) IVPB 200 mls/hr DAILY WES Administration Metronidazole 100 mls @ 100 mls/hr 02/27/17 08:45 03/03/17 22:00 Flagyl 500mg Premixed Ivpb - IVPB 100 mls/hr Q12H WES Administration Fentanyl 500 mcg/ Dextrose 100 mls @ 5 mls/hr 02/27/17 08:45 03/03/17 08:45 IJ Not Given TITR WES 25 MCG/HR Cefepime HCl 2 gm/ Dextrose 100 mls @ 200 mls/hr 02/28/17 18:00 03/04/17 06:13 IVPB 200 mls/hr Q12H WES Administration Vancomycin HCl 1,250 mg/ 250 mls @ 166.667 mls/hr 03/01/17 15:00 03/03/17 16:35 Dextrose IVPB 166.667 mls/hr DAILY@1500 WES Administration Protocol Propofol 100 mls @ 2.495 mls/hr 03/02/17 14:15 03/03/17 21:59 Diprivan - IVPB 9.981 mls/hr TITR WES Administration Protocol 5 MCG/KG/MIN Insulin Aspart 1 vial 02/26/17 22:00 03/04/17 06:16 Novolog Vial Sliding Scale - SQ 4 units ACHS WES Administration Protocol Levetiracetam 1,000 mg 02/26/17 22:00 03/03/17 22:00 Keppra Injection - IVPB 1,000 mg BID WES Administration 03/04/17 03/04/17 05:20 05:20 WBC 10.5 H D RBC 4.43 Hgb 13.6 Hct 42.4 MCV 95.6 MCHC 32.2 RDW 18.8 H Plt Count 172 Neutrophils % 88.4 H Lymphocytes % 4.1 L D Monocytes % 7.4 Eosinophils % 0.0 Basophils % 0.1 Sodium 141 Potassium 5.1 Chloride 107 Carbon Dioxide 20 L Anion Gap 14 BUN 111 H* D Creatinine 2.2 H 02/26/17 11:50 Blood Culture - Final Blood - Peripheral Venous NO GROWTH AFTER 5 DAYS INCUBATION 02/27/17 09:50 Blood Culture - Preliminary Blood - Peripheral Venous NO GROWTH OBTAINED AFTER 96 HOURS, INCUBATION TO CONTINUE FOR 1 DAYS. 02/27/17 09:50 Blood Culture - Preliminary Blood - Peripheral Venous NO GROWTH OBTAINED AFTER 96 HOURS, INCUBATION TO CONTINUE FOR 1 DAYS. 02/26/17 02:18 Blood Culture - Final Blood - Peripheral Venous NO GROWTH AFTER 5 DAYS INCUBATION 02/27/17 09:00 Gram Stain - Final Sputum - Endotrachea Suction/Ventilator Sputum Culture - Final NORMAL RESPIRATORY MOHIT 02/26/17 02:20 Gram Stain - Final Sputum - Endotrachea Suction/Ventilator Sputum Culture - Final NORMAL RESPIRATORY MOHIT 02/25/17 21:01 Urine Culture - Final Urine - Urine Rangel NO GROWTH OBTAINED Recent imaging: CXR (03/03) - No significant interval change. Increased diffuse opacity in R lung haw[place]. No pneumo or consolidations. Cardiomegaly. CXR (03/02) - ETT, NG tube in place. Cardiomegaly. No pneumothorax. No evidence of consolidations, limited by poor film. Non-con CT head (03/01) - No significant interval change. Large L hemispheric stroke in AYAAN and MCA territories with significant rightward midline shift. ASSESSMENT/PLAN: 66 yo man w/ pmh of CAD, a-fib and DM who presented w/ large L-sided ischemic stroke w/ concomitant DEBRA, ARF and cardiogenic shock, now s/p craniotomy for significant, residual vasogenic edema and suspected sub-falcine herniation. Remains stable, w/ persistent fevers (likely neurogenic), now w/ borderline elevated WBC w/ left shift. Currently on levo gtt after aggressive wean off dobutamine gtt per cardiology, w/ uptrending BUN (112) and MAPs in 70s with narrow pulse pressures. No significant improvement in MS, however with preserved spontaneous respiratory function/partial preservation of brainstem reflexes. Family continues to elect for full code status. Family meeting in early PM w/ plan for trach, PEG tube placement. ID, cardiology and renal following. GI and thoracic surgery consulted. #Neuro Continue sedation vacations to assess mental status Serial neuro exams qshift Keppra for seizure PPX f/u imaging per neurosurg recs Taper Decadron to 4mg IV Q12H #Cardiac Weaned off dobutamine gtt, levo decreased to 5mcg/hr per cardiology. Titrate to MAPs of >65 Resume BB once pressors d/c'ed per cardiology cleared for diuresis w/ lasix per cards as needed AC once approved by neuro team Trend trops. Elevated today (1.02) #Pulm AC mode for vent. Intubated. Settings 16/400/40%/5 Continue to taper FiO2, PEEP to >90% saturation CT surg consult for trach placement. #ID Per ID team, continue cefepime/flagyl/vanco regimen. Daily random vanc levels given possible DEBRA. Renal dosing all cultures negative. Continue to trend temp, WBC count #Renal Possible ischemic DEBRA in setting of pressor wean. BUN increased to 112 today. Sediments in urine per renal Urine lytes, Creatinine sent. Renal U/S ordered. f/u imaging results Monitor I's & O's, trend BMPs #Heme Continue to hold AC until neurology clearance Trend H/H. Hgb 13.6 today. #Endo Glucose control w/ range of 100-180 ISS #GI GI consulted for PEG placement Protonix for PPX Holding tube feeds in setting of abdominal distension, no BM, residuals ~500. Nutrition recs appreciated. Consider dis-impaction for possible obstruction KUB for constipation #FEN Fluids: Hold fluids Electrolytes: Daily BMPs, trend BUN, Cr. Nutrition: Hold NG tube feeds today PPX: SCDs for DVT PPX PPI for GI PPX Dispo: Will require ICU monitoring today, with likely d/c to [place] for long-term care. Hernesto Holcomb, PGY1 Plan discussed w/ attending, Dr. Correia Visit type - Emergency Visit Emergency Visit: No - New Patient This patient is new to me today: No - Critical Care Critical Care patient: Yes Total Critical Care Time (in minutes): 35 Critical Care Statement: The care of this patient involved high complexity decision making to prevent further life threatening deterioration of the patient 's condition and/or to evaluate & treat vital organ system(s) failure or risk of failure.
[2017-03-04] MEDS: METRONIDAZOLE 500 MG PREMIXED 100 ML IVPB SCH ×2 (09:36→20:38)
[2017-03-04] MEDS: PANTOPRAZOLE SODIUM 100 ML IVPB SCH (09:37)
[2017-03-04] MEDS: FENTANYL INJECTION 500 MCG in DEXTROSE 5%-WATER - 90 ML IJ SCH (09:37)
[2017-03-04] MEDS: levETIRAcetam 500 MG/5 ML INJECTION VIAL IVPB SCH ×2 (09:37→21:47)
--- NOTE | 2017-03-04 10:32 | PN ---
Progress Note, Physician History of Present Illness: Remains unresponsive on ventilator, febrile, afib with PVCs. - Current Medication List Current Medications: Active Medications Acetaminophen (Ofirmev Injection -) 1,000 mg IVPB Q6H PRN PRN Reason: FEVER OR PAIN Stop: 03/04/17 10:50 Last Admin: 03/04/17 03:29 Dose: 1,000 mg Albuterol/Ipratropium (Duoneb -) 1 amp NEB Q6H PRN PRN Reason: SHORTNESS OF BREATH Chlorhexidine Gluconate (Hibiclens For Decolonization -) 1 applic TP HS WES Last Admin: 03/03/17 21:53 Dose: 1 applic Chlorhexidine Gluconate (Peridex -) 15 ml MM BID WES Dexamethasone Sodium Phosphate (Decadron Injection -) 4 mg IVPB Q8H-IV WES Last Admin: 03/04/17 03:17 Dose: 4 mg IV Flush (Triple Lumen Flush) 4 ml IVPUSH PRN PRN PRN Reason: Protocol Dobutamine HCl/Dextrose (Dobutamine 250 Mg/D5w -) 250 mls @ 12.192 mls/hr IV TITR WES; 2.5 MCG/KG/MIN PRN Reason: Protocol Last Admin: 03/03/17 22:00 Dose: Not Given Norepinephrine Bitartrate 8, (000 mcg/ Dextrose) 504 mls @ 18.9 mls/hr IV TITR WES; 5 MCG/MIN PRN Reason: Protocol Last Admin: 03/03/17 21:59 Dose: 18.9 mls/hr Pantoprazole Sodium (Protonix 40mg Ivpb (Pre-Docked)) 100 mls @ 200 mls/hr IVPB DAILY [facility] Last Admin: 03/04/17 09:37 Dose: 200 mls/hr Metronidazole (Flagyl 500mg Premixed Ivpb -) 100 mls @ 100 mls/hr IVPB Q12H WES Last Admin: 03/04/17 09:36 Dose: 100 mls/hr Fentanyl 500 mcg/ Dextrose 100 mls @ 5 mls/hr IJ TITR WES PRN Reason: 25 MCG/HR Last Admin: 03/04/17 09:37 Dose: Not Given Cefepime HCl 2 gm/ Dextrose 100 mls @ 200 mls/hr IVPB Q12H WES Last Admin: 03/04/17 06:13 Dose: 200 mls/hr Vancomycin HCl 1,250 mg/ (Dextrose) 250 mls @ 166.667 mls/hr IVPB DAILY@1500 WES PRN Reason: Protocol Last Admin: 03/03/17 16:35 Dose: 166.667 mls/hr Propofol (Diprivan -) 100 mls @ 2.495 mls/hr IVPB TITR WES; 5 MCG/KG/MIN PRN Reason: Protocol Last Admin: 03/03/17 21:59 Dose: 9.981 mls/hr Insulin Aspart (Novolog Vial Sliding Scale -) 1 vial SQ ACHS WES PRN Reason: Protocol Last Admin: 03/04/17 06:16 Dose: 4 units Levetiracetam (Keppra Injection -) 1,000 mg IVPB BID WES Last Admin: 03/04/17 09:37 Dose: 1,000 mg - Objective Vital Signs: Vital Signs Temperature 101.5 F H 03/04/17 10:00 Pulse Rate 100 H 03/04/17 10:00 Respiratory Rate 16 03/04/17 10:00 Blood Pressure 85/69 03/04/17 10:00 O2 Sat by Pulse Oximetry (%) 99 03/04/17 10:25 Constitutional: Yes: No Distress, Calm Neck: Yes: Supple Cardiovascular: Yes: Tachycardia, Pulse Irregular Respiratory: Yes: Intubated, Mechanically Ventilated, Rhonchi Gastrointestinal: Yes: Normal Bowel Sounds, Soft Edema: No Labs: CBC, BMP 03/04/17 05:20 03/04/17 05:20 INR, PTT INR 1.44 (0.82-1.09) H 03/03/17 05:30 - ....Imaging Chest X-ray: Report Reviewed (Unchanged) EKG: Report Reviewed (Tele shows afib with PVC) Problem List - Problems (1) A-fib Code(s): I48.91 - UNSPECIFIED ATRIAL FIBRILLATION (2) CAD (coronary artery disease) Code(s): I25.10 - ATHSCL HEART DISEASE OF [place] CORONARY ARTERY W/O ANG PCTRS Qualifiers: Coronary Disease-Associated Artery/Lesion type: [place] artery [place] vs. transplanted heart: [place] heart Associated angina: without angina Qualified Code(s): I25.10 - Atherosclerotic heart disease of [place] coronary artery without angina pectoris (3) CVA (cerebral vascular accident) Code(s): I63.9 - CEREBRAL INFARCTION, UNSPECIFIED Qualifiers: CVA mechanism: occlusion Precerebral and cerebral artery: middle cerebral artery Laterality of affected vessel: left Qualified Code(s): I63.512 - Cerebral infarction due to unspecified occlusion or stenosis of left middle cerebral artery (4) Cardiogenic shock Code(s): R57.0 - CARDIOGENIC SHOCK (5) Diabetes Code(s): E11.9 - TYPE 2 DIABETES MELLITUS WITHOUT COMPLICATIONS Qualifiers: Diabetes mellitus type: type 2 (6) Hx of CABG Code(s): Z95.1 - PRESENCE OF AORTOCORONARY BYPASS GRAFT (7) Respiratory failure Code(s): J96.90 - RESPIRATORY FAILURE, UNSP, UNSP W HYPOXIA OR HYPERCAPNIA Qualifiers: Chronicity: acute Respiratory failure complication: unspecified whether with hypoxia or hypercapnia Qualified Code(s): J96.00 - Acute respiratory failure, unspecified whether with hypoxia or hypercapnia (8) S/P MVR (mitral valve replacement) Code(s): Z95.2 - PRESENCE OF PROSTHETIC HEART VALVE (9) Demand ischemia Code(s): I24.8 - OTHER FORMS OF ACUTE ISCHEMIC HEART DISEASE (10) Acute kidney injury Code(s): N17.9 - ACUTE KIDNEY FAILURE, UNSPECIFIED (11) Status post craniotomy Code(s): Z98.890 - OTHER SPECIFIED POSTPROCEDURAL STATES (12) Ischemic cardiomyopathy Code(s): I25.5 - ISCHEMIC CARDIOMYOPATHY (13) ICD (implantable cardioverter-defibrillator) in place Code(s): Z95.810 - PRESENCE OF AUTOMATIC (IMPLANTABLE) CARDIAC DEFIBRILLATOR Assessment/Plan 1. Large left side CVA with hemorrhagic conversion, cerebral edema and herniation post emergent craniotomy (calvarial bone flap) 2. Respiratory failure/intubated 3. Coronary artery disease post CABG angina pectoris with evidence of demand ischemic injury 4. Systolic LV dysfunction with chronic class I-II NYHA classification congestive heart failure, cardiogenic shock on inotropes/pressors 5. Post ICD implant (single lead [place]) for primary prophylaxis 6. Permanent atrial fibrillation currently off of A/C 7. Post MVR - Bio-prosthesis 8. Acute on chronic kidney injury 9. DM PLAN: 1. Wean Levophed gtt to maintain MAP > 60 2. A/C resumption once cleared by neurosurgery 3. Resume B-Blockers once off pressors 4. Recommend Entresto initiation once renal function and hemodynamics stabilized 5. As outlined avoid Digoxin at this point considering the above noted acute renal insufficiency 6. May need to utilize diuretics (IV Lasix) as needed 7. Monitor renal function and urine output closely 8. Empiric abx per C&S, IV steroids with GI protection, seizure prophylaxis 9. Neuro checks off sedation, vent management per ABG, enteral feeds 10. Poor prognosis for meaningful neuro recovery awaiting decision on goals of care
--- NOTE | 2017-03-04 12:00 | PN ---
Physical Exam: SUBJECTIVE: Patient seen and examined. No acute events overnight. Pt still sedated and ventilated without response to verbal, physical, or noxious stimuli. OBJECTIVE: Vital Signs Period Temp Pulse Resp BP Sys/Leon Pulse Ox Last 24 Hr 100.7 F-102.9 F 79-124 10-32 76-97/61-86 93-99 GENERAL: The patient is sedated on ventilator, unresponsive to verbal, physical , and noxious stimuli HEAD: 2 adhesive bandages overlying craniectomy incision, no signs of infection EYES: L pupil is dilated without reactivity to light. R pupil is still miotic with minimal reactivity to light. ENT: ventilator in mouth NECK: +JVD LUNGS: anterior lung hawkins are CTAB, no wheezing, rales, or rhonchi HEART: irregularly irregular without murmur, rub or gallop. ABDOMEN: Soft, nontender, nondistended, normoactive bowel sounds, no guarding, no rebound, no hepatosplenomegaly, no masses. +abdominal thrill EXTREMITIES: extremities are less cold to touch compared to yesterday. 1+ pitting edema b/l. NEUROLOGICAL: no doll's eyes reflex, no corneal reflex, no pupillary light reflex, gag reflex still intact Laboratory Results - last 24 hr 03/02/17 03/03/17 03/03/17 22:21 06:17 12:23 WBC RBC Hgb Hct MCV MCH MCHC RDW Plt Count MPV Neutrophils % Lymphocytes % Monocytes % Eosinophils % Basophils % Sodium Potassium Chloride Carbon Dioxide Anion Gap BUN Creatinine Creat Clearance w eGFR POC Glucometer 225.72464 262.73069 268.57153 Random Glucose Calcium Phosphorus Magnesium Total Bilirubin AST ALT Alkaline Phosphatase Troponin I Total Protein Albumin Vancomycin Pre-Dose 03/03/17 03/03/17 03/03/17 14:30 17:40 22:19 WBC RBC Hgb Hct MCV MCH MCHC RDW Plt Count MPV Neutrophils % Lymphocytes % Monocytes % Eosinophils % Basophils % Sodium Potassium Chloride Carbon Dioxide Anion Gap BUN Creatinine Creat Clearance w eGFR POC Glucometer 291.58655 198.09450 Random Glucose Calcium Phosphorus Magnesium Total Bilirubin AST ALT Alkaline Phosphatase Troponin I Total Protein Albumin Vancomycin Pre-Dose 14.831 H 03/04/17 03/04/17 03/04/17 05:20 05:20 05:33 WBC 10.5 H D RBC 4.43 Hgb 13.6 Hct 42.4 MCV 95.6 MCH 30.8 MCHC 32.2 RDW 18.8 H Plt Count 172 MPV 10.0 Neutrophils % 88.4 H Lymphocytes % 4.1 L D Monocytes % 7.4 Eosinophils % 0.0 Basophils % 0.1 Sodium 141 Potassium 5.1 Chloride 107 Carbon Dioxide 20 L Anion Gap 14 BUN 111 H* D Creatinine 2.2 H Creat Clearance w eGFR 30.00 POC Glucometer [phone] Random Glucose 260 H Calcium 7.6 L Phosphorus 7.1 H D Magnesium 3.0 H Total Bilirubin 2.0 H AST 65 H ALT 135 H Alkaline Phosphatase 88 Troponin I 1.02 H* Total Protein 6.1 L Albumin 2.0 L Vancomycin Pre-Dose Active Medications Generic Name Dose Route Start Last Admin Trade Name Freq PRN Reason Stop Dose Admin Albuterol/Ipratropium 1 amp 03/03/17 14:00 Duoneb - NEB Q6H PRN SHORTNESS OF BREATH Chlorhexidine Gluconate 1 applic 02/26/17 22:00 03/03/17 21:53 Hibiclens For Decolonization - TP 1 applic HS WES Administration Chlorhexidine Gluconate 15 ml 03/04/17 10:00 Peridex - MM BID WES Dexamethasone Sodium Phosphate 4 mg 02/28/17 10:00 03/04/17 03:17 Decadron Injection - IVPB 4 mg Q8H-IV WES Administration IV Flush 4 ml 02/26/17 21:23 Triple Lumen Flush IVPUSH PRN PRN Protocol Dobutamine HCl/Dextrose 250 mls @ 12.192 mls/hr 02/26/17 21:23 03/03/17 22:00 Dobutamine 250 Mg/D5w - IV Not Given TITR WES Protocol 2.5 MCG/KG/MIN Norepinephrine Bitartrate 8, 504 mls @ 18.9 mls/hr 02/26/17 21:23 03/03/17 21: 59 000 mcg/ Dextrose IV 18.9 mls/hr TITR WES Administration Protocol 5 MCG/MIN Pantoprazole Sodium 100 mls @ 200 mls/hr 02/27/17 10:00 03/04/17 09:37 Protonix 40mg Ivpb (Pre-Docked) IVPB 200 mls/hr DAILY WES Administration Metronidazole 100 mls @ 100 mls/hr 02/27/17 08:45 09/14/17 09:36 Flagyl 500mg Premixed Ivpb - IVPB 100 mls/hr Q12H WES Administration Fentanyl 500 mcg/ Dextrose 100 mls @ 5 mls/hr 02/27/17 08:45 03/04/17 09:37 IJ Not Given TITR WES 25 MCG/HR Cefepime HCl 2 gm/ Dextrose 100 mls @ 200 mls/hr 02/28/17 18:00 03/04/17 06:13 IVPB 200 mls/hr Q12H WES Administration Vancomycin HCl 1,250 mg/ 250 mls @ 166.667 mls/hr 03/01/17 15:00 03/03/17 16:35 Dextrose IVPB 166.667 mls/hr DAILY@1500 WES Administration Protocol Propofol 100 mls @ 2.495 mls/hr 03/02/17 14:15 03/03/17 21:59 Diprivan - IVPB 9.981 mls/hr TITR WES Administration Protocol 5 MCG/KG/MIN Insulin Aspart 1 vial 02/26/17 22:00 03/04/17 06:16 Novolog Vial Sliding Scale - SQ 4 units ACHS WES Administration Protocol Levetiracetam 1,000 mg 02/26/17 22:00 03/04/17 09:37 Keppra Injection - IVPB 1,000 mg BID WES Administration ASSESSMENT/PLAN: 66F with hx of Afib, DM, HTN, HLD, COPD, and CAD who presented with focal neurological deficits, found to have a large left-sided ischemic MCA stroke, became hypotensive preventing transfer out of hospital, required pressors and intubation, underwent hemorrhagic transformation, s/p craniectomy post-op day # 6. # Large Left Sided CVA - Likely from acute embolus in setting of subtherapeutic INR, s/p hemorrhagic transformation, s/p craniectomy - continue Keppra for seizure prophylaxis, continue propofol drip for intubation, wean as tolerated -per card, A/C once cleared by neuro -currently holding heparin and ASA -neuro checks, pain control with fentanyl gtt -repeat CT head (03/01): no interval change # Shock - likely cardiogenic - echo showed severely reduced EF, general hypokinesis, and no pericardial effusion - dobutamine discontinued. continue weaning Levophed, titrate to MAP > 65 - continue dexamethasone 4 IV q8h -diuresis held pending recs, CXR on 03/03 showed no interval change -cardiology on board #Troponinemia- demand ischemia from cardiogenic shock per cards, currently might be 2/2 DEBRA -troponins: 1.13 --> 0.77 --> 0.98 --> 0.89 --> 1.07 -->1.02 -ASA, heparin held -continue trending troponins, cardio on board #Respiratory Failure- due to stroke -intubated on ventilator -wean as tolerated -pt will likely need tracheostomy long-term. Family meeting schedule for this afternoon to discuss. #DEBRA- prerenal 2/2 shock, possibly ATN -continue pressors -creatinine hovering at 2.2; continue to trend #hyperphosphatemia: 2/2 DEBRA -phosphate of 7.1 -continue to monitor -tx per nephrology recs #Transaminitis- due to hypoperfusion 2/2 shock -continue pressors -trending down, AST 65, ALT 135; continue trending LFTs #Leukocytosis- possibly due to infection with unclear etiology vs. steroid- induced -wbc: 16 --> 11.3 --> 9 --> 8 -->10.5 -blood cultures, resp cultures, and urine cultures negative to date -continue to trend wbc -continue cefepime, flagyl, and vancomycin #fever- central vs. infection with unclear etiology -blood cultures, resp cultures, and urine cultures negative to date -Tmax of 101.3 overnight, continue to trend temps -continue cefepime, flagyl, and vancomycin, APAP PRN #tachycardia- etiology includes pain vs. fever vs. a-fib vs. medication-induced -HR between 100-105 -continue to monitor # Hx of DM2 - BGM Q2 -ISS # FEN - Fluids: w/ pressors - Electrolytes: currently no need for repletion - Nutrition: tube feeds # Prophylaxis - DVT: SCDs - GI: IV pronotix - Deconditioning: PT on hold for now #Dispo -meaningful recovery is unlikely -full code as per family meeting on 03/01 -family meeting planned for this afternoon to discuss watermelon inspector care including peg tube and tracheostomy ------ Johan Khanna MD- PGY1 Visit type - Emergency Visit Emergency Visit: Yes ED Registration Date: 02/25/17 Care time: The patient presented to the Emergency Department on the above date and was hospitalized for further evaluation of their emergent condition. - New Patient This patient is new to me today: No - Critical Care Critical Care patient: Yes Total Critical Care Time (in minutes): 35 Critical Care Statement: The care of this patient involved high complexity decision making to prevent further life threatening deterioration of the patient 's condition and/or to evaluate & treat vital organ system(s) failure or risk of failure. - Discharge Referral Referred to [facility] Med P.C.: No
[2017-03-04] MEDS: CHLORHEXIDINE GLUCONATE 0.12% 15ML CUP MM SCH ×2 (12:04→21:47)
[2017-03-04] MEDS ORDERED: INSULIN (NOVOLOG) ASPART 100 UNITS/ML 10ML VIAL ONE (12:16)
[2017-03-04] MEDS: PROPOFOL 100 ML IVPB SCH ×2 (12:36→20:07)
--- NOTE | 2017-03-04 12:46 | PN ---
Teaching Attending Note Name of Resident: Hernesto Holcomb ATTENDING PHYSICIAN STATEMENT I saw and evaluated the patient. I reviewed the resident's note and discussed the case with the resident. I agree with the resident's findings and plan as documented. SUBJECTIVE: Pt seen and examined in the ICU. Remains intubated, unresponsive on levophed gtt. Persistent fevers. OBJECTIVE: Last Vital Signs Temp Pulse Resp BP Pulse Ox 101.5 F H 100 H 16 85/69 99 03/04/17 10:00 03/04/17 10:00 03/04/17 11:31 03/04/17 10:00 03/04/17 10:25 Intake & Output 03/01/17 03/02/17 03/03/17 03/04/17 23:59 23:59 23:59 23:59 Intake Total 2076 3354 4080.4 1848 Output Total 1850 1750 1700 1000 Balance 226 1604 2380.4 848 Weight 185 lb 6.54 oz 183 lb 6 oz 185 lb 5 oz 190 lb 12.8 oz Gen: intubated, sedated HEENT: unequal pupils Heart: tachycardic, regular Lung: scattered rhonchi Abd: softly distended Ext: + edema CBC, BMP 03/04/17 05:20 03/04/17 05:20 Active Medications Albuterol/Ipratropium (Duoneb -) 1 amp NEB Q6H PRN PRN Reason: SHORTNESS OF BREATH Chlorhexidine Gluconate (Hibiclens For Decolonization -) 1 applic TP HS WES Last Admin: 03/03/17 21:53 Dose: 1 applic Chlorhexidine Gluconate (Peridex -) 15 ml MM BID WES Last Admin: 03/04/17 12:04 Dose: 15 ml Dexamethasone Sodium Phosphate (Decadron Injection -) 4 mg IVPB Q12H WES IV Flush (Triple Lumen Flush) 4 ml IVPUSH PRN PRN PRN Reason: Protocol Dobutamine HCl/Dextrose (Dobutamine 250 Mg/D5w -) 250 mls @ 12.192 mls/hr IV TITR WSE; 2.5 MCG/KG/MIN PRN Reason: Protocol Last Admin: 03/03/17 22:00 Dose: Not Given Norepinephrine Bitartrate 8, (000 mcg/ Dextrose) 504 mls @ 18.9 mls/hr IV TITR WES; 5 MCG/MIN PRN Reason: Protocol Last Admin: 03/03/17 21:59 Dose: 18.9 mls/hr Pantoprazole Sodium (Protonix 40mg Ivpb (Pre-Docked)) 100 mls @ 200 mls/hr IVPB DAILY [facility] Last Admin: 03/04/17 09:37 Dose: 200 mls/hr Metronidazole (Flagyl 500mg Premixed Ivpb -) 100 mls @ 100 mls/hr IVPB Q12H [facility] Last Admin: 03/04/17 09:36 Dose: 100 mls/hr Fentanyl 500 mcg/ Dextrose 100 mls @ 5 mls/hr IJ TITR WES PRN Reason: 25 MCG/HR Last Admin: 03/04/17 09:37 Dose: Not Given Cefepime HCl 2 gm/ Dextrose 100 mls @ 200 mls/hr IVPB Q12H [facility] Last Admin: 03/04/17 06:13 Dose: 200 mls/hr Vancomycin HCl 1,250 mg/ (Dextrose) 250 mls @ 166.667 mls/hr IVPB DAILY@1500 WES PRN Reason: Protocol Last Admin: 03/03/17 16:35 Dose: 166.667 mls/hr Propofol (Diprivan -) 100 mls @ 2.495 mls/hr IVPB TITR WES; 5 MCG/KG/MIN PRN Reason: Protocol Last Admin: 03/03/17 21:59 Dose: 9.981 mls/hr Insulin Aspart (Novolog Vial Sliding Scale -) 1 vial SQ ACHS WES PRN Reason: Protocol Last Admin: 03/04/17 12:18 Dose: 4 units Levetiracetam (Keppra Injection -) 1,000 mg IVPB BID [facility] Last Admin: 03/04/17 09:37 Dose: 1,000 mg ASSESSMENT AND PLAN: Acute L CVA with severe cerebral edema and herniation s/p Emergent Decompressive Hemicraniotomy Acute Respiratory Failure Shock - r/o Septic vs Neurogenic vs Cardiogenic Acute on Chronic Systolic Heart Failure CAD s/p CABG +Troponins likely demand ischemia Atrial Fibrillation h/o bioMVR Acute Kidney Injury DM Fevers - ?Central - on empiric antibiotics - taper decadron, continue antiepileptics - taper FiO2, PEEP to keep SpO2 >90% - titrate pressors to maintain MAP >65 - daily sedation vacations to assess mental status - monitor urine output, creatinine - enteral feeds - poor overall prognosis for meaningful recovery - DVT/GI prophylaxis - continue discussions regarding goals of care - family meeting today for goals of care critical care time spent in reviewing chart, evaluating patient and formulating plan 35 min
--- NOTE | 2017-03-04 14:15 | PATH ---
Surgical Pathology Report Patient Name: JENNIFER HERNANDEZ Med. Rec. #: [id number] /Age/Gender: 1950 (Age: 66) / M Account: [id number] Location: ICU HELP DESK ADMINISTRATOR Taken: 02/26/2017 Received: 03/01/2017 Reported: 03/04/2017 Physicians: Emerson Jose M.D. Specimen(s) Received BONE -SKULL FLAP Clinical History Left hemispheric infarction Final Diagnosis BONE, SKULL FLAP, LEFT CRANIOTOMY: UNREMARKABLE BONE. Electronically Signed Rogelio Donovan M.D. Gross Description Received in formalin labeled "bone skull flap" is an 11.2 x 8.2 x 0.6 cm luo, irregular portion of bone, consistent with a portion of skull. A public utilities sales representative section is submitted in one cassette, following decalcification. 03/02/201703/02/2017
--- NOTE | 2017-03-04 16:18 | PN ---
Progress Note, Physician History of Present Illness: continues to be intubated no new events family pursuing full care - Current Medication List Current Medications: Active Medications Acetaminophen (Ofirmev Injection -) 1,000 mg IVPB Q6H PRN PRN Reason: FEVER OR PAIN Stop: 03/05/17 06:55 Last Admin: 03/04/17 12:59 Dose: 1,000 mg Albuterol/Ipratropium (Duoneb -) 1 amp NEB Q6H PRN PRN Reason: SHORTNESS OF BREATH Chlorhexidine Gluconate (Hibiclens For Decolonization -) 1 applic TP HS WES Last Admin: 03/03/17 21:53 Dose: 1 applic Chlorhexidine Gluconate (Peridex -) 15 ml MM BID WES Last Admin: 03/04/17 12:04 Dose: 15 ml Dexamethasone Sodium Phosphate (Decadron Injection -) 4 mg IVPB Q12H WES IV Flush (Triple Lumen Flush) 4 ml IVPUSH PRN PRN PRN Reason: Protocol Dobutamine HCl/Dextrose (Dobutamine 250 Mg/D5w -) 250 mls @ 12.192 mls/hr IV TITR WES; 2.5 MCG/KG/MIN PRN Reason: Protocol Last Admin: 03/03/17 22:00 Dose: Not Given Norepinephrine Bitartrate 8, (000 mcg/ Dextrose) 504 mls @ 18.9 mls/hr IV TITR WES; 5 MCG/MIN PRN Reason: Protocol Last Admin: 03/03/17 21:59 Dose: 18.9 mls/hr Pantoprazole Sodium (Protonix 40mg Ivpb (Pre-Docked)) 100 mls @ 200 mls/hr IVPB DAILY [facility] Last Admin: 03/04/17 09:37 Dose: 200 mls/hr Metronidazole (Flagyl 500mg Premixed Ivpb -) 100 mls @ 100 mls/hr IVPB Q12H [facility] Last Admin: 03/04/17 09:36 Dose: 100 mls/hr Fentanyl 500 mcg/ Dextrose 100 mls @ 5 mls/hr IJ TITR WES PRN Reason: 25 MCG/HR Last Admin: 03/04/17 09:37 Dose: Not Given Cefepime HCl 2 gm/ Dextrose 100 mls @ 200 mls/hr IVPB Q12H [facility] Last Admin: 03/04/17 06:13 Dose: 200 mls/hr Vancomycin HCl 1,250 mg/ (Dextrose) 250 mls @ 166.667 mls/hr IVPB DAILY@1500 WES PRN Reason: Protocol Last Admin: 03/03/17 16:35 Dose: 166.667 mls/hr Propofol (Diprivan -) 100 mls @ 2.495 mls/hr IVPB TITR WES; 5 MCG/KG/MIN PRN Reason: Protocol Last Admin: 03/04/17 12:36 Dose: 9.981 mls/hr Insulin Aspart (Novolog Vial Sliding Scale -) 1 vial SQ ACHS WES PRN Reason: Protocol Last Admin: 03/04/17 12:18 Dose: 4 units Levetiracetam (Keppra Injection -) 1,000 mg IVPB BID WES Last Admin: 03/04/17 09:37 Dose: 1,000 mg - Objective Vital Signs: Vital Signs Temperature 102.4 F H 03/04/17 14:00 Pulse Rate 111 H 03/04/17 14:00 Respiratory Rate 21 03/04/17 16:13 Blood Pressure 86/76 03/04/17 14:00 O2 Sat by Pulse Oximetry (%) 99 03/04/17 10:25 Constitutional: Yes: Other Cardiovascular: Yes: S1, S2 Respiratory: Yes: Intubated, Mechanically Ventilated Gastrointestinal: Yes: Soft, Other Genitourinary: Yes: Rangel Present Musculoskeletal: Yes: Other Neurological: Yes: Other Labs: CBC, BMP 03/04/17 05:20 03/04/17 05:20 INR, PTT INR 1.44 (0.82-1.09) H 03/03/17 05:30 Assessment/Plan Problem List - Problems (1) CVA (cerebral vascular accident) Code(s): I63.9 - CEREBRAL INFARCTION, UNSPECIFIED Qualifiers: CVA mechanism: occlusion Precerebral and cerebral artery: middle cerebral artery Laterality of affected vessel: left Qualified Code(s): I63.512 - Cerebral infarction due to unspecified occlusion or stenosis of left middle cerebral artery (2) Respiratory failure Code(s): J96.90 - RESPIRATORY FAILURE, UNSP, UNSP W HYPOXIA OR HYPERCAPNIA (3) Shock circulatory Code(s): R57.9 - SHOCK, UNSPECIFIED (4) A-fib Code(s): I48.91 - UNSPECIFIED ATRIAL FIBRILLATION (5) CAD (coronary artery disease) Code(s): I25.10 - ATHSCL HEART DISEASE OF [place] CORONARY ARTERY W/O ANG PCTRS (6) Diabetes Code(s): E11.9 - TYPE 2 DIABETES MELLITUS WITHOUT COMPLICATIONS plan vanco on hold continue cefipime final plan awaited icu care prognosis poor cc 40 min
--- NOTE | 2017-03-04 16:31 | PN ---
Teaching Attending Note Name of Resident: Johan Khanna ATTENDING PHYSICIAN STATEMENT I saw and evaluated the patient. I reviewed the resident's note and discussed the case with the resident. I agree with the resident's findings and plan as documented. SUBJECTIVE: Patient continues to be sedated and intubated in ICU, breathing over the machine now. OBJECTIVE: Vital Signs Temperature 102.4 F H 03/04/17 14:00 Pulse Rate 111 H 03/04/17 14:00 Respiratory Rate 21 03/04/17 16:13 Blood Pressure 86/76 03/04/17 14:00 O2 Sat by Pulse Oximetry (%) 99 03/04/17 10:25 CBCD WBC 10.5 K/mm3 (4.0-10.0) H D 03/04/17 05:20 RBC 4.43 M/mm3 (4.00-5.60) 03/04/17 05:20 Hgb 13.6 GM/dL (11.7-16.9) 03/04/17 05:20 Hct 42.4 % (35.4-49) 03/04/17 05:20 MCV 95.6 fl (80-96) 03/04/17 05:20 MCHC 32.2 g/dl (32.0-35.9) 03/04/17 05:20 RDW 18.8 % (11.9-15.9) H 03/04/17 05:20 Plt Count 172 K/MM3 (134-434) 03/04/17 05:20 MPV 10.0 fl (7.5-11.1) 03/04/17 05:20 CMP Sodium 141 mmol/L (136-145) 03/04/17 05:20 Potassium 5.1 mmol/L (3.5-5.1) 03/04/17 05:20 Chloride 107 mmol/L (98-107) 03/04/17 05:20 Carbon Dioxide 20 mmol/L (21-32) L 03/04/17 05:20 Anion Gap 14 (8-16) 03/04/17 05:20 BUN 111 mg/dL (7-18) H* D 03/04/17 05:20 Creatinine 2.2 mg/dL (0.7-1.3) H 03/04/17 05:20 Creat Clearance w eGFR 30.00 (>60) 03/04/17 05:20 Random Glucose 260 mg/dL (74-106) H 03/04/17 05:20 Calcium 7.6 mg/dL (8.5-10.1) L 03/04/17 05:20 Total Bilirubin 2.0 mg/dL (0.2-1.0) H 03/04/17 05:20 AST 65 U/L (15-37) H 03/04/17 05:20 ALT 135 U/L (12-78) H 03/04/17 05:20 Alkaline Phosphatase 88 U/L (45-117) 03/04/17 05:20 Total Protein 6.1 g/dl (6.4-8.2) L 03/04/17 05:20 Albumin 2.0 g/dl (3.4-5.0) L 03/04/17 05:20 CARDIAC ENZYMES Creatine Kinase 68 IU/L (39-308) 03/01/17 15:30 Troponin I 1.02 ng/ml (0.00-0.05) H* 03/04/17 05:20 Current Medications Generic Name Dose Route Start Last Admin Trade Name Freq PRN Reason Stop Dose Admin Acetaminophen 1,000 mg 03/04/17 12:54 03/04/17 12:59 Ofirmev Injection - IVPB 03/05/17 06:55 1,000 mg Q6H PRN Administration FEVER OR PAIN Albuterol/Ipratropium 1 amp 03/03/17 14:00 Duoneb - NEB Q6H PRN SHORTNESS OF BREATH Chlorhexidine Gluconate 1 applic 02/26/17 22:00 03/03/17 21:53 Hibiclens For Decolonization - TP 1 applic HS WES Administration Chlorhexidine Gluconate 15 ml 03/04/17 10:00 03/04/17 12:04 Peridex - MM 15 ml BID WES Administration Dexamethasone Sodium Phosphate 4 mg 03/04/17 20:00 Decadron Injection - IVPB Q12H WES IV Flush 4 ml 02/26/17 21:23 Triple Lumen Flush IVPUSH PRN PRN Protocol Dobutamine HCl/Dextrose 250 mls @ 12.192 mls/hr 02/26/17 21:23 03/03/17 22:00 Dobutamine 250 Mg/D5w - IV Not Given TITR WES Protocol 2.5 MCG/KG/MIN Norepinephrine Bitartrate 8, 504 mls @ 18.9 mls/hr 02/26/17 21:23 03/03/17 21: 59 000 mcg/ Dextrose IV 18.9 mls/hr TITR WES Administration Protocol 5 MCG/MIN Pantoprazole Sodium 100 mls @ 200 mls/hr 02/27/17 10:00 03/04/17 09:37 Protonix 40mg Ivpb (Pre-Docked) IVPB 200 mls/hr DAILY WES Administration Metronidazole 100 mls @ 100 mls/hr 02/27/17 08:45 03/04/17 09:36 Flagyl 500mg Premixed Ivpb - IVPB 100 mls/hr Q12H WES Administration Fentanyl 500 mcg/ Dextrose 100 mls @ 5 mls/hr 02/27/17 08:45 03/04/17 09:37 IJ Not Given TITR WSE 25 MCG/HR Cefepime HCl 2 gm/ Dextrose 100 mls @ 200 mls/hr 02/28/17 18:00 03/04/17 06:13 IVPB 200 mls/hr Q12H WES Administration Vancomycin HCl 1,250 mg/ 250 mls @ 166.667 mls/hr 03/01/17 15:00 03/03/17 16:35 Dextrose IVPB 166.667 mls/hr DAILY@1500 WES Administration Protocol Propofol 100 mls @ 2.495 mls/hr 03/02/17 14:15 03/04/17 12:36 Diprivan - IVPB 9.981 mls/hr TITR WES Administration Protocol 5 MCG/KG/MIN Insulin Aspart 1 vial 02/26/17 22:00 03/04/17 12:18 Novolog Vial Sliding Scale - SQ 4 units ACHS WES Administration Protocol Levetiracetam 1,000 mg 02/26/17 22:00 03/04/17 09:37 Keppra Injection - IVPB 1,000 mg BID WES Administration Home Medications Medication Instructions Recorded Allopurinol [Zyloprim -] 100 mg PO DAILY #30 tablet 02/26/17 Aspirin [Aspirin EC] 81 mg PO DAILY #30 tablet. 02/26/17 Bumetanide [Bumex -] 2 mg PO BID #30 tablet 02/26/17 Carvedilol [Coreg -] 12.5 mg PO BID #14 tablet 02/26/17 Digoxin [Lanoxin -] 0.25 mg PO DAILY #30 tablet 02/26/17 Febuxostat [Uloric -] 40 mg PO DAILY #30 tab 02/26/17 Oxycodone HCl/Acetaminophen 1 tab PO Q6H PRN #20 tablet MDD 8 02/26/17 [Percocet 5-325 mg Tablet] tablets Prednisone [Deltasone -] 5 mg PO DAILY #30 tablet 02/26/17 Sertraline HCl [Zoloft -] 25 mg PO DAILY #30 tablet 02/26/17 Warfarin Na [Coumadin -] 5 mg PO DAILY@1800 #30 tablet 02/26/17 CT of the head: reviewed PE: Eyes: Left eye dilated and the right eye pinpoint Intubated sedated. no response to sternal rub CV: irreg irreg Lungs: no crackles heard anteriorly , intubated, breathing over the machine EXt: pitting edema nereida. Upper extremities 4 plus Neuro :left eye dilated and fixed , not reactive to light . R pupil with pinpoint pupil , has no corneal reflexes and positive for gag/cough reflexes ASSESSMENT AND PLAN: 66 y/o unfortunate man with h/o Afib, HTN, DM2 ,chronic systolic CHF, who was brought due to MS and was found to have stroke and shock # Acute Large L sided CVA with hemorrhagic conversion and herniation s/p craniotomy 02/26. , hold off AC , had family meeting today , with presence of her 2 daughters and , neurosurgeon was present and the ICU attending , As per family request would like everything to be done, tracheostomy ,peg tube. and they understand that patient will need jail placement. #Acute Respiratory Failure- due to stroke s/p intubation and sedation on the vent. wean as tolerated pt's family aggreeable to tracheostomy long-term. and PEg tube placement. # Acute cardiogenic Shock echo showed severely reduced EF, general hypokinesis, and no pericardial effusion s/p dobutamine now, continue weaning Levophed, titrate to MAP > 65, continue dexamethasone 4 IV q8h, cardiology on board # Fever: due to central due to head bleed , ID on the case # Shock: likely cardiogentic shock cont dobutamine and levophed . # Acute systolic L and R heart failure. off dobutamine now , Lasix prn, resume as per cardio B-Blockers once off pressors , and recommended Entresto initiation once renal function and hemodynamics stabilized #Troponinemia- demand ischemia from cardiogenic shock per cards, troponins: 1.13 --> 0.77 --> 0.98 --> 0.89 --> 1.07 -->1.02 ASA, heparin held due to large bleed, continue trending troponins, cardio on board # DEBRA; likely ATN. Cr stable #Acute Transaminitis : due to shock. DVT px: SCds can't anticoagulate due to bleed
[2017-03-04] MEDS ORDERED: DEXAMETHASONE SOD PHOSPHATE 4 MG/1 ML VIAL IVPB SCH (17:00)
[2017-03-04] MEDS: VANCOMYCIN 1,250 MG in DEXTROSE 5%-WATER - 250 ML IVPB SCH (17:25)
--- NOTE | 2017-03-04 17:28 | CON.GI ---
Consult Consult Specialty:: GI Referred by:: Dr. Canseco Reason for Consultation:: Dysphagia - History of Present Illness Chief Complaint: Patient non-verbal History of Present Illness: 66M admitted 02/25 for altered mental status. Now Pt is a 66yo M with hx of Afib , HTN, DM2 who presented to the ER w/ AMS.m Head CT showed very non-hemorragic large L sided cerebral infarct that converted to hemorrhagic. He was intubated , underwent craniotomy for evacuation of hematoma. He remains on decadron, pressors and family wants all measures taken. - History Source History Provided By: Family Member, Medical Record - Past Medical History Cardio/Vascular: Yes: AFIB, CAD, HTN, Mitral Insufficiency, Pulmonary Hypertension Pulmonary: Yes: COPD - Past Surgical History Past Surgical History: Yes: AICD, CABG (2010), Laminectomy, Valve Replacement ( MVR: porcine valve 2010) - Alcohol/Substance Use Hx Alcohol Use: No - Smoking History Smoking history: Former smoker Have you smoked in the past 12 months: Yes Aproximately how many cigarettes per day: 0 If you are a former smoker, when did you quit?: 2010 - Social History Usual Living Arrangement: With Spouse ADL: Independent Home Medications - Allergies Allergies/Adverse Reactions: Allergies Allergy/AdvReac Type Severity Reaction Status Date / Time No Known Allergies Allergy Verified 07/02/11 14:09 - Home Medications Home Medications: Ambulatory Orders Allopurinol [Zyloprim -] 100 mg PO DAILY #30 tablet 02/26/17 Aspirin [Aspirin EC] 81 mg PO DAILY #30 tablet. 02/26/17 Bumetanide [Bumex -] 2 mg PO BID #30 tablet 02/26/17 Carvedilol [Coreg -] 12.5 mg PO BID #14 tablet 02/26/17 Digoxin [Lanoxin -] 0.25 mg PO DAILY #30 tablet 02/26/17 Febuxostat [Uloric -] 40 mg PO DAILY #30 tab 02/26/17 Oxycodone HCl/Acetaminophen [Percocet 5-325 mg Tablet] 1 tab PO Q6H PRN #20 tablet MDD 8 tablets 02/26/17 Prednisone [Deltasone -] 5 mg PO DAILY #30 tablet 02/26/17 Sertraline HCl [Zoloft -] 25 mg PO DAILY #30 tablet 02/26/17 Warfarin Na [Coumadin -] 5 mg PO DAILY@1800 #30 tablet 02/26/17 Family Disease History - Family Disease History Family History: Unable to Obtain Review of Systems - Review of Systems Constitutional: reports: Fever (from chart) Physical Exam-GI Vital Signs: Vital Signs Temperature 102.4 F H 03/04/17 14:00 Pulse Rate 111 H 03/04/17 14:00 Respiratory Rate 21 03/04/17 16:13 Blood Pressure 86/76 03/04/17 14:00 O2 Sat by Pulse Oximetry (%) 99 03/04/17 10:25 Constitutional: Yes: Calm Eyes: Yes: Other (periorbiotal edema). No: Sclera Icterus HENT: Yes: Other (OGT/ET tube in place) Cardiovascular: Yes: Tachycardia, Pulse Irregular Respiratory: Yes: Diminished (at bases b/l) Gastrointestinal Inspection: No: Distention ...Auscultate: Yes: Normoactive Bowel Sounds ...Palpate: No: Tenderness (No grimacing upon palpation) ...Percussion: No: Tympanitic ...Rectal Exam: Yes: Other (Some retained formed brown stool in the rectal vault that was removed manually. No significant fecal impaction noted.) Edema: Yes (UE B/L and trace LE) Neurological: Yes: Other (sedated on vent) Labs: CBC, BMP 03/04/17 05:20 03/04/17 05:20 INR, PTT INR 1.44 (0.82-1.09) H 03/03/17 05:30 Problem List - Problems (1) CVA (cerebral vascular accident) Assessment/Plan: Discussed with Mr. Cooper's two daughters and that when feasible from a medical standpoint, PEG can be performed to provide a route for correction enteral nutrition. We discussed potential risks of the procedure like but not limited to bleeding, perforation requiring surgery to repair, infection, sedation medication effects, perotinitis if the tube was prematurely dislodged, all of which could be potentially life threatening. I explained that PEG can sometimes not be feasible for anatomic reasons and alternate forms of G-Tube placement such a radiographic/surgical would need to be considered. I also explained that PEG tube feeding does not reverse the underlying medical problems. I gave them my contact information to discuss things with them futher. When closer to discharge disposition and when clinically stable PEG can be placed. For now change to NGT feeding after trach placed. NGT can be left for up to 30 days. Code(s): I63.9 - CEREBRAL INFARCTION, UNSPECIFIED Qualifiers: CVA mechanism: occlusion Precerebral and cerebral artery: middle cerebral artery Laterality of affected vessel: left Qualified Code(s): I63.512 - Cerebral infarction due to unspecified occlusion or stenosis of left middle cerebral artery (2) Constipation Assessment/Plan: Added MiraLAX 17g BID via OGT. When he starts having regular bowel movements, change to once daily On GI prophylaxis with pantoprazole given corticosteroid use and intracerebral hemorrhage Code(s): K59.00 - CONSTIPATION, UNSPECIFIED
[2017-03-04 19:01] LABS: SODIUM,RANDOM URINE 7 MMOL/L
--- NOTE | 2017-03-04 19:27 | PN ---
Progress Note, Physician History of Present Illness: Pt seen and examined at bedside. He remains in the ICU. Pt remains intubated. Family are at bedside. - Current Medication List Current Medications: Active Medications Acetaminophen (Ofirmev Injection -) 1,000 mg IVPB Q6H PRN PRN Reason: FEVER OR PAIN Stop: 03/05/17 06:55 Last Admin: 03/04/17 12:59 Dose: 1,000 mg Albuterol/Ipratropium (Duoneb -) 1 amp NEB Q6H PRN PRN Reason: SHORTNESS OF BREATH Chlorhexidine Gluconate (Hibiclens For Decolonization -) 1 applic TP HS WES Last Admin: 03/03/17 21:53 Dose: 1 applic Chlorhexidine Gluconate (Peridex -) 15 ml MM BID WES Last Admin: 03/04/17 12:04 Dose: 15 ml Dexamethasone Sodium Phosphate (Decadron Injection -) 4 mg IVPB Q12H WES IV Flush (Triple Lumen Flush) 4 ml IVPUSH PRN PRN PRN Reason: Protocol Dobutamine HCl/Dextrose (Dobutamine 250 Mg/D5w -) 250 mls @ 12.192 mls/hr IV TITR WES; 2.5 MCG/KG/MIN PRN Reason: Protocol Last Admin: 03/03/17 22:00 Dose: Not Given Norepinephrine Bitartrate 8, (000 mcg/ Dextrose) 504 mls @ 18.9 mls/hr IV TITR WES; 5 MCG/MIN PRN Reason: Protocol Last Admin: 03/03/17 21:59 Dose: 18.9 mls/hr Pantoprazole Sodium (Protonix 40mg Ivpb (Pre-Docked)) 100 mls @ 200 mls/hr IVPB DAILY [facility] Last Admin: 03/04/17 09:37 Dose: 200 mls/hr Metronidazole (Flagyl 500mg Premixed Ivpb -) 100 mls @ 100 mls/hr IVPB Q12H [facility] Last Admin: 03/04/17 09:36 Dose: 100 mls/hr Fentanyl 500 mcg/ Dextrose 100 mls @ 5 mls/hr IJ TITR WES PRN Reason: 25 MCG/HR Last Admin: 03/04/17 09:37 Dose: Not Given Cefepime HCl 2 gm/ Dextrose 100 mls @ 200 mls/hr IVPB Q12H [facility] Last Admin: 03/04/17 17:28 Dose: 200 mls/hr Vancomycin HCl 1,250 mg/ (Dextrose) 250 mls @ 166.667 mls/hr IVPB DAILY@1500 WES PRN Reason: Protocol Last Admin: 03/04/17 17:25 Dose: Not Given Propofol (Diprivan -) 100 mls @ 2.495 mls/hr IVPB TITR WES; 5 MCG/KG/MIN PRN Reason: Protocol Last Admin: 03/04/17 12:36 Dose: 9.981 mls/hr Insulin Aspart (Novolog Vial Sliding Scale -) 1 vial SQ ACHS WES PRN Reason: Protocol Last Admin: 03/04/17 17:26 Dose: 4 units Levetiracetam (Keppra Injection -) 1,000 mg IVPB BID WES Last Admin: 03/04/17 09:37 Dose: 1,000 mg Polyethylene Glycol (Miralax (For Daily Use) -) 17 gm NGT BID [facility] - Objective Vital Signs: Vital Signs Temperature 102.4 F H 03/04/17 18:00 Pulse Rate 107 H 03/04/17 18:00 Respiratory Rate 18 03/04/17 18:46 Blood Pressure 85/64 03/04/17 18:00 O2 Sat by Pulse Oximetry (%) 99 03/04/17 10:25 Constitutional: Yes: Calm HENT: Yes: Other (dressing in place) Cardiovascular: Yes: S1, S2 Respiratory: Yes: Mechanically Ventilated Gastrointestinal: Yes: Soft Genitourinary: Yes: Rangel Present Musculoskeletal: Yes: Muscle Weakness Edema: Yes Neurological: Yes: Lethargy Labs: CBC, BMP 03/04/17 05:20 03/04/17 05:20 INR, PTT INR 1.44 (0.82-1.09) H 03/03/17 05:30 - ....Imaging Ultrasound: Report Reviewed Problem List - Problems (1) A-fib Code(s): I48.91 - UNSPECIFIED ATRIAL FIBRILLATION (2) Acute kidney injury Code(s): N17.9 - ACUTE KIDNEY FAILURE, UNSPECIFIED (3) CAD (coronary artery disease) Code(s): I25.10 - ATHSCL HEART DISEASE OF [place] CORONARY ARTERY W/O ANG PCTRS Qualifiers: Coronary Disease-Associated Artery/Lesion type: [place] artery [place] vs. transplanted heart: [place] heart Associated angina: without angina Qualified Code(s): I25.10 - Atherosclerotic heart disease of [place] coronary artery without angina pectoris (4) CHF (congestive heart failure) Code(s): I50.9 - HEART FAILURE, UNSPECIFIED (5) CVA (cerebral vascular accident) Code(s): I63.9 - CEREBRAL INFARCTION, UNSPECIFIED Qualifiers: CVA mechanism: occlusion Precerebral and cerebral artery: middle cerebral artery Laterality of affected vessel: left Qualified Code(s): I63.512 - Cerebral infarction due to unspecified occlusion or stenosis of left middle cerebral artery (6) Status post craniotomy Code(s): Z98.890 - OTHER SPECIFIED POSTPROCEDURAL STATES Assessment/Plan Current Medications Generic Name Dose Route Start Last Admin Trade Name Freq PRN Reason Stop Dose Admin Acetaminophen 1,000 mg 03/04/17 12:54 03/04/17 12:59 Ofirmev Injection - IVPB 03/05/17 06:55 1,000 mg Q6H PRN Administration FEVER OR PAIN Albuterol/Ipratropium 1 amp 03/03/17 14:00 Duoneb - NEB Q6H PRN SHORTNESS OF BREATH Chlorhexidine Gluconate 1 applic 02/26/17 22:00 03/03/17 21:53 Hibiclens For Decolonization - TP 1 applic HS WES Administration Chlorhexidine Gluconate 15 ml 03/04/17 10:00 03/04/17 12:04 Peridex - MM 15 ml BID WES Administration Dexamethasone Sodium Phosphate 4 mg 03/04/17 20:00 Decadron Injection - IVPB Q12H WES IV Flush 4 ml 02/26/17 21:23 Triple Lumen Flush IVPUSH PRN PRN Protocol Dobutamine HCl/Dextrose 250 mls @ 12.192 mls/hr 02/26/17 21:23 03/03/17 22:00 Dobutamine 250 Mg/D5w - IV Not Given TITR WES Protocol 2.5 MCG/KG/MIN Norepinephrine Bitartrate 8, 504 mls @ 18.9 mls/hr 02/26/17 21:23 03/03/17 21: 59 000 mcg/ Dextrose IV 18.9 mls/hr TITR WES Administration Protocol 5 MCG/MIN Pantoprazole Sodium 100 mls @ 200 mls/hr 02/27/17 10:00 03/04/17 09:37 Protonix 40mg Ivpb (Pre-Docked) IVPB 200 mls/hr DAILY WES Administration Metronidazole 100 mls @ 100 mls/hr 02/27/17 08:45 03/04/17 09:36 Flagyl 500mg Premixed Ivpb - IVPB 100 mls/hr Q12H WES Administration Fentanyl 500 mcg/ Dextrose 100 mls @ 5 mls/hr 02/27/17 08:45 03/04/17 09:37 IJ Not Given TITR WES 25 MCG/HR Cefepime HCl 2 gm/ Dextrose 100 mls @ 200 mls/hr 02/28/17 18:00 03/04/17 17:28 IVPB 200 mls/hr Q12H WES Administration Vancomycin HCl 1,250 mg/ 250 mls @ 166.667 mls/hr 03/01/17 15:00 03/04/17 17:25 Dextrose IVPB Not Given DAILY@1500 WES Protocol Propofol 100 mls @ 2.495 mls/hr 03/02/17 14:15 03/04/17 12:36 Diprivan - IVPB 9.981 mls/hr TITR WES Administration Protocol 5 MCG/KG/MIN Insulin Aspart 1 vial 02/26/17 22:00 03/04/17 17:26 Novolog Vial Sliding Scale - SQ 4 units ACHS WES Administration Protocol Levetiracetam 1,000 mg 02/26/17 22:00 03/04/17 09:37 Keppra Injection - IVPB 1,000 mg BID WES Administration Polyethylene Glycol 17 gm 03/04/17 22:00 Miralax (For Daily Use) - NGT BID WES Selected Entries 03/03/17 03/03/17 03/04/17 21:59 22:00 00:00 Blood Pressure 76/66 84/61 85/62 03/04/17 03/04/17 02:00 16:00 Blood Pressure 88/77 79/69 Impression 1. DEBRA 2. Hx CKD 3. S/P CVA 4. s/p craniectomy 5. CHF 6. resp failure 7. hypotension Plan - renal function is worse - hypotension may have contributed - steroids can contribute to elevated BUN - monitor hg - renal ultrasound reviewed - follow repeat ua and lytes - discussed with ICU - discussed with pts family - check vanco level - maintain MAP of 65 for renal perfusion
[2017-03-04] MEDS: NOREPINEPHRINE BITARTRATE 8,000 MCG in DEXTROSE 5%-WATER - 496 ML IV SCH (21:42)
[2017-03-04] MEDS: DOBUTAMINE 250 MG/D5W - 250 ML IV SCH (21:42)
[2017-03-04] MEDS: POLYETHYLENE GLYCOL 3350 119 GM BTL NGT SCH (21:48)
[2017-03-04] MEDS: CHLORHEXIDINE GLUCONATE 4% CLEANSER FOR DECOLONIZATION TP SCH (23:31)
[2017-03-05] MEDS: ACETAMINOPHEN 1000 MG/100 ML VIAL (NON FORMULARY) IVPB PRN ×2 (03:52→10:35)
[2017-03-05] MEDS: PROPOFOL 100 ML IVPB SCH ×3 (04:23→21:33)
[2017-03-05] MEDS ORDERED: NOREPINEPHRINE BITARTRATE 4 MG/4 ML ML IV ONE ×3 (05:49→20:12)
[2017-03-05] MEDS ORDERED: PT OWN MED DRAWER 7, Y5N ONE ×2 (05:50→20:13)
[2017-03-05] MEDS: NOREPINEPHRINE BITARTRATE 8,000 MCG in DEXTROSE 5%-WATER - 496 ML IV SCH ×2 (05:56→21:35)
[2017-03-05] MEDS: CEFEPIME 2 GM in DEXTROSE 5%-WATER - 100 ML IVPB SCH ×2 (05:57→20:00)
[2017-03-05 06:27] LABS: BASOPHIL 0.2 % (0-2.0); EOSINOPHIL 0.1 % (0-4.5); MCH 30.3 pg (25.7-33.7); MCHC 31.8 g/dl (32.0-35.9); MEAN CELL VOLUME 95.3 fl (80-96); NEUTROPHILS 87.6 % (42.8-82.8); PLATELET COUNT 166 K/MM3 (134-434); RDW 18.6 % (11.9-15.9); WHITE BLOOD COUNT 13.3 K/mm3 (4.0-10.0)
[2017-03-05 06:49] LABS: ANION GAP 14 (8-16); CALCIUM 7.6 mg/dL (8.5-10.1); CO2 19 mmol/L (21-32); GLUCOSE,RANDOM 235 mg/dL (74-106); PHOSPHOROUS 6.4 mg/dL (2.5-4.9); SGOT/AST 59 U/L (15-37); SGPT/ALT 107 U/L (12-78)
[2017-03-05 07:06] LABS: ALK PHOS 87 U/L (45-117); BILIRUBIN,TOTAL 2.4 mg/dL (0.2-1.0); CREATININE 2.4 mg/dL (0.7-1.3); TOT PROT 5.9 g/dl (6.4-8.2)
[2017-03-05 07:51] LABS: TROPONIN I 1.08 ng/ml (0.00-0.05)
[2017-03-05] MEDS: INSULIN SLIDING SCALE (NOVOLOG) 1 VIAL SQ SCH ×4 (08:00→21:50)
[2017-03-05] MEDS: METRONIDAZOLE 500 MG PREMIXED 100 ML IVPB SCH ×2 (08:53→21:35)
[2017-03-05] MEDS: DEXAMETHASONE SOD PHOSPHATE 4 MG/1 ML VIAL IVPB SCH ×2 (08:55→21:34)
[2017-03-05] MEDS: PANTOPRAZOLE SODIUM 100 ML IVPB SCH (09:05)
[2017-03-05] MEDS: FENTANYL INJECTION 500 MCG in DEXTROSE 5%-WATER - 90 ML IJ SCH (09:05)
[2017-03-05] MEDS: levETIRAcetam 500 MG/5 ML INJECTION VIAL IVPB SCH ×2 (09:05→21:35)
[2017-03-05] MEDS: CHLORHEXIDINE GLUCONATE 0.12% 15ML CUP MM SCH ×2 (09:06→21:36)
[2017-03-05] MEDS: POLYETHYLENE GLYCOL 3350 119 GM BTL NGT SCH ×2 (09:06→21:36)
[2017-03-05] MEDS ORDERED: SODIUM CHLORIDE 250 ML IV STA (11:58)
[2017-03-05] MEDS ORDERED: INSULIN (NOVOLOG) ASPART 100 UNITS/ML 10ML VIAL ONE (13:31)
--- NOTE | 2017-03-05 13:32 | PN ---
Physical Exam: SUBJECTIVE: Patient seen and examined. Renal restarted dobutamine due to increasing BUN and creatinine, and they increased the levophed. No acute events overnight. Pt still sedated and ventilated without response to verbal, physical, or noxious stimuli. OBJECTIVE: Vital Signs Period Temp Pulse Resp BP Sys/Leon Pulse Ox Last 24 Hr 101.4 F-103 F 102-128 18-29 73-90/55-77 91-93 GENERAL: The patient is sedated on ventilator, unresponsive to verbal, physical , and noxious stimuli HEAD: 2 adhesive bandages overlying craniectomy incision, no signs of infection EYES: L pupil is dilated without reactivity to light. R pupil is still miotic with minimal reactivity to light. ENT: ventilator in mouth NECK: +JVD LUNGS: anterior lung hawkins are CTAB, no wheezing, rales, or rhonchi HEART: irregularly irregular without murmur, rub or gallop. ABDOMEN: Soft, nontender, nondistended, normoactive bowel sounds, no guarding, no rebound, no hepatosplenomegaly, no masses. +abdominal thrill EXTREMITIES: extremities are mildly cold. 1+ pitting edema b/l. NEUROLOGICAL: no doll's eyes reflex, no corneal reflex, no pupillary light reflex, gag reflex still intact Laboratory Results - last 24 hr 03/04/17 03/04/17 03/04/17 12:13 17:19 18:30 WBC RBC Hgb Hct MCV MCH MCHC RDW Plt Count MPV Neutrophils % Lymphocytes % Monocytes % Eosinophils % Basophils % Sodium Potassium Chloride Carbon Dioxide Anion Gap BUN Creatinine Creat Clearance w eGFR POC Glucometer 244.87110 233.05135 Random Glucose Calcium Phosphorus Magnesium Total Bilirubin AST ALT Alkaline Phosphatase Troponin I Total Protein Albumin Ur Random Sodium Ur Random Potassium Ur Random Chloride Urine Creatinine 54.9 Random Vancomycin 03/04/17 03/04/17 03/05/17 18:30 20:51 05:15 WBC 13.3 H RBC 4.52 Hgb 13.7 Hct 43.1 MCV 95.3 MCH 30.3 MCHC 31.8 L RDW 18.6 H Plt Count 166 MPV 10.0 Neutrophils % 87.6 H Lymphocytes % 3.6 L Monocytes % 8.5 Eosinophils % 0.1 D Basophils % 0.2 Sodium Potassium Chloride Carbon Dioxide Anion Gap BUN Creatinine Creat Clearance w eGFR POC Glucometer [phone] Random Glucose Calcium Phosphorus Magnesium Total Bilirubin AST ALT Alkaline Phosphatase Troponin I Total Protein Albumin Ur Random Sodium 7 Ur Random Potassium 29.7 Ur Random Chloride < 10 Urine Creatinine Random Vancomycin 03/05/17 03/05/17 05:15 10:19 WBC RBC Hgb Hct MCV MCH MCHC RDW Plt Count MPV Neutrophils % Lymphocytes % Monocytes % Eosinophils % Basophils % Sodium 140 Potassium 5.1 Chloride 107 Carbon Dioxide 19 L Anion Gap 14 BUN 118 H* Creatinine 2.4 H Creat Clearance w eGFR 27.14 POC Glucometer Random Glucose 235 H Calcium 7.6 L Phosphorus 6.4 H Magnesium 3.0 H Total Bilirubin 2.4 H AST 59 H ALT 107 H D Alkaline Phosphatase 87 Troponin I 1.08 H* Total Protein 5.9 L Albumin 2.0 L Ur Random Sodium Ur Random Potassium Ur Random Chloride Urine Creatinine Random Vancomycin 15.963 Active Medications Generic Name Dose Route Start Last Admin Trade Name Freq PRN Reason Stop Dose Admin Acetaminophen 1,000 mg 03/05/17 09:30 03/05/17 10:35 Ofirmev Injection - IVPB 03/06/17 03:31 1,000 mg Q6H PRN Administration FEVER OR PAIN Albuterol/Ipratropium 1 amp 03/03/17 14:00 Duoneb - NEB Q6H PRN SHORTNESS OF BREATH Chlorhexidine Gluconate 1 applic 02/26/17 22:00 03/04/17 23:31 Hibiclens For Decolonization - TP 1 applic HS WES Administration Chlorhexidine Gluconate 15 ml 03/04/17 10:00 03/05/17 09:06 Peridex - MM 15 ml BID WES Administration Dexamethasone Sodium Phosphate 4 mg 03/04/17 20:00 03/05/17 08:55 Decadron Injection - IVPB 4 mg Q12H WES Administration IV Flush 4 ml 02/26/17 21:23 03/05/17 05:57 Triple Lumen Flush IVPUSH 4 ml PRN PRN Administration Protocol Dobutamine HCl/Dextrose 250 mls @ 12.192 mls/hr 02/26/17 21:23 03/04/17 21:42 Dobutamine 250 Mg/D5w - IV 0 mcg/kg/min TITR WES Titration Protocol 2.5 MCG/KG/MIN Norepinephrine Bitartrate 8, 504 mls @ 18.9 mls/hr 02/26/17 21:23 03/05/17 05: 56 000 mcg/ Dextrose IV 18.9 mls/hr TITR WES Administration Protocol 5 MCG/MIN Pantoprazole Sodium 100 mls @ 200 mls/hr 02/27/17 10:00 03/05/17 09:05 Protonix 40mg Ivpb (Pre-Docked) IVPB 200 mls/hr DAILY WES Administration Metronidazole 100 mls @ 100 mls/hr 02/27/17 08:45 03/05/17 08:53 Flagyl 500mg Premixed Ivpb - IVPB 100 mls/hr Q12H WES Administration Fentanyl 500 mcg/ Dextrose 100 mls @ 5 mls/hr 02/27/17 08:45 03/05/17 09:05 IJ Not Given TITR WES 25 MCG/HR Cefepime HCl 2 gm/ Dextrose 100 mls @ 200 mls/hr 02/28/17 18:00 03/05/17 05:57 IVPB 200 mls/hr Q12H WES Administration Vancomycin HCl 1,250 mg/ 250 mls @ 166.667 mls/hr 03/01/17 15:00 03/04/17 17:25 Dextrose IVPB Not Given DAILY@1500 WES Protocol Propofol 100 mls @ 2.495 mls/hr 03/02/17 14:15 03/05/17 12:58 Diprivan - IVPB 9.981 mls/hr TITR WES Administration Protocol 5 MCG/KG/MIN Insulin Aspart 1 vial 02/26/17 22:00 03/05/17 08:00 Novolog Vial Sliding Scale - SQ 4 units ACHS WES Administration Protocol Levetiracetam 1,000 mg 02/26/17 22:00 03/05/17 09:05 Keppra Injection - IVPB 1,000 mg BID WES Administration Polyethylene Glycol 17 gm 03/04/17 22:00 03/05/17 09:06 Miralax (For Daily Use) - NGT 17 gm BID WES Administration CXR: no interval change AXR: haziness with paucity of bowel gas Renal US: no hydronephrosis. small b/l cortical cysts ASSESSMENT/PLAN: 66F with hx of Afib, DM, HTN, HLD, COPD, and CAD who presented with focal neurological deficits, found to have a large left-sided ischemic MCA stroke, became hypotensive preventing transfer out of hospital, required pressors and intubation, underwent hemorrhagic transformation, s/p craniectomy post-op day # 7. # Large Left Sided CVA - Likely from acute embolus in setting of subtherapeutic INR, s/p hemorrhagic transformation, s/p craniectomy - continue Keppra for seizure prophylaxis, continue propofol drip for intubation, wean as tolerated -per card, A/C once cleared by neuro -currently holding heparin and ASA -neuro checks, pain control with fentanyl gtt -repeat CT head (03/01): no interval change # Shock - likely cardiogenic - echo showed severely reduced EF, general hypokinesis, and no pericardial effusion - dobutamine restarted. Levophed increased, titrate to MAP > 65 - continue dexamethasone 4 IV q12h -diuresis held pending recs -cardiology on board #Troponinemia- demand ischemia from cardiogenic shock per cards, currently might be 2/2 DEBRA -troponins: 1.13 --> 0.77 --> 0.98 --> 0.89 --> 1.07 -->1.02 --> 1.08 -ASA, heparin held -continue trending troponins, cardio on board #Respiratory Failure- due to stroke -intubated on ventilator -wean as tolerated -pt undergoing tracheostomy this afternoon #DEBRA- prerenal 2/2 shock -pressors increased -creatinine and BUN slowly rising, continue to trend #Constipation -continue miralax 17g BID. per GI, will change to qd once having normal bowel movements. #hyperphosphatemia: 2/2 DEBRA -phosphate of 6.4 -continue to monitor -tx per nephrology recs #Transaminitis- due to hypoperfusion 2/2 shock -continue pressors -trending down, AST 59, ALT 107; continue trending LFTs #Leukocytosis- possibly due to infection with unclear etiology vs. steroid- induced -wbc: 16 --> 11.3 --> 9 --> 8 -->10.5 -->13 -blood cultures, resp cultures, and urine cultures all negative, final result -continue to trend wbc -continue cefepime, flagyl, and vancomycin #fever- likely central -blood cultures, resp cultures, and urine cultures negative, final result -Tmax of 102.4 overnight, continue to trend temps -continue cefepime, flagyl, and vancomycin, APAP PRN #tachycardia- etiology includes pain vs. fever vs. a-fib vs. medication-induced -HR between 100-110 -continue to monitor # Hx of DM2 - BGM Q2 -ISS # FEN - Fluids: w/ pressors - Electrolytes: monitor K - Nutrition: tube feeds for now via NG tube. Per GI, pt to get peg tube placed closer to d/c. # Prophylaxis - DVT: SCDs - GI: IV pronotix - Deconditioning: PT on hold for now #Dispo -meaningful recovery is unlikely -full code as per family meeting on 03/01 -per family meeting on 03/04, pt to receive peg tube and tracheostomy with ultimate transfer [facility] ------ Johan Khanna MD- PGY1 Visit type - Emergency Visit Emergency Visit: Yes ED Registration Date: 02/25/17 Care time: The patient presented to the Emergency Department on the above date and was hospitalized for further evaluation of their emergent condition. - New Patient This patient is new to me today: No - Critical Care Critical Care patient: Yes Total Critical Care Time (in minutes): 35 Critical Care Statement: The care of this patient involved high complexity decision making to prevent further life threatening deterioration of the patient 's condition and/or to evaluate & treat vital organ system(s) failure or risk of failure.
--- NOTE | 2017-03-05 13:46 | PN ---
Teaching Attending Note Name of Resident: Hernesto Holcomb ATTENDING PHYSICIAN STATEMENT I saw and evaluated the patient. I reviewed the resident's note and discussed the case with the resident. I agree with the resident's findings and plan as documented. SUBJECTIVE: Patient seen and examined in the ICU. Remains intubated on propofol drip. Increasing NE and Dobutamine requirements. Increasing Troponin. AC Mode of vent, 40% FiO2. Remains febrile -> suspicion of being central in nature. CXR : Mild vascular congestion. OBJECTIVE: Gen: intubated, sedated HEENT: unequal pupils Heart: tachycardic, regular Lung: scattered rhonchi Abd: softly distended Ext: + edema Laboratory Results - last 24 hr 03/04/17 03/04/17 03/04/17 12:13 17:19 18:30 WBC RBC Hgb Hct MCV MCH MCHC RDW Plt Count MPV Neutrophils % Lymphocytes % Monocytes % Eosinophils % Basophils % Sodium Potassium Chloride Carbon Dioxide Anion Gap BUN Creatinine Creat Clearance w eGFR POC Glucometer 244.30643 233.19724 Random Glucose Calcium Phosphorus Magnesium Total Bilirubin AST ALT Alkaline Phosphatase Troponin I Total Protein Albumin Ur Random Sodium Ur Random Potassium Ur Random Chloride Urine Creatinine 54.9 Random Vancomycin 03/04/17 03/04/17 03/05/17 18:30 20:51 05:15 WBC 13.3 H RBC 4.52 Hgb 13.7 Hct 43.1 MCV 95.3 MCH 30.3 MCHC 31.8 L RDW 18.6 H Plt Count 166 MPV 10.0 Neutrophils % 87.6 H Lymphocytes % 3.6 L Monocytes % 8.5 Eosinophils % 0.1 D Basophils % 0.2 Sodium Potassium Chloride Carbon Dioxide Anion Gap BUN Creatinine Creat Clearance w eGFR POC Glucometer [phone] Random Glucose Calcium Phosphorus Magnesium Total Bilirubin AST ALT Alkaline Phosphatase Troponin I Total Protein Albumin Ur Random Sodium 7 Ur Random Potassium 29.7 Ur Random Chloride < 10 Urine Creatinine Random Vancomycin 03/05/17 03/05/17 05:15 10:19 WBC RBC Hgb Hct MCV MCH MCHC RDW Plt Count MPV Neutrophils % Lymphocytes % Monocytes % Eosinophils % Basophils % Sodium 140 Potassium 5.1 Chloride 107 Carbon Dioxide 19 L Anion Gap 14 BUN 118 H* Creatinine 2.4 H Creat Clearance w eGFR 27.14 POC Glucometer Random Glucose 235 H Calcium 7.6 L Phosphorus 6.4 H Magnesium 3.0 H Total Bilirubin 2.4 H AST 59 H ALT 107 H D Alkaline Phosphatase 87 Troponin I 1.08 H* Total Protein 5.9 L Albumin 2.0 L Ur Random Sodium Ur Random Potassium Ur Random Chloride Urine Creatinine Random Vancomycin 15.963 ASSESSMENT AND PLAN: Acute L CVA with severe cerebral edema and herniation s/p Emergent Decompressive Hemicraniotomy Acute Respiratory Failure Shock - r/o Septic vs Neurogenic vs Cardiogenic Acute on Chronic Systolic Heart Failure CAD s/p CABG +Troponins likely demand ischemia Atrial Fibrillation h/o bioMVR Acute Kidney Injury DM Fevers - ?Central - on empiric antibiotics per ID - taper decadron, continue antiepileptics - taper FiO2, PEEP to keep SpO2 >90% - titrate pressors to maintain MAP >65 - daily sedation vacations to assess mental status - monitor urine output, creatinine - enteral feeds - Grave overall prognosis for meaningful recovery - Will need to discuss holding Trach with the family as his shock / hemodynamics has worsened acutely. - Should have ongoing discussions regarding GOC Dr Barragan Critical care time spent in reviewing chart, evaluating patient and formulating plan 35 min
--- NOTE | 2017-03-05 14:03 | PN ---
Progress Note, Physician History of Present Illness: Remains unresponsive on ventilator, febrile, afib with PVCs and RVR after resumption of dobutamine gtt. - Current Medication List Current Medications: Active Medications Acetaminophen (Ofirmev Injection -) 1,000 mg IVPB Q6H PRN PRN Reason: FEVER OR PAIN Stop: 03/06/17 03:31 Last Admin: 03/05/17 10:35 Dose: 1,000 mg Albuterol/Ipratropium (Duoneb -) 1 amp NEB Q6H PRN PRN Reason: SHORTNESS OF BREATH Chlorhexidine Gluconate (Hibiclens For Decolonization -) 1 applic TP HS WES Last Admin: 03/04/17 23:31 Dose: 1 applic Chlorhexidine Gluconate (Peridex -) 15 ml MM BID [facility] Last Admin: 03/05/17 09:06 Dose: 15 ml Dexamethasone Sodium Phosphate (Decadron Injection -) 4 mg IVPB Q12H [facility] Last Admin: 03/05/17 08:55 Dose: 4 mg IV Flush (Triple Lumen Flush) 4 ml IVPUSH PRN PRN PRN Reason: Protocol Last Admin: 03/05/17 05:57 Dose: 4 ml Dobutamine HCl/Dextrose (Dobutamine 250 Mg/D5w -) 250 mls @ 12.192 mls/hr IV TITR [facility]ES; 2.5 MCG/KG/MIN PRN Reason: Protocol Last Titration: 03/04/17 21:42 Dose: 0 mcg/kg/min Norepinephrine Bitartrate 8, (000 mcg/ Dextrose) 504 mls @ 18.9 mls/hr IV TITR WES; 5 MCG/MIN PRN Reason: Protocol Last Admin: 03/05/17 05:56 Dose: 18.9 mls/hr Pantoprazole Sodium (Protonix 40mg Ivpb (Pre-Docked)) 100 mls @ 200 mls/hr IVPB DAILY [facility] Last Admin: 03/05/17 09:05 Dose: 200 mls/hr Metronidazole (Flagyl 500mg Premixed Ivpb -) 100 mls @ 100 mls/hr IVPB Q12H [facility] Last Admin: 03/05/17 08:53 Dose: 100 mls/hr Fentanyl 500 mcg/ Dextrose 100 mls @ 5 mls/hr IJ TITR WES PRN Reason: 25 MCG/HR Last Admin: 03/05/17 09:05 Dose: Not Given Cefepime HCl 2 gm/ Dextrose 100 mls @ 200 mls/hr IVPB Q12H [facility] Last Admin: 03/05/17 05:57 Dose: 200 mls/hr Vancomycin HCl 1,250 mg/ (Dextrose) 250 mls @ 166.667 mls/hr IVPB DAILY@1500 WES PRN Reason: Protocol Last Admin: 03/04/17 17:25 Dose: Not Given Propofol (Diprivan -) 100 mls @ 2.495 mls/hr IVPB TITR WES; 5 MCG/KG/MIN PRN Reason: Protocol Last Admin: 03/05/17 12:58 Dose: 9.981 mls/hr Insulin Aspart (Novolog Vial Sliding Scale -) 1 vial SQ ACHS WES PRN Reason: Protocol Last Admin: 03/05/17 08:00 Dose: 4 units Levetiracetam (Keppra Injection -) 1,000 mg IVPB BID [facility] Last Admin: 03/05/17 09:05 Dose: 1,000 mg Polyethylene Glycol (Miralax (For Daily Use) -) 17 gm NGT BID [facility] Last Admin: 03/05/17 09:06 Dose: 17 gm - Objective Vital Signs: Vital Signs Temperature 103.4 F H 03/05/17 13:51 Pulse Rate 116 H 03/05/17 13:51 Respiratory Rate 20 03/05/17 13:51 Blood Pressure 77/65 03/05/17 13:51 O2 Sat by Pulse Oximetry (%) 93 L 03/05/17 09:07 Cardiovascular: Yes: Tachycardia, Pulse Irregular Respiratory: Yes: Intubated, Mechanically Ventilated Gastrointestinal: Yes: Normal Bowel Sounds, Soft Edema: Yes Edema: LLE: Trace, RLE: Trace Labs: CBC, BMP 03/05/17 05:15 03/05/17 05:15 INR, PTT INR 1.44 (0.82-1.09) H 03/03/17 05:30 - ....Imaging Chest X-ray: Report Reviewed (Mild congestion and possible pleural effusion) Problem List - Problems (1) A-fib Code(s): I48.91 - UNSPECIFIED ATRIAL FIBRILLATION (2) CAD (coronary artery disease) Code(s): I25.10 - ATHSCL HEART DISEASE OF [place] CORONARY ARTERY W/O ANG PCTRS Qualifiers: Qualified Code(s): I25.10 - Atherosclerotic heart disease of [place] coronary artery without angina pectoris (3) CVA (cerebral vascular accident) Code(s): I63.9 - CEREBRAL INFARCTION, UNSPECIFIED Qualifiers: Qualified Code(s): I63.512 - Cerebral infarction due to unspecified occlusion or stenosis of left middle cerebral artery (4) Diabetes Code(s): E11.9 - TYPE 2 DIABETES MELLITUS WITHOUT COMPLICATIONS (5) Hx of CABG Code(s): Z95.1 - PRESENCE OF AORTOCORONARY BYPASS GRAFT (6) Respiratory failure Code(s): J96.90 - RESPIRATORY FAILURE, UNSP, UNSP W HYPOXIA OR HYPERCAPNIA Qualifiers: Qualified Code(s): J96.00 - Acute respiratory failure, unspecified whether with hypoxia or hypercapnia (7) S/P MVR (mitral valve replacement) Code(s): Z95.2 - PRESENCE OF PROSTHETIC HEART VALVE (8) Demand ischemia Code(s): I24.8 - OTHER FORMS OF ACUTE ISCHEMIC HEART DISEASE (9) Acute kidney injury Code(s): N17.9 - ACUTE KIDNEY FAILURE, UNSPECIFIED (10) Status post craniotomy Code(s): Z98.890 - OTHER SPECIFIED POSTPROCEDURAL STATES (11) Ischemic cardiomyopathy Code(s): I25.5 - ISCHEMIC CARDIOMYOPATHY (12) ICD (implantable cardioverter-defibrillator) in place Code(s): Z95.810 - PRESENCE OF AUTOMATIC (IMPLANTABLE) CARDIAC DEFIBRILLATOR Assessment/Plan 1. 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 Respiratory failure/intubated 3. Coronary artery disease post CABG angina pectoris with evidence of demand ischemic injury 4. Systolic LV dysfunction with chronic class I-II NYHA classification congestive heart failure 5. Post ICD implant (single lead [place]) for primary prophylaxis 6. Permanent atrial fibrillation currently off of A/C with RVR 7. Post MVR - Bio-prosthesis 8. Acute on chronic kidney injury 9. DM 10. Central fevers PLAN: 1. Wean off dobutamine gtt, titrate Levophed gtt to maintain MAP > 65 2. A/C resumption once cleared by neurosurgery 3. Resume B-Blockers once off pressors 4. Recommend Entresto initiation once renal function and hemodynamics stabilized 5. As outlined avoid Digoxin at this point considering the above noted acute renal insufficiency 6. May need to utilize diuretics (IV Lasix) as needed 7. Monitor renal function and urine output closely 8. Empiric abx per C&S, IV steroids taper with GI protection, seizure prophylaxis 9. Neuro checks off sedation, vent management per ABG, enteral feeds 10. Poor prognosis for meaningful neuro recovery awaiting decision on goals of care
[2017-03-05] MEDS ORDERED: PHENYLEPHRINE HCL 10,000 MCG in DEXTROSE 5%-WATER - 499 ML IV SCH (14:30)
--- NOTE | 2017-03-05 15:10 | PN ---
Progress Note, Physician History of Present Illness: Pt seen and examined at bedside. He remains in the ICU. He remain intubated. - Current Medication List Current Medications: Active Medications Acetaminophen (Ofirmev Injection -) 1,000 mg IVPB Q6H PRN PRN Reason: FEVER OR PAIN Stop: 03/06/17 03:31 Last Admin: 03/05/17 10:35 Dose: 1,000 mg Albuterol/Ipratropium (Duoneb -) 1 amp NEB Q6H PRN PRN Reason: SHORTNESS OF BREATH Chlorhexidine Gluconate (Hibiclens For Decolonization -) 1 applic TP HS WES Last Admin: 03/04/17 23:31 Dose: 1 applic Chlorhexidine Gluconate (Peridex -) 15 ml MM BID [facility] Last Admin: 03/05/17 09:06 Dose: 15 ml Dexamethasone Sodium Phosphate (Decadron Injection -) 4 mg IVPB Q12H [facility] Last Admin: 03/05/17 08:55 Dose: 4 mg IV Flush (Triple Lumen Flush) 4 ml IVPUSH PRN PRN PRN Reason: Protocol Last Admin: 03/05/17 05:57 Dose: 4 ml Norepinephrine Bitartrate 8, (000 mcg/ Dextrose) 504 mls @ 18.9 mls/hr IV TITR WES; 5 MCG/MIN PRN Reason: Protocol Last Admin: 03/05/17 05:56 Dose: 18.9 mls/hr Pantoprazole Sodium (Protonix 40mg Ivpb (Pre-Docked)) 100 mls @ 200 mls/hr IVPB DAILY [facility] Last Admin: 03/05/17 09:05 Dose: 200 mls/hr Metronidazole (Flagyl 500mg Premixed Ivpb -) 100 mls @ 100 mls/hr IVPB Q12H [facility] Last Admin: 03/05/17 08:53 Dose: 100 mls/hr Fentanyl 500 mcg/ Dextrose 100 mls @ 5 mls/hr IJ TITR [facility]ES PRN Reason: 25 MCG/HR Last Admin: 03/05/17 09:05 Dose: Not Given Cefepime HCl 2 gm/ Dextrose 100 mls @ 200 mls/hr IVPB Q12H [facility] Last Admin: 03/05/17 05:57 Dose: 200 mls/hr Vancomycin HCl 1,250 mg/ (Dextrose) 250 mls @ 166.667 mls/hr IVPB DAILY@1500 [facility] PRN Reason: Protocol Last Admin: 03/04/17 17:25 Dose: Not Given Propofol (Diprivan -) 100 mls @ 2.495 mls/hr IVPB TITR WES; 5 MCG/KG/MIN PRN Reason: Protocol Last Admin: 03/05/17 12:58 Dose: 9.981 mls/hr Phenylephrine HCl 10,000 mcg/ (Dextrose) 500 mls @ 300 mls/hr IV TITR WES; 100 MCG/MIN PRN Reason: Protocol Insulin Aspart (Novolog Vial Sliding Scale -) 1 vial SQ ACHS WES PRN Reason: Protocol Last Admin: 03/05/17 08:00 Dose: 4 units Levetiracetam (Keppra Injection -) 1,000 mg IVPB BID [facility] Last Admin: 03/05/17 09:05 Dose: 1,000 mg Polyethylene Glycol (Miralax (For Daily Use) -) 17 gm NGT BID [facility] Last Admin: 03/05/17 09:06 Dose: 17 gm - Objective Vital Signs: Vital Signs Temperature 103.4 F H 03/05/17 13:51 Pulse Rate 116 H 03/05/17 13:51 Respiratory Rate 20 03/05/17 13:51 Blood Pressure 77/65 03/05/17 13:51 O2 Sat by Pulse Oximetry (%) 93 L 03/05/17 09:07 Constitutional: Yes: Calm Neck: Yes: Supple Cardiovascular: Yes: S1, S2 Respiratory: Yes: Mechanically Ventilated Gastrointestinal: Yes: Soft Genitourinary: Yes: Rangel Present Musculoskeletal: Yes: Muscle Weakness Edema: Yes Edema: LUE: 1+, RUE: 1+, LLE: 1+, RLE: 1+ Neurological: Yes: Lethargy Labs: CBC, BMP 03/05/17 05:15 03/05/17 05:15 INR, PTT INR 1.44 (0.82-1.09) H 03/03/17 05:30 - ....Imaging Chest X-ray: Report Reviewed Problem List - Problems (1) A-fib Code(s): I48.91 - UNSPECIFIED ATRIAL FIBRILLATION (2) Acute kidney injury Code(s): N17.9 - ACUTE KIDNEY FAILURE, UNSPECIFIED (3) CAD (coronary artery disease) Code(s): I25.10 - ATHSCL HEART DISEASE OF [place] CORONARY ARTERY W/O ANG PCTRS Qualifiers: Qualified Code(s): I25.10 - Atherosclerotic heart disease of [place] coronary artery without angina pectoris (4) CHF (congestive heart failure) Code(s): I50.9 - HEART FAILURE, UNSPECIFIED (5) CVA (cerebral vascular accident) Code(s): I63.9 - CEREBRAL INFARCTION, UNSPECIFIED Qualifiers: Qualified Code(s): I63.512 - Cerebral infarction due to unspecified occlusion or stenosis of left middle cerebral artery (6) Status post craniotomy Code(s): Z98.890 - OTHER SPECIFIED POSTPROCEDURAL STATES Assessment/Plan Current Medications Generic Name Dose Route Start Last Admin Trade Name Freq PRN Reason Stop Dose Admin Acetaminophen 1,000 mg 03/05/17 09:30 03/05/17 10:35 Ofirmev Injection - IVPB 03/06/17 03:31 1,000 mg Q6H PRN Administration FEVER OR PAIN Albuterol/Ipratropium 1 amp 03/03/17 14:00 Duoneb - NEB Q6H PRN SHORTNESS OF BREATH Chlorhexidine Gluconate 1 applic 02/26/17 22:00 03/04/17 23:31 Hibiclens For Decolonization - TP 1 applic HS WES Administration Chlorhexidine Gluconate 15 ml 03/04/17 10:00 03/05/17 09:06 Peridex - MM 15 ml BID [facility] Administration Dexamethasone Sodium Phosphate 4 mg 03/04/17 20:00 03/05/17 08:55 Decadron Injection - IVPB 4 mg Q12H [facility]ES Administration IV Flush 4 ml 02/26/17 21:23 03/05/17 05:57 Triple Lumen Flush IVPUSH 4 ml PRN PRN Administration Protocol Norepinephrine Bitartrate 8, 504 mls @ 18.9 mls/hr 02/26/17 21:23 03/05/17 05: 56 000 mcg/ Dextrose IV 18.9 mls/hr TITR WES Administration Protocol 5 MCG/MIN Pantoprazole Sodium 100 mls @ 200 mls/hr 02/27/17 10:00 03/05/17 09:05 Protonix 40mg Ivpb (Pre-Docked) IVPB 200 mls/hr DAILY [facility] Administration Metronidazole 100 mls @ 100 mls/hr 02/27/17 08:45 03/05/17 08:53 Flagyl 500mg Premixed Ivpb - IVPB 100 mls/hr Q12H [facility] Administration Fentanyl 500 mcg/ Dextrose 100 mls @ 5 mls/hr 02/27/17 08:45 03/05/17 09:05 IJ Not Given TITR WES 25 MCG/HR Cefepime HCl 2 gm/ Dextrose 100 mls @ 200 mls/hr 02/28/17 18:00 03/05/17 05:57 IVPB 200 mls/hr Q12H [facility]ES Administration Vancomycin HCl 1,250 mg/ 250 mls @ 166.667 mls/hr 03/01/17 15:00 03/04/17 17:25 Dextrose IVPB Not Given DAILY@1500 WES Protocol Propofol 100 mls @ 2.495 mls/hr 03/02/17 14:15 03/05/17 12:58 Diprivan - IVPB 9.981 mls/hr TITR WES Administration Protocol 5 MCG/KG/MIN Phenylephrine HCl 10,000 mcg/ 500 mls @ 300 mls/hr 03/05/17 14:30 Dextrose IV TITR WES Protocol 100 MCG/MIN Insulin Aspart 1 vial 02/26/17 22:00 03/05/17 08:00 Novolog Vial Sliding Scale - SQ 4 units ACHS WES Administration Protocol Levetiracetam 1,000 mg 02/26/17 22:00 03/05/17 09:05 Keppra Injection - IVPB 1,000 mg BID WES Administration Polyethylene Glycol 17 gm 03/04/17 22:00 03/05/17 09:06 Miralax (For Daily Use) - NGT 17 gm BID [facility]ES Administration Selected Entries 03/05/17 03/05/17 03/05/17 06:00 08:00 10:00 Blood Pressure 76/55 73/63 76/61 03/05/17 03/05/17 12:00 13:51 Blood Pressure 75/65 77/65 Impression 1. DEBRA 2. Hx CKD 3. S/P CVA 4. s/p craniectomy 5. CHF 6. resp failure 7. hypotension Plan - renal function worsening - likely atn from hypotension is in part a cause - renal dose meds - vent support - repeat ua - may need to use diuretics if his bp permits - discussed with family - discussed with ICU team - steroids can contribute to elevated BUN - monitor hg - check vanco level - maintain MAP of 65 for renal perfusion
[2017-03-05] MEDS: PHENYLEPHRINE HCL 20,000 MCG in SODIUM CHLORIDE 248 ML IVPB SCH (15:55)
--- NOTE | 2017-03-05 16:23 | PN ---
Teaching Attending Note Name of Resident: Johan Khanna ATTENDING PHYSICIAN STATEMENT I saw and evaluated the patient. I reviewed the resident's note and discussed the case with the resident. I agree with the resident's findings and plan as documented. SUBJECTIVE: Patient is intubated in ICU, with added Dubutamine to his Levophed drip. at bed side. OBJECTIVE: Vital Signs Temperature 103.4 F H 03/05/17 14:00 Pulse Rate 116 H 03/05/17 14:00 Respiratory Rate 20 03/05/17 15:40 Blood Pressure 77/65 03/05/17 14:00 O2 Sat by Pulse Oximetry (%) 93 L 03/05/17 09:07 CBCD WBC 13.3 K/mm3 (4.0-10.0) H 03/05/17 05:15 RBC 4.52 M/mm3 (4.00-5.60) 03/05/17 05:15 Hgb 13.7 GM/dL (11.7-16.9) 03/05/17 05:15 Hct 43.1 % (35.4-49) 03/05/17 05:15 MCV 95.3 fl (80-96) 03/05/17 05:15 MCHC 31.8 g/dl (32.0-35.9) L 03/05/17 05:15 RDW 18.6 % (11.9-15.9) H 03/05/17 05:15 Plt Count 166 K/MM3 (134-434) 03/05/17 05:15 MPV 10.0 fl (7.5-11.1) 03/05/17 05:15 CMP Sodium 140 mmol/L (136-145) 03/05/17 05:15 Potassium 5.1 mmol/L (3.5-5.1) 03/05/17 05:15 Chloride 107 mmol/L (98-107) 03/05/17 05:15 Carbon Dioxide 19 mmol/L (21-32) L 03/05/17 05:15 Anion Gap 14 (8-16) 03/05/17 05:15 BUN 118 mg/dL (7-18) H* 03/05/17 05:15 Creatinine 2.4 mg/dL (0.7-1.3) H 03/05/17 05:15 Creat Clearance w eGFR 27.14 (>60) 03/05/17 05:15 Random Glucose 235 mg/dL (74-106) H 03/05/17 05:15 Calcium 7.6 mg/dL (8.5-10.1) L 03/05/17 05:15 Total Bilirubin 2.4 mg/dL (0.2-1.0) H 03/05/17 05:15 AST 59 U/L (15-37) H 03/05/17 05:15 ALT 107 U/L (12-78) H D 03/05/17 05:15 Alkaline Phosphatase 87 U/L (45-117) 03/05/17 05:15 Total Protein 5.9 g/dl (6.4-8.2) L 03/05/17 05:15 Albumin 2.0 g/dl (3.4-5.0) L 03/05/17 05:15 CARDIAC ENZYMES Creatine Kinase 68 IU/L (39-308) 03/01/17 15:30 Troponin I 1.08 ng/ml (0.00-0.05) H* 03/05/17 05:15 Current Medications Generic Name Dose Route Start Last Admin Trade Name Freq PRN Reason Stop Dose Admin Albuterol/Ipratropium 1 amp 03/03/17 14:00 Duoneb - NEB Q6H PRN SHORTNESS OF BREATH Chlorhexidine Gluconate 1 applic 02/26/17 22:00 03/04/17 23:31 Hibiclens For Decolonization - TP 1 applic HS WES Administration Chlorhexidine Gluconate 15 ml 03/04/17 10:00 03/05/17 09:06 Peridex - MM 15 ml BID WES Administration Dexamethasone Sodium Phosphate 4 mg 03/04/17 20:00 03/05/17 08:55 Decadron Injection - IVPB 4 mg Q12H WES Administration IV Flush 4 ml 02/26/17 21:23 03/05/17 05:57 Triple Lumen Flush IVPUSH 4 ml PRN PRN Administration Protocol Norepinephrine Bitartrate 8, 504 mls @ 18.9 mls/hr 02/26/17 21:23 03/05/17 05: 56 000 mcg/ Dextrose IV 18.9 mls/hr TITR WES Administration Protocol 5 MCG/MIN Pantoprazole Sodium 100 mls @ 200 mls/hr 02/27/17 10:00 03/05/17 09:05 Protonix 40mg Ivpb (Pre-Docked) IVPB 200 mls/hr DAILY WES Administration Metronidazole 100 mls @ 100 mls/hr 02/27/17 08:45 03/05/17 08:53 Flagyl 500mg Premixed Ivpb - IVPB 100 mls/hr Q12H [facility] Administration Fentanyl 500 mcg/ Dextrose 100 mls @ 5 mls/hr 02/27/17 08:45 03/05/17 09:05 IJ Not Given TITR WES 25 MCG/HR Cefepime HCl 2 gm/ Dextrose 100 mls @ 200 mls/hr 02/28/17 18:00 03/05/17 05:57 IVPB 200 mls/hr Q12H [facility] Administration Vancomycin HCl 1,250 mg/ 250 mls @ 166.667 mls/hr 03/01/17 15:00 03/04/17 17:25 Dextrose IVPB Not Given DAILY@1500 WES Protocol Propofol 100 mls @ 2.495 mls/hr 03/02/17 14:15 03/05/17 12:58 Diprivan - IVPB 9.981 mls/hr TITR WES Administration Protocol 5 MCG/KG/MIN Phenylephrine HCl 10,000 mcg/ 500 mls @ 300 mls/hr 03/05/17 14:30 Dextrose IV TITR WES Protocol 100 MCG/MIN Insulin Aspart 1 vial 02/26/17 22:00 03/05/17 08:00 Novolog Vial Sliding Scale - SQ 4 units ACHS WES Administration Protocol Levetiracetam 1,000 mg 02/26/17 22:00 03/05/17 09:05 Keppra Injection - IVPB 1,000 mg BID [facility]ES Administration Polyethylene Glycol 17 gm 03/04/17 22:00 03/05/17 09:06 Miralax (For Daily Use) - NGT 17 gm BID WES Administration CT of the head: reviewed PE: Eyes: Left eye dilated and the right eye pinpoint Intubated sedated. no response to sternal rub CV: irreg irreg Lungs: no crackles heard anteriorly , intubated, breathing over the machine EXt: pitting edema nereida. Upper extremities 4 plus Neuro :left eye dilated and fixed , not reactive to light . R pupil with pinpoint pupil , has no corneal reflexes and positive for gag/cough reflexes ASSESSMENT AND PLAN: Patient is a 66 y/o unfortunate man with h/o Afib, HTN, DM2 ,chronic systolic CHF, who was brought due to MS and was found to have stroke and shock # Acute Large L sided CVA with hemorrhagic conversion and herniation s/p craniotomy 02/26.not on AC due to having a large bleed. As per family meeting , the family would like to proceed with Peg tube and Tracheostomy, GI consult appreciated. Trach. possible wednesday since patient is not stable at this time, His BP dropped further and increased the rate of levophed as per ICU team. Was started on Dobutamine but patient developed RVR and PVcs, and was discontinued. #Acute Respiratory Failure- due to stroke s/p intubation and sedation on the vent. wean as tolerated pt's family agreeable to tracheostomy long-term. and PEg tube placement. # Acute cardiogenic Shock echo showed severely reduced EF, general hypokinesis, and no pericardial effusion s/p dobutamine now, continue weaning Levophed, titrate to MAP > 65, continue dexamethasone 4 IV q8h, cardiology on board # Fever: due to central due to head bleed, ID on the case # Shock: likely cardiogentic shock cont dobutamine and levophed . # Acute systolic L and R heart failure. off dobutamine now , Lasix prn, resume as per cardio B-Blockers once off pressors , and recommended Entresto initiation once renal function and hemodynamics stabilized #Troponinemia- demand ischemia from cardiogenic shock per cards, troponins: 1.13 --> 0.77 --> 0.98 --> 0.89 --> 1.07 -->1.02 ASA, heparin held due to large bleed, continue trending troponins, cardio on board # DEBRA; likely ATN. Cr stable #Acute Transaminitis : due to shock. DVT px: SCds can't anticoagulate due to bleed
[2017-03-05] MEDS ORDERED: PHENYLEPHRINE HCL 10 MG/1 ML SINGLE DOSE VIAL ONE ×2 (16:25→20:12)
[2017-03-05] MEDS ORDERED: PHENYLEPHRINE HCL 20,000 MCG in SODIUM CHLORIDE 248 ML IVPB SCH (16:30)
--- NOTE | 2017-03-05 16:46 | PN ---
Physical Exam: SUBJECTIVE: Patient seen and examined by me this AM - Pt hypotensive this AM w/ MAPs in high 50s. Restarted on dobutamine, increase levo. Noted to be tachycardic after w/ occasional PVCs. Decreased dobutamine from 2.5 -> 1.5 mcg/min, increased levo to 20 mcg/min. MAPs corrected to 70s, w / continue tachycardia to 130s. Plan for phenylephrine gtt if MAPs <60 - Spoke w/ Dr. Gamez regarding appropriate pressor support. Recommends again dobutamine gtt given likely neurogenic shock vs. cardiogenic shock and new tachycardia/ectopy. However, likely combination of cardiogenic and neurogenic, given low pulse pressure and hx of significant systolic dysfunction in pt. - Vanc held given random level 15.9 - Trach placement delayed until Wednesday, given low MAPs. Dr. Narvaez informed, agrees. Family aware and agrees. OBJECTIVE: Vital Signs Period Temp Pulse Resp BP Sys/Leon Pulse Ox Last 24 Hr 101.4 F-103.4 F 104-128 18-29 73-90/55-77 91-93 GENERAL: The patient is sedated, intubated, lying in bed. HEAD: L craniotomy with dressing clean, dry and intact noted on L posterior aspect of cranium. EYES: R pupil small, non-reactive. L pupil dilated, minimally reactive. Sclera anicteric. Mild palpebral swelling, erythema. ENT: Mild labial swelling, oropharynx clear, nasopharynx clear. NECK: Trachea midline, intubated. LUNGS: Mechanical breath sounds noted bilaterally. R subclavian line in place, no significant erythema, bleeding or drainage. Scattered rhonchi BL. HEART: Tachycardic, irregular rhythm, S1, S2 without murmur, rub or gallop. ABDOMEN: Distended, soft, hypoactive bowel sounds. No masses or hepatomegaly. EXTREMITIES: 1+ pulses in LEs, cool LE w/ mottling, 2+ edema in all extremities. NEUROLOGICAL: Corneal reflex absent. Gag/swallow reflexes preserved. Doll's eye negative. No babinski reflex bilaterally. Laboratory Results - last 24 hr CBCD WBC 13.3 K/mm3 (4.0-10.0) H 03/05/17 05:15 RBC 4.52 M/mm3 (4.00-5.60) 03/05/17 05:15 Hgb 13.7 GM/dL (11.7-16.9) 03/05/17 05:15 Hct 43.1 % (35.4-49) 03/05/17 05:15 MCV 95.3 fl (80-96) 03/05/17 05:15 MCHC 31.8 g/dl (32.0-35.9) L 03/05/17 05:15 RDW 18.6 % (11.9-15.9) H 03/05/17 05:15 Plt Count 166 K/MM3 (134-434) 03/05/17 05:15 MPV 10.0 fl (7.5-11.1) 03/05/17 05:15 CMP Sodium 140 mmol/L (136-145) 03/05/17 05:15 Potassium 5.1 mmol/L (3.5-5.1) 03/05/17 05:15 Chloride 107 mmol/L (98-107) 03/05/17 05:15 Carbon Dioxide 19 mmol/L (21-32) L 03/05/17 05:15 Anion Gap 14 (8-16) 03/05/17 05:15 BUN 118 mg/dL (7-18) H* 03/05/17 05:15 Creatinine 2.4 mg/dL (0.7-1.3) H 03/05/17 05:15 Creat Clearance w eGFR 27.14 (>60) 03/05/17 05:15 Calcium 7.6 mg/dL (8.5-10.1) L 03/05/17 05:15 Total Bilirubin 2.4 mg/dL (0.2-1.0) H 03/05/17 05:15 AST 59 U/L (15-37) H 03/05/17 05:15 ALT 107 U/L (12-78) H D 03/05/17 05:15 Alkaline Phosphatase 87 U/L (45-117) 03/05/17 05:15 Total Protein 5.9 g/dl (6.4-8.2) L 03/05/17 05:15 Albumin 2.0 g/dl (3.4-5.0) L 03/05/17 05:15 03/04/17 03/04/17 03/04/17 12:13 17:19 18:30 WBC RBC Hgb Hct MCV MCH MCHC RDW Plt Count MPV Neutrophils % Lymphocytes % Monocytes % Eosinophils % Basophils % Sodium Potassium Chloride Carbon Dioxide Anion Gap BUN Creatinine Creat Clearance w eGFR POC Glucometer [phone] Random Glucose Calcium Phosphorus Magnesium Total Bilirubin AST ALT Alkaline Phosphatase Troponin I Total Protein Albumin Ur Random Sodium Ur Random Potassium Ur Random Chloride Urine Creatinine 54.9 Random Vancomycin 03/04/17 03/04/17 03/05/17 18:30 20:51 05:15 WBC 13.3 H RBC 4.52 Hgb 13.7 Hct 43.1 MCV 95.3 MCH 30.3 MCHC 31.8 L RDW 18.6 H Plt Count 166 MPV 10.0 Neutrophils % 87.6 H Lymphocytes % 3.6 L Monocytes % 8.5 Eosinophils % 0.1 D Basophils % 0.2 Sodium Potassium Chloride Carbon Dioxide Anion Gap BUN Creatinine Creat Clearance w eGFR POC Glucometer [phone] Random Glucose Calcium Phosphorus Magnesium Total Bilirubin AST ALT Alkaline Phosphatase Troponin I Total Protein Albumin Ur Random Sodium 7 Ur Random Potassium 29.7 Ur Random Chloride < 10 Urine Creatinine Random Vancomycin 03/05/17 03/05/17 05:15 10:19 WBC RBC Hgb Hct MCV MCH MCHC RDW Plt Count MPV Neutrophils % Lymphocytes % Monocytes % Eosinophils % Basophils % Sodium 140 Potassium 5.1 Chloride 107 Carbon Dioxide 19 L Anion Gap 14 BUN 118 H* Creatinine 2.4 H Creat Clearance w eGFR 27.14 POC Glucometer Random Glucose 235 H Calcium 7.6 L Phosphorus 6.4 H Magnesium 3.0 H Total Bilirubin 2.4 H AST 59 H ALT 107 H D Alkaline Phosphatase 87 Troponin I 1.08 H* Total Protein 5.9 L Albumin 2.0 L Ur Random Sodium Ur Random Potassium Ur Random Chloride Urine Creatinine Random Vancomycin 15.963 Active Medications Generic Name Dose Route Start Last Admin Trade Name Freq PRN Reason Stop Dose Admin Albuterol/Ipratropium 1 amp 03/03/17 14:00 Duoneb - NEB Q6H PRN SHORTNESS OF BREATH Chlorhexidine Gluconate 1 applic 02/26/17 22:00 03/04/17 23:31 Hibiclens For Decolonization - TP 1 applic HS WES Administration Chlorhexidine Gluconate 15 ml 03/04/17 10:00 03/05/17 09:06 Peridex - MM 15 ml BID WES Administration Dexamethasone Sodium Phosphate 4 mg 03/04/17 20:00 03/05/17 08:55 Decadron Injection - IVPB 4 mg Q12H WES Administration IV Flush 4 ml 02/26/17 21:23 03/05/17 05:57 Triple Lumen Flush IVPUSH 4 ml PRN PRN Administration Protocol Norepinephrine Bitartrate 8, 504 mls @ 18.9 mls/hr 02/26/17 21:23 03/05/17 05: 56 000 mcg/ Dextrose IV 18.9 mls/hr TITR WES Administration Protocol 5 MCG/MIN Pantoprazole Sodium 100 mls @ 200 mls/hr 02/27/17 10:00 03/05/17 09:05 Protonix 40mg Ivpb (Pre-Docked) IVPB 200 mls/hr DAILY WES Administration Metronidazole 100 mls @ 100 mls/hr 02/27/17 08:45 03/05/17 08:53 Flagyl 500mg Premixed Ivpb - IVPB 100 mls/hr Q12H WES Administration Fentanyl 500 mcg/ Dextrose 100 mls @ 5 mls/hr 02/27/17 08:45 03/05/17 09:05 IJ Not Given TITR WES 25 MCG/HR Cefepime HCl 2 gm/ Dextrose 100 mls @ 200 mls/hr 02/28/17 18:00 03/05/17 05:57 IVPB 200 mls/hr Q12H WES Administration Vancomycin HCl 1,250 mg/ 250 mls @ 166.667 mls/hr 03/01/17 15:00 03/04/17 17:25 Dextrose IVPB Not Given DAILY@1500 WES Protocol Propofol 100 mls @ 2.495 mls/hr 03/02/17 14:15 03/05/17 12:58 Diprivan - IVPB 9.981 mls/hr TITR WES Administration Protocol 5 MCG/KG/MIN Phenylephrine HCl 10,000 mcg/ 500 mls @ 300 mls/hr 03/05/17 14:30 Dextrose IV TITR WES Protocol 100 MCG/MIN Insulin Aspart 1 vial 02/26/17 22:00 03/05/17 08:00 Novolog Vial Sliding Scale - SQ 4 units ACHS WES Administration Protocol Levetiracetam 1,000 mg 02/26/17 22:00 03/05/17 09:05 Keppra Injection - IVPB 1,000 mg BID WES Administration Polyethylene Glycol 17 gm 03/04/17 22:00 03/05/17 09:06 Miralax (For Daily Use) - NGT 17 gm BID WES Administration 03/05/17 03/05/17 05:15 05:15 WBC 13.3 H RBC 4.52 Hgb 13.7 Hct 43.1 MCV 95.3 MCHC 31.8 L RDW 18.6 H Plt Count 166 Neutrophils % 87.6 H Lymphocytes % 3.6 L Monocytes % 8.5 Eosinophils % 0.1 D Basophils % 0.2 Sodium 140 Potassium 5.1 Chloride 107 Carbon Dioxide 19 L Anion Gap 14 BUN 118 H* Creatinine 2.4 H Micro 02/27/17 09:50 Blood Culture - Final Blood - Peripheral Venous NO GROWTH AFTER 5 DAYS INCUBATION 02/27/17 09:50 Blood Culture - Final Blood - Peripheral Venous NO GROWTH AFTER 5 DAYS INCUBATION 02/26/17 11:50 Blood Culture - Final Blood - Peripheral Venous NO GROWTH AFTER 5 DAYS INCUBATION 02/26/17 02:18 Blood Culture - Final Blood - Peripheral Venous NO GROWTH AFTER 5 DAYS INCUBATION 02/27/17 09:00 Gram Stain - Final Sputum - Endotrachea Suction/Ventilator Sputum Culture - Final NORMAL RESPIRATORY MOHIT 02/26/17 02:20 Gram Stain - Final Sputum - Endotrachea Suction/Ventilator Sputum Culture - Final NORMAL RESPIRATORY MOHIT 02/25/17 21:01 Urine Culture - Final Urine - Urine Rangel NO GROWTH OBTAINED Recent imaging: Renal U/S (03/04) - No hydronephrosis is seen. Several small bilateral cortical cyst are noted. The kidneys otherwise appear unremarkable. There is partial imaging of a small amount of perihepatic free intraperitoneal fluid. CXR (03/05) - Since a prior study of 03/03/2017, an endotracheal tube remains in place with distal tip above the hamlet. A right-sided triple-lumen catheter and a left-sided ICD are also reidentified. The heart size is enlarged. There is the suggestion of a mild degree of residual congestion and possibly pleural fluid. KUB (03/04) - There is haziness throughout the abdomen with a paucity of bowel gas. The possibility of ascites cannot be excluded. The patient is S/P lumbosacral fusion. CXR (03/03) - No significant interval change. Increased diffuse opacity in R lung hawkins. No pneumo or consolidations. Cardiomegaly. Non-con CT head (03/01) - No significant interval change. Large L hemispheric stroke in AYAAN and MCA territories with significant rightward midline shift. ASSESSMENT/PLAN: 66 yo man w/ pmh of CAD, a-fib and DM who presented w/ large L-sided ischemic stroke w/ concomitant DEBRA, ARF and cardiogenic shock, now s/p craniotomy for significant, residual vasogenic edema and suspected sub-falcine herniation. Patient hypotensive this AM w/ MAP in 50s, restarted on dobutamine gtt w/ subsequent tachycardia to 130s w/ intermittent PVCs. Dobutamine gtt stopped per cardiology recs w/ plan for phenylephrine if MAPs <60. Trach placement delayed until wednesday given low MAPs, family and thoracic surgery aware, agree with plan. No significant improvement in MS, now w/ persistent neurogenic fever and downtrending hypotension likely due to combination of neurogenic shock w/ underlying systolic dysfunction. Family continues to elect for full code status. BUN/Cr continues to increase this AM (118/24), possibly due to ischemic ATN 2/2 to aggressive pressor taper along w/ steroids. Pt w/ very poor prognosis and virtually no chance of meaningful recovery of brain function w/ worsening clinical status requiring increase in pressure support and multisystem organ dysfunction. ID, cardiology and renal following. Plan for trach, PEG once stable and d/c to NH. #Neuro Continue sedation vacations to assess mental status Serial neuro exams qshift Keppra for seizure PPX f/u imaging per neurosurg recs Taper Decadron to 4mg IV Q12H #Cardiac Plan per cardiology: 1. Wean off dobutamine gtt, titrate Levophed gtt to maintain MAP > 65 2. A/C resumption once cleared by neurosurgery 3. Resume B-Blockers once off pressors 4. Recommend Entresto initiation once renal function and hemodynamics stabilized 5. As outlined avoid Digoxin at this point considering the above noted acute renal insufficiency 6. May need to utilize diuretics (IV Lasix) as needed 7. Monitor renal function and urine output closely 8. Empiric abx per C&S, IV steroids taper with GI protection, seizure prophylaxis 9. Neuro checks off sedation, vent management per ABG, enteral feeds 10. Poor prognosis for meaningful neuro recovery awaiting decision on goals of care #Pulm AC mode for vent. Intubated. Settings 16/400/50%/5 Continue to taper FiO2, PEEP as tolerated to >90% saturation Trach placement delayed unti Wednesday given low MAPs #ID Per ID team, continue cefepime (day 6)/flagyl (day 7). Vanc dosed renally (day 5 ) Daily random vanc levels given possible DEBRA. Renal dosing all cultures negative. Continue to trend temp, WBC count #Renal Likely ischemic DEBRA in setting of pressor wean. BUN/Cr continue uptrending to 118/2.4 from 112/2.2. Possible increase in BUN due to steroids. Bolused 250ml NS today F/u urine lytes, Creatinine Renal U/S unremarkable Monitor I's & O's, trend BMPs. Monitor for hyperK (5.1 this AM) Repeat UA Consider diuretics if BP permits per renal #Heme Continue to hold AC until neurology clearance Trend H/H #Endo Glucose control w/ range of 100-180 ISS #GI GI consulted for PEG placement. Will place on discharge Protonix for PPX Continue holding tube feeds per nutrition given worsening clinical status, abdominal distension/residuals ~500 yesterday Disimpacted by GI yesterday KUB w/ paucity of bowel gas (poor study) #FEN Fluids: Hold fluids Electrolytes: Daily BMPs, trend BUN, Cr. Nutrition: Hold NG tube feeds today PPX: SCDs for DVT PPX PPI for GI PPX Dispo: Will require continued ICU monitoring, with likely d/c to NH for long- term care once clinically stable. Hernesto Holcomb, PGY1 Plan discussed w/ attending, Dr. flores Visit type - Emergency Visit Emergency Visit: No - New Patient This patient is new to me today: No - Critical Care Critical Care patient: Yes Total Critical Care Time (in minutes): 45 Critical Care Statement: The care of this patient involved high complexity decision making to prevent further life threatening deterioration of the patient 's condition and/or to evaluate & treat vital organ system(s) failure or risk of failure.
--- NOTE | 2017-03-05 17:06 | PN ---
Progress Note, Physician History of Present Illness: events noted back on pressors no significant changes continues to be critical wbc has starteed to increase cr increasing - Current Medication List Current Medications: Active Medications Albuterol/Ipratropium (Duoneb -) 1 amp NEB Q6H PRN PRN Reason: SHORTNESS OF BREATH Chlorhexidine Gluconate (Hibiclens For Decolonization -) 1 applic TP HS [facility] Last Admin: 03/04/17 23:31 Dose: 1 applic Chlorhexidine Gluconate (Peridex -) 15 ml MM BID WES Last Admin: 03/05/17 09:06 Dose: 15 ml Dexamethasone Sodium Phosphate (Decadron Injection -) 4 mg IVPB Q12H [facility] Last Admin: 03/05/17 08:55 Dose: 4 mg IV Flush (Triple Lumen Flush) 4 ml IVPUSH PRN PRN PRN Reason: Protocol Last Admin: 03/05/17 05:57 Dose: 4 ml Norepinephrine Bitartrate 8, (000 mcg/ Dextrose) 504 mls @ 18.9 mls/hr IV TITR WES; 5 MCG/MIN PRN Reason: Protocol Last Admin: 03/05/17 05:56 Dose: 18.9 mls/hr Pantoprazole Sodium (Protonix 40mg Ivpb (Pre-Docked)) 100 mls @ 200 mls/hr IVPB DAILY [facility] Last Admin: 03/05/17 09:05 Dose: 200 mls/hr Metronidazole (Flagyl 500mg Premixed Ivpb -) 100 mls @ 100 mls/hr IVPB Q12H [facility] Last Admin: 03/05/17 08:53 Dose: 100 mls/hr Fentanyl 500 mcg/ Dextrose 100 mls @ 5 mls/hr IJ TITR WES PRN Reason: 25 MCG/HR Last Admin: 03/05/17 09:05 Dose: Not Given Cefepime HCl 2 gm/ Dextrose 100 mls @ 200 mls/hr IVPB Q12H [facility] Last Admin: 03/05/17 05:57 Dose: 200 mls/hr Vancomycin HCl 1,250 mg/ (Dextrose) 250 mls @ 166.667 mls/hr IVPB DAILY@1500 WES PRN Reason: Protocol Last Admin: 03/04/17 17:25 Dose: Not Given Propofol (Diprivan -) 100 mls @ 2.495 mls/hr IVPB TITR WES; 5 MCG/KG/MIN PRN Reason: Protocol Last Admin: 03/05/17 12:58 Dose: 9.981 mls/hr Phenylephrine HCl 20,000 mcg/ (Sodium Chloride) 250 mls @ 75 mls/hr IVPB TITR WES; 100 MCG/MIN PRN Reason: Protocol Insulin Aspart (Novolog Vial Sliding Scale -) 1 vial SQ ACHS WES PRN Reason: Protocol Last Admin: 03/05/17 08:00 Dose: 4 units Levetiracetam (Keppra Injection -) 1,000 mg IVPB BID WES Last Admin: 03/05/17 09:05 Dose: 1,000 mg Polyethylene Glycol (Miralax (For Daily Use) -) 17 gm NGT BID [facility] Last Admin: 03/05/17 09:06 Dose: 17 gm - Objective Vital Signs: Vital Signs Temperature 103.4 F H 03/05/17 14:00 Pulse Rate 116 H 03/05/17 14:00 Respiratory Rate 20 03/05/17 15:40 Blood Pressure 77/65 03/05/17 14:00 O2 Sat by Pulse Oximetry (%) 93 L 03/05/17 09:07 Constitutional: Yes: Other Eyes: Yes: Other ( R pupil small, non-reactive. L pupil dilated, minimally reactive. Sclera anicteric. Mild palpebral swelling, erythema.) Cardiovascular: Yes: S1, S2 Respiratory: Yes: Intubated, Mechanically Ventilated Gastrointestinal: Yes: Other Genitourinary: Yes: Rangel Present Neurological: Yes: Other Labs: CBC, BMP 03/05/17 05:15 03/05/17 05:15 INR, PTT INR 1.44 (0.82-1.09) H 03/03/17 05:30 Assessment/Plan Problem List - Problems (1) CVA (cerebral vascular accident) Code(s): I63.9 - CEREBRAL INFARCTION, UNSPECIFIED Qualifiers: CVA mechanism: occlusion Precerebral and cerebral artery: middle cerebral artery Laterality of affected vessel: left Qualified Code(s): I63.512 - Cerebral infarction due to unspecified occlusion or stenosis of left middle cerebral artery (2) Respiratory failure Code(s): J96.90 - RESPIRATORY FAILURE, UNSP, UNSP W HYPOXIA OR HYPERCAPNIA (3) Shock circulatory Code(s): R57.9 - SHOCK, UNSPECIFIED (4) A-fib Code(s): I48.91 - UNSPECIFIED ATRIAL FIBRILLATION (5) CAD (coronary artery disease) Code(s): I25.10 - ATHSCL HEART DISEASE OF [place] CORONARY ARTERY W/O ANG PCTRS (6) Diabetes Code(s): E11.9 - TYPE 2 DIABETES MELLITUS WITHOUT COMPLICATIONS plan vanco to dose renally check levels daily and adjust continue cefipime final plan awaited icu care prognosis poor nutrition cc 40 min
[2017-03-05] MEDS: VANCOMYCIN 1,250 MG in DEXTROSE 5%-WATER - 250 ML IVPB SCH (17:51)
[2017-03-05] MEDS ORDERED: PROPOFOL 20 ML ONE (20:01)
[2017-03-05] MEDS: CHLORHEXIDINE GLUCONATE 4% CLEANSER FOR DECOLONIZATION TP SCH (21:35)
[2017-03-05] MEDS ORDERED: PROPOFOL 100 ML ONE (22:07)
[2017-03-06] MEDS ORDERED: NOREPINEPHRINE BITARTRATE 4 MG/4 ML ML IV ONE ×2 (01:52→06:14)
[2017-03-06] MEDS: ACETAMINOPHEN 1000 MG/100 ML VIAL (NON FORMULARY) IVPB PRN (02:00)
[2017-03-06 06:09] LABS: MCH 30.1 pg (25.7-33.7); MCHC 30.7 g/dl (32.0-35.9); MEAN CELL VOLUME 98.3 fl (80-96); MEAN PLT VOLUME 10.9 fl (7.5-11.1); PLATELET COUNT 168 K/MM3 (134-434); RDW 19.4 % (11.9-15.9); WHITE BLOOD COUNT 15.6 K/mm3 (4.0-10.0)
[2017-03-06] MEDS ORDERED: PROPOFOL 100 ML ONE (06:14)
[2017-03-06] MEDS ORDERED: PT OWN MED DRAWER 7, Y5N ONE (06:15)
[2017-03-06] MEDS ORDERED: PHENYLEPHRINE HCL 10 MG/1 ML SINGLE DOSE VIAL ONE ×2 (06:15→09:55)
[2017-03-06 06:28] LABS: ALBUMIN 1.9 g/dl (3.4-5.0); ANION GAP 18 (8-16); BILIRUBIN,TOTAL 4.3 mg/dL (0.2-1.0); CALCIUM 7.4 mg/dL (8.5-10.1); CO2 15 mmol/L (21-32); CREATININE 3.4 mg/dL (0.7-1.3); SGPT/ALT 123 U/L (12-78); TOT PROT 6.3 g/dl (6.4-8.2)
[2017-03-06 06:29] LABS: ALK PHOS 84 U/L (45-117)
[2017-03-06 06:52] LABS: GLUCOSE,RANDOM 370 mg/dL (74-106); MAGNESIUM 3.1 mg/dL (1.8-2.4); SGOT/AST 158 U/L (15-37)
[2017-03-06 07:03] LABS: PHOSPHOROUS 9.6 mg/dL (2.5-4.9)
[2017-03-06] MEDS: INSULIN SLIDING SCALE (NOVOLOG) 1 VIAL SQ SCH (07:19)
[2017-03-06] MEDS: CEFEPIME 2 GM in DEXTROSE 5%-WATER - 100 ML IVPB SCH (07:19)
[2017-03-06] MEDS: METRONIDAZOLE 500 MG PREMIXED 100 ML IVPB SCH (09:00)
--- NOTE | 2017-03-06 09:23 | PN ---
Progress Note (short form) - Note Progress Note: Patient seen and examined in the ICU. Family at the bedside. The patient's , 2 daughters, and some in Full update given. Refractory shock on supramaximal pressors. Agonal breathing and mottled. Intake & Output 03/03/17 03/04/17 03/05/17 03/06/17 23:59 23:59 23:59 23:59 Intake Total 4080.4 2945 1816 3762 Output Total 1700 2550 950 800 Balance 2380.4 635 742 6799 Weight 185 lb 5 oz 190 lb 12.8 oz 201 lb 12.8 oz Last Vital Signs Temp Pulse Resp BP Pulse Ox 104.5 F H 112 H 20 55/21 94 L 03/06/17 06:00 03/06/17 08:51 03/06/17 08:51 03/06/17 08:51 03/06/17 08:30 Active Medications Albuterol/Ipratropium (Duoneb -) 1 amp NEB Q6H PRN PRN Reason: SHORTNESS OF BREATH Chlorhexidine Gluconate (Hibiclens For Decolonization -) 1 applic TP HS [facility] Last Admin: 03/05/17 21:35 Dose: 1 applic Chlorhexidine Gluconate (Peridex -) 15 ml MM BID WES Last Admin: 03/05/17 21:36 Dose: 15 ml Dexamethasone Sodium Phosphate (Decadron Injection -) 4 mg IVPB Q12H [facility]ES Last Admin: 03/05/17 21:34 Dose: 4 mg IV Flush (Triple Lumen Flush) 4 ml IVPUSH PRN PRN PRN Reason: Protocol Last Admin: 03/05/17 05:57 Dose: 4 ml Norepinephrine Bitartrate 8, (000 mcg/ Dextrose) 504 mls @ 18.9 mls/hr IV TITR WES; 5 MCG/MIN PRN Reason: Protocol Last Admin: 03/05/17 21:35 Dose: 113.4 mls/hr Pantoprazole Sodium (Protonix 40mg Ivpb (Pre-Docked)) 100 mls @ 200 mls/hr IVPB DAILY [facility] Last Admin: 03/05/17 09:05 Dose: 200 mls/hr Cefepime HCl 2 gm/ Dextrose 100 mls @ 200 mls/hr IVPB Q12H [facility] Last Admin: 03/06/17 07:19 Dose: 200 mls/hr Vancomycin HCl 1,250 mg/ (Dextrose) 250 mls @ 166.667 mls/hr IVPB DAILY@1500 WES PRN Reason: Protocol Last Admin: 03/05/17 17:51 Dose: Not Given Propofol (Diprivan -) 100 mls @ 2.495 mls/hr IVPB TITR WES; 5 MCG/KG/MIN PRN Reason: Protocol Last Admin: 03/05/17 21:33 Dose: Not Given Phenylephrine HCl 20,000 mcg/ (Sodium Chloride) 250 mls @ 75 mls/hr IVPB TITR WES; 100 MCG/MIN PRN Reason: Protocol Last Titration: 03/05/17 21:40 Dose: 60 mcg/min Insulin Aspart (Novolog Vial Sliding Scale -) 1 vial SQ ACHS WES PRN Reason: Protocol Last Admin: 03/06/17 07:19 Dose: 10 units Levetiracetam (Keppra Injection -) 1,000 mg IVPB BID [facility]ES Last Admin: 03/05/17 21:35 Dose: 1,000 mg Polyethylene Glycol (Miralax (For Daily Use) -) 17 gm NGT BID WES Last Admin: 03/05/17 21:36 Dose: 17 gm Gen: Diffuse mottling HEENT: unequal pupils Heart: tachycardic, regular Lung: scattered rhonchi Abd: distended Ext: + edema Laboratory Results - last 24 hr 03/05/17 03/05/17 03/05/17 10:19 12:51 21:46 WBC RBC Hgb Hct MCV MCH MCHC RDW Plt Count MPV Sodium Potassium Chloride Carbon Dioxide Anion Gap BUN Creatinine Creat Clearance w eGFR POC Glucometer 225.51051 214.13156 Random Glucose Calcium Phosphorus Magnesium Total Bilirubin AST ALT Alkaline Phosphatase Total Protein Albumin Random Vancomycin 15.963 03/06/17 03/06/17 05:45 05:45 WBC 15.6 H RBC 4.94 Hgb 14.9 Hct 48.6 MCV 98.3 H MCH 30.1 MCHC 30.7 L RDW 19.4 H Plt Count 168 MPV 10.9 Sodium 128 L Potassium 6.6 H* D Chloride 95 L D Carbon Dioxide 15 L D Anion Gap 18 H BUN 138 H* Creatinine 3.4 H D Creat Clearance w eGFR 18.16 POC Glucometer Random Glucose 370 H* D Calcium 7.4 L Phosphorus 9.6 H* D Magnesium 3.1 H Total Bilirubin 4.3 H D AST 158 H D ALT 123 H Alkaline Phosphatase 84 Total Protein 6.3 L Albumin 1.9 L Random Vancomycin ASSESSMENT AND PLAN: Acute L CVA with severe cerebral edema and herniation s/p Emergent Decompressive Hemicraniotomy Acute Respiratory Failure Shock - r/o Septic vs Neurogenic vs Cardiogenic Acute on Chronic Systolic Heart Failure CAD s/p CABG +Troponins likely demand ischemia Atrial Fibrillation h/o bioMVR Acute Kidney Injury DM Fevers - ?Central Long discussion with the family. They understand his grave prognosis. They and family are willing to make him DNR/DNI but the at this point is too emotional to sign the documentation. I will enter a DNR/DNI order as they have requested. There is NO medical benefit to CPR in this setting. Dr Barragan
[2017-03-06] MEDS: levETIRAcetam 500 MG/5 ML INJECTION VIAL IVPB SCH (10:15)
[2017-03-06] MEDS: POLYETHYLENE GLYCOL 3350 119 GM BTL NGT SCH (10:16)
[2017-03-06] MEDS: DEXAMETHASONE SOD PHOSPHATE 4 MG/1 ML VIAL IVPB SCH (10:16)
[2017-03-06] MEDS: CHLORHEXIDINE GLUCONATE 0.12% 15ML CUP MM SCH (10:16)
[2017-03-06] MEDS: PANTOPRAZOLE SODIUM 100 ML IVPB SCH (10:18)
[2017-03-06] MEDS: PHENYLEPHRINE HCL 20,000 MCG in SODIUM CHLORIDE 248 ML IVPB SCH (10:20)
--- NOTE | 2017-03-06 11:34 | PN ---
Progress Note (short form) - Note Progress Note: Family at bedside, patient continue to deteriorate, needing more pressers. Added Neosynepheine with titration. Continues to be hypotensive. Vital Signs Temperature 104.5 F H 03/06/17 06:00 Pulse Rate 111 H 03/06/17 10:20 Respiratory Rate 22 03/06/17 09:49 Blood Pressure 44/22 03/06/17 10:20 O2 Sat by Pulse Oximetry (%) 94 L 03/06/17 08:30 GENERAL: The patient is sedated on ventilator, unresponsive to verbal, physical , and noxious stimuli HEAD: 2 adhesive bandages overlying craniotomy incision, no signs of infection EYES: L pupil is dilated without reactivity to light. R pupil is still miotic with minimal reactivity to light. ENT: ventilator in mouth NECK: +JVD LUNGS: anterior lung hawkins are CTAB, no wheezing, rales, or rhonchi HEART: irregularly irregular without murmur, rub or gallop. ABDOMEN: Soft, nontender, nondistended, normoactive bowel sounds, no guarding, no rebound, no hepatosplenomegaly, no masses. +abdominal thrill EXTREMITIES: extremities are mildly cold. 1+ pitting edema b/l. NEUROLOGICAL: no doll's eyes reflex, no corneal reflex, no pupillary light reflex, gag reflex still intact CBCD WBC 15.6 K/mm3 (4.0-10.0) H 03/06/17 05:45 RBC 4.94 M/mm3 (4.00-5.60) 03/06/17 05:45 Hgb 14.9 GM/dL (11.7-16.9) 03/06/17 05:45 Hct 48.6 % (35.4-49) 03/06/17 05:45 MCV 98.3 fl (80-96) H 03/06/17 05:45 MCHC 30.7 g/dl (32.0-35.9) L 03/06/17 05:45 RDW 19.4 % (11.9-15.9) H 03/06/17 05:45 Plt Count 168 K/MM3 (134-434) 03/06/17 05:45 MPV 10.9 fl (7.5-11.1) 03/06/17 05:45 CMP Sodium 128 mmol/L (136-145) L 03/06/17 05:45 Potassium 6.6 mmol/L (3.5-5.1) H* D 03/06/17 05:45 Chloride 95 mmol/L (98-107) L D 03/06/17 05:45 Carbon Dioxide 15 mmol/L (21-32) L D 03/06/17 05:45 Anion Gap 18 (8-16) H 03/06/17 05:45 BUN 138 mg/dL (7-18) H* 03/06/17 05:45 Creatinine 3.4 mg/dL (0.7-1.3) H D 03/06/17 05:45 Creat Clearance w eGFR 18.16 (>60) 03/06/17 05:45 Random Glucose 370 mg/dL (74-106) H* D 03/06/17 05:45 Calcium 7.4 mg/dL (8.5-10.1) L 03/06/17 05:45 Total Bilirubin 4.3 mg/dL (0.2-1.0) H D 03/06/17 05:45 AST 158 U/L (15-37) H D 03/06/17 05:45 ALT 123 U/L (12-78) H 03/06/17 05:45 Alkaline Phosphatase 84 U/L (45-117) 03/06/17 05:45 Total Protein 6.3 g/dl (6.4-8.2) L 03/06/17 05:45 Albumin 1.9 g/dl (3.4-5.0) L 03/06/17 05:45 CARDIAC ENZYMES Creatine Kinase 68 IU/L (39-308) 03/01/17 15:30 Troponin I 1.08 ng/ml (0.00-0.05) H* 03/05/17 05:15 Current Medications Generic Name Dose Route Start Last Admin Trade Name Freq PRN Reason Stop Dose Admin Albuterol/Ipratropium 1 amp 03/03/17 14:00 Duoneb - NEB Q6H PRN SHORTNESS OF BREATH Chlorhexidine Gluconate 1 applic 02/26/17 22:00 03/05/17 21:35 Hibiclens For Decolonization - TP 1 applic HS WES Administration Chlorhexidine Gluconate 15 ml 03/04/17 10:00 03/06/17 10:16 Peridex - MM 15 ml BID WES Administration Dexamethasone Sodium Phosphate 4 mg 03/04/17 20:00 03/06/17 10:16 Decadron Injection - IVPB 4 mg Q12H WES Administration IV Flush 4 ml 02/26/17 21:23 03/05/17 05:57 Triple Lumen Flush IVPUSH 4 ml PRN PRN Administration Protocol Norepinephrine Bitartrate 8, 504 mls @ 18.9 mls/hr 02/26/17 21:23 03/05/17 21: 35 000 mcg/ Dextrose IV 113.4 mls/hr TITR WES Administration Protocol 5 MCG/MIN Pantoprazole Sodium 100 mls @ 200 mls/hr 02/27/17 10:00 03/06/17 10:18 Protonix 40mg Ivpb (Pre-Docked) IVPB 200 mls/hr DAILY WES Administration Cefepime HCl 2 gm/ Dextrose 100 mls @ 200 mls/hr 02/28/17 18:00 03/06/17 07:19 IVPB 200 mls/hr Q12H WES Administration Vancomycin HCl 1,250 mg/ 250 mls @ 166.667 mls/hr 03/01/17 15:00 03/05/17 17:51 Dextrose IVPB Not Given DAILY@1500 WES Protocol Propofol 100 mls @ 2.495 mls/hr 03/02/17 14:15 03/05/17 21:33 Diprivan - IVPB Not Given TITR WES Protocol 5 MCG/KG/MIN Phenylephrine HCl 20,000 mcg/ 250 mls @ 75 mls/hr 03/05/17 16:32 03/06/17 10:20 Sodium Chloride IVPB 45 mls/hr TITR WES Administration Protocol 100 MCG/MIN Insulin Aspart 1 vial 02/26/17 22:00 03/06/17 07:19 Novolog Vial Sliding Scale - SQ 10 units ACHS WES Administration Protocol Levetiracetam 1,000 mg 02/26/17 22:00 03/06/17 10:15 Keppra Injection - IVPB 1,000 mg BID WES Administration Polyethylene Glycol 17 gm 03/04/17 22:00 03/06/17 10:16 Miralax (For Daily Use) - NGT Not Given BID [facility] Home Medications Medication Instructions Recorded Allopurinol [Zyloprim -] 100 mg PO DAILY #30 tablet 02/26/17 Aspirin [Aspirin EC] 81 mg PO DAILY #30 tablet. 02/26/17 Bumetanide [Bumex -] 2 mg PO BID #30 tablet 02/26/17 Carvedilol [Coreg -] 12.5 mg PO BID #14 tablet 02/26/17 Digoxin [Lanoxin -] 0.25 mg PO DAILY #30 tablet 02/26/17 Febuxostat [Uloric -] 40 mg PO DAILY #30 tab 02/26/17 Oxycodone HCl/Acetaminophen 1 tab PO Q6H PRN #20 tablet MDD 8 02/26/17 [Percocet 5-325 mg Tablet] tablets Prednisone [Deltasone -] 5 mg PO DAILY #30 tablet 02/26/17 Sertraline HCl [Zoloft -] 25 mg PO DAILY #30 tablet 02/26/17 Warfarin Na [Coumadin -] 5 mg PO DAILY@1800 #30 tablet 02/26/17 CT of the head: reviewed ASSESSMENT AND PLAN: Patient is a 66 y/o unfortunate man with h/o Afib, HTN, DM2 ,chronic systolic CHF, who was brought due to MS and was found to have stroke and shock #Acute Hyperkalemia , will give Kayexalate 30gm by NG tube, sodium bicarb x 1 dose, and calcium gluconate x 1 amp. discussed with . # Severe shock: Neurogenic vs cardiogenic/septic; s/p emergent decompressive hemicraniotomy echo showed severely reduced EF, general hypokinesis, and no pericardial effusion. On Levophed, and added Neosynephrine today ;titrate to MAP > 65, continue dexamethasone 4 IV q8h, cardiology on board # Acute Large L sided CVA with hemorrhagic conversion and herniation s/p craniotomy 02/26, not on AC due to having a large bleed. #Acute Respiratory Failure- due to stroke s/p intubation and sedation on the vent. pt's family agreeable to tracheostomy long-term. and PEg tube placement when patient gets stable. # Fever most likely centrally; head bleed, ID on the case # Acute systolic L and R heart failure. off dobutamine now , Lasix prn, resume as per cardio B-Blockers once off pressors , and recommended Entresto initiation once renal function and hemodynamics stabilized #Troponinemia- demand ischemia from cardiogenic shock per cards, troponins: 1.13 --> 0.77 --> 0.98 --> 0.89 --> 1.07 -->1.02 ASA, heparin held due to large bleed, continue trending troponins, cardio on board # DEBRA; likely ATN. Cr stable #Acute Transaminitis : due to shock. DVT px: SCds can't anticoagulate due to bleed Discussed with the patient's , she understands that the patient is not doing well , and has very poor prognosis. And she understands that the patient is dying. Critical carre time of 35minutes Visit type - Emergency Visit Emergency Visit: Yes ED Registration Date: 02/25/17 Care time: The patient presented to the Emergency Department on the above date and was hospitalized for further evaluation of their emergent condition. - New Patient This patient is new to me today: No - Critical Care Critical Care patient: Yes Total Critical Care Time (in minutes): 35 Critical Care Statement: The care of this patient involved high complexity decision making to prevent further life threatening deterioration of the patient 's condition and/or to evaluate & treat vital organ system(s) failure or risk of failure. - Discharge Referral Referred to [facility] Med P.C.: No
[2017-03-06] MEDS ORDERED: SODIUM POLYSTYRENE SULFONATE 15 GM/60 ML BOTTLE PO ONE (11:41)
[2017-03-06] MEDS ORDERED: SODIUM BICARBONATE 8.4% 50 MEQ/50 ML DISP.SYRIN IVPUSH ONE (11:42)
[2017-03-06 11:43] VITALS: PULSE 104
--- NOTE | 2017-03-06 11:53 | PN ---
Progress Note (short form) - Note Progress Note: covering dr valdes pt in icu refractory shock keerthi worsening s/p cva/s/p craniotomy comatose on vent Active Medications Albuterol/Ipratropium (Duoneb -) 1 amp NEB Q6H PRN PRN Reason: SHORTNESS OF BREATH Calcium Gluconate (Calcium Gluconate 10% -) 1,000 mg IVPB ONCE ONE Stop: 03/06/17 12:01 Chlorhexidine Gluconate (Hibiclens For Decolonization -) 1 applic TP HS WES Last Admin: 03/05/17 21:35 Dose: 1 applic Chlorhexidine Gluconate (Peridex -) 15 ml MM BID WES Last Admin: 03/06/17 10:16 Dose: 15 ml Dexamethasone Sodium Phosphate (Decadron Injection -) 4 mg IVPB Q12H WES Last Admin: 03/06/17 10:16 Dose: 4 mg IV Flush (Triple Lumen Flush) 4 ml IVPUSH PRN PRN PRN Reason: Protocol Last Admin: 03/05/17 05:57 Dose: 4 ml Norepinephrine Bitartrate 8, (000 mcg/ Dextrose) 504 mls @ 18.9 mls/hr IV TITR WES; 5 MCG/MIN PRN Reason: Protocol Last Admin: 03/05/17 21:35 Dose: 113.4 mls/hr Pantoprazole Sodium (Protonix 40mg Ivpb (Pre-Docked)) 100 mls @ 200 mls/hr IVPB DAILY [facility] Last Admin: 03/06/17 10:18 Dose: 200 mls/hr Cefepime HCl 2 gm/ Dextrose 100 mls @ 200 mls/hr IVPB Q12H WES Last Admin: 03/06/17 07:19 Dose: 200 mls/hr Vancomycin HCl 1,250 mg/ (Dextrose) 250 mls @ 166.667 mls/hr IVPB DAILY@1500 WES PRN Reason: Protocol Last Admin: 03/05/17 17:51 Dose: Not Given Propofol (Diprivan -) 100 mls @ 2.495 mls/hr IVPB TITR WES; 5 MCG/KG/MIN PRN Reason: Protocol Last Admin: 03/05/17 21:33 Dose: Not Given Phenylephrine HCl 20,000 mcg/ (Sodium Chloride) 250 mls @ 75 mls/hr IVPB TITR WES; 100 MCG/MIN PRN Reason: Protocol Last Admin: 03/06/17 10:20 Dose: 45 mls/hr Insulin Aspart (Novolog Vial Sliding Scale -) 1 vial SQ ACHS WES PRN Reason: Protocol Last Admin: 03/06/17 07:19 Dose: 10 units Levetiracetam (Keppra Injection -) 1,000 mg IVPB BID WES Last Admin: 03/06/17 10:15 Dose: 1,000 mg Polyethylene Glycol (Miralax (For Daily Use) -) 17 gm NGT BID WES Last Admin: 03/06/17 10:16 Dose: Not Given Last Vital Signs Temp Pulse Resp BP Pulse Ox 104.5 F H 104 H 21 44/22 92 L 03/06/17 06:00 03/06/17 11:11 03/06/17 11:11 03/06/17 10:20 03/06/17 11:11 densely comatose on vent lungs vented sounds heart tachy abd no guarding ext cyanosid edema CBC, BMP 03/06/17 05:45 03/06/17 05:45 Hyperkalemia Metabolic acidosis worse kidney failure decreasing urine output prognosis is grave discussed with dr levy Plan- medical treatment of hyperkalemia insulin and bicarb and kayexalate via ngt consider no more lab tests
[2017-03-06] MEDS ORDERED: CALCIUM GLUCONATE 10% - 1,000 MG/10 ML VIAL IVPB ONE (12:00)
--- NOTE | 2017-03-06 12:49 | HOSP ---
Subjective - Review of Symptoms Events since last encounter: Called by the nurse that the patient is in Asystole. Pupils are not reactive, No audible heart sounds, no spontaneous breathing. Family at bedside. patient was pronounced at 12:44pm. Physical Examination Vital Signs: Vital Signs Temperature 104.5 F H 03/06/17 06:00 Pulse Rate 104 H 03/06/17 11:11 Respiratory Rate 21 03/06/17 11:11 Blood Pressure 44/22 03/06/17 10:20 O2 Sat by Pulse Oximetry (%) 92 L 03/06/17 11:11 Labs: CBC, BMP 03/06/17 05:45 03/06/17 05:45
[2017-03-06 14:12] VITALS: BP 44/30; TEMP 98.8
--- NOTE | 2017-03-08 15:55 | DS ---
Physical Exam: HOSPITAL COURSE: Date of Admission:02/25/17 66F with hx of Afib, DM, HTN, HLD, COPD, and CAD who presented with focal neurological deficits, found to have a large left-sided ischemic MCA stroke in the setting of a sub-therapeutic INR. He became hypotensive (likely 2/2 cardiogenic shock) preventing transfer out of hospital, required pressors and intubation. As a result of the shock, pt developed multi-organ failure including DEBRA, elevated LFTs, and troponinemia.. Because of the stroke, he developed a central fever and respiratory failure. He underwent hemorrhagic transformation, so a craniectomy was performed to reduce brain swelling and prevent/minimize brain herniation. Following surgery, the pt was continually assessed in the ICU, and pressors and ventilator settings were weaned as tolerated. Per family, pt was to receive a tracheostomy and peg tube for terminal operator care. On 03/06, Dr. Canseco was called by the nurse that the patient was in asystole. Pupils were not reactive, there were no audible heart sounds, and no spontaneous breathing. Family was at bedside. The patient was pronounced at 12:44pm. Date of Discharge: 03/06/17 Minutes to complete discharge: 32 Discharge Summary Reason For Visit: CEREBROVASCULAR ACCIDENT(CVA) Condition: - Instructions Disposition: - Home Medications Comprehensive Discharge Medication List: Ambulatory Orders Allopurinol [Zyloprim -] 100 mg PO DAILY #30 tablet 02/26/17 Aspirin [Aspirin EC] 81 mg PO DAILY #30 tablet. 02/26/17 Bumetanide [Bumex -] 2 mg PO BID #30 tablet 02/26/17 Carvedilol [Coreg -] 12.5 mg PO BID #14 tablet 02/26/17 Digoxin [Lanoxin -] 0.25 mg PO DAILY #30 tablet 02/26/17 Febuxostat [Uloric -] 40 mg PO DAILY #30 tab 02/26/17 Oxycodone HCl/Acetaminophen [Percocet 5-325 mg Tablet] 1 tab PO Q6H PRN #20 tablet MDD 8 tablets 02/26/17 Prednisone [Deltasone -] 5 mg PO DAILY #30 tablet 02/26/17 Sertraline HCl [Zoloft -] 25 mg PO DAILY #30 tablet 02/26/17 Warfarin Na [Coumadin -] 5 mg PO DAILY@1800 #30 tablet 02/26/17 This patient is new to me today: No Emergency Visit: Yes ED Registration Date: 02/25/17 Care time: The patient presented to the Emergency Department on the above date and was hospitalized for further evaluation of their emergent condition. Critical Care patient: Yes Total Critical Care Time (in minutes): 36 Critical Care Statement: The care of this patient involved high complexity decision making to prevent further life threatening deterioration of the patient 's condition and/or to evaluate & treat vital organ system(s) failure or risk of failure. - Discharge Referral Referred to [facility] Med P.C.: No
== END 2017-03-06 16:00 | disposition expired | DRG 23 ==
LOC: JER 19:49 → JERBED 23:00 → JICU 02-26 02:18
PROVIDERS: ADMIT Internal Medicine; ATTEND Internal Medicine
PROC: 0BH17EZ Insertion of Endotracheal Airway into Trachea, Via Natural or Artificial Opening (ICD-10-PCS; 2017-02-25)
PROC: 5A1955Z Respiratory Ventilation, Greater than 96 Consecutive Hours (ICD-10-PCS; 2017-02-25)
PROC: 02HV33Z Insertion of Infusion Device into Superior Vena Cava, Percutaneous Approach (ICD-10-PCS; 2017-02-25)
PROC: B548ZZA Ultrasonography of Superior Vena Cava, Guidance (ICD-10-PCS; 2017-02-25)
PROC: 0NS00ZZ Reposition Skull, Open Approach (ICD-10-PCS; 2017-02-26)
PROC: 00N00ZZ Release Brain, Open Approach (ICD-10-PCS; principal; 2017-02-26 20:00)
DX: I63.412 Cerebral infarction due to embolism of left middle cerebral artery (principal); A41.9 Sepsis, unspecified organism; J69.0 Pneumonitis due to inhalation of food and vomit; J96.01 Acute respiratory failure with hypoxia; I50.23 Acute on chronic systolic (congestive) heart failure; I21.4 Non-ST elevation (NSTEMI) myocardial infarction; G93.6 Cerebral edema; N17.0 Acute kidney failure with tubular necrosis; G81.91 Hemiplegia, unspecified affecting right dominant side; E87.2 Acidosis; D68.8 Other specified coagulation defects; I42.8 Other cardiomyopathies; R29.810 Facial weakness; I48.91 Unspecified atrial fibrillation; I25.10 Atherosclerotic heart disease of native coronary artery without angina pectoris; Z95.1 Presence of aortocoronary bypass graft; J44.9 Chronic obstructive pulmonary disease, unspecified; E78.00 Pure hypercholesterolemia, unspecified; E11.9 Type 2 diabetes mellitus without complications; I45.81 Long QT syndrome; I25.5 Ischemic cardiomyopathy; I36.1 Nonrheumatic tricuspid (valve) insufficiency; Z95.4 Presence of other heart-valve replacement; R57.0 Cardiogenic shock; R74.0 Nonspecific elevation of levels of transaminase and lactic acid dehydrogenase [LDH]; Z87.891 Personal history of nicotine dependence; T17.210A Gastric contents in pharynx causing asphyxiation, initial encounter; Y92.89 Other specified places as the place of occurrence of the external cause; I27.2 Other secondary pulmonary hypertension; N18.9 Chronic kidney disease, unspecified; D72.829 Elevated white blood cell count, unspecified; E83.39 Other disorders of phosphorus metabolism
CPT/HCPCS: 36415; 36430; 36600; 70450-TC; 71010-TC; 74000-TC; 76775-TC; 80048; 80053; 81003; 81015; 82436; 82465; 82570; 82803; 83605; 83718; 83721; 83735; 84100; 84133; 84300; 84478; 84484; 84540; 85025; 85027; 85610; 85730; 86850; 86900; 86901; 87040; 87070; 87086; 87205; 88302-TC; 88311-TC; 93005; 93010; 93306-TC; 93880-TC; 94002; 99285-25; G0480; J1250; J1644; P9017